=== PATIENT | male | born 1945 | race Caucasian/White ===

== ENCOUNTER 2018-07-04 09:45 | Emergency (ER) | payer MEDICARE, OTHER ==
--- NOTE | 2018-07-04 10:20 | EDM.PDOC ---
ED HPI GENERAL MEDICAL PROBLEM - General Chief Complaint: Respiratory Problem Stated Complaint: lethargic, hypoxia Time Seen by Provider: 07/04/18 10:14 Source of Information: Reports: Patient, RN Notes Reviewed History Limitations: Reports: No Limitations - History of Present Illness Onset Time: 10:15 Duration: Improving Location: Reports: Neck, Chest Quality: Reports: Stabbing, Throbbing Severity: Moderate Improves with: Reports: None Worsens with: Reports: Movement Associated Symptoms: Reports: Cough, Fever/Chills Bilateral Arms Pain Score (Numeric/FACES): 9 - Related Data Allergies Allergy/AdvReac Type Severity Reaction Status Date / Time sulfamethoxazole Allergy unknown Verified 07/04/18 10:02 [From ] trimethoprim [From ] Allergy unknown Verified 07/04/18 10:02 Home Meds: Home Meds Albuterol/Ipratropium [DuoNeb 3.0-0.5 MG/3 ML] 3 ml INH Q4H PRN 07/04/18 [ History] Albuterol/Ipratropium [DuoNeb 3.0-0.5 MG/3 ML] 3 ml INH TID@0800,1300,07/04 [History] Apixaban [Eliquis] 5 mg PO BID@0800,199907/04/18 [History] Atenolol 6.25 mg PO BID@0800,199907/04/18 [History] Betamethasone Dipropionate [Diprosone 0.05% Crm] 1 applic TOP BID PRN 07/04/18 [ History] Clotrimazole [Clotrimazole 1%] 1 applic TOP BID PRN 07/04/18 [History] Cyclobenzaprine [Flexeril] 10 mg PO TID@0800,1400,199907/04/18 [History] Gabapentin [Neurontin] 800 mg PO TID 07/04/18 [History] Hydrocodone/Acetaminophen [Hydrocodon-Acetaminophen 5-325] 1 each PO Q4H PRN 12/13 [History] Insulin Glarg,Human.Rec.Analog [Lantus Solostar] 10 units SUBCUT QAM 07/04/18 [ History] Ketoconazole [Ketoconazole 2%] 1 applic TOP DAILY PRN 07/04/18 [History] Levothyroxine Sodium [Synthroid] 125 mcg PO QAM 07/04/18 [History] Lisinopril 10 mg PO QAM 07/04/18 [History] Magnesium Hydroxide [Milk of Magnesia] 30 ml PO BID PRN 07/04/18 [History] Melatonin 6 mg PO BEDTIME 07/04/18 [History] Menthol [[place] Sugar Free] 1 carlin PO Q2H PRN 07/04/18 [History] Methyl Salicylate/Menthol [Muscle Rub] 1 applic TOP DAILY@209907/04/18 [History ] Methyl Salicylate/Menthol [Muscle Rub] 1 applic TOP QID PRN 07/04/18 [History] Morphine Sulfate [Morphabond ER] 30 mg PO BID@0800,199907/04/18 [History] Multivitamins [Tab-A-Gentry] 1 tab PO QAM 07/04/18 [History] Phenylephrine HCl [Sudogest PE] 10 mg PO Q4H PRN MDD 6 tabs in 24 hours [History] Sennosides/Docusate Sodium [Senna Plus Tablet] 1 tab PO BID@08,199907/04/18 [ History] Simvastatin 20 mg PO BEDTIME 07/04/18 [History] amLODIPine [Norvasc] 5 mg PO QPM 07/04/18 [History] buPROPion [Wellbutrin SR] 100 mg PO Q12HR 07/04/18 [History] guaiFENesin [Mucinex] 600 mg PO BID PRN 07/04/18 [History] guaiFENesin/Dextromethorphan [Tussin Dm Cough Syrup] 10 ml PO Q4H PRN 07/04/18 [ History] hydroCHLOROthiazide [Hydrochlorothiazide] 12.5 mg PO QAM 07/04/18 [History] predniSONE [Prednisone] 7.5 mg PO DAILY 07/04/18 [History] traZODone HCl [Trazodone HCl] 150 mg PO BEDTIME 07/04/18 [History] ED ROS GENERAL - Review of Systems Review Of Systems: See Below Constitutional: Reports: Fever HEENT: Reports: No Symptoms Respiratory: Reports: Shortness of Breath, Cough Cardiovascular: Reports: Lightheadedness Endocrine: Reports: No Symptoms GI/Abdominal: Reports: No Symptoms : Reports: No Symptoms Musculoskeletal: Reports: Neck Pain, Shoulder Pain, Arm Pain, Muscle Pain, Muscle Stiffness Skin: Reports: No Symptoms Neurological: Reports: Numbness, Tremors, Weakness Psychiatric: Reports: No Symptoms Hematologic/Lymphatic: Reports: No Symptoms ED EXAM, GENERAL - Physical Exam Exam: See Below Exam Limited By: No Limitations General Appearance: Alert, WD/WN, No Apparent Distress Ears: Normal External Exam, Normal Canal, Hearing Grossly Normal, Normal TMs Nose: Normal Inspection, Normal Mucosa, No Blood Throat/Mouth: Normal Inspection Head: Atraumatic Neck: Limited Range of Motion Respiratory/Chest: Decreased Breath Sounds, Prolonged Expiration GI/Abdominal: Normal Bowel Sounds, Soft, Non-Tender, No Organomegaly, No Distention, No Abnormal Bruit, No Mass (Male) Exam: Deferred Rectal (Males) Exam: Deferred Back Exam: Decreased Range of Motion Extremities: Other (Right arm pain and left arm tingling with some shakes and tremors of both extremities right greater than left) Neurological: Alert, Oriented, CN II-XII Intact, Normal Cognition, Normal Gait, Normal Reflexes, No Motor/Sensory Deficits Psychiatric: Normal Affect, Normal Mood Skin Exam: Warm, Dry, Intact, Normal Color, No Rash Lymphatic: No Adenopathy Course - Vital Signs Last Recorded V/S: Last Vital Signs Temp 99.9 F 07/04/18 10:10 Pulse 74 07/04/18 10:10 Resp 16 07/04/18 10:10 BP 173/88 H 07/04/18 10:10 Pulse Ox 90 L 07/04/18 11:30 - Orders/Labs/Meds Orders: Active Orders 24 hr Category Date Time Status RT Aerosol Therapy [RC] ASDIRECTED Care 07/04/18 12:02 Active Chest 2V [CR] Stat Exams 07/04/18 10:11 Taken CULTURE BLOOD [BC] Stat Lab 07/04/18 10:15 Received CULTURE BLOOD [BC] Stat Lab 07/04/18 10:35 Received Morphine Med 07/04/18 12:06 Once 2 mg IVPUSH ONETIME ONE Blood Culture x2 Reflex Set [OM.PC] Stat Oth 07/04/18 10:12 Ordered Medication Orders Morphine Sulfate (Morphine) 2 mg IVPUSH ONETIME ONE Stop: 07/04/18 12:07 Labs: Laboratory Tests 07/04/18 07/04/18 07/04/18 Range/Units 10:35 10:35 10:35 WBC 8.2 (4.0-10.2) K/uL RBC 4.63 (4.33-5.41) M/uL Hgb 15.1 (13.1-16.8) g/dL Hct 46.4 (39.0-49.0) % MCV 100.2 H (84.0-98.0) fL MCH 32.6 (28.2-33.3) pg MCHC 32.5 (31.7-36.0) g/dL RDW 14.7 H (11.2-14.1) % Plt Count 184 (150-350) K/uL Neut % (Auto) 77.5 (45.0-80.0) % Lymph % (Auto) 9.2 L (10.0-50.0) % [place] % (Auto) 10.8 (2.0-14.0) % Eos % (Auto) 1.8 (0.0-5.0) % Baso % (Auto) 0.7 (0.0-2.0) % Neut # (Auto) 6.37 (1.40-7.00) K/uL Lymph # (Auto) 0.76 (0.50-3.50) K/uL [place] # (Auto) 0.89 (0.00-1.00) K/uL Eos # (Auto) 0.15 (0.00-0.50) K/uL Baso # (Auto) 0.06 (0.00-0.20) K/uL Sodium 141 (136-145) mmol/L Potassium 4.2 (3.5-5.1) mmol/L Chloride 99 (98-107) mmol/L Carbon Dioxide 35.8 H (21.0-32.0) mmol/L BUN 45 H (7-18) mg/dL Creatinine 1.77 H (0.51-1.17) mg/dL Est Cr Clr Drug Dosing 38.83 mL/min Estimated GFR (MDRD) 38 mL/min Glucose 198 H (74-106) mg/dL Calcium 9.7 (8.5-10.1) mg/dL Total Bilirubin 0.5 (0.2-1.0) mg/dL AST 21 (15-37) U/L ALT 40 (12-78) U/L Alkaline Phosphatase 80 (46-116) IU/L NT-Pro-B Natriuret Pep 90 (0-125) pg/mL Total Protein 7.0 (6.4-8.2) g/dL Albumin 3.6 (3.4-5.0) g/dL Meds: Medications Generic Name Dose Route Start Last Admin Trade Name Freq PRN Reason Stop Dose Admin Morphine Sulfate 2 mg 07/04/18 12:06 Morphine IVPUSH 07/04/18 12:07 ONETIME ONE Discontinued Medications Generic Name Dose Route Start Last Admin Trade Name Freq PRN Reason Stop Dose Admin Albuterol/Ipratropium 3 ml 07/04/18 12:02 Duoneb 3.0-0.5 Mg/3 Ml NEB 07/04/18 12:03 ONETIME ONE Departure - Departure Time of Disposition: 11:58 Disposition: Home, Self-Care 01 Condition: Fair Clinical Impression: Pneumonia Qualifiers: Aspiration pneumonia type: unspecified Laterality: right Lung location: lower lobe of lung - Discharge Information *PRESCRIPTION DRUG MONITORING PROGRAM REVIEWED*: No *COPY OF PRESCRIPTION DRUG MONITORING REPORT IN PATIENT COLEEN: No Referrals: Sheets-Montserrat Camacho MD [Primary Care Provider] - Forms: ED Department Discharge Care Plan Goals: Patient will be sent home on Levaquin 500 daily (plus Augmentin 875 twice a day for 10 days and duo nebs every 4 hours when necessary encourage deep breathing and coughing and pain meds as per private M.D. patient given morphine sulfate IV 2 mg at this time continue with oxygen 2-3 L as needed . - My Orders Last 24 Hours: My Active Orders 07/04/18 10:11 Chest 2V [CR] Stat 07/04/18 10:12 Blood Culture x2 Reflex Set [OM.PC] Stat 07/04/18 10:15 CULTURE BLOOD [BC] Stat 07/04/18 10:35 CULTURE BLOOD [BC] Stat 07/04/18 12:02 RT Aerosol Therapy [RC] ASDIRECTED 07/04/18 12:06 Morphine 2 mg IVPUSH ONETIME ONE - Assessment/Plan Last 24 Hours: My Active Orders 07/04/18 10:11 Chest 2V [CR] Stat 07/04/18 10:12 Blood Culture x2 Reflex Set [OM.PC] Stat 07/04/18 10:15 CULTURE BLOOD [BC] Stat 07/04/18 10:35 CULTURE BLOOD [BC] Stat 07/04/18 12:02 RT Aerosol Therapy [RC] ASDIRECTED 07/04/18 12:06 Morphine 2 mg IVPUSH ONETIME ONE
[2018-07-04] MEDS ORDERED: Albuterol/Ipratropium 3.0-0.5 MG/3 ML Neb Soln NEB ONE (12:02)
[2018-07-04] MEDS ORDERED: Morphine 2 MG/ML Syringe IVPUSH ONE (12:06)
== END 2018-07-04 12:40 | disposition home or self-care (01) ==
LOC: LL.ED 09:45
DX: J18.1 Lobar pneumonia, unspecified organism (principal); Z79.899 Other long term (current) drug therapy; Z79.4 Long term (current) use of insulin; Z88.2 Allergy status to sulfonamides; Z88.8 Allergy status to other drugs, medicaments and biological substances
CPT/HCPCS: 36415; 71046; 80053; 83880; 85025; 87040; 94640; 96374; 99285; J2270; J7620-GY

== ENCOUNTER 2018-07-04 16:53 | Emergency (ER) | payer MEDICARE, OTHER ==
[2018-07-04] MEDS ORDERED: Furosemide 40 MG/4 ML VIAL IVPUSH ONE (17:07)
[2018-07-04] MEDS ORDERED: Levofloxacin/Dextrose 5%-Water 750 MG in Premix Bag 1 BAG IV SCH (17:15)
[2018-07-04] MEDS ORDERED: Piperacillin/Tazobactam 3.375 GM in Sodium Chloride 0.9% 100 ML IV SCH (17:30)
[2018-07-04 17:53] LABS: CHLORIDE,CL 101 mmol/L (98-107); SODIUM,NA 140 mmol/L (136-145)
[2018-07-04 18:01] LABS: O2 DELIVERY DEVICE SIMPLE MASK
[2018-07-04 18:02] LABS: BASE EXCESS ARTERIAL 9 mmol/L (-2-3); O2 SATURATION ARTERIAL 91 % (95-98); PCO2 ARTERIAL 76 mmHG (35-45); PO2 ARTERIAL 71 mmHG (80-105)
[2018-07-04 18:03] LABS: O2 FLOW RATE 6 L/min
[2018-07-04 19:26] LABS: O2 DELIVERY DEVICE BIPAP
[2018-07-04 19:27] LABS: BASE EXCESS ARTERIAL 9 mmol/L (-2-3); O2 SATURATION ARTERIAL 95 % (95-98); PCO2 ARTERIAL 74 mmHG (35-45); PO2 ARTERIAL 89 mmHG (80-105)
--- NOTE | 2018-07-04 19:41 | EDM.PDOC ---
ED HPI GENERAL MEDICAL PROBLEM - General Chief Complaint: Respiratory Problem Stated Complaint: lethargic Time Seen by Provider: 07/04/18 16:55 Source of Information: Reports: Fpc Records History Limitations: Reports: Altered Mental Status - History of Present Illness INITIAL COMMENTS - FREE TEXT/NARRATIVE: Patient is a 72-year-old who was seen earlier with pneumonia sent back to the correction progressively got worse over the next 4 hours was brought in lethargic and hypoxic shortness of breath gurgling Onset: Sudden Duration: Hour(s):, Getting Worse Location: Reports: Chest Severity: Severe Improves with: Reports: None Worsens with: Reports: None Context: Reports: Other (Ill) Associated Symptoms: Reports: Confusion, Fever/Chills, Shortness of Breath Treatments TABLE ATTENDANT: Reports: Breathing Treatments - Related Data Allergies Allergy/AdvReac Type Severity Reaction Status Date / Time sulfamethoxazole Allergy unknown Verified 07/04/18 10:02 [From ] trimethoprim [From ] Allergy unknown Verified 07/04/18 10:02 Home Meds: Home Meds Albuterol/Ipratropium [DuoNeb 3.0-0.5 MG/3 ML] 3 ml INH Q4H PRN 07/04/18 [ History] Albuterol/Ipratropium [DuoNeb 3.0-0.5 MG/3 ML] 3 ml INH TID@0800,1300,07/04 [History] Apixaban [Eliquis] 5 mg PO BID@0800,199907/04/18 [History] Atenolol 6.25 mg PO BID@0800,199907/04/18 [History] Betamethasone Dipropionate [Diprosone 0.05% Crm] 1 applic TOP BID PRN 07/04/18 [ History] Clotrimazole [Clotrimazole 1%] 1 applic TOP BID PRN 07/04/18 [History] Cyclobenzaprine [Flexeril] 10 mg PO TID@0800,1400,199907/04/18 [History] Gabapentin [Neurontin] 800 mg PO TID 07/04/18 [History] Hydrocodone/Acetaminophen [Hydrocodon-Acetaminophen 5-325] 1 each PO Q4H PRN 12/13 [History] Insulin Glarg,Human.Rec.Analog [Lantus Solostar] 10 units SUBCUT QAM 07/04/18 [ History] Ketoconazole [Ketoconazole 2%] 1 applic TOP DAILY PRN 07/04/18 [History] Levothyroxine Sodium [Synthroid] 125 mcg PO QAM 07/04/18 [History] Lisinopril 10 mg PO QAM 07/04/18 [History] Magnesium Hydroxide [Milk of Magnesia] 30 ml PO BID PRN 07/04/18 [History] Melatonin 6 mg PO BEDTIME 07/04/18 [History] Menthol [[place] Sugar Free] 1 carlin PO Q2H PRN 07/04/18 [History] Methyl Salicylate/Menthol [Muscle Rub] 1 applic TOP DAILY@209907/04/18 [History ] Methyl Salicylate/Menthol [Muscle Rub] 1 applic TOP QID PRN 07/04/18 [History] Morphine Sulfate [Morphabond ER] 30 mg PO BID@0800,199907/04/18 [History] Multivitamins [Tab-A-Gentry] 1 tab PO QAM 07/04/18 [History] Phenylephrine HCl [Sudogest PE] 10 mg PO Q4H PRN MDD 6 tabs in 24 hours [History] Sennosides/Docusate Sodium [Senna Plus Tablet] 1 tab PO BID@0800,199907/04/18 [ History] Simvastatin 20 mg PO BEDTIME 07/04/18 [History] amLODIPine [Norvasc] 5 mg PO QPM 07/04/18 [History] buPROPion [Wellbutrin SR] 100 mg PO Q12HR 07/04/18 [History] guaiFENesin [Mucinex] 600 mg PO BID PRN 07/04/18 [History] guaiFENesin/Dextromethorphan [Tussin Dm Cough Syrup] 10 ml PO Q4H PRN 07/04/18 [ History] hydroCHLOROthiazide [Hydrochlorothiazide] 12.5 mg PO QAM 07/04/18 [History] predniSONE [Prednisone] 7.5 mg PO DAILY 07/04/18 [History] traZODone HCl [Trazodone HCl] 150 mg PO BEDTIME 07/04/18 [History] Past Medical History HEENT History: Reports: Impaired Vision, Other (See Below) Other HEENT History: wears glasses. 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 polymyalgia rheumatica. cervicalgia Neurological History: Reports: CVA Psychiatric History: Reports: Addiction, Depression, PTSD Other Psychiatric History: hx. alcoholism Endocrine/Metabolic History: Reports: Diabetes, Type II, Hypothyroidism, Obesity /BMI 30+ Dermatologic History: Reports: Seborrheic Dermatitis - Past Surgical History GI Surgical History: Reports: Cholecystectomy Social & Family History - Tobacco Use Smoking Status *Q: Former Smoker Used Tobacco, but Quit: Yes Month/Year Tobacco Last Used: 2004 - Caffeine Use Caffeine Use: Reports: Soda, Tea - Recreational Drug Use Recreational Drug Use: No ED ROS GENERAL - Review of Systems Review Of Systems: See Below Constitutional: Reports: Fever HEENT: Reports: No Symptoms Respiratory: Reports: Shortness of Breath Cardiovascular: Reports: No Symptoms Endocrine: Reports: No Symptoms GI/Abdominal: Reports: No Symptoms : Reports: Other (Catheter) Musculoskeletal: Reports: No Symptoms Skin: Reports: No Symptoms Neurological: Reports: No Symptoms Psychiatric: Reports: No Symptoms Hematologic/Lymphatic: Reports: No Symptoms Immunologic: Reports: No Symptoms ED EXAM, GENERAL - Physical Exam Exam: See Below Exam Limited By: Altered Mental Status General Appearance: Obtunded Ears: Normal External Exam, Normal Canal, Hearing Grossly Normal, Normal TMs Nose: Normal Inspection Throat/Mouth: Normal Inspection, Normal Lips, Normal Teeth, Normal Gums, Normal Oropharynx, Normal Voice, No Airway Compromise Head: Atraumatic, Normocephalic Neck: Normal Inspection, Supple Respiratory/Chest: Respiratory Distress, Decreased Breath Sounds, Rales Cardiovascular: Regular Rate, Rhythm, No Murmur, Other (Edema). No: Systolic Murmur Extremities: Pedal Edema (+2) Neurological: Unresponsive ED RESPIRATORY PROCEDURES - Endotracheal Intubation Time of Intubation: 20:00 ET Intubation Indication: Respiratory Failure Preparation: Suction, Balloon Tested, BVM Set Up, Difficult Airway Equip Airway Assessment: Obese, Large Tongue Pre-Oxygenation: Assisted with BVM, 100% FiO2 Anesthesia Meds: Midazolam, Rocuronium Placement: Uncomplicated Placement Cords Visualized: Yes Number of Attempts: 1 Confirmed By: CO2 Indicator, Bilateral Breath Sounds, Chest Xray Tube Secured By: By Provider Course - Vital Signs Last Recorded V/S: Last Vital Signs Temp 98.2 F 07/04/18 21:29 Pulse 85 07/04/18 21:29 Resp 12 07/04/18 21:29 BP 114/100 H 07/04/18 21:29 Pulse Ox 94 L 07/04/18 21:29 - Orders/Labs/Meds Labs: Laboratory Tests 07/04/18 07/04/18 07/04/18 Range/Units 17:25 17:25 17:25 WBC 7.7 (4.0-10.2) K/uL RBC 4.58 (4.33-5.41) M/uL Hgb 14.9 (13.1-16.8) g/dL Hct 46.0 (39.0-49.0) % MCV 100.4 H (84.0-98.0) fL MCH 32.5 (28.2-33.3) pg MCHC 32.4 (31.7-36.0) g/dL RDW 14.6 H (11.2-14.1) % Plt Count 197 (150-350) K/uL Neut % (Auto) 75.4 (45.0-80.0) % Lymph % (Auto) 11.0 (10.0-50.0) % [place] % (Auto) 11.4 (2.0-14.0) % Eos % (Auto) 1.6 (0.0-5.0) % Baso % (Auto) 0.6 (0.0-2.0) % Neut # (Auto) 5.84 (1.40-7.00) K/uL Lymph # (Auto) 0.85 (0.50-3.50) K/uL [place] # (Auto) 0.88 (0.00-1.00) K/uL Eos # (Auto) 0.12 (0.00-0.50) K/uL Baso # (Auto) 0.05 (0.00-0.20) K/uL ABG pH (7.35-7.45) ABG pCO2 (35-45) mmHG ABG pO2 (80-105) mmHG ABG HCO3 (22-26) mmol/L ABG Total CO2 (23-27) mmol/L ABG O2 Saturation (95-98) % ABG Base Excess (-2-3) mmol/L O2 Delivery Device Oxygen Flow Rate L/min Sodium 140 (136-145) mmol/L Potassium 4.7 (3.5-5.1) mmol/L Chloride 101 (98-107) mmol/L Carbon Dioxide 36.4 H (21.0-32.0) mmol/L BUN 43 H (7-18) mg/dL Creatinine 1.69 H (0.51-1.17) mg/dL Est Cr Clr Drug Dosing TNP Estimated GFR (MDRD) 40 mL/min Glucose 201 H (74-106) mg/dL Lactic Acid (0.4-2.0) mmol/L Calcium 9.4 (8.5-10.1) mg/dL Troponin I (0.000-0.056) ng/mL NT-Pro-B Natriuret Pep 127 H (0-125) pg/mL 07/04/18 07/04/18 07/04/18 Range/Units 17:25 17:25 17:45 WBC (4.0-10.2) K/uL RBC (4.33-5.41) M/uL Hgb (13.1-16.8) g/dL Hct (39.0-49.0) % MCV (84.0-98.0) fL MCH (28.2-33.3) pg MCHC (31.7-36.0) g/dL RDW (11.2-14.1) % Plt Count (150-350) K/uL Neut % (Auto) (45.0-80.0) % Lymph % (Auto) (10.0-50.0) % [place] % (Auto) (2.0-14.0) % Eos % (Auto) (0.0-5.0) % Baso % (Auto) (0.0-2.0) % Neut # (Auto) (1.40-7.00) K/uL Lymph # (Auto) (0.50-3.50) K/uL [place] # (Auto) (0.00-1.00) K/uL Eos # (Auto) (0.00-0.50) K/uL Baso # (Auto) (0.00-0.20) K/uL ABG pH 7.28 L* (7.35-7.45) ABG pCO2 76 H* (35-45) mmHG ABG pO2 71 L* (80-105) mmHG ABG HCO3 36.0 H (22-26) mmol/L ABG Total CO2 38 H (23-27) mmol/L ABG O2 Saturation 91 L (95-98) % ABG Base Excess 9 H (-2-3) mmol/L O2 Delivery Device Simple mask Oxygen Flow Rate 6 L/min Sodium (136-145) mmol/L Potassium (3.5-5.1) mmol/L Chloride (98-107) mmol/L Carbon Dioxide (21.0-32.0) mmol/L BUN (7-18) mg/dL Creatinine (0.51-1.17) mg/dL Est Cr Clr Drug Dosing Estimated GFR (MDRD) mL/min Glucose (74-106) mg/dL Lactic Acid 1.4 (0.4-2.0) mmol/L Calcium (8.5-10.1) mg/dL Troponin I 0.000 (0.000-0.056) ng/mL NT-Pro-B Natriuret Pep (0-125) pg/mL 07/04/18 07/04/18 07/04/18 Range/Units 19:20 20:15 21:15 WBC (4.0-10.2) K/uL RBC (4.33-5.41) M/uL Hgb (13.1-16.8) g/dL Hct (39.0-49.0) % MCV (84.0-98.0) fL MCH (28.2-33.3) pg MCHC (31.7-36.0) g/dL RDW (11.2-14.1) % Plt Count (150-350) K/uL Neut % (Auto) (45.0-80.0) % Lymph % (Auto) (10.0-50.0) % [place] % (Auto) (2.0-14.0) % Eos % (Auto) (0.0-5.0) % Baso % (Auto) (0.0-2.0) % Neut # (Auto) (1.40-7.00) K/uL Lymph # (Auto) (0.50-3.50) K/uL [place] # (Auto) (0.00-1.00) K/uL Eos # (Auto) (0.00-0.50) K/uL Baso # (Auto) (0.00-0.20) K/uL ABG pH 7.29 L* 7.22 L* 7.39 (7.35-7.45) ABG pCO2 74 H* 88 H* 63 H* (35-45) mmHG ABG pO2 89 68 L* 96 (80-105) mmHG ABG HCO3 36.0 H 36.0 H 37.0 H (22-26) mmol/L ABG Total CO2 38 H 38 H 39 H (23-27) mmol/L ABG O2 Saturation 95 88 L 97 (95-98) % ABG Base Excess 9 H 8 H 12 H (-2-3) mmol/L O2 Delivery Device Bipap Bipap Ventilator Oxygen Flow Rate L/min Sodium (136-145) mmol/L Potassium (3.5-5.1) mmol/L Chloride (98-107) mmol/L Carbon Dioxide (21.0-32.0) mmol/L BUN (7-18) mg/dL Creatinine (0.51-1.17) mg/dL Est Cr Clr Drug Dosing Estimated GFR (MDRD) mL/min Glucose (74-106) mg/dL Lactic Acid (0.4-2.0) mmol/L Calcium (8.5-10.1) mg/dL Troponin I (0.000-0.056) ng/mL NT-Pro-B Natriuret Pep (0-125) pg/mL Meds: Medications Discontinued Medications Generic Name Dose Route Start Last Admin Trade Name Freq PRN Reason Stop Dose Admin Furosemide 40 mg 07/04/18 17:07 07/04/18 17:50 Lasix IVPUSH 07/04/18 17:08 40 mg NOW ONE Administration Levofloxacin/Dextrose 750 mg/ 150 mls @ 100 mls/hr 07/04/18 17:15 07/04/18 17 :50 Premix IV 100 mls/hr Q24H MIKIE Administration Piperacillin Sod/Tazobactam 100 mls @ 200 mls/hr 07/04/18 17:30 07/04/18 17: 50 Sod 3.375 gm/ Sodium Chloride IV 200 mls/hr Q6H MIKIE Administration Midazolam HCl 2 mg 07/04/18 20:30 07/04/18 20:32 Versed 1 Mg/Ml IVPUSH 07/04/18 20:31 2 mg ONETIME ONE Administration Midazolam HCl 1 mg 07/04/18 20:34 07/04/18 20:34 Versed 1 Mg/Ml IVPUSH 07/04/18 20:35 1 mg ONETIME ONE Administration Rocuronium [place] Confirm 07/04/18 19:47 07/04/18 20:00 Zemuron Administered 07/04/18 19:48 Not Given Dose 100 mg .ROUTE .STK-MED ONE Rocuronium [place] Confirm 07/04/18 20:25 07/04/18 20:30 Zemuron Administered 07/04/18 20:26 Not Given Dose 100 mg .ROUTE .STK-MED ONE Rocuronium [place] Confirm 07/04/18 21:35 07/04/18 21:00 Zemuron Administered 07/04/18 21:36 Not Given Dose 100 mg .ROUTE .STK-MED ONE Rocuronium [place] 60 mg 07/04/18 20:30 07/04/18 20:34 Zemuron IVPUSH 07/04/18 20:31 60 mg ONETIME ONE Administration Departure - Departure Time of Disposition: 21:44 Disposition: DC/[facility] Clinical Impression: Congestive heart failure Qualifiers: Heart failure type: unspecified Heart failure chronicity: acute on chronic Qualified Code(s): I50.9 - Heart failure, unspecified Pneumonia Qualifiers: Aspiration pneumonia type: unspecified Laterality: right Lung location: lower lobe of lung - Discharge Information *PRESCRIPTION DRUG MONITORING PROGRAM REVIEWED*: Not Applicable *COPY OF PRESCRIPTION DRUG MONITORING REPORT IN PATIENT COLEEN: Not Applicable Referrals: PCP,None [Primary Care Provider] - Forms: ED Department Discharge - Problem List & Annotations (1) Congestive heart failure SNOMED Code(s): 94277148 Code(s): I50.9 - HEART FAILURE, UNSPECIFIED Status: Acute Annotation/ Comment:: Patient condition has deteriorated from arrival pH 7.29 PCO2 is 73 PO2 is 89 this is on 50% BiPAP IPAP 14 EPA P4 rate of 14 we will repeat ABGs and 20 minutes if no improvement will intubate and transfer I discussed this with Dr. Hernandez at the OR Qualifiers: Heart failure type: unspecified Heart failure chronicity: acute on chronic Qualified Code(s): I50.9 - Heart failure, unspecified - Problem List Review Problem List Initiated/Reviewed/Updated: Yes - Assessment/Plan Plan: Plan as above we will repeat the ABGs on new settings and follow-up with possible intubation and transfer to [place]
[2018-07-04] MEDS ORDERED: Rocuronium 100 MG/10 ML MDV ONE ×3 (19:47→21:35)
[2018-07-04 20:23] LABS: O2 DELIVERY DEVICE BIPAP; PCO2 ARTERIAL 88 mmHG (35-45)
[2018-07-04 20:24] LABS: BASE EXCESS ARTERIAL 8 mmol/L (-2-3); O2 SATURATION ARTERIAL 88 % (95-98); PO2 ARTERIAL 68 mmHG (80-105)
[2018-07-04] MEDS ORDERED: Midazolam 1 MG/ML 2 ML SDV IVPUSH ONE ×2 (20:30→20:34)
[2018-07-04] MEDS ORDERED: Rocuronium 100 MG/10 ML MDV IVPUSH ONE (20:30)
[2018-07-04 21:25] LABS: BASE EXCESS ARTERIAL 12 mmol/L (-2-3); O2 DELIVERY DEVICE VENTILATOR; O2 SATURATION ARTERIAL 97 % (95-98); PCO2 ARTERIAL 63 mmHG (35-45); PO2 ARTERIAL 96 mmHG (80-105)
--- NOTE | 2018-07-05 01:49 | ER ---
Milton is a 72-year-old who was sent from the [facility] with chief complaint of respiratory distress. Initially, he was seen earlier in the day, diagnosed with pneumonia, and sent home on antibiotics. He progressively got worse, where he developed significant respiratory distress with retaining his CO2. He became obtunded and nonreactive. Initial blood gas revealed a pH of 7.28, pCO2 of 76, and PO2 of 71%. At that time, I discussed was brother code status and told him that the patient wanted to be a do not resuscitate, do not intubate, but the POA over ruled and wanted everything done for him, so we decided to go ahead and intubate him. A second ABG was obtained with a pH of 7.29, pCO2 of 74, and O2 saturations of 89%. This was while on BiPAP and IPAP of 14 and EPAP P of 4, rate of 10. [facility] and told him that I needed to intubate him and send them up. He wanted me to wait another 0.5 hour. We went ahead, and at 8:15 we did another ABG with the same settings, but a rate of 14. His pH went down to 7.22. His CO2 was up at 88, and his pCO2 was 86. At this time, we decided to go ahead and intubate. The patient was intubated under controlled circumstances. We went ahead and gave him Versed 3 mg plus vecuronium 60 IV, and then once the patient was relaxed, under direct vision he was intubated. Intubation went without any complications. We were able to start him on 8 to 10 L of O2 and ventilating him about 14 times per second. After x-rays were obtained, which showed good position of the 2 NG tube. A blood gas was obtained about a half an hour later, which showed his pH to be at 7.39, his pCO2 went down to 63, his PO2 went to 96, and a rate of about 12 breaths per minute. At this time, the [facility] was contacted and agreed to accept him. We will transfer him to Dr. Hernandez for further treatment. He will be sent by ground. The patient is stable. Right now, his saturations is 96. His end tidal CO2 was 42. His rate is 10 to 12, blood pressure 114/100, and pulse of 80. Physical Exam: Patient seen in the ER at this time patient is a pounding and difficult to arouse he had severe hypoxia and hypercapnia head cephalic atraumatic eyes PERRLA throat was clear no redness no exudate lungs bilateral breath sounds decreased throughout with increased rales chest x- ray at this time reveal worsening CHF and pneumonia at this time we discussed this with the brother who is the POA and brother agreed to intubation cardiovascular regular rate and rhythm tachycardic abdomen soft distended nontender no masses no organomegaly extremities reveal +1 edema Assessment: worsening CHF pneumonia Plan At this time, the patient is stable. We have good output of urine. The patient will be sent to the [facility] via ambulance. We will continue him on his Levaquin and his Zosyn. Labs will be sent with the patient. X-rays will be sent with the patient. SWEETIE Wilkins MD /[id number] MTDD
== END 2018-07-04 21:44 ==
LOC: LL.ED 16:53
DX: J18.1 Lobar pneumonia, unspecified organism (principal); I48.91 Unspecified atrial fibrillation; I13.0 Hypertensive heart and chronic kidney disease with heart failure and stage 1 through stage 4 chronic kidney disease, or unspecified chronic kidney disease; I50.9 Heart failure, unspecified; N18.9 Chronic kidney disease, unspecified; E11.22 Type 2 diabetes mellitus with diabetic chronic kidney disease; E03.9 Hypothyroidism, unspecified; F32.9 Major depressive disorder, single episode, unspecified; J44.9 Chronic obstructive pulmonary disease, unspecified; Z86.73 Personal history of transient ischemic attack (TIA), and cerebral infarction without residual deficits; Z79.899 Other long term (current) drug therapy; Z79.4 Long term (current) use of insulin; Z87.891 Personal history of nicotine dependence; Z88.2 Allergy status to sulfonamides; Z88.8 Allergy status to other drugs, medicaments and biological substances; Z88.1 Allergy status to other antibiotic agents
CPT/HCPCS: 31500; 36415; 51702; 71045; 80048; 82803; 83605; 83880; 84484; 85025; 93005; 96365; 96368; 96375; 99285; A4217; J1940; J1956; J2250; J2543; J7050; 43752

== ENCOUNTER 2018-08-01 11:15 | Emergency (ER) | payer MEDICARE, OTHER ==
[2018-08-01] MEDS ORDERED: cefTRIAXone 1 GM in Sodium Chloride 0.9% 100 ML IV ONE (12:41)
[2018-08-01] MEDS ORDERED: Sodium Chloride 0.9% 10 ML Syringe FLUSH PRN (12:41)
[2018-08-01] MEDS ORDERED: Sodium Chloride 0.9% 1,000 ML IV ONE (12:42)
[2018-08-01] MEDS ORDERED: Azithromycin 500 MG in Sodium Chloride 0.9% 250 ML IV ONE (12:42)
--- NOTE | 2018-08-01 13:06 | EDM.PDOC ---
ED HPI GENERAL MEDICAL PROBLEM - General Chief Complaint: Respiratory Problem Stated Complaint: fever 102.2, O2 dependant, low bp Time Seen by Provider: 08/01/18 11:20 Source of Information: Reports: Patient, Other ([facility]) History Limitations: Reports: No Limitations - History of Present Illness INITIAL COMMENTS - FREE TEXT/NARRATIVE: Patient sent here by [facility] due to noted increase in O2 requirements, fever, and increased fatigue. He was seen here about a month ago for similar complaints and ended up worsening and requiring intubation. Discharged from [facility] several weeks ago. Today it was noted that patient had temp of 102. He also slept in until 11 am which is unusual for him. BP noted to also be lower than usual. He wears O2 at night, but not during the day. Today O2 sats were in mid 80s on room air and O2 via NC was started to keep his sats in the low 90s. He has had no cough/no increase in SOB. Denies cold symptoms. Eating and drinking normally. No nausea/emesis/bowel changes. No new pain complaints. Patient himself denies feeling poorly upon arrival and says that he feels like his usual self. 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: Oxygen Lower Back Pain Score (Numeric/FACES): 3 - Related Data Allergies Allergy/AdvReac Type Severity Reaction Status Date / Time morphine Allergy Change Verified 08/01/18 11:19 Mental Status sulfamethoxazole Allergy unknown Verified 08/01/18 11:19 [From ] trimethoprim [From ] Allergy unknown Verified 08/01/18 11:19 Home Meds: Home Meds Albuterol/Ipratropium [DuoNeb 3.0-0.5 MG/3 ML] 3 ml INH BID 07/04/18 [History] Apixaban [Eliquis] 5 mg PO BID@0800,2000 07/04/18 [History] Clotrimazole [Clotrimazole 1%] 1 applic TOP BID PRN 07/04/18 [History] Cyclobenzaprine [Flexeril] 10 mg PO Q8H PRN 07/04/18 [History] Gabapentin [Neurontin] 800 mg PO TID 07/04/18 [History] Insulin Glarg,Human.Rec.Analog [Lantus Solostar] 10 units SUBCUT QAM 07/04/18 [ History] Levothyroxine Sodium [Synthroid] 125 mcg PO QAM 07/04/18 [History] Lisinopril 10 mg PO QAM 07/04/18 [History] Melatonin 6 mg PO BEDTIME 07/04/18 [History] Methyl Salicylate/Menthol [Muscle Rub] 1 applic TOP QID PRN 07/04/18 [History] Sennosides/Docusate Sodium [Senna Plus Tablet] 1 tab PO BID@0800,2000 PRN [History] Simvastatin 20 mg PO BEDTIME 07/04/18 [History] amLODIPine [Norvasc] 5 mg PO QPM 07/04/18 [History] buPROPion [Wellbutrin SR] 100 mg PO Q12HR 07/04/18 [History] hydroCHLOROthiazide [Hydrochlorothiazide] 12.5 mg PO QAM 07/04/18 [History] predniSONE [Prednisone] 7.5 mg PO DAILY 07/04/18 [History] traZODone HCl [Trazodone HCl] 150 mg PO BEDTIME 07/04/18 [History] Acetaminophen 650 mg PO Q6H PRN 08/01/18 [History] Clopidogrel [Plavix] 75 mg PO DAILY 08/01/18 [History] Metoprolol Tartrate 75 mg PO BID 08/01/18 [History] Past Medical History HEENT History: Reports: Impaired Vision, Other (See Below) Other HEENT History: wears glasses. 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 polymyalgia rheumatica. cervicalgia Neurological History: Reports: CVA Psychiatric History: Reports: Addiction, Depression, PTSD Other Psychiatric History: hx. alcoholism Endocrine/Metabolic History: Reports: Diabetes, Type II, Hypothyroidism, Obesity /BMI 30+ Dermatologic History: Reports: Seborrheic Dermatitis - Past Surgical History GI Surgical History: Reports: Cholecystectomy Social & Family History - Caffeine Use Caffeine Use: Reports: Soda, Tea ED ROS GENERAL - Review of Systems Review Of Systems: See Below Constitutional: Reports: Fever, Fatigue (slept longer than usual today). Denies : Chills, Malaise, Weakness, Night Sweats, Diaphoresis, Decreased Appetite, Weight Loss, Weight Gain HEENT: Reports: Glasses. Denies: Rhinitis, Sinus Problem, Throat Pain, Throat Swelling Respiratory: Reports: Shortness of Breath (chronic, denies increase in baseline SOB). Denies: Wheezing, Pleuritic Chest Pain, Cough, Sputum, Hemoptysis Cardiovascular: Reports: Blood Pressure Problem (BP lower than usual today). Denies: Chest Pain, Lightheadedness, Palpitations, Syncope GI/Abdominal: Reports: No Symptoms : Reports: No Symptoms Musculoskeletal: Reports: No Symptoms (No change from baseline chronic pain) Skin: Reports: No Symptoms Neurological: Reports: No Symptoms Psychiatric: Reports: No Symptoms Hematologic/Lymphatic: Reports: No Symptoms ED EXAM, GENERAL - Physical Exam Exam: See Below Exam Limited By: No Limitations General Appearance: Alert, WD/WN, No Apparent Distress Eye Exam: Bilateral Eye: EOMI, PERRL Ears: Normal External Exam, Hearing Grossly Normal Nose: No: Nasal Deformity, Nasal Swelling, Nasal Drainage Throat/Mouth: Normal Lips, Normal Voice, No Airway Compromise Head: Atraumatic, Normocephalic Neck: Normal Inspection, Supple, Non-Tender, Full Range of Motion Respiratory/Chest: Lungs Clear, No Accessory Muscle Use, Chest Non-Tender, Other (decreased breath sounds throughout) Cardiovascular: Regular Rate, Rhythm Peripheral Pulses: 2+: Radial (L), Radial (R) GI/Abdominal: Normal Bowel Sounds, Soft, Non-Tender, No Distention (Male) Exam: Deferred Rectal (Males) Exam: Deferred Back Exam: No: CVA Tenderness (L), CVA Tenderness (R), Muscle Spasm, Paraspinal Tenderness, Vertebral Tenderness Extremities: Non-Tender, Normal Capillary Refill, Pedal Edema (mild, bilateral) . No: Stanley's Sign, Leg Pain, Increased Warmth, Mottled, Pallor, Redness Neurological: Alert, Oriented, Normal Cognition, No Motor/Sensory Deficits Psychiatric: Normal Affect, Normal Mood Skin Exam: Warm, Dry, Intact, Normal Color Course - Vital Signs Last Recorded V/S: Last Vital Signs Temp 36.8 C 08/01/18 11:17 Pulse 90 08/01/18 11:17 Resp 24 H 08/01/18 11:17 BP 97/59 L 08/01/18 11:17 Pulse Ox 93 L 08/01/18 11:17 - Orders/Labs/Meds Orders: Active Orders 24 hr Category Date Time Status Communication Order [RC] ROUTINE Care 08/01/18 14:26 Ordered Chest 2V [CR] Stat Exams 08/01/18 11:20 Taken CULTURE BLOOD [BC] Stat Lab 08/01/18 13:25 Received CULTURE BLOOD [BC] Stat Lab 08/01/18 14:00 Received UA W/MICROSCOPIC [URIN] Stat Lab 08/01/18 14:27 Ordered Sodium Chloride 0.9% [Saline Flush] Med 08/01/18 12:41 Active 10 ml FLUSH ASDIRECTED PRN Blood Culture x2 Reflex Set [OM.PC] Stat Oth 08/01/18 13:16 Ordered Saline Lock Insert [OM.PC] Routine Oth 08/01/18 12:41 Ordered Code Status [Resuscitation Status] Stat Resus Stat 08/01/18 13:03 Ordered Medication Orders Sodium Chloride (Saline Flush) 10 ml FLUSH ASDIRECTED PRN PRN Reason: Keep Vein Open Labs: Laboratory Tests 08/01/18 08/01/18 08/01/18 Range/Units 11:32 11:32 11:32 WBC 16.4 H (4.0-10.2) K/uL RBC 4.65 (4.33-5.41) M/uL Hgb 14.9 (13.1-16.8) g/dL Hct 44.8 (39.0-49.0) % MCV 96.3 D (84.0-98.0) fL MCH 32.0 (28.2-33.3) pg MCHC 33.3 (31.7-36.0) g/dL RDW 14.1 (11.2-14.1) % Plt Count 227 (150-350) K/uL Neut % (Auto) 81.2 H (45.0-80.0) % Lymph % (Auto) 7.7 L (10.0-50.0) % Shannon % (Auto) 9.9 (2.0-14.0) % Eos % (Auto) 0.5 (0.0-5.0) % Baso % (Auto) 0.7 (0.0-2.0) % Neut # (Auto) 13.30 H (1.40-7.00) K/uL Lymph # (Auto) 1.26 (0.50-3.50) K/uL Shannon # (Auto) 1.63 H (0.00-1.00) K/uL Eos # (Auto) 0.08 (0.00-0.50) K/uL Baso # (Auto) 0.12 (0.00-0.20) K/uL D-Dimer, Quantitative 235 (0-400) ng/mL ABG pH (7.35-7.45) ABG pCO2 (35-45) mmHG ABG pO2 (80-105) mmHG ABG HCO3 (22-26) mmol/L ABG Total CO2 (23-27) mmol/L ABG O2 Saturation (95-98) % ABG Base Excess (-2-3) mmol/L O2 Delivery Device Sodium 138 (136-145) mmol/L Potassium 4.3 (3.5-5.1) mmol/L Chloride 98 (98-107) mmol/L Carbon Dioxide 29.9 (21.0-32.0) mmol/L BUN 35 H (7-18) mg/dL Creatinine 1.36 H (0.51-1.17) mg/dL Est Cr Clr Drug Dosing 49.82 mL/min Estimated GFR (MDRD) 52 mL/min Glucose 259 H (74-106) mg/dL Lactic Acid (0.4-2.0) mmol/L Calcium 9.5 (8.5-10.1) mg/dL Total Bilirubin 1.0 (0.2-1.0) mg/dL AST 53 H (15-37) U/L ALT 40 (12-78) U/L Alkaline Phosphatase 89 (46-116) IU/L Total Protein 7.0 (6.4-8.2) g/dL Albumin 2.9 L (3.4-5.0) g/dL 08/01/18 08/01/18 Range/Units 11:32 13:50 WBC (4.0-10.2) K/uL RBC (4.33-5.41) M/uL Hgb (13.1-16.8) g/dL Hct (39.0-49.0) % MCV (84.0-98.0) fL MCH (28.2-33.3) pg MCHC (31.7-36.0) g/dL RDW (11.2-14.1) % Plt Count (150-350) K/uL Neut % (Auto) (45.0-80.0) % Lymph % (Auto) (10.0-50.0) % Shannon % (Auto) (2.0-14.0) % Eos % (Auto) (0.0-5.0) % Baso % (Auto) (0.0-2.0) % Neut # (Auto) (1.40-7.00) K/uL Lymph # (Auto) (0.50-3.50) K/uL Shannon # (Auto) (0.00-1.00) K/uL Eos # (Auto) (0.00-0.50) K/uL Baso # (Auto) (0.00-0.20) K/uL D-Dimer, Quantitative (0-400) ng/mL ABG pH 7.40 (7.35-7.45) ABG pCO2 48 H (35-45) mmHG ABG pO2 80 (80-105) mmHG ABG HCO3 29.8 H (22-26) mmol/L ABG Total CO2 31 H (23-27) mmol/L ABG O2 Saturation 96 (95-98) % ABG Base Excess 5 H (-2-3) mmol/L O2 Delivery Device Nasal cannula Sodium (136-145) mmol/L Potassium (3.5-5.1) mmol/L Chloride (98-107) mmol/L Carbon Dioxide (21.0-32.0) mmol/L BUN (7-18) mg/dL Creatinine (0.51-1.17) mg/dL Est Cr Clr Drug Dosing mL/min Estimated GFR (MDRD) mL/min Glucose (74-106) mg/dL Lactic Acid 2.1 H (0.4-2.0) mmol/L Calcium (8.5-10.1) mg/dL Total Bilirubin (0.2-1.0) mg/dL AST (15-37) U/L ALT (12-78) U/L Alkaline Phosphatase (46-116) IU/L Total Protein (6.4-8.2) g/dL Albumin (3.4-5.0) g/dL Meds: Medications Generic Name Dose Route Start Last Admin Trade Name Freq PRN Reason Stop Dose Admin Sodium Chloride 10 ml 08/01/18 12:41 Saline Flush FLUSH ASDIRECTED PRN Keep Vein Open Discontinued Medications Generic Name Dose Route Start Last Admin Trade Name Freq PRN Reason Stop Dose Admin Ceftriaxone Sodium 1 gm/ 100 mls @ 200 mls/hr 08/01/18 12:41 08/01/18 13:50 Sodium Chloride IV 08/01/18 13:10 200 mls/hr ONETIME ONE Administration Azithromycin 500 mg/ Sodium 250 mls @ 250 mls/hr 08/01/18 12:42 08/01/18 14: 43 Chloride IV 08/01/18 13:41 250 mls/hr ONETIME ONE Administration Sodium Chloride 1,000 mls @ 999 mls/hr 08/01/18 12:42 08/01/18 13:09 Normal Saline IV 08/01/18 13:42 500 mls/hr .BOLUS ONE Administration - Radiology Interpretation Free Text/Narrative:: Chest xray did not show obvious acute infiltrate suggestive of pneumonia - Re-Assessments/Exams Free Text/Narrative Re-Assessment/Exam: 08/01/18 13:09 WBC elevated, Lactic acid just above normal range. Patient unable to void initially. Given the labs in addition to the increased O2 need as well as the lower BP, there was some suspicion for developing sepsis. No obvious pneumonia noted on xray. Blood cultures pending. Fluid bolus given, BP improved. Rocephin and Zithromax ordered to cover for potential of developing pneumonia. Call placed to [facility] in [place]. Given potentially developing sepsis based on presentation, and recent history of rapid deterioration requiring intubation after presenting with similar symptoms last month, it was felt that patient should be admitted and monitored. Patient accepted for transfer by from the [facility]. Patient transferred by EMS once bed confirmation obtained. Departure - Departure Time of Disposition: 14:55 Disposition: DC/Tfer to [facility] 43 Condition: Good Clinical Impression: Hypoxemia, Elevated lactic acid level Fever Qualifiers: Fever type: unspecified Qualified Code(s): R50.9 - Fever, unspecified - Discharge Information *PRESCRIPTION DRUG MONITORING PROGRAM REVIEWED*: Not Applicable *COPY OF PRESCRIPTION DRUG MONITORING REPORT IN PATIENT COLEEN: Not Applicable Referrals: PCP,Unknown [Ordering Only Provider] - Forms: ED Department Discharge - My Orders Last 24 Hours: My Active Orders 08/01/18 11:20 Chest 2V [CR] Stat 08/01/18 12:41 Sodium Chloride 0.9% [Saline Flush] 10 ml FLUSH ASDIRECTED PRN Saline Lock Insert [OM.PC] Routine 08/01/18 13:03 Code Status [Resuscitation Status] Stat 08/01/18 13:16 Blood Culture x2 Reflex Set [OM.PC] Stat 08/01/18 13:25 CULTURE BLOOD [BC] Stat 08/01/18 14:00 CULTURE BLOOD [BC] Stat 08/01/18 14:26 Communication Order [RC] ROUTINE 08/01/18 14:27 UA W/MICROSCOPIC [URIN] Stat - Assessment/Plan Last 24 Hours: My Active Orders 08/01/18 11:20 Chest 2V [CR] Stat 08/01/18 12:41 Sodium Chloride 0.9% [Saline Flush] 10 ml FLUSH ASDIRECTED PRN Saline Lock Insert [OM.PC] Routine 08/01/18 13:03 Code Status [Resuscitation Status] Stat 08/01/18 13:16 Blood Culture x2 Reflex Set [OM.PC] Stat 08/01/18 13:25 CULTURE BLOOD [BC] Stat 08/01/18 14:00 CULTURE BLOOD [BC] Stat 08/01/18 14:26 Communication Order [RC] ROUTINE 08/01/18 14:27 UA W/MICROSCOPIC [URIN] Stat
[2018-08-01 13:58] LABS: O2 DELIVERY DEVICE NASAL CANNULA; O2 SATURATION ARTERIAL 96 % (95-98); PCO2 ARTERIAL 48 mmHG (35-45); PO2 ARTERIAL 80 mmHG (80-105)
[2018-08-01 13:59] LABS: BASE EXCESS ARTERIAL 5 mmol/L (-2-3); BICARBONATE,ARTERIAL 29.8 mmol/L (22-26)
== END 2018-08-01 15:25 ==
LOC: LL.ED 11:15
DX: R09.02 Hypoxemia (principal); R50.9 Fever, unspecified; R74.0 Nonspecific elevation of levels of transaminase and lactic acid dehydrogenase [LDH]; I48.91 Unspecified atrial fibrillation; I11.0 Hypertensive heart disease with heart failure; I50.9 Heart failure, unspecified; J44.9 Chronic obstructive pulmonary disease, unspecified; N18.9 Chronic kidney disease, unspecified; E11.22 Type 2 diabetes mellitus with diabetic chronic kidney disease; E03.9 Hypothyroidism, unspecified; E66.9 Obesity, unspecified; Z88.5 Allergy status to narcotic agent; Z88.2 Allergy status to sulfonamides; Z88.1 Allergy status to other antibiotic agents; Z79.899 Other long term (current) drug therapy; Z79.01 Long term (current) use of anticoagulants; Z99.81 Dependence on supplemental oxygen; Z68.31 Body mass index [BMI] 31.0-31.9, adult
CPT/HCPCS: 36415; 51701; 71046; 80053; 81001; 82803; 83605; 85025; 85379; 87040; 87086; 87186; 96361; 96365; 96367; 99284; 99285-25; J0456; J0696; J7030; J7050

== ENCOUNTER 2019-04-20 16:41 | Emergency (ER) | payer MEDICARE, OTHER ==
[2019-04-20 17:21] LABS: CHLORIDE,CL 103 mmol/L (98-107); SODIUM,NA 142 mmol/L (136-145)
--- NOTE | 2019-04-20 18:40 | EDM.PDOC ---
ED HPI GENERAL MEDICAL PROBLEM - General Chief Complaint: Respiratory Problem Stated Complaint: cough, short of breath Time Seen by Provider: 04/20/19 16:45 Source of Information: Reports: Patient History Limitations: Reports: No Limitations - History of Present Illness INITIAL COMMENTS - FREE TEXT/NARRATIVE: Pt brought to ER from [place] home with cough and congestion Was treated over past week for pneumonia Was seen a week ago and treated with Rocephin and Levaquin No fever No chest pain Just with cough and congestion Pt has hx/o COPD and uses oxygen at night Onset: Gradual Duration: Day(s):, Intermittent Location: Reports: Chest - Related Data Allergies Allergy/AdvReac Type Severity Reaction Status Date / Time morphine Allergy Change Verified 04/20/19 17:33 Mental Status sulfamethoxazole Allergy unknown Verified 04/20/19 17:33 [From ] trimethoprim [From ] Allergy unknown Verified 04/20/19 17:33 Home Meds: Home Meds Albuterol/Ipratropium [DuoNeb 3.0-0.5 MG/3 ML] 3 ml INH QID 07/04/18 [History] Apixaban [Eliquis] 5 mg PO BID@0800,199907/04/18 [History] Clotrimazole [Clotrimazole 1%] 1 applic TOP BID PRN 07/04/18 [History] Cyclobenzaprine [Flexeril] 10 mg PO Q8H PRN 07/04/18 [History] Insulin Glarg,Human.Rec.Analog [Lantus Solostar] 30 units SUBCUT QAM 07/04/18 [ History] Levothyroxine Sodium [Synthroid] 125 mcg PO QAM 07/04/18 [History] Lisinopril 10 mg PO QAM 07/04/18 [History] Melatonin 6 mg PO BEDTIME PRN 07/04/18 [History] Methyl Salicylate/Menthol [Muscle Rub] 1 applic TOP ASDIRECTED PRN 07/04/18 [ History] Sennosides/Docusate Sodium [Senna Plus Tablet] 1 tab PO BID@00,1999 PRN [History] Simvastatin 20 mg PO BEDTIME 07/04/18 [History] amLODIPine [Norvasc] 2.5 mg PO DAILY 07/04/18 [History] buPROPion [Wellbutrin SR] 100 mg PO Q12HR 07/04/18 [History] predniSONE [Prednisone] 7.5 mg PO DAILY 07/04/18 [History] traZODone HCl [Trazodone HCl] 150 mg PO BEDTIME 07/04/18 [History] Acetaminophen 650 mg PO Q6H PRN 08/01/18 [History] Clopidogrel [Plavix] 75 mg PO BEDTIME 08/01/18 [History] Metoprolol Tartrate 75 mg PO BID@0800,199908/01/18 [History] Acetaminophen [Tylenol Arthritis] 650 mg PO TID@0800,1400,199904/20/19 [History ] Bisacodyl 5 - 10 mg PO DAILY PRN 04/20/19 [History] Dextromethorphan/guaiFENesin [Mucinex DM ER 600-30 MG] 1 tab PO Q12H PRN [History] Eyelid Cleanser Combination #5 [Ocusoft Lid Scrub] 1 each EYEBOTH BTNUNITS 04/20 [History] Finasteride 5 mg PO DAILY 04/20/19 [History] Furosemide 20 mg PO DAILY 04/20/19 [History] Gabapentin [Neurontin] 600 mg PO QID@08,12,17,04/20/19 [History] Hydrocortisone [Hydrocortisone 2.5% Crm] 1 applic TOP BID PRN 04/20/19 [History] Insulin Glargine,Hum.Rec.Anlog [Lantus Solostar] 20 unit SUBCUT BEDTIME [History] Ketoconazole [Nizoral 2% Crm] 1 applic TOP BID PRN 04/20/19 [History] Levofloxacin [Levaquin] 500 mg PO [id number] 04/20/19 [History] Loperamide [Imodium] 2 mg PO ASDIRECTED PRN 04/20/19 [History] Methenamine Mandelate 1 tab PO Q12H 04/20/19 [History] Non-Formulary Medication [NF Drug] 1 applic TOP QID 04/20/19 [History] Non-Formulary Medication [NF Drug] 1 tab PO DAILY 04/20/19 [History] Phenylephrine HCl [Sudogest PE] 10 mg PO Q4HR PRN 04/20/19 [History] Polyvinyl Alcohol [LiquiTears 1.4% Ophth Soln] 1 drop EYEBOTH QID PRN 04/20/19 [ History] Sennosides/Docusate Sodium [Senna-S] 2 tab PO BID PRN 04/20/19 [History] guaiFENesin/Dextromethorphan [Tussin Dm Syrup] 10 ml PO Q4H PRN 04/20/19 [ History] metFORMIN [Glucophage] 500 mg PO BID@0800,1700 04/20/19 [History] tiZANidine [Zanaflex] 2 mg PO TID@0800,1400,2000 04/20/19 [History] Past Medical History HEENT History: Reports: Impaired Vision, Other (See Below) Other HEENT History: wears glasses. 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 polymyalgia rheumatica. cervicalgia Neurological History: Reports: CVA Psychiatric History: Reports: Addiction, Depression, PTSD Other Psychiatric History: hx. alcoholism Endocrine/Metabolic History: Reports: Diabetes, Type II, Hypothyroidism, Obesity /BMI 30+ Dermatologic History: Reports: Seborrheic Dermatitis - Past Surgical History GI Surgical History: Reports: Cholecystectomy Social & Family History - Caffeine Use Caffeine Use: Reports: Soda, Tea ED ROS GENERAL - Review of Systems Review Of Systems: See Below Respiratory: Reports: Shortness of Breath, Cough, Other (Congestion) Cardiovascular: Reports: No Symptoms ED EXAM, GENERAL - Physical Exam Exam: See Below Exam Limited By: No Limitations General Appearance: Alert, WD/WN, No Apparent Distress Throat/Mouth: Normal Oropharynx Neck: Supple Respiratory/Chest: Decreased Breath Sounds Cardiovascular: Regular Rate, Rhythm Extremities: No Pedal Edema Course - Orders/Labs/Meds Orders: Active Orders 24 hr Category Date Time Status Chest 2V [CR] Stat Exams 04/20/19 16:44 Taken Labs: Laboratory Tests 04/20/19 04/20/19 04/20/19 Range/Units 16:55 16:55 16:55 WBC 4.0 (4.0-10.2) K/uL RBC 4.33 (4.33-5.41) M/uL Hgb 12.6 L D (13.1-16.8) g/dL Hct 40.9 (39.0-49.0) % MCV 94.5 D (84.0-98.0) fL MCH 29.1 (28.2-33.3) pg MCHC 30.8 L (31.7-36.0) g/dL RDW 15.6 H (11.2-14.1) % Plt Count 173 (150-350) K/uL Neut % (Auto) 78.4 (45.0-80.0) % Lymph % (Auto) 11.2 (10.0-50.0) % Valencia % (Auto) 9.2 (2.0-14.0) % Eos % (Auto) 1.0 (0.0-5.0) % Baso % (Auto) 0.2 (0.0-2.0) % Neut # (Auto) 3.16 (1.40-7.00) K/uL Lymph # (Auto) 0.45 L (0.50-3.50) K/uL Valencia # (Auto) 0.37 (0.00-1.00) K/uL Eos # (Auto) 0.04 (0.00-0.50) K/uL Baso # (Auto) 0.01 (0.00-0.20) K/uL D-Dimer, Quantitative 142 (0-400) ng/mL Sodium 142 (136-145) mmol/L Potassium 5.0 (3.5-5.1) mmol/L Chloride 103 (98-107) mmol/L Carbon Dioxide 32.7 H (21.0-32.0) mmol/L BUN 36 H (7-18) mg/dL Creatinine 1.09 (0.51-1.17) mg/dL Est Cr Clr Drug Dosing TNP Estimated GFR (MDRD) > 60 mL/min Glucose 127 H (74-106) mg/dL Calcium 8.7 (8.5-10.1) mg/dL Total Bilirubin 0.2 (0.2-1.0) mg/dL AST 39 H (15-37) U/L ALT 42 (12-78) U/L Alkaline Phosphatase 70 (46-116) IU/L NT-Pro-B Natriuret Pep 261 H (0-125) pg/mL Total Protein 6.4 (6.4-8.2) g/dL Albumin 2.9 L (3.4-5.0) g/dL - Re-Assessments/Exams Free Text/Narrative Re-Assessment/Exam: 04/20/19 18:38 See lab CXR per radiologist: No acute findngs Departure - Departure Time of Disposition: 18:45 Disposition: DC/Tfer to Skilled Nursing [facility] Clinical Impression: Pneumonia Qualifiers: Pneumonia type: due to unspecified organism Laterality: unspecified laterality Lung location: unspecified part of lung Qualified Code(s): J18.9 - Pneumonia, unspecified organism - Discharge Information *PRESCRIPTION DRUG MONITORING PROGRAM REVIEWED*: Not Applicable *COPY OF PRESCRIPTION DRUG MONITORING REPORT IN PATIENT COLEEN: Not Applicable Instructions: Community-Acquired Pneumonia, Adult Referrals: Montserrat Mao MD [Primary Care Provider] - Additional Instructions: Follow up with usual provider - My Orders Last 24 Hours: My Active Orders 04/20/19 16:44 Chest 2V [CR] Stat - Assessment/Plan Last 24 Hours: My Active Orders 04/20/19 16:44 Chest 2V [CR] Stat
== END 2019-04-20 19:00 ==
LOC: LL.ED 16:41
DX: J18.9 Pneumonia, unspecified organism (principal); I48.91 Unspecified atrial fibrillation; E78.00 Pure hypercholesterolemia, unspecified; J44.9 Chronic obstructive pulmonary disease, unspecified; I13.0 Hypertensive heart and chronic kidney disease with heart failure and stage 1 through stage 4 chronic kidney disease, or unspecified chronic kidney disease; E11.22 Type 2 diabetes mellitus with diabetic chronic kidney disease; N18.9 Chronic kidney disease, unspecified; I50.9 Heart failure, unspecified; Z86.73 Personal history of transient ischemic attack (TIA), and cerebral infarction without residual deficits; F32.9 Major depressive disorder, single episode, unspecified; E03.9 Hypothyroidism, unspecified; E66.9 Obesity, unspecified; Z88.5 Allergy status to narcotic agent; Z88.2 Allergy status to sulfonamides; Z79.899 Other long term (current) drug therapy; Z79.01 Long term (current) use of anticoagulants; Z79.4 Long term (current) use of insulin
CPT/HCPCS: 36415; 71046; 80053; 83880; 85025; 85379; 99285-25

== ENCOUNTER 2019-12-17 10:36 | Inpatient (IN) | payer MEDICARE, OTHER ==
[2019-12-17] MEDS ORDERED: Famotidine 20 MG/2 ML SDV IVPUSH ONE (10:49)
--- NOTE | 2019-12-17 10:49 | EDM.PDOC ---
ED HPI GENERAL MEDICAL PROBLEM - General Chief Complaint: Neuro Symptoms/Deficits Stated Complaint: Stroke code Time Seen by Provider: 12/17/19 10:48 Source of Information: Reports: Patient, [facility] Records, Old Records ([facility] EMR. No paper hospital chart available.) History Limitations: Reports: Altered Mental Status (Patient is a poor historian secondary to possible acute and previous CVA and baseline mental status.) - History of Present Illness INITIAL COMMENTS - FREE TEXT/NARRATIVE: The patient was brought to the emergency room via transport vehicle from [facility] in [place] for evaluation of progressive confusion since about 5:30 AM this morning, which was the patient's last known well time. Only limited history obtained from the long term with nurses not certain when the patient's symptoms actually started. The patient is an overall poor historian secondary to his current infection, previous CVA, baseline mental status, etc. No apparent recent history of chest pain or anginal type symptoms with patient denying pain or discomfort at this time. No known recent abdominal pain, nausea, emesis, melena, etc. No apparent recent fever, cough, dyspnea, wheezing, etc., however once again overall poor history obtained from the transfer nurses. The patient apparently had some mild aphasia and apraxia prior to transfer to this facility. The patient was apparently tested for COVID-19 on 12/14 with the results not available at this time. He has also already received his influenza booster. Note that O2 was applied at 2 L/min by nasal cannula at the long term prior to patient transfer with O2 sat of 84% on room air. Onset: Today, Unknown/Unsure Onset Date: 12/17/19 Onset Time: 05:30 Duration: Constant, Getting Worse Location: Reports: Other (No pain) Severity: Moderate (Confusion) Worsens with: Reports: None Context: Reports: Other (As above). Denies: Sick Contact, Trauma Associated Symptoms: Reports: Confusion, Weakness (Stable chronic left hemiparesis). Denies: Chest Pain, Cough, Diaphoresis, Fever/Chills, Headaches, Loss of Appetite, Nausea/Vomiting, Shortness of Breath Treatments BOX FINISHER: Reports: Other (see below) (None) - Related Data Allergies Allergy/AdvReac Type Severity Reaction Status Date / Time morphine Allergy Change Verified 12/17/19 11:04 Mental Status sulfamethoxazole Allergy unknown Verified 12/17/19 11:04 [From ] trimethoprim [From ] Allergy unknown Verified 12/17/19 11:04 Home Meds: Home Meds Albuterol/Ipratropium [DuoNeb 3.0-0.5 MG/3 ML] 3 ml INH QID 07/04/18 [History] Apixaban [Eliquis] 5 mg PO BID@08,199907/04/18 [History] Cyclobenzaprine [Flexeril] 10 mg PO Q8H PRN 07/04/18 [History] Insulin Glarg,Human.Rec.Analog [Lantus Solostar] 30 units SUBCUT QAM 07/04/18 [History] Levothyroxine Sodium [Synthroid] 125 mcg PO QAM 07/04/18 [History] Lisinopril 10 mg PO QAM 07/04/18 [History] Melatonin 6 mg PO BEDTIME PRN 07/04/18 [History] Methyl Salicylate/Menthol [Muscle Rub] 1 applic TOP ASDIRECTED PRN 07/04/18 [History] Sennosides/Docusate Sodium [Senna Plus Tablet] 1 tab PO BID PRN 07/04/18 [History] Simvastatin 20 mg PO BEDTIME 07/04/18 [History] amLODIPine [Norvasc] 2.5 mg PO DAILY 07/04/18 [History] buPROPion [Wellbutrin SR] 100 mg PO Q12HR 07/04/18 [History] predniSONE [Prednisone] 10 mg PO DAILY 07/04/18 [History] traZODone HCl [Trazodone HCl] 150 mg PO BEDTIME 07/04/18 [History] Acetaminophen 650 mg PO Q6H PRN 08/01/18 [History] Clopidogrel [Plavix] 75 mg PO DAILY 08/01/18 [History] Metoprolol Tartrate 75 mg PO BID@08,199908/01/18 [History] Acetaminophen [Tylenol Arthritis] 650 mg PO TID@0800,1400,199904/20/19 [History] Dextromethorphan/guaiFENesin [Mucinex DM ER 600-30 MG] 1 tab PO Q12H PRN 04/20/19 [History] Eyelid Cleanser Combination 5 [Ocusoft Lid Scrub] 1 each EYEBOTH BTNUNITS 02/24/20 [History] Finasteride 5 mg PO DAILY 04/20/19 [History] Furosemide 20 mg PO DAILY 04/20/19 [History] Hydrocortisone [Hydrocortisone 2.5% Crm] 1 applic TOP BID PRN 04/20/19 [History] Insulin Glargine,Hum.Rec.Anlog [Lantus Solostar] 20 unit SUBCUT BEDTIME 04/20/19 [History] Ketoconazole [Nizoral 2% Crm] 1 applic TOP BID PRN 04/20/19 [History] Loperamide [Imodium] 2 mg PO ASDIRECTED PRN 04/20/19 [History] Methenamine Mandelate 1 tab PO Q12H 04/20/19 [History] Non-Formulary Medication [NF Drug] 1 applic TOP QID 04/20/19 [History] Polyvinyl Alcohol [LiquiTears 1.4% Ophth Soln] 1 drop EYEBOTH QID PRN 04/20/19 [History] Sennosides/Docusate Sodium [Senna-S] 2 tab PO BID PRN 04/20/19 [History] bisacodyL [Bisacodyl] 5 - 10 mg PO DAILY PRN 04/20/19 [History] guaiFENesin/Dextromethorphan [Tussin Dm Syrup] 10 ml PO Q4H PRN 04/20/19 [History] metFORMIN [Glucophage] 500 mg PO BID@0800,1700 04/20/19 [History] tiZANidine [Zanaflex] 2 mg PO TID@0800,1400,2000 04/20/19 [History] Cholecalciferol (Vitamin D3) [Vitamin D3] 1 cap PO DAILY 12/17/19 [History] Gabapentin [Neurontin] 800 mg PO QID@08,12,17,20 12/17/19 [History] Loratadine [Claritin] 10 mg PO DAILY PRN 12/17/19 [History] Magnesium Hydroxide [Milk of Magnesia] 30 ml PO DAILY PRN 12/17/19 [History] Methyl Salicylate/Menth/Camph [Salonpas 3.1%-6.0%-10.0% Patch] 1 patch TOP DAILY 12/17/19 [History] Propylene Glycol/PEG 400/Pf [Systane 0.3-0.4% Eye Drop] 1 drop EYEBOTH BID 12/17/19 [History] Past Medical History HEENT History: Reports: Allergic Rhinitis, Impaired Vision, Other (See Below) Other HEENT History: The patient wears glasses with history of right macula puckering. Cardiovascular History: Reports: Afib, Aneurysm, Arrhythmia, Cardiomyopathy, Heart Failure, High Cholesterol, Hypertension, PVD. Denies: Blood Clots/VTE/DVT Other Cardiovascular History: Aneurysm of pulmonary artery. Peripheral vascular disease including bilateral. occlusion and stenosis of the carotid arteries. PACs Respiratory History: Reports: Bronchitis, Recurrent, COPD, Intubation, Difficult, Pneumonia, Recurrent, Other (See Below). Denies: Intubation, Previous Other Respiratory History: Chronic right diaphragmatic elevation. Intermittent O2 and steroid-dependent COPD. Respiratory failure requiring intubation on 07/04/2018. Recurrent pneumonia including aspiration pneumonia from dysphagia. Gastrointestinal History: Reports: Cholelithiasis, Chronic Constipation, GERD, Other (See Below) Other Gastrointestinal History: Dysphagia. Genitourinary History: Reports: BPH, Chronic Renal Insuffiency, Diabetic Nephropathy, Retention, Urinary, Urinary Incontinence Musculoskeletal History: Reports: Arthritis, Back Pain, Chronic, Fibromyalgia, Neck Pain, Chronic, Osteoarthritis, Other (See Below) Other Musculoskeletal History: Polymyalgia rheumatica. Spinal fusion as below with persistent left lateral nerve compression at C4-C5. 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 Psychiatric History: Reports: Addiction, Anxiety, Depression, PTSD, Other (See Below) Other Psychiatric History: Chronic insomnia. History of alcoholism. Endocrine/Metabolic History: Reports: Diabetes, Type II, Hypothyroidism, IDDM, Obesity/BMI 30+ Hematologic History: Reports: Anemia (Oh thanks) Oncologic (Cancer) History: Reports: Other (See Below) Other Oncologic History: Unknown type of skin cancer. Dermatologic History: Reports: Seborrheic Dermatitis - Past Surgical History HEENT Surgical History: Reports: Oral Surgery, Radiocarotid Ectomy, Other (See Below) Other HEENT Surgeries/Procedures: Teeth extractions. Left-sided carotid endarterectomy. GI Surgical History: Reports: Cholecystectomy Male Surgical History: Denies: Circumcision Neurological Surgical History: Reports: C-Spine, Discectomy, Spinal Fusion, Other (See Below) Other Neurological Surgeries/Procedures: C3-C6 anterior spinal fusion. - Past Imaging History Past Imaging History: Reports: CAT Scan (CT of the C-spine on 01/29/2018.), Swallow Study (Positive on 06/12/2018.) Social & Family History - Family History Family Medical History: Unobtainable - Tobacco Use Tobacco Use Status *Q: Former Tobacco User Tobacco Use Within Last Twelve Months: No Packs/Tins Daily Comment: Stop smoking in 2004 per previous medical records. 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[place].) ED ROS GENERAL - Review of Systems Review Of Systems: Unable To Obtain Reason Not Obtained: As above/per HPI ED EXAM, NEURO - Physical Exam Exam: See Below Exam Limited By: Altered Mental Status General Appearance: Alert, No Apparent Distress Eye Exam: Bilateral Eye: EOMI (Although left eye lateral strabismus divergence when not fixating), Normal Fundi, Normal Inspection (No nystagmus), PERRL Ears: Normal External Exam, Normal Canal, Hearing Grossly Normal, Normal TMs Nose: Normal Inspection, Normal Mucosa, No Blood Throat/Mouth: Normal Inspection, Normal Lips, Normal Teeth, Normal Gums, Normal Oropharynx, Normal Voice, No Airway Compromise. No: Dysphagia, Perioral Cyanosis Head Exam: Atraumatic, Normocephalic. No: Facial Swelling, Facial Tenderness, Sinus Tenderness Neck: Supple, Non-Tender, Full Range of Motion, Carotid Bruit (Mild bilateral carotid bruits versus transmitted heart sounds). No: Lymphadenopathy (L), Lymphadenopathy (R), Thyromegaly Respiratory/Chest: No Respiratory Distress, No Accessory Muscle Use, Chest Non- Tender, Decreased Breath Sounds (Right base), Rales (Moderate diffuse bilateral). No: Rhonchi, Wheezing, Pleural Rub, Retractions Cardiovascular: Normal Peripheral Pulses, No Gallop, No JVD, No Rub, Bradycardia (With sinus arrhythmia as below), Systolic Murmur (Mild 1/6 THEE in aortic valve). No: No Edema (Dependent edema as below), Gallop/S3, Gallop/S4, Extra Beats, Friction Rub GI/Abdominal: Normal Bowel Sounds, Soft, Non-Tender, No Organomegaly, No Distention, No Abnormal Bruit, No Mass, Pelvis Stable, Other (Obese). No: Guarding (Male) Exam: Deferred Rectal (Males) Exam: Deferred Neurological: Alert, Normal Dorsiflexion, Normal Plantar Flexion. No: Normal Reflexes (Negative Babinski's with patient not able to completely perform neurological exam and having some difficulty following commands. Possible positive left-sided [id number] test. No facial paresis or tongue. Stable by history moderate essential tremor?), Oriented x 3 (Disoriented to date) Back Exam: Normal Inspection, Full Range of Motion. No: CVA Tenderness (L), CVA Tenderness (R), Muscle Spasm Extremities: Normal Range of Motion, Non-Tender, Normal Capillary Refill, Pedal Edema (+1 bilateral pedal/pretibial edema). No: Stanley's Sign Psychiatric: Anxious (Mild), Depressed Mood (Mild) Skin Exam: Ecchymosis (Stable by history on forearms and abdomen with history of insulin injections). No: Diaphoretic, Petechiae, Wound/Incision #1 Interpretation EKG Date: 12/17/19 Time: 11:01 Rhythm: Other (Mild bradycardia with moderate sinus arrhythmia) Rate (Beats/Min): 59 [place]: Normal (Neutral cardiac axis) P-Wave: Enlarged (Mild diffuse biphasic P waves) QRS: Normal (0.08 seconds with repolarization changes) ST-T: Normal (Stable T wave inversion in lead V1 with resolution of previous T wave inversion in lead V2) QT: Normal VA/PQ Interval: 0.17 seconds with poor R wave progression in the anterior leads Comparison: Change From Previous EKG (As above since 07/04/2018) EKG Interpretation Comments: 1. No acute ischemic changes 2. Sinus bradycardia and arrhythmia 3. Left atrial enlargement Course - Vital Signs Last Recorded V/S: Last Vital Signs Temp 37.6 C 12/17/19 10:44 Pulse 53 L 12/17/19 14:25 Resp 18 12/17/19 14:25 BP 123/61 12/17/19 14:25 Pulse Ox 97 12/17/19 14:25 Vital Signs - 24 hr 12/17/19 12/17/19 12/17/19 10:44 10:59 11:23 Temperature [ 37.6 C Temporal] Pulse, 57 L 62 Peripheral [ Pulse Oximetry] Respiratory 20 21 H 21 H Rate Blood Pressure [Left Upper Arm ] Blood Pressure 153/82 H 167/73 H 159/65 H [Right Upper Arm] O2 Sat by Pulse 94 L 92 L 95 Oximetry 12/17/19 12/17/19 12/17/19 11:30 11:45 12:00 Temperature [ Temporal] Pulse, 59 L 58 L 55 L Peripheral [ Pulse Oximetry] Respiratory 20 20 19 Rate Blood Pressure 114/75 97/53 L [Left Upper Arm ] Blood Pressure 120/55 L [Right Upper Arm] O2 Sat by Pulse 96 94 L 94 L Oximetry 12/17/19 12/17/19 12/17/19 12:15 12:30 12:37 Temperature [ Temporal] Pulse, 53 L Peripheral [ Pulse Oximetry] Respiratory 15 Rate Blood Pressure 85/45 L 100/60 [Left Upper Arm ] Blood Pressure 85/41 L [Right Upper Arm] O2 Sat by Pulse 94 L Oximetry 12/17/19 12/17/19 12/17/19 12:53 13:15 13:44 Temperature [ Temporal] Pulse, 52 L Peripheral [ Pulse Oximetry] Respiratory 19 18 Rate Blood Pressure 125/54 L [Left Upper Arm ] Blood Pressure 84/40 L 110/78 [Right Upper Arm] O2 Sat by Pulse 93 L 96 Oximetry 12/17/19 12/17/19 12/17/19 13:55 14:10 14:25 Temperature [ Temporal] Pulse, 52 L 53 L Peripheral [ Pulse Oximetry] Respiratory 13 17 18 Rate Blood Pressure 114/55 L 109/49 L 123/61 [Left Upper Arm ] Blood Pressure [Right Upper Arm] O2 Sat by Pulse 97 97 97 Oximetry - Orders/Labs/Meds Orders: Active Orders 24 hr Category Date Time Status Blood Glucose Check, Bedside [RC] STAT Care 12/17/19 10:49 Active Cardiac Monitoring [RC] STAT Care 12/17/19 10:49 Active Communication Order [RC] PER UNIT ROUTINE Care 12/17/19 10:49 Active EKG Documentation Completion [RC] ASDIRECTED Care 12/17/19 10:49 Active NIH Stroke Scale [RC] ASDIRECTED Care 12/17/19 10:49 Active Oxygen Therapy, ED [RC] CONTINUOUS Care 12/17/19 10:49 Active Peripheral IV Care [RC] . DIRECTED Care 12/17/19 10:49 Active Peripheral IV Care [RC] . DIRECTED Care 12/17/19 10:50 Active Pulse Oximetry [RC] CONTINUOUS Care 12/17/19 10:49 Active Up With Assistance [RC] ASDIRECTED Care 12/17/19 10:49 Active Vital Signs [RC] PFP Care 12/17/19 10:49 Active Nothing per Oral Now Diet [DIET] Diet 12/17/19 Breakfast Active Ang Head [CT] Stat Exams 12/17/19 12:44 Taken Ang Neck [CT] Stat Exams 12/17/19 12:44 Taken Chest 1V Frontal [CR] Stat Exams 12/17/19 10:49 Taken Head wo Cont [CT] Stat Exams 12/17/19 10:49 Taken CORONAVIRUS COVID-19 PIETRO [MOLEC] Stat Lab 12/17/19 10:51 Ordered CULTURE BLOOD [BC] Stat Lab 12/17/19 10:50 Received CULTURE BLOOD [BC] Stat Lab 12/17/19 10:50 Received CULTURE URINE [RM] Routine Lab 12/17/19 11:21 Ordered INFLUENZA A+B AG SCREEN [RM] Stat Lab 12/17/19 10:51 Ordered PROLACTIN [REF] Stat Lab 12/17/19 10:55 Received STREP SCRN A RAPID W CULT CONF [RM] Stat Lab 12/17/19 10:51 Ordered UA W/MICROSCOPIC [URIN] Stat Lab 12/17/19 10:49 Ordered Lactated Ringers [Ringers, Lactated] 1,000 ml Med 12/17/19 12:45 Active IV ASDIRECTED Sodium Chloride 0.9% [Saline Flush] Med 12/17/19 10:49 Active 10 ml FLUSH ASDIRECTED PRN Sodium Chloride 0.9% [Saline Flush] Med 12/17/19 12:23 Active 10 ml FLUSH ASDIRECTED PRN Blood Culture x2 Reflex Set [OM.PC] Urgent Oth 12/17/19 11:21 Ordered Isolation [COMM] Routine Oth 12/17/19 10:51 Active Obtain Past Medical Record [OM.PC] Stat Oth 12/17/19 10:49 Active Peripheral IV Insertion Adult [OM.PC] Routine Oth 12/17/19 10:50 Ordered Peripheral IV Insertion Adult [OM.PC] Stat Oth 12/17/19 10:49 Ordered Resuscitation Status Stat Resus Stat 12/17/19 10:49 Ordered Medication Orders Lactated Ringer's (Ringers, Lactated) 1,000 mls @ 80 mls/hr IV ASDIRECTED MIKIE Last Admin: 12/17/19 12:48 Dose: 80 mls/hr Documented by: SAMINA Sodium Chloride (Saline Flush) 10 ml FLUSH ASDIRECTED PRN PRN Reason: Keep Vein Open Last Admin: 12/17/19 12:48 Dose: 10 ml Documented by: Admin: 12/17/19 11:35 Dose: 10 ml Documented by: Admin: 12/17/19 11:21 Dose: 10 ml Documented by: GEMMA Sodium Chloride (Saline Flush) 10 ml FLUSH ASDIRECTED PRN PRN Reason: Keep Vein Open Labs: Laboratory Tests 12/17/19 12/17/19 12/17/19 Range/Units 10:52 10:55 10:55 WBC 12.1 H (4.0-10.2) K/uL RBC 4.78 (4.33-5.41) M/uL Hgb 13.2 (13.1-16.8) g/dL Hct 43.8 (39.0-49.0) % MCV 91.6 (84.0-98.0) fL MCH 27.6 L (28.2-33.3) pg MCHC 30.1 L (31.7-36.0) g/dL RDW 16.6 H (11.2-14.1) % Plt Count 198 (150-350) K/uL Neut % (Auto) 83.9 H (45.0-80.0) % Lymph % (Auto) 5.6 L (10.0-50.0) % [place] % (Auto) 8.5 (2.0-14.0) % Eos % (Auto) 1.7 (0.0-5.0) % Baso % (Auto) 0.3 (0.0-2.0) % Neut # (Auto) 10.11 H (1.40-7.00) K/uL Lymph # (Auto) 0.68 (0.50-3.50) K/uL [place] # (Auto) 1.02 H (0.00-1.00) K/uL Eos # (Auto) 0.20 (0.00-0.50) K/uL Baso # (Auto) 0.04 (0.00-0.20) K/uL PT 10.2 (9.5-12.0) SEC INR 1.0 APTT 19.2 L (24.5-32.8) SEC D-Dimer, Quantitative (0-400) ng/mL Sodium (136-145) mmol/L Potassium (3.5-5.1) mmol/L Chloride (98-107) mmol/L Carbon Dioxide (21.0-32.0) mmol/L BUN (7-18) mg/dL Creatinine (0.51-1.17) mg/dL Est Cr Clr Drug Dosing mL/min Estimated GFR (MDRD) mL/min Glucose (74-106) mg/dL POC Glucose 102 (65-110) mg/dl Lactic Acid (0.4-2.0) mmol/L Uric Acid (2.6-7.2) mg/dL Calcium (8.5-10.1) mg/dL Magnesium (1.8-2.4) mg/dL Total Bilirubin (0.2-1.0) mg/dL AST (15-37) U/L ALT (12-78) U/L Alkaline Phosphatase (46-116) IU/L Creatine Kinase (26-308) U/L Creatine Kinase Index (0.0-2.5) % CK-MB (CK-2) (0.00-3.60) ng/mL Troponin I (0.000-0.056) ng/mL NT-Pro-B Natriuret Pep (0-125) pg/mL Total Protein (6.4-8.2) g/dL Albumin (3.4-5.0) g/dL TSH, Ultra Sensitive (0.358-3.740) mIU/mL 12/17/19 12/17/19 12/17/19 Range/Units 10:55 10:55 10:55 WBC (4.0-10.2) K/uL RBC (4.33-5.41) M/uL Hgb (13.1-16.8) g/dL Hct (39.0-49.0) % MCV (84.0-98.0) fL MCH (28.2-33.3) pg MCHC (31.7-36.0) g/dL RDW (11.2-14.1) % Plt Count (150-350) K/uL Neut % (Auto) (45.0-80.0) % Lymph % (Auto) (10.0-50.0) % [place] % (Auto) (2.0-14.0) % Eos % (Auto) (0.0-5.0) % Baso % (Auto) (0.0-2.0) % Neut # (Auto) (1.40-7.00) K/uL Lymph # (Auto) (0.50-3.50) K/uL [place] # (Auto) (0.00-1.00) K/uL Eos # (Auto) (0.00-0.50) K/uL Baso # (Auto) (0.00-0.20) K/uL PT (9.5-12.0) SEC INR APTT (24.5-32.8) SEC D-Dimer, Quantitative 643 H (0-400) ng/mL Sodium 143 (136-145) mmol/L Potassium 4.3 (3.5-5.1) mmol/L Chloride 103 (98-107) mmol/L Carbon Dioxide 35.2 H (21.0-32.0) mmol/L BUN 26 H (7-18) mg/dL Creatinine 1.14 (0.51-1.17) mg/dL Est Cr Clr Drug Dosing 58.57 mL/min Estimated GFR (MDRD) > 60 mL/min Glucose 103 (74-106) mg/dL POC Glucose (65-110) mg/dl Lactic Acid 1.6 (0.4-2.0) mmol/L Uric Acid 7.6 H (2.6-7.2) mg/dL Calcium 8.8 (8.5-10.1) mg/dL Magnesium 1.8 (1.8-2.4) mg/dL Total Bilirubin 0.5 (0.2-1.0) mg/dL AST 27 (15-37) U/L ALT 48 (12-78) U/L Alkaline Phosphatase 66 (46-116) IU/L Creatine Kinase 179 (26-308) U/L Creatine Kinase Index 1.0 (0.0-2.5) % CK-MB (CK-2) 1.80 (0.00-3.60) ng/mL Troponin I 0.005 (0.000-0.056) ng/mL NT-Pro-B Natriuret Pep 345 H (0-125) pg/mL Total Protein 6.1 L (6.4-8.2) g/dL Albumin 3.3 L (3.4-5.0) g/dL TSH, Ultra Sensitive 0.301 L (0.358-3.740) mIU/mL Blood cultures x2 were collected Urine specimen set up for culture and sensitivity Specimens collected for COVID-19, rapid strep screen, and influenza screen with results pending. Meds: Medications Generic Name Dose Route Start Last Admin Trade Name Larryq PRN Reason Stop Dose Admin Lactated Ringer's 1,000 mls @ 80 mls/hr 12/17/19 12:45 12/17/19 12:48 Ringers, Lactated IV 80 mls/hr ASDIRECTED MIKIE Administration Sodium Chloride 10 ml 12/17/19 10:49 12/17/19 12:48 Saline Flush FLUSH 10 ml ASDIRECTED PRN Administration Keep Vein Open Sodium Chloride 10 ml 12/17/19 12:23 Saline Flush FLUSH ASDIRECTED PRN Keep Vein Open Discontinued Medications Generic Name Dose Route Start Last Admin Trade Name Carli PRN Reason Stop Dose Admin Famotidine 40 mg 12/17/19 10:49 12/17/19 11:20 Pepcid IVPUSH 12/17/19 10:50 40 mg ONETIME ONE Administration Furosemide 60 mg 12/17/19 11:28 12/17/19 11:35 Lasix IVPUSH 12/17/19 11:29 60 mg NOW ONE Administration Ceftriaxone Sodium 1 gm/ 100 mls @ 200 mls/hr 12/17/19 11:29 12/17/19 11:44 Sodium Chloride IV 12/17/19 11:58 200 mls/hr ONETIME ONE Administration Metronidazole 500 mg/ Premix 100 mls @ 100 mls/hr 12/17/19 12:39 12/17/19 12:48 IV 12/17/19 13:38 100 mls/hr ONETIME ONE Administration Iopamidol 100 ml 12/17/19 13:00 12/17/19 13:34 Isovue-370 (76%) IVPUSH 12/17/19 13:01 100 ml ONETIME ONE Administration Iopamidol Confirm 12/17/19 13:09 Isovue-370 (76%) Administered 12/17/19 13:10 Dose 100 ml .[facility]TE .[facility] Radiology Interpretation Free Text/Narrative:: 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 Additional moderate sinus arrhythmia was present with no PACs, PVCs, etc. Chest x-ray, portable, shows stable moderate right-sided elevated hemidiaphragm with moderate COPD changes and cardiomegaly. Moderate prominence of the proximal aortic arch with mild aortic valve calcification. Mild CHF with additional moderate right-sided pneumonia, including inferior aspect of right upper lobe, right lower lobe, and right middle lobe with moderate right pleural effusion. No pneumothorax telephone consultation Telephone consultation at 11:10 AM with the radiology department at [facility]. Preliminary verbal report of noncontrast CT scan of the head is negative for acute changes with stable previous right frontal CVA. Subsequent telephone consultation at 1445 hrs. with the radiology department at [facility] in [place]. Preliminary verbal report of CTA of the head and neck once again shows no acute CVA, hemorrhage, etc. Status post left carotid enterectomy with severe proximal left internal carotid artery stenosis. CT Results Date: 12/17/19 CT Results Time: 11:10 Departure - Departure Time of Disposition: 15:10 Disposition: DC/Tfer to Acute Hospital 02 Condition: Fair Clinical Impression: Confusion, D-dimer, elevated, IDDM (insulin dependent diabetes mellitus), Hyperuricemia, Hypoalbuminemia, Mixed anxiety depressive disorder, Peptic reflux disease, Hypothyroidism (acquired), Atrial fibrillation Cerebrovascular accident (CVA) Qualifiers: CVA mechanism: occlusion Precerebral and cerebral artery: anterior cerebral artery Laterality of affected vessel: right Qualified Code(s): I63.521 - Cerebral infarction due to unspecified occlusion or stenosis of right anterior cerebral artery Congestive heart failure Qualifiers: Heart failure type: unspecified Heart failure chronicity: acute on chronic Qualified Code(s): I50.9 - Heart failure, unspecified Pneumonia Qualifiers: Pneumonia type: due to unspecified organism Laterality: unspecified laterality Lung location: unspecified part of lung Qualified Code(s): J18.9 - Pneumonia, unspecified organism Carotid disease, bilateral Qualifiers: Carotid artery disease type: stenosis Qualified Code(s): I65.23 - Occlusion and stenosis of bilateral carotid arteries COPD (chronic obstructive pulmonary disease) Qualifiers: COPD type: COPD with acute lower respiratory infection Qualified Code(s): J44.0 - Chronic obstructive pulmonary disease with (acute) lower respiratory infection Hypertension Qualifiers: Hypertension type: essential hypertension Qualified Code(s): I10 - Essential (primary) hypertension - Discharge Information *PRESCRIPTION DRUG MONITORING PROGRAM REVIEWED*: Not Applicable *COPY OF PRESCRIPTION DRUG MONITORING REPORT IN PATIENT [place]LEEN: Not Applicable Referrals: Olive Webb PA [Primary Care Provider] - Forms: ED Department Discharge Care Plan Goals: Ambulance transfer with business development analyst accompaniment. Sepsis Event Note (ED) - Focused Exam Vital Signs: Vital Signs Temp Pulse Resp BP BP Pulse Ox 12/17/19 14:25 53 L 18 123/61 97 12/17/19 14:10 52 L 17 109/49 L 97 12/17/19 13:55 13 114/55 L 97 12/17/19 13:44 18 125/54 L 96 12/17/19 13:15 110/78 12/17/19 12:53 52 L 19 84/40 L 93 L 12/17/19 12:37 53 L 15 85/41 L 94 L 12/17/19 12:30 100/60 12/17/19 12:15 85/45 L 12/17/19 12:00 55 L 19 97/53 L 94 L 12/17/19 11:45 58 L 20 114/75 94 L 12/17/19 11:30 59 L 20 120/55 L 96 12/17/19 11:23 21 H 159/65 H 95 12/17/19 10:59 62 21 H 167/73 H 92 L 12/17/19 10:44 37.6 C 57 L 20 153/82 H 94 L - Problem List & Annotations (1) Confusion SNOMED Code(s): 488129782 Code(s): R41.0 - DISORIENTATION, UNSPECIFIED Status: Acute Priority: High Current Visit: Yes Onset Date: 12/17/19 Annotation/Comment:: Stroke code was called by me upon patient's arrival to this facility based on patient's previous history of CVA, incomplete clinical history as above, etc.. Telephone consultation at 12:15 PM with the patient's brother and POA, Jake Lacey, mobile telephone number , discussing various therapeutic options. The brother and the patient are in agreement with possible transfer to [facility] for further treatment and evaluation. Note that the patient was not initially a candidate for treatment at the [facility] in [place] secondary to suspected possible repeat CVA. Initial telephone consultation with Melvin at 12:17 PM with subsequent telephone consultation at 12:[address] Quinteros, stroke neurologist at [facility], who is requesting a CTA of the head and neck be performed initially prior to transfer. Note negative CTA of the head results with probable stable right-sided coronary artery d isease. Subsequent telephone consultation at 2:50 PM with Jose Rafael hospital coordinator at the [facility] in [place], with no inpatient beds available in that facility. We did get approval with the [facility] for hospitalization either in this facility or at [facility]. Subsequent telephone consultation with the patient's brother and BENITA at 2:55 PM with the brother and patient requesting initial care in this facility. Note current right-sided pneumonia with urine specimen unable to be obtained secondary to patient's urinary incontinence. Patient was tested for COVID-19 on 12/15/2019 with results still pending. Repeat collection of COVID-19 with additional collection of influenza screen and strep screen immediately prior to admission with results pending. (2) Cerebrovascular accident (CVA) SNOMED Code(s): 769695737 Code(s): I63.9 - CEREBRAL INFARCTION, UNSPECIFIED Status: Chronic Prio rity: High Current Visit: Yes Annotation/Comment:: Note negative CTA of the head as above. Previous right frontal CVA with persistent mild left hemiparesis with probable stable neurological exam today, however limited history is available. Note some possible aphasia and dysarthria prior to patient's transfer, which was not evident during his emergency room care. Stable CT scan without contrast of the head as above. Neurological checks with vitals. Qualifiers: CVA mechanism: occlusion Precerebral and cerebral artery: anterior cerebral artery Laterality of affected vessel: right Qualified Code(s): I63.521 - Cerebral infarction due to unspecified occlusion or stenosis of right anterior cerebral artery (3) COPD (chronic obstructive pulmonary disease) SNOMED Code(s): 91357581 Code(s): J44.9 - CHRONIC OBSTRUCTIVE PULMONARY DISEASE, UNSPECIFIED Status: Chronic Priority: High Current Visit: Yes Annotation/Comment:: Note hypoxia this morning likely secondary to current pneumonia and concomitant CHF. Patient has required oxygen therapy in the past and is steroid-dependent. Note history of respiratory failure on 07/04/2018 as above. O2 saturations are good with 2 L/min by nasal cannula in the emergency room. Inhaler rather than nebulizer therapy secondary to current COVID-19 pandemic. Qualifiers: COPD type: COPD with acute lower respiratory infection Qualified Code(s): J44.0 - Chronic obstructive pulmonary disease with (acute) lower respiratory infection (4) Pneumonia SNOMED Code(s): 293741910 Code(s): J18.9 - PNEUMONIA, UNSPECIFIED ORGANISM Status: Acute Priority: High Current Visit: Yes Onset Date: 12/17/19 Annotation/Comment:: Moderate right-sided diffuse pneumonia as above. IV Rocephin and IV given in the emergency room secondary to his previous history of aspiration pneumonia. Recommend repeat studies as above with patient already having his influenza booster this season per limited history. Blood cultures x2 were collected. Sputum specimen could not be obtained. No evidence of sepsis. Lactic acid is normal. Consider additional doxycycline, if COVID-19 is positive. Qualifiers: Pneumonia type: due to unspecified organism Laterality: unspecified laterality Lung location: unspecified part of lung Qualified Code(s): J18.9 - Pneumonia, unspecified organism (5) Carotid disease, bilateral SNOMED Code(s): 804542095 Code(s): I77.9 - DISORDER OF ARTERIES AND ARTERIOLES, UNSPECIFIED Status: Chronic Priority: High Current Visit: Yes Annotation/Comment:: Known bilateral moderate to severe carotid occlusive disease per history from the nursing staff at [facility] in [place]. Possible repeat CVA today is unlikely as above. Note status post left carotid enterectomy. Continue close observation after discharge by his regular providers. Qualifiers: Carotid artery disease type: stenosis Qualified Code(s): I65.23 - Occlusion and stenosis of bilateral carotid arteries (6) Congestive heart failure SNOMED Code(s): 42327416 Code(s): I50.9 - HEART FAILURE, UNSPECIFIED Status: Acute Current Visit: Yes Annotation/Comment:: No chest pain or anginal complaints, however the patient is a poor historian. Known history of recurrent CHF as above with mild to moderate CHF by today's chest x-ray and clinical exam and only mild BNP elevation. Otherwise EKG and cardiac enzymes are normal. Note concomitant pneumonia. High-dose IV Lasix given in the emergency room with further IV Lasix therapy with caution secondary to his mild hypotension as below, his renal disease and hyperuricemia. Repeat cardiac enzymes at 2100 hrs. and in the a.m. Further cardiology consultation depending on his clinical course. Qualifiers: Heart failure type: unspecified Heart failure chronicity: acute on chronic Qualified Code(s): I50.9 - Heart failure, unspecified (7) D-dimer, elevated SNOMED Code(s): 267386353 Code(s): R79.89 - OTHER SPECIFIED ABNORMAL FINDINGS OF BLOOD CHEMISTRY Status: Acute Priority: High Current Visit: Yes Onset Date: 12/17/19 Annotation/Comment:: No clinical evidence of DVT or PE. Consider further work- up by accepting providers. Patient is on Eliquis and Plavix. CTA of the chest cannot be performed concomitantly secondary to CTA of the head and neck evaluations as above, which did take priority. Venous Doppler studies of the lower extremities are not available today. Repeat D-dimer in the a.m. Consider CTA of the chest depending on his clinical course. (8) Hyperuricemia SNOMED Code(s): 42459495 Code(s): E79.0 - HYPERURICEMIA W/O SIGNS OF INFLAM ARTHRIT AND TOPHACEOUS DIS Status: Acute Priority: Medium Current Visit: Yes Onset Date: 12/17/19 Annotation/Comment:: Newly diagnosed. Continue to observe closely secondary to IV Lasix therapy. Note history of diabetic nephropathy. No apparent history of gout attacks with osteoarthritis otherwise stable by limited history. (9) Hypoalbuminemia SNOMED Code(s): 797191106 Code(s): E88.09 - [facility] DISORDERS OF PLASMA-PROTEIN METABOLISM, NEC Status: Chronic Priority: Medium Current Visit: Yes Annotation/Comment:: Continue to observe for now. Consider high-protein Glucerna supplements as snacks, however note current diabetes and obesity. (10) IDDM (insulin dependent diabetes mellitus) SNOMED Code(s): 94510730 Code(s): JON3071 - Status: Chronic Priority: Medium Current Visit: Yes Annotation/Comment:: Random glucose of 103 by today's blood work with Accu- Chek by long term staff of 150 mg percent prior to patient's transfer and Accu-Chek of 102 mg percent at time of arrival to our facility by our nursing staff as per standard stroke protocol. Note history of diabetic neuropathy and nephropathy. Glycosylated hemoglobin and lipid panel in the a.m. (11) Mixed anxiety depressive disorder SNOMED Code(s): 405609924 Code(s): F41.8 - OTHER SPECIFIED ANXIETY DISORDERS Status: Chronic Priority: Medium Current Visit: Yes Annotation/Comment:: Stable by history note history of PTSD, alcoholism, etc. (12) Peptic reflux disease SNOMED Code(s): 029829148 Code(s): K21.9 - GASTRO-ESOPHAGEAL REFLUX DISEASE WITHOUT ESOPHAGITIS Status: Chronic Priority: Medium Current Visit: No Annotation/Comment:: Stable by history. High-dose IV Pepcid given as GI prophylaxis. No evidence of GI bleed, etc. (13) Hypertension SNOMED Code(s): 57255091 Code(s): I10 - ESSENTIAL (PRIMARY) HYPERTENSION Status: Chronic Priority: Medium Current Visit: Yes Annotation/Comment:: Note mild hypotension after IV Lasix therapy. IV fluids initiated with caution secondary to his CHF as above. Qualifiers: Hypertension type: essential hypertension Qualified Code(s): I10 - Essential (primary) hypertension (14) Hypothyroidism (acquired) SNOMED Code(s): 859379342 Code(s): E03.9 - HYPOTHYROIDISM, UNSPECIFIED Status: Chronic Priority: Medium Current Visit: Yes Annotation/Comment:: Under therapy. Mildly depressed TSH. Observe for now. Medication adjustments per accepting and regular providers depending on his clinical course. (15) Atrial fibrillation SNOMED Code(s): 69267610 Code(s): I48.91 - UNSPECIFIED ATRIAL FIBRILLATION Status: Chronic Priority: Medium Current Visit: Yes Annotation/Comment:: Moderate sinus bradycardia with moderate sinus arrhythmia today. Note current Eliquis therapy. Decrease his Toprol-XL for now secondary to his significant bradycardia as above. Qualifiers: Atrial fibrillation type: unspecified chronic Qualified Code(s): I48.20 - Chronic atrial fibrillation, unspecified; I48.2 - Chronic atrial fibrillation - Problem List Review Problem List Initiated/Reviewed/Updated: Yes - My Orders Last 24 Hours: My Active Orders 12/17/19 Breakfast Nothing per Oral Now Diet [DIET] 12/17/19 10:49 Blood Glucose Check, Bedside [RC] STAT Cardiac Monitoring [RC] STAT Communication Order [RC] PER UNIT ROUTINE EKG Documentation Completion [RC] ASDIRECTED NIH Stroke Scale [RC] ASDIRECTED Oxygen Therapy, ED [RC] CONTINUOUS Peripheral IV Care [RC] . DIRECTED Pulse Oximetry [RC] CONTINUOUS Up With Assistance [RC] ASDIRECTED Vital Signs [RC] PFP Chest 1V Frontal [CR] Stat Head wo Cont [CT] Stat UA W/MICROSCOPIC [URIN] Stat Sodium Chloride 0.9% [Saline Flush] 10 ml FLUSH ASDIRECTED PRN Obtain Past Medical Record [OM.PC] Stat Peripheral IV Insertion Adult [OM.PC] Stat Resuscitation Status Stat 12/17/19 10:50 Peripheral IV Care [RC] . DIRECTED CULTURE BLOOD [BC] Stat CULTURE BLOOD [BC] Stat Peripheral IV Insertion Adult [OM.PC] Routine 12/17/19 10:51 CORONAVIRUS COVID-19 PIETRO [MOLEC] Stat INFLUENZA A+B AG SCREEN [RM] Stat STREP SCRN A RAPID W CULT CONF [RM] Stat Isolation [COMM] Routine 12/17/19 10:55 PROLACTIN [REF] Stat 12/17/19 11:21 CULTURE URINE [RM] Routine Blood Culture x2 Reflex Set [OM.PC] Urgent 12/17/19 12:23 Sodium Chloride 0.9% [Saline Flush] 10 ml FLUSH ASDIRECTED PRN 12/17/19 12:44 Ang Head [CT] Stat Ang Neck [CT] Stat 12/17/19 12:45 Lactated Ringers [Ringers, Lactated] 1,000 ml IV ASDIRECTED - Assessment/Plan Admission H&P: Please use this note as an admission H&P Last 24 Hours: My Active Orders 12/17/19 Breakfast Nothing per Oral Now Diet [DIET] 12/17/19 10:49 Blood Glucose Check, Bedside [RC] STAT Cardiac Monitoring [RC] STAT Communication Order [RC] PER UNIT ROUTINE EKG Documentation Completion [RC] ASDIRECTED NIH Stroke Scale [RC] ASDIRECTED Oxygen Therapy, ED [RC] CONTINUOUS Peripheral IV Care [RC] . DIRECTED Pulse Oximetry [RC] CONTINUOUS Up With Assistance [RC] ASDIRECTED Vital Signs [RC] PFP Chest 1V Frontal [CR] Stat Head wo Cont [CT] Stat UA W/MICROSCOPIC [URIN] Stat Sodium Chloride 0.9% [Saline Flush] 10 ml FLUSH ASDIRECTED PRN Obtain Past Medical Record [OM.PC] Stat Peripheral IV Insertion Adult [OM.PC] Stat Resuscitation Status Stat 12/17/19 10:50 Peripheral IV Care [RC] . DIRECTED CULTURE BLOOD [BC] Stat CULTURE BLOOD [BC] Stat Peripheral IV Insertion Adult [OM.PC] Routine 12/17/19 10:51 CORONAVIRUS COVID-19 PIETRO [MOLEC] Stat INFLUENZA A+B AG SCREEN [RM] Stat STREP SCRN A RAPID W CULT CONF [RM] Stat Isolation [COMM] Routine 12/17/19 10:55 PROLACTIN [REF] Stat 12/17/19 11:21 CULTURE URINE [RM] Routine Blood Culture x2 Reflex Set [OM.PC] Urgent 12/17/19 12:23 Sodium Chloride 0.9% [Saline Flush] 10 ml FLUSH ASDIRECTED PRN 12/17/19 12:44 Ang Head [CT] Stat Ang Neck [CT] Stat 12/17/19 12:45 Lactated Ringers [Ringers, Lactated] 1,000 ml IV ASDIRECTED Assessment:: As above Plan: As above. Extensive precautions were given to the patient and his brother, who are in agreement with the treatment plan. The patient will require about 3-4 days of inpatient/acute care secondary to multiple health problems as above.
[2019-12-17] MEDS: Sodium Chloride 0.9% 10 ML Syringe FLUSH PRN ×3 (11:21→12:48)
[2019-12-17] MEDS ORDERED: Furosemide 40 MG/4 ML VIAL IVPUSH ONE (11:28)
[2019-12-17] MEDS ORDERED: cefTRIAXone 1 GM in Sodium Chloride 0.9% 100 ML IV ONE (11:29)
[2019-12-17 11:47] LABS: PTT,PARTIAL THROMBOPLSTIN TIME 19.2 SEC (24.5-32.8)
[2019-12-17 12:18] LABS: CHLORIDE,CL 103 mmol/L (98-107); SODIUM,NA 143 mmol/L (136-145)
[2019-12-17] MEDS ORDERED: Sodium Chloride 0.9% 10 ML Syringe FLUSH PRN (12:23)
[2019-12-17] MEDS ORDERED: metroNIDAZOLE/Normal Saline 500 MG in Premix Bag 1 BAG IV ONE (12:39)
[2019-12-17] MEDS ORDERED: Lactated Ringers 1,000 ML IV SCH (12:45)
[2019-12-17] MEDS ORDERED: Iopamidol 755 Mg/ML 100 ML Bottle IVPUSH ONE (13:00)
[2019-12-17] MEDS ORDERED: Iopamidol 755 Mg/ML 100 ML Bottle ONE (13:09)
[2019-12-17] MEDS ORDERED: Polyvinyl Alcohol 1.4% Ophth Soln 15 ML Bottle EYEBOTH PRN (15:46)
[2019-12-17] MEDS ORDERED: Acetaminophen 325 MG Tab PO PRN (15:50)
[2019-12-17] MEDS ORDERED: Temazepam 15 MG Cap PO PRN (15:50)
[2019-12-17] MEDS ORDERED: DICLOFENAC GEL 1% TOP PRN (16:00)
[2019-12-17] MEDS ORDERED: Metoprolol Tartrate 50 MG Tab PO ONE (18:00)
[2019-12-17] MEDS: Albuterol/Ipratropium 4 GM Inhalation Spray INH SCH ×2 (18:03→20:29)
[2019-12-17] MEDS: Dextromethorphan/guaiFENesin 600-30 MG Tab.ER PO SCH (18:04)
[2019-12-17] MEDS: Sodium Chloride 0.9% 10 ML Syringe FLUSH SCH (18:04)
[2019-12-17] MEDS: Potassium Chloride 20 MEQ Tab.ER PO SCH (18:04)
[2019-12-17] MEDS: Gabapentin 400 MG Cap PO SCH ×2 (18:04→20:25)
[2019-12-17] MEDS ORDERED: Menthol/Methyl Salicylate 85 GM Tube TOP PRN (20:01)
[2019-12-17] MEDS: Insulin Glarg,Human.Rec.Analog 100 Unit/ML SUBCUT SCH (20:25)
[2019-12-17] MEDS: Simvastatin 20 MG Tab PO SCH (20:25)
[2019-12-17] MEDS: Apixaban 5 MG Tab PO SCH (20:25)
[2019-12-17] MEDS: Acetaminophen 650 MG Tab.ER PO SCH (20:25)
[2019-12-17] MEDS: metroNIDAZOLE/Normal Saline 500 MG in Premix Bag 1 BAG IV SCH (22:33)
[2019-12-17] MEDS: Furosemide 40 MG/4 ML VIAL IVPUSH SCH (22:36)
[2019-12-17] MEDS: cefTRIAXone 1 GM in Sodium Chloride 0.9% 100 ML IV SCH (23:40)
[2019-12-18] MEDS: metroNIDAZOLE/Normal Saline 500 MG in Premix Bag 1 BAG IV SCH ×3 (04:35→20:41)
[2019-12-18] MEDS: Sodium Chloride 0.9% 10 ML Syringe FLUSH SCH ×2 (04:35→17:29)
[2019-12-18] MEDS: Furosemide 40 MG/4 ML VIAL IVPUSH SCH ×3 (05:39→22:03)
[2019-12-18] MEDS: Sodium Chloride 0.9% 10 ML Syringe FLUSH PRN ×4 (05:39→20:42)
[2019-12-18] MEDS: Albuterol/Ipratropium 4 GM Inhalation Spray INH SCH ×4 (07:46→20:38)
[2019-12-18] MEDS: Insulin Glarg,Human.Rec.Analog 100 Unit/ML SUBCUT SCH ×2 (07:48→20:30)
[2019-12-18] MEDS: Dextromethorphan/guaiFENesin 600-30 MG Tab.ER PO SCH ×2 (07:51→17:29)
[2019-12-18] MEDS: Potassium Chloride 20 MEQ Tab.ER PO SCH ×3 (07:51→17:29)
[2019-12-18] MEDS: Apixaban 5 MG Tab PO SCH ×2 (07:52→20:21)
[2019-12-18] MEDS: Lisinopril 10 MG Tab PO SCH (07:52)
[2019-12-18] MEDS: Levothyroxine 50 MCG Tab PO SCH (07:53)
[2019-12-18] MEDS: Clopidogrel 75 MG Tab PO SCH (07:54)
[2019-12-18] MEDS: amLODIPine 5 MG Tab PO SCH (07:55)
[2019-12-18] MEDS: Gabapentin 400 MG Cap PO SCH ×4 (07:55→20:21)
[2019-12-18] MEDS: predniSONE 5 MG Tab PO SCH (07:55)
[2019-12-18] MEDS: Finasteride 5 MG Tab PO SCH (07:56)
[2019-12-18] MEDS: Acetaminophen 650 MG Tab.ER PO SCH ×3 (07:56→20:21)
[2019-12-18] MEDS ORDERED: Metoprolol Tartrate 50 MG Tab PO ONE (08:00)
[2019-12-18 08:15] LABS: HEMOGLOBIN A1C 6.1 % (4.3-5.7)
[2019-12-18 08:37] LABS: CHLORIDE,CL 100 mmol/L (98-107); SODIUM,NA 143 mmol/L (136-145)
[2019-12-18] MEDS: Polyvinyl Alcohol 1.4% Ophth Soln 15 ML Bottle EYEBOTH SCH ×2 (10:12→17:33)
--- NOTE | 2019-12-18 10:38 | PCM.PN ---
- General Info Date of Service: 12/18/19 Admission Dx/Problem (Free Text): 1. Confusion with history of CVA 2. CHF 3. Pneumonia 4. D-dimer elevation Functional Status: Reports: Pain Controlled, Tolerating Diet, Urinating, Incentive Spirometry. Denies: Ambulating, New Symptoms Pain Score: 0 - Review of Systems General: Reports: Weakness (Stable left hemiparesis). Denies: Fever, Fatigue, Malaise, Chills, Night Sweats, Appetite (Adequate) HEENT: Reports: Glasses. Denies: Dysphasia, Headaches, Sinus Congestion, Sore Throat, Rhinitis, Visual Changes Pulmonary: Reports: Shortness of Breath, Cough. Denies: Pleuritic Chest Pain, Sputum, Hemoptysis, Wheezing Cardiovascular: Denies: Chest Pain, Palpitations, Dyspnea on Exertion, Orthopnea, PND, Edema, Lightheadedness Gastrointestinal: Reports: No Symptoms, Other (No bowel movement since admission). Denies: Abdominal Pain, Constipation, Decreased Appetite, Diarrhea, Difficulty Swallowing, Flatus, Hematochezia, Melena, Nausea, Vomiting Genitourinary: Reports: Incontinence. Denies: Dysuria, Frequency, Burning, Pain, Urgency, Hematuria, Retention Musculoskeletal: Reports: No Symptoms. Denies: Neck Pain, Shoulder Pain, Arm Pain, Back Pain, Leg Pain Skin: Reports: No Symptoms. Denies: Diaphoresis, Bruising Neurological: Reports: Confusion (Resolved), Difficulty Walking (Stable), Weakness (Improved generalized with stable left hemiparesis). Denies: Dizziness, Headache, Numbness, Paresthesia, Tingling Psychiatric: Reports: No Symptoms. Denies: Confusion, Depression, Anxiety, Agitation, Cravings, Hallucinations - Patient Data Vitals - Most Recent: Last Vital Signs Temp 36.1 C 12/18/19 08:00 Pulse 40 L 12/18/19 08:00 Resp 18 12/18/19 04:00 BP 169/85 H 12/18/19 08:00 Pulse Ox 98 12/18/19 08:00 Vital Signs - 24 hr 12/17/19 12/17/19 12/17/19 10:44 10:59 11:23 Temperature [ 37.6 C Temporal] Pulse, Peripheral Pulse, 57 L 62 Peripheral [ Pulse Oximetry] Respiratory 20 21 H 21 H Rate Blood Pressure Blood Pressure [Left Upper Arm ] Blood Pressure 153/82 H 167/73 H 159/65 H [Right Upper Arm] O2 Sat by Pulse 94 L 92 L 95 Oximetry 12/17/19 12/17/19 12/17/19 11:30 11:45 12:00 Temperature [ Temporal] Pulse, Peripheral Pulse, 59 L 58 L 55 L Peripheral [ Pulse Oximetry] Respiratory 20 20 19 Rate Blood Pressure Blood Pressure 114/75 97/53 L [Left Upper Arm ] Blood Pressure 120/55 L [Right Upper Arm] O2 Sat by Pulse 96 94 L 94 L Oximetry 12/17/19 12/17/19 12/17/19 12:15 12:30 12:37 Temperature [ Temporal] Pulse, Peripheral Pulse, 53 L Peripheral [ Pulse Oximetry] Respiratory 15 Rate Blood Pressure Blood Pressure 85/45 L 100/60 [Left Upper Arm ] Blood Pressure 85/41 L [Right Upper Arm] O2 Sat by Pulse 94 L Oximetry 12/17/19 12/17/19 12/17/19 12:53 13:15 13:44 Temperature [ Temporal] Pulse, Peripheral Pulse, 52 L Peripheral [ Pulse Oximetry] Respiratory 19 18 Rate Blood Pressure Blood Pressure 125/54 L [Left Upper Arm ] Blood Pressure 84/40 L 110/78 [Right Upper Arm] O2 Sat by Pulse 93 L 96 Oximetry 12/17/19 12/17/19 12/17/19 13:55 14:10 14:25 Temperature [ Temporal] Pulse, Peripheral Pulse, 52 L 53 L Peripheral [ Pulse Oximetry] Respiratory 13 17 18 Rate Blood Pressure Blood Pressure 114/55 L 109/49 L 123/61 [Left Upper Arm ] Blood Pressure [Right Upper Arm] O2 Sat by Pulse 97 97 97 Oximetry 12/17/19 12/17/19 12/17/19 15:15 15:50 18:31 Temperature [ 35.7 C L Temporal] Pulse, Peripheral Pulse, 53 L 50 L Peripheral [ Pulse Oximetry] Respiratory 17 17 Rate Blood Pressure Blood Pressure 138/50 L 102/44 L [Left Upper Arm ] Blood Pressure [Right Upper Arm] O2 Sat by Pulse 94 L 94 L 92 L Oximetry 12/17/19 12/17/19 12/18/19 20:00 23:41 04:00 Temperature [ 36.6 C 36.2 C 36.2 C Temporal] Pulse, Peripheral Pulse, 50 L 50 L 41 L Peripheral [ Pulse Oximetry] Respiratory 20 16 18 Rate Blood Pressure Blood Pressure 152/68 H 149/49 H 179/57 H [Left Upper Arm ] Blood Pressure [Right Upper Arm] O2 Sat by Pulse 98 95 99 Oximetry 12/18/19 12/18/19 12/18/19 07:51 07:52 07:55 Temperature [ Temporal] Pulse, 40 L Peripheral Pulse, Peripheral [ Pulse Oximetry] Respiratory Rate Blood Pressure 169/85 H 169/85 H 169/85 H Blood Pressure [Left Upper Arm ] Blood Pressure [Right Upper Arm] O2 Sat by Pulse Oximetry 12/18/19 08:00 Temperature [ 36.1 C Temporal] Pulse, Peripheral Pulse, 40 L Peripheral [ Pulse Oximetry] Respiratory Rate Blood Pressure Blood Pressure 169/85 H [Left Upper Arm ] Blood Pressure [Right Upper Arm] O2 Sat by Pulse 98 Oximetry Weight - Most Recent: 95.254 kg I&O - Last 24 Hours: Intake & Output 12/17/19 12/18/19 12/18/19 22:59 06:59 14:59 Intake Total 1260 Balance 1260 Imaging Impressions - Last 24 Hours: gambling monitor shows persistent intermittent bradycardia with heart rate in the high 40s to 50s with brief bradycardia into the high 30s. Occasional PACs with no other significant arrhythmia Preliminary verbal report from our broadband technician, Lyn, of venous Doppler studies of the lower extremities in the a.m. on 12/18/2019 were negative for DVT. Lab Results Last 24 Hours: Laboratory Results - last 24 hr 12/17/19 12/17/19 12/17/19 Range/Units 07:25 10:52 10:55 WBC 12.1 H (4.0-10.2) K/uL RBC 4.78 (4.33-5.41) M/uL Hgb 13.2 (13.1-16.8) g/dL Hct 43.8 (39.0-49.0) % MCV 91.6 (84.0-98.0) fL MCH 27.6 L (28.2-33.3) pg MCHC 30.1 L (31.7-36.0) g/dL RDW 16.6 H (11.2-14.1) % Plt Count 198 (150-350) K/uL Neut % (Auto) 83.9 H (45.0-80.0) % Lymph % (Auto) 5.6 L (10.0-50.0) % Simpson % (Auto) 8.5 (2.0-14.0) % Eos % (Auto) 1.7 (0.0-5.0) % Baso % (Auto) 0.3 (0.0-2.0) % Neut # (Auto) 10.11 H (1.40-7.00) K/uL Lymph # (Auto) 0.68 (0.50-3.50) K/uL Simpson # (Auto) 1.02 H (0.00-1.00) K/uL Eos # (Auto) 0.20 (0.00-0.50) K/uL Baso # (Auto) 0.04 (0.00-0.20) K/uL PT (9.5-12.0) SEC INR APTT (24.5-32.8) SEC D-Dimer, Quantitative (0-400) ng/mL Sodium (136-145) mmol/L Potassium (3.5-5.1) mmol/L Chloride (98-107) mmol/L Carbon Dioxide (21.0-32.0) mmol/L BUN (7-18) mg/dL Creatinine (0.51-1.17) mg/dL Est Cr Clr Drug Dosing mL/min Estimated GFR (MDRD) mL/min Glucose (74-106) mg/dL POC Glucose 102 (65-110) mg/dl Hemoglobin A1c (4.3-5.7) % Lactic Acid (0.4-2.0) mmol/L Uric Acid (2.6-7.2) mg/dL Calcium (8.5-10.1) mg/dL Magnesium (1.8-2.4) mg/dL Total Bilirubin (0.2-1.0) mg/dL AST (15-37) U/L ALT (12-78) U/L Alkaline Phosphatase (46-116) IU/L Creatine Kinase (26-308) U/L Creatine Kinase Index (0.0-2.5) % CK-MB (CK-2) (0.00-3.60) ng/mL Troponin I (0.000-0.056) ng/mL NT-Pro-B Natriuret Pep (0-125) pg/mL Total Protein (6.4-8.2) g/dL Albumin (3.4-5.0) g/dL Triglycerides (30-150) mg/dL Cholesterol (100-200) mg/dL LDL Cholesterol, Calc (0-100) mg/dL HDL Cholesterol (40-60) mg/dL TSH, Ultra Sensitive (0.358-3.740) mIU/mL Specimen Type Urinqcath Urine Color Light yellow Urine Appearance Clear Urine pH 7.5 (5.0-9.0) Ur Specific Sunburst 1.020 (1.005-1.030) Urine Protein Negative (NEGATIVE) mg/dL Urine Glucose (UA) Negative (NEGATIVE) mg/dL Urine Ketones Negative (NEGATIVE) mg/dL Urine Occult Blood Negative (NEGATIVE) Urine Nitrite Negative (NEGATIVE) Urine Bilirubin Negative (NEGATIVE) Urine Urobilinogen 0.2 (0.2-1.0) E.U./dL Ur Leukocyte Esterase Negative (NEGATIVE) Urine RBC Not seen /HPF Urine WBC 0-5 /HPF Ur Epithelial Cells Occasional /LPF Urine Bacteria Occasional (NONE TO FEW) /HPF SARS-CoV-2 RNA (PIETRO) (NEGATIVE) 12/17/19 12/17/19 12/17/19 Range/Units 10:55 10:55 10:55 WBC (4.0-10.2) K/uL RBC (4.33-5.41) M/uL Hgb (13.1-16.8) g/dL Hct (39.0-49.0) % MCV (84.0-98.0) fL MCH (28.2-33.3) pg MCHC (31.7-36.0) g/dL RDW (11.2-14.1) % Plt Count (150-350) K/uL Neut % (Auto) (45.0-80.0) % Lymph % (Auto) (10.0-50.0) % Simpson % (Auto) (2.0-14.0) % Eos % (Auto) (0.0-5.0) % Baso % (Auto) (0.0-2.0) % Neut # (Auto) (1.40-7.00) K/uL Lymph # (Auto) (0.50-3.50) K/uL Simpson # (Auto) (0.00-1.00) K/uL Eos # (Auto) (0.00-0.50) K/uL Baso # (Auto) (0.00-0.20) K/uL PT 10.2 (9.5-12.0) SEC INR 1.0 APTT 19.2 L (24.5-32.8) SEC D-Dimer, Quantitative 643 H (0-400) ng/mL Sodium 143 (136-145) mmol/L Potassium 4.3 (3.5-5.1) mmol/L Chloride 103 (98-107) mmol/L Carbon Dioxide 35.2 H (21.0-32.0) mmol/L BUN 26 H (7-18) mg/dL Creatinine 1.14 (0.51-1.17) mg/dL Est Cr Clr Drug Dosing 58.57 mL/min Estimated GFR (MDRD) > 60 mL/min Glucose 103 (74-106) mg/dL POC Glucose (65-110) mg/dl Hemoglobin A1c (4.3-5.7) % Lactic Acid (0.4-2.0) mmol/L Uric Acid 7.6 H (2.6-7.2) mg/dL Calcium 8.8 (8.5-10.1) mg/dL Magnesium 1.8 (1.8-2.4) mg/dL Total Bilirubin 0.5 (0.2-1.0) mg/dL AST 27 (15-37) U/L ALT 48 (12-78) U/L Alkaline Phosphatase 66 (46-116) IU/L Creatine Kinase 179 (26-308) U/L Creatine Kinase Index 1.0 (0.0-2.5) % CK-MB (CK-2) 1.80 (0.00-3.60) ng/mL Troponin I 0.005 (0.000-0.056) ng/mL NT-Pro-B Natriuret Pep 345 H (0-125) pg/mL Total Protein 6.1 L (6.4-8.2) g/dL Albumin 3.3 L (3.4-5.0) g/dL Triglycerides (30-150) mg/dL Cholesterol (100-200) mg/dL LDL Cholesterol, Calc (0-100) mg/dL HDL Cholesterol (40-60) mg/dL TSH, Ultra Sensitive 0.301 L (0.358-3.740) mIU/mL Specimen Type Urine Color Urine Appearance Urine pH (5.0-9.0) Ur Specific Sunburst (1.005-1.030) Urine Protein (NEGATIVE) mg/dL Urine Glucose (UA) (NEGATIVE) mg/dL Urine Ketones (NEGATIVE) mg/dL Urine Occult Blood (NEGATIVE) Urine Nitrite (NEGATIVE) Urine Bilirubin (NEGATIVE) Urine Urobilinogen (0.2-1.0) E.U./dL Ur Leukocyte Esterase (NEGATIVE) Urine RBC /HPF Urine WBC /HPF Ur Epithelial Cells /LPF Urine Bacteria (NONE TO FEW) /HPF SARS-CoV-2 RNA (PIETRO) (NEGATIVE) 12/17/19 12/17/19 12/17/19 Range/Units 10:55 15:07 21:00 WBC (4.0-10.2) K/uL RBC (4.33-5.41) M/uL Hgb (13.1-16.8) g/dL Hct (39.0-49.0) % MCV (84.0-98.0) fL MCH (28.2-33.3) pg MCHC (31.7-36.0) g/dL RDW (11.2-14.1) % Plt Count (150-350) K/uL Neut % (Auto) (45.0-80.0) % Lymph % (Auto) (10.0-50.0) % Simpson % (Auto) (2.0-14.0) % Eos % (Auto) (0.0-5.0) % Baso % (Auto) (0.0-2.0) % Neut # (Auto) (1.40-7.00) K/uL Lymph # (Auto) (0.50-3.50) K/uL Simpson # (Auto) (0.00-1.00) K/uL Eos # (Auto) (0.00-0.50) K/uL Baso # (Auto) (0.00-0.20) K/uL PT (9.5-12.0) SEC INR APTT (24.5-32.8) SEC D-Dimer, Quantitative (0-400) ng/mL Sodium (136-145) mmol/L Potassium (3.5-5.1) mmol/L Chloride (98-107) mmol/L Carbon Dioxide (21.0-32.0) mmol/L BUN (7-18) mg/dL Creatinine (0.51-1.17) mg/dL Est Cr Clr Drug Dosing mL/min Estimated GFR (MDRD) mL/min Glucose (74-106) mg/dL POC Glucose (65-110) mg/dl Hemoglobin A1c (4.3-5.7) % Lactic Acid 1.6 (0.4-2.0) mmol/L Uric Acid (2.6-7.2) mg/dL Calcium (8.5-10.1) mg/dL Magnesium (1.8-2.4) mg/dL Total Bilirubin (0.2-1.0) mg/dL AST (15-37) U/L ALT (12-78) U/L Alkaline Phosphatase (46-116) IU/L Creatine Kinase 148 (26-308) U/L Creatine Kinase Index 0.9 (0.0-2.5) % CK-MB (CK-2) 1.40 (0.00-3.60) ng/mL Troponin I 0.000 (0.000-0.056) ng/mL NT-Pro-B Natriuret Pep (0-125) pg/mL Total Protein (6.4-8.2) g/dL Albumin (3.4-5.0) g/dL Triglycerides (30-150) mg/dL Cholesterol (100-200) mg/dL LDL Cholesterol, Calc (0-100) mg/dL HDL Cholesterol (40-60) mg/dL TSH, Ultra Sensitive (0.358-3.740) mIU/mL Specimen Type Urine Color Urine Appearance Urine pH (5.0-9.0) Ur Specific Sunburst (1.005-1.030) Urine Protein (NEGATIVE) mg/dL Urine Glucose (UA) (NEGATIVE) mg/dL Urine Ketones (NEGATIVE) mg/dL Urine Occult Blood (NEGATIVE) Urine Nitrite (NEGATIVE) Urine Bilirubin (NEGATIVE) Urine Urobilinogen (0.2-1.0) E.U./dL Ur Leukocyte Esterase (NEGATIVE) Urine RBC /HPF Urine WBC /HPF Ur Epithelial Cells /LPF Urine Bacteria (NONE TO FEW) /HPF SARS-CoV-2 RNA (PIETRO) Negative (NEGATIVE) 12/18/19 12/18/19 12/18/19 Range/Units 07:20 07:25 07:25 WBC 7.1 (4.0-10.2) K/uL RBC 5.13 (4.33-5.41) M/uL Hgb 14.2 (13.1-16.8) g/dL Hct 46.6 (39.0-49.0) % MCV 90.8 (84.0-98.0) fL MCH 27.7 L (28.2-33.3) pg MCHC 30.5 L (31.7-36.0) g/dL RDW 16.7 H (11.2-14.1) % Plt Count 196 (150-350) K/uL Neut % (Auto) 77.0 (45.0-80.0) % Lymph % (Auto) 9.6 L (10.0-50.0) % Simpson % (Auto) 11.3 (2.0-14.0) % Eos % (Auto) 1.7 (0.0-5.0) % Baso % (Auto) 0.4 (0.0-2.0) % Neut # (Auto) 5.46 (1.40-7.00) K/uL Lymph # (Auto) 0.68 (0.50-3.50) K/uL Simpson # (Auto) 0.80 (0.00-1.00) K/uL Eos # (Auto) 0.12 (0.00-0.50) K/uL Baso # (Auto) 0.03 (0.00-0.20) K/uL PT (9.5-12.0) SEC INR APTT (24.5-32.8) SEC D-Dimer, Quantitative 889 H (0-400) ng/mL Sodium 143 (136-145) mmol/L Potassium 3.6 (3.5-5.1) mmol/L Chloride 100 (98-107) mmol/L Carbon Dioxide 39.0 H (21.0-32.0) mmol/L BUN 24 H (7-18) mg/dL Creatinine 1.16 (0.51-1.17) mg/dL Est Cr Clr Drug Dosing 57.56 mL/min Estimated GFR (MDRD) > 60 mL/min Glucose 63 L (74-106) mg/dL POC Glucose (65-110) mg/dl Hemoglobin A1c (4.3-5.7) % Lactic Acid (0.4-2.0) mmol/L Uric Acid (2.6-7.2) mg/dL Calcium 9.2 (8.5-10.1) mg/dL Magnesium (1.8-2.4) mg/dL Total Bilirubin 0.5 (0.2-1.0) mg/dL AST 27 (15-37) U/L ALT 44 (12-78) U/L Alkaline Phosphatase 68 (46-116) IU/L Creatine Kinase 139 (26-308) U/L Creatine Kinase Index 1.2 (0.0-2.5) % CK-MB (CK-2) 1.60 (0.00-3.60) ng/mL Troponin I 0.000 (0.000-0.056) ng/mL NT-Pro-B Natriuret Pep 458 H (0-125) pg/mL Total Protein 7.4 (6.4-8.2) g/dL Albumin 3.6 (3.4-5.0) g/dL Triglycerides 106 (30-150) mg/dL Cholesterol 152 (100-200) mg/dL LDL Cholesterol, Calc 81 (0-100) mg/dL HDL Cholesterol 50 (40-60) mg/dL TSH, Ultra Sensitive (0.358-3.740) mIU/mL Specimen Type Urine Color Urine Appearance Urine pH (5.0-9.0) Ur Specific Sunburst (1.005-1.030) Urine Protein (NEGATIVE) mg/dL Urine Glucose (UA) (NEGATIVE) mg/dL Urine Ketones (NEGATIVE) mg/dL Urine Occult Blood (NEGATIVE) Urine Nitrite (NEGATIVE) Urine Bilirubin (NEGATIVE) Urine Urobilinogen (0.2-1.0) E.U./dL Ur Leukocyte Esterase (NEGATIVE) Urine RBC /HPF Urine WBC /HPF Ur Epithelial Cells /LPF Urine Bacteria (NONE TO FEW) /HPF SARS-CoV-2 RNA (PIETRO) (NEGATIVE) 12/18/19 Range/Units 08:00 WBC (4.0-10.2) K/uL RBC (4.33-5.41) M/uL Hgb (13.1-16.8) g/dL Hct (39.0-49.0) % MCV (84.0-98.0) fL MCH (28.2-33.3) pg MCHC (31.7-36.0) g/dL RDW (11.2-14.1) % Plt Count (150-350) K/uL Neut % (Auto) (45.0-80.0) % Lymph % (Auto) (10.0-50.0) % Simpson % (Auto) (2.0-14.0) % Eos % (Auto) (0.0-5.0) % Baso % (Auto) (0.0-2.0) % Neut # (Auto) (1.40-7.00) K/uL Lymph # (Auto) (0.50-3.50) K/uL Simpson # (Auto) (0.00-1.00) K/uL Eos # (Auto) (0.00-0.50) K/uL Baso # (Auto) (0.00-0.20) K/uL PT (9.5-12.0) SEC INR APTT (24.5-32.8) SEC D-Dimer, Quantitative (0-400) ng/mL Sodium (136-145) mmol/L Potassium (3.5-5.1) mmol/L Chloride (98-107) mmol/L Carbon Dioxide (21.0-32.0) mmol/L BUN (7-18) mg/dL Creatinine (0.51-1.17) mg/dL Est Cr Clr Drug Dosing mL/min Estimated GFR (MDRD) mL/min Glucose (74-106) mg/dL POC Glucose (65-110) mg/dl Hemoglobin A1c 6.1 H (4.3-5.7) % Lactic Acid (0.4-2.0) mmol/L Uric Acid (2.6-7.2) mg/dL Calcium (8.5-10.1) mg/dL Magnesium (1.8-2.4) mg/dL Total Bilirubin (0.2-1.0) mg/dL AST (15-37) U/L ALT (12-78) U/L Alkaline Phosphatase (46-116) IU/L Creatine Kinase (26-308) U/L Creatine Kinase Index (0.0-2.5) % CK-MB (CK-2) (0.00-3.60) ng/mL Troponin I (0.000-0.056) ng/mL NT-Pro-B Natriuret Pep (0-125) pg/mL Total Protein (6.4-8.2) g/dL Albumin (3.4-5.0) g/dL Triglycerides (30-150) mg/dL Cholesterol (100-200) mg/dL LDL Cholesterol, Calc (0-100) mg/dL HDL Cholesterol (40-60) mg/dL TSH, Ultra Sensitive (0.358-3.740) mIU/mL Specimen Type Urine Color Urine Appearance Urine pH (5.0-9.0) Ur Specific Sunburst (1.005-1.030) Urine Protein (NEGATIVE) mg/dL Urine Glucose (UA) (NEGATIVE) mg/dL Urine Ketones (NEGATIVE) mg/dL Urine Occult Blood (NEGATIVE) Urine Nitrite (NEGATIVE) Urine Bilirubin (NEGATIVE) Urine Urobilinogen (0.2-1.0) E.U./dL Ur Leukocyte Esterase (NEGATIVE) Urine RBC /HPF Urine WBC /HPF Ur Epithelial Cells /LPF Urine Bacteria (NONE TO FEW) /HPF SARS-CoV-2 RNA (PIETRO) (NEGATIVE) Laboratory Tests 12/17/19 12/17/19 12/17/19 Range/Units 07:25 10:52 10:55 WBC 12.1 H (4.0-10.2) K/uL RBC 4.78 (4.33-5.41) M/uL Hgb 13.2 (13.1-16.8) g/dL Hct 43.8 (39.0-49.0) % MCV 91.6 (84.0-98.0) fL MCH 27.6 L (28.2-33.3) pg MCHC 30.1 L (31.7-36.0) g/dL RDW 16.6 H (11.2-14.1) % Plt Count 198 (150-350) K/uL Neut % (Auto) 83.9 H (45.0-80.0) % Lymph % (Auto) 5.6 L (10.0-50.0) % Simpson % (Auto) 8.5 (2.0-14.0) % Eos % (Auto) 1.7 (0.0-5.0) % Baso % (Auto) 0.3 (0.0-2.0) % Neut # (Auto) 10.11 H (1.40-7.00) K/uL Lymph # (Auto) 0.68 (0.50-3.50) K/uL Simpson # (Auto) 1.02 H (0.00-1.00) K/uL Eos # (Auto) 0.20 (0.00-0.50) K/uL Baso # (Auto) 0.04 (0.00-0.20) K/uL PT (9.5-12.0) SEC INR APTT (24.5-32.8) SEC D-Dimer, Quantitative (0-400) ng/mL Sodium (136-145) mmol/L Potassium (3.5-5.1) mmol/L Chloride (98-107) mmol/L Carbon Dioxide (21.0-32.0) mmol/L BUN (7-18) mg/dL Creatinine (0.51-1.17) mg/dL Est Cr Clr Drug Dosing mL/min Estimated GFR (MDRD) mL/min Glucose (74-106) mg/dL POC Glucose 102 (65-110) mg/dl Hemoglobin A1c (4.3-5.7) % Lactic Acid (0.4-2.0) mmol/L Uric Acid (2.6-7.2) mg/dL Calcium (8.5-10.1) mg/dL Magnesium (1.8-2.4) mg/dL Total Bilirubin (0.2-1.0) mg/dL AST (15-37) U/L ALT (12-78) U/L Alkaline Phosphatase (46-116) IU/L Creatine Kinase (26-308) U/L Creatine Kinase Index (0.0-2.5) % CK-MB (CK-2) (0.00-3.60) ng/mL Troponin I (0.000-0.056) ng/mL NT-Pro-B Natriuret Pep (0-125) pg/mL Total Protein (6.4-8.2) g/dL Albumin (3.4-5.0) g/dL Triglycerides (30-150) mg/dL Cholesterol (100-200) mg/dL LDL Cholesterol, Calc (0-100) mg/dL HDL Cholesterol (40-60) mg/dL TSH, Ultra Sensitive (0.358-3.740) mIU/mL Specimen Type Urinqcath Urine Color Light yellow Urine Appearance Clear Urine pH 7.5 (5.0-9.0) Ur Specific Sunburst 1.020 (1.005-1.030) Urine Protein Negative (NEGATIVE) mg/dL Urine Glucose (UA) Negative (NEGATIVE) mg/dL Urine Ketones Negative (NEGATIVE) mg/dL Urine Occult Blood Negative (NEGATIVE) Urine Nitrite Negative (NEGATIVE) Urine Bilirubin Negative (NEGATIVE) Urine Urobilinogen 0.2 (0.2-1.0) E.U./dL Ur Leukocyte Esterase Negative (NEGATIVE) Urine RBC Not seen /HPF Urine WBC 0-5 /HPF Ur Epithelial Cells Occasional /LPF Urine Bacteria Occasional (NONE TO FEW) /HPF SARS-CoV-2 RNA (PIETRO) (NEGATIVE) 12/17/19 12/17/19 12/17/19 Range/Units 10:55 10:55 10:55 WBC (4.0-10.2) K/uL RBC (4.33-5.41) M/uL Hgb (13.1-16.8) g/dL Hct (39.0-49.0) % MCV (84.0-98.0) fL MCH (28.2-33.3) pg MCHC (31.7-36.0) g/dL RDW (11.2-14.1) % Plt Count (150-350) K/uL Neut % (Auto) (45.0-80.0) % Lymph % (Auto) (10.0-50.0) % Simpson % (Auto) (2.0-14.0) % Eos % (Auto) (0.0-5.0) % Baso % (Auto) (0.0-2.0) % Neut # (Auto) (1.40-7.00) K/uL Lymph # (Auto) (0.50-3.50) K/uL Simpson # (Auto) (0.00-1.00) K/uL Eos # (Auto) (0.00-0.50) K/uL Baso # (Auto) (0.00-0.20) K/uL PT 10.2 (9.5-12.0) SEC INR 1.0 APTT 19.2 L (24.5-32.8) SEC D-Dimer, Quantitative 643 H (0-400) ng/mL Sodium 143 (136-145) mmol/L Potassium 4.3 (3.5-5.1) mmol/L Chloride 103 (98-107) mmol/L Carbon Dioxide 35.2 H (21.0-32.0) mmol/L BUN 26 H (7-18) mg/dL Creatinine 1.14 (0.51-1.17) mg/dL Est Cr Clr Drug Dosing 58.57 mL/min Estimated GFR (MDRD) > 60 mL/min Glucose 103 (74-106) mg/dL POC Glucose (65-110) mg/dl Hemoglobin A1c (4.3-5.7) % Lactic Acid (0.4-2.0) mmol/L Uric Acid 7.6 H (2.6-7.2) mg/dL Calcium 8.8 (8.5-10.1) mg/dL Magnesium 1.8 (1.8-2.4) mg/dL Total Bilirubin 0.5 (0.2-1.0) mg/dL AST 27 (15-37) U/L ALT 48 (12-78) U/L Alkaline Phosphatase 66 (46-116) IU/L Creatine Kinase 179 (26-308) U/L Creatine Kinase Index 1.0 (0.0-2.5) % CK-MB (CK-2) 1.80 (0.00-3.60) ng/mL Troponin I 0.005 (0.000-0.056) ng/mL NT-Pro-B Natriuret Pep 345 H (0-125) pg/mL Total Protein 6.1 L (6.4-8.2) g/dL Albumin 3.3 L (3.4-5.0) g/dL Triglycerides (30-150) mg/dL Cholesterol (100-200) mg/dL LDL Cholesterol, Calc (0-100) mg/dL HDL Cholesterol (40-60) mg/dL TSH, Ultra Sensitive 0.301 L (0.358-3.740) mIU/mL Specimen Type Urine Color Urine Appearance Urine pH (5.0-9.0) Ur Specific Sunburst (1.005-1.030) Urine Protein (NEGATIVE) mg/dL Urine Glucose (UA) (NEGATIVE) mg/dL Urine Ketones (NEGATIVE) mg/dL Urine Occult Blood (NEGATIVE) Urine Nitrite (NEGATIVE) Urine Bilirubin (NEGATIVE) Urine Urobilinogen (0.2-1.0) E.U./dL Ur Leukocyte Esterase (NEGATIVE) Urine RBC /HPF Urine WBC /HPF Ur Epithelial Cells /LPF Urine Bacteria (NONE TO FEW) /HPF SARS-CoV-2 RNA (PIETRO) (NEGATIVE) 12/17/19 12/17/19 12/17/19 Range/Units 10:55 15:07 21:00 WBC (4.0-10.2) K/uL RBC (4.33-5.41) M/uL Hgb (13.1-16.8) g/dL Hct (39.0-49.0) % MCV (84.0-98.0) fL MCH (28.2-33.3) pg MCHC (31.7-36.0) g/dL RDW (11.2-14.1) % Plt Count (150-350) K/uL Neut % (Auto) (45.0-80.0) % Lymph % (Auto) (10.0-50.0) % Simpson % (Auto) (2.0-14.0) % Eos % (Auto) (0.0-5.0) % Baso % (Auto) (0.0-2.0) % Neut # (Auto) (1.40-7.00) K/uL Lymph # (Auto) (0.50-3.50) K/uL Simpson # (Auto) (0.00-1.00) K/uL Eos # (Auto) (0.00-0.50) K/uL Baso # (Auto) (0.00-0.20) K/uL PT (9.5-12.0) SEC INR APTT (24.5-32.8) SEC D-Dimer, Quantitative (0-400) ng/mL Sodium (136-145) mmol/L Potassium (3.5-5.1) mmol/L Chloride (98-107) mmol/L Carbon Dioxide (21.0-32.0) mmol/L BUN (7-18) mg/dL Creatinine (0.51-1.17) mg/dL Est Cr Clr Drug Dosing mL/min Estimated GFR (MDRD) mL/min Glucose (74-106) mg/dL POC Glucose (65-110) mg/dl Hemoglobin A1c (4.3-5.7) % Lactic Acid 1.6 (0.4-2.0) mmol/L Uric Acid (2.6-7.2) mg/dL Calcium (8.5-10.1) mg/dL Magnesium (1.8-2.4) mg/dL Total Bilirubin (0.2-1.0) mg/dL AST (15-37) U/L ALT (12-78) U/L Alkaline Phosphatase (46-116) IU/L Creatine Kinase 148 (26-308) U/L Creatine Kinase Index 0.9 (0.0-2.5) % CK-MB (CK-2) 1.40 (0.00-3.60) ng/mL Troponin I 0.000 (0.000-0.056) ng/mL NT-Pro-B Natriuret Pep (0-125) pg/mL Total Protein (6.4-8.2) g/dL Albumin (3.4-5.0) g/dL Triglycerides (30-150) mg/dL Cholesterol (100-200) mg/dL LDL Cholesterol, Calc (0-100) mg/dL HDL Cholesterol (40-60) mg/dL TSH, Ultra Sensitive (0.358-3.740) mIU/mL Specimen Type Urine Color Urine Appearance Urine pH (5.0-9.0) Ur Specific Sunburst (1.005-1.030) Urine Protein (NEGATIVE) mg/dL Urine Glucose (UA) (NEGATIVE) mg/dL Urine Ketones (NEGATIVE) mg/dL Urine Occult Blood (NEGATIVE) Urine Nitrite (NEGATIVE) Urine Bilirubin (NEGATIVE) Urine Urobilinogen (0.2-1.0) E.U./dL Ur Leukocyte Esterase (NEGATIVE) Urine RBC /HPF Urine WBC /HPF Ur Epithelial Cells /LPF Urine Bacteria (NONE TO FEW) /HPF SARS-CoV-2 RNA (PIETRO) Negative (NEGATIVE) 12/18/19 12/18/19 12/18/19 Range/Units 07:20 07:25 07:25 WBC 7.1 (4.0-10.2) K/uL RBC 5.13 (4.33-5.41) M/uL Hgb 14.2 (13.1-16.8) g/dL Hct 46.6 (39.0-49.0) % MCV 90.8 (84.0-98.0) fL MCH 27.7 L (28.2-33.3) pg MCHC 30.5 L (31.7-36.0) g/dL RDW 16.7 H (11.2-14.1) % Plt Count 196 (150-350) K/uL Neut % (Auto) 77.0 (45.0-80.0) % Lymph % (Auto) 9.6 L (10.0-50.0) % Simpson % (Auto) 11.3 (2.0-14.0) % Eos % (Auto) 1.7 (0.0-5.0) % Baso % (Auto) 0.4 (0.0-2.0) % Neut # (Auto) 5.46 (1.40-7.00) K/uL Lymph # (Auto) 0.68 (0.50-3.50) K/uL Simpson # (Auto) 0.80 (0.00-1.00) K/uL Eos # (Auto) 0.12 (0.00-0.50) K/uL Baso # (Auto) 0.03 (0.00-0.20) K/uL PT (9.5-12.0) SEC INR APTT (24.5-32.8) SEC D-Dimer, Quantitative 889 H (0-400) ng/mL Sodium 143 (136-145) mmol/L Potassium 3.6 (3.5-5.1) mmol/L Chloride 100 (98-107) mmol/L Carbon Dioxide 39.0 H (21.0-32.0) mmol/L BUN 24 H (7-18) mg/dL Creatinine 1.16 (0.51-1.17) mg/dL Est Cr Clr Drug Dosing 57.56 mL/min Estimated GFR (MDRD) > 60 mL/min Glucose 63 L (74-106) mg/dL POC Glucose (65-110) mg/dl Hemoglobin A1c (4.3-5.7) % Lactic Acid (0.4-2.0) mmol/L Uric Acid (2.6-7.2) mg/dL Calcium 9.2 (8.5-10.1) mg/dL Magnesium (1.8-2.4) mg/dL Total Bilirubin 0.5 (0.2-1.0) mg/dL AST 27 (15-37) U/L ALT 44 (12-78) U/L Alkaline Phosphatase 68 (46-116) IU/L Creatine Kinase 139 (26-308) U/L Creatine Kinase Index 1.2 (0.0-2.5) % CK-MB (CK-2) 1.60 (0.00-3.60) ng/mL Troponin I 0.000 (0.000-0.056) ng/mL NT-Pro-B Natriuret Pep 458 H (0-125) pg/mL Total Protein 7.4 (6.4-8.2) g/dL Albumin 3.6 (3.4-5.0) g/dL Triglycerides 106 (30-150) mg/dL Cholesterol 152 (100-200) mg/dL LDL Cholesterol, Calc 81 (0-100) mg/dL HDL Cholesterol 50 (40-60) mg/dL TSH, Ultra Sensitive (0.358-3.740) mIU/mL Specimen Type Urine Color Urine Appearance Urine pH (5.0-9.0) Ur Specific Sunburst (1.005-1.030) Urine Protein (NEGATIVE) mg/dL Urine Glucose (UA) (NEGATIVE) mg/dL Urine Ketones (NEGATIVE) mg/dL Urine Occult Blood (NEGATIVE) Urine Nitrite (NEGATIVE) Urine Bilirubin (NEGATIVE) Urine Urobilinogen (0.2-1.0) E.U./dL Ur Leukocyte Esterase (NEGATIVE) Urine RBC /HPF Urine WBC /HPF Ur Epithelial Cells /LPF Urine Bacteria (NONE TO FEW) /HPF SARS-CoV-2 RNA (PIETRO) (NEGATIVE) 12/18/19 Range/Units 08:00 WBC (4.0-10.2) K/uL RBC (4.33-5.41) M/uL Hgb (13.1-16.8) g/dL Hct (39.0-49.0) % MCV (84.0-98.0) fL MCH (28.2-33.3) pg MCHC (31.7-36.0) g/dL RDW (11.2-14.1) % Plt Count (150-350) K/uL Neut % (Auto) (45.0-80.0) % Lymph % (Auto) (10.0-50.0) % Simpson % (Auto) (2.0-14.0) % Eos % (Auto) (0.0-5.0) % Baso % (Auto) (0.0-2.0) % Neut # (Auto) (1.40-7.00) K/uL Lymph # (Auto) (0.50-3.50) K/uL Simpson # (Auto) (0.00-1.00) K/uL Eos # (Auto) (0.00-0.50) K/uL Baso # (Auto) (0.00-0.20) K/uL PT (9.5-12.0) SEC INR APTT (24.5-32.8) SEC D-Dimer, Quantitative (0-400) ng/mL Sodium (136-145) mmol/L Potassium (3.5-5.1) mmol/L Chloride (98-107) mmol/L Carbon Dioxide (21.0-32.0) mmol/L BUN (7-18) mg/dL Creatinine (0.51-1.17) mg/dL Est Cr Clr Drug Dosing mL/min Estimated GFR (MDRD) mL/min Glucose (74-106) mg/dL POC Glucose (65-110) mg/dl Hemoglobin A1c 6.1 H (4.3-5.7) % Lactic Acid (0.4-2.0) mmol/L Uric Acid (2.6-7.2) mg/dL Calcium (8.5-10.1) mg/dL Magnesium (1.8-2.4) mg/dL Total Bilirubin (0.2-1.0) mg/dL AST (15-37) U/L ALT (12-78) U/L Alkaline Phosphatase (46-116) IU/L Creatine Kinase (26-308) U/L Creatine Kinase Index (0.0-2.5) % CK-MB (CK-2) (0.00-3.60) ng/mL Troponin I (0.000-0.056) ng/mL NT-Pro-B Natriuret Pep (0-125) pg/mL Total Protein (6.4-8.2) g/dL Albumin (3.4-5.0) g/dL Triglycerides (30-150) mg/dL Cholesterol (100-200) mg/dL LDL Cholesterol, Calc (0-100) mg/dL HDL Cholesterol (40-60) mg/dL TSH, Ultra Sensitive (0.358-3.740) mIU/mL Specimen Type Urine Color Urine Appearance Urine pH (5.0-9.0) Ur Specific [place] (1.005-1.030) Urine Protein (NEGATIVE) mg/dL Urine Glucose (UA) (NEGATIVE) mg/dL Urine Ketones (NEGATIVE) mg/dL Urine Occult Blood (NEGATIVE) Urine Nitrite (NEGATIVE) Urine Bilirubin (NEGATIVE) Urine Urobilinogen (0.2-1.0) E.U./dL Ur Leukocyte Esterase (NEGATIVE) Urine RBC /HPF Urine WBC /HPF Ur Epithelial Cells /LPF Urine Bacteria (NONE TO FEW) /HPF SARS-CoV-2 RNA (PIETRO) (NEGATIVE) [place] Results Last 24 Hours: Microbiology 12/17/19 15:07 Quick Strep Confirmation Culture - Preliminary Throat NO GROUP A STREP ISOLATED REFERENCE RANGE: NEGATIVE Group A Streptococcus Rapid Screen - Final NEGATIVE STREP A SCREEN REFERENCE RANGE: NEGATIVE 12/17/19 13:07 Influenza Type A Antigen Screen - Final Nasal, Unspecified NEGATIVE INFLUENZA A VIRUS AG REFERENCE RANGE: NEGATIVE Influenza Type B Antigen Screen - Final NEGATIVE INFLUENZA B VIRUS AG REFERENCE RANGE: NEGATIVE Blood cultures x2 are pending Med Orders - Current: Current Medications Acetaminophen (Tylenol Arthritis Pain) 650 mg PO TID@0800,1400,2000 [facility] Last Admin: 12/18/19 07:56 Dose: 650 mg Documented by: Acetaminophen (Tylenol) 650 mg PO Q4H PRN PRN Reason: Pain/Fever Albuterol/Ipratropium (Combivent Respimat) 0 gm INH QID [facility] Last Admin: 12/18/19 07:46 Dose: 2 puff Documented by: Amlodipine Besylate (Norvasc) 2.5 mg PO DAILY [facility] Last Admin: 12/18/19 07:55 Dose: 2.5 mg Documented by: Apixaban (Eliquis) 5 mg PO BID@0800,1999 [facility] Last Admin: 12/18/19 07:52 Dose: 5 mg Documented by: Artificial Tears (Liquitears 1.4% Ophth Soln) 0 ml EYEBOTH QID PRN PRN Reason: Dry Eyes Artificial Tears (Liquitears 1.4% Ophth Soln) 1 ml EYEBOTH BID [facility] Last Admin: 12/18/19 10:12 Dose: 1 drop Documented by: Clopidogrel Bisulfate (Plavix) 75 mg PO DAILY [facility] Last Admin: 12/18/19 07:54 Dose: 75 mg Documented by: Finasteride (Proscar) 5 mg PO DAILY [facility] Last Admin: 12/18/19 07:56 Dose: 5 mg Documented by: Furosemide (Lasix) 40 mg IVPUSH Q8H [facility] Last Admin: 12/18/19 05:39 Dose: 40 mg Documented by: Gabapentin (Neurontin) 800 mg PO QID@08,12,17, [facility] Last Admin: 12/18/19 07:55 Dose: 800 mg Documented by: Guaifenesin/Dextromethorphan (Mucinex Dm Er 600-30 Mg) 1 tab PO BID [facility] Last Admin: 12/18/19 07:51 Dose: 1 tab Documented by: Ceftriaxone Sodium 1 gm/ (Sodium Chloride) 100 mls @ 200 mls/hr IV Q12H [facility] Last Admin: 12/17/19 23:40 Dose: 200 mls/hr Documented by: Metronidazole 500 mg/ Premix 100 mls @ 100 mls/hr IV Q8H [facility] Last Admin: 12/18/19 04:35 Dose: 100 mls/hr Documented by: Insulin Glargine (Lantus) 30 unit SUBCUT QAM [facility] Last Admin: 12/18/19 07:48 Dose: 30 units Documented by: Insulin Glargine (Lantus) 20 unit SUBCUT BEDTIME [facility] Last Admin: 12/17/19 20:25 Dose: 20 unit Documented by: Levothyroxine Sodium (Synthroid) 125 mcg PO QAM [facility] Last Admin: 12/18/19 07:53 Dose: 125 mcg Documented by: Lisinopril (Prinivil) 10 mg PO QAM [facility] Last Admin: 12/18/19 07:52 Dose: 10 mg Documented by: Methenamine Hippurate (Methenamine Hippurate) 1 gm PO Q12HR [facility] Last Admin: 12/18/19 10:12 Dose: 1 gm Documented by: Methyl Salicylate (Icy Hot Cream) 0 gm TOP ASDIRECTED PRN PRN Reason: chronic pain Metoprolol Tartrate (Lopressor) 25 mg PO BID [facility] Non-Formulary Medication (Bupropion [Wellbutrin Sr]) 100 mg PO Q12HR [facility] Non-Formulary Medication (Methyl Salicylate/Menth/Camph [Salonpas 3.1%-6.0%-10.0% Patch]) 1 patch TOP DAILY [facility] Non-Formulary Medication (Nf Drug) each TOP QID [facility] Potassium Chloride (Klor-Con M20) 20 meq PO TID [facility] Last Admin: 12/18/19 07:51 Dose: 20 meq Documented by: Prednisone (Prednisone) 10 mg PO DAILY [facility] Last Admin: 12/18/19 07:55 Dose: 10 mg Documented by: Senna/Docusate Sodium (Senna Plus) 1 tab PO BID PRN PRN Reason: Constipation Senna/Docusate Sodium (Senna Plus) 2 tab PO BID PRN PRN Reason: Constipation Simvastatin (Zocor) 20 mg PO BEDTIME [facility] Last Admin: 12/17/19 20:25 Dose: 20 mg Documented by: Sodium Chloride (Saline Flush) 10 ml FLUSH ASDIRECTED PRN PRN Reason: Keep Vein Open Last Admin: 12/18/19 08:09 Dose: 10 ml Documented by: Sodium Chloride (Saline Flush) 10 ml FLUSH ASDIRECTED PRN PRN Reason: Keep Vein Open Sodium Chloride (Saline Flush) 10 ml FLUSH Q12H [facility] Last Admin: 12/18/19 04:35 Dose: 10 ml Documented by: Temazepam (Restoril) 15 mg PO BEDTIME PRN PRN Reason: Insomnia Discontinued Medications Famotidine (Pepcid) 40 mg IVPUSH ONETIME ONE Stop: 12/17/19 10:50 Last Admin: 12/17/19 11:20 Dose: 40 mg Documented by: Furosemide (Lasix) 60 mg IVPUSH NOW ONE Stop: 12/17/19 11:29 Last Admin: 12/17/19 11:35 Dose: 60 mg Documented by: Ceftriaxone Sodium 1 gm/ (Sodium Chloride) 100 mls @ 200 mls/hr IV ONETIME ONE Stop: 12/17/19 11:58 Last Admin: 12/17/19 11:44 Dose: 200 mls/hr Documented by: Metronidazole 500 mg/ Premix 100 mls @ 100 mls/hr IV ONETIME ONE Stop: 12/17/19 13:38 Last Admin: 12/17/19 12:48 Dose: 100 mls/hr Documented by: Lactated Ringer's (Ringers, Lactated) 1,000 mls @ 80 mls/hr IV ASDIRECTED MIKIE Last Admin: 12/17/19 12:48 Dose: 80 mls/hr Documented by: Iopamidol (Isovue-370 (76%)) 100 ml IVPUSH ONETIME ONE Stop: 12/17/19 13:01 Last Admin: 12/17/19 13:34 Dose: 100 ml Documented by: Iopamidol (Isovue-370 (76%)) Confirm Administered Dose 100 ml .ROUTE .STK-MED ONE Stop: 12/17/19 13:10 Last Admin: 12/17/19 19:09 Dose: Not Given Documented by: Metoprolol Tartrate (Lopressor) 50 mg PO BID ONE Stop: 12/17/19 18:01 Metoprolol Tartrate (Lopressor) 50 mg PO BID ONE Stop: 12/18/19 08:01 Last Admin: 12/18/19 07:51 Dose: 50 mg Documented by: - Exam Quality Assessment: Supplemental Oxygen, DVT Prophylaxis (Eliquis). No: Central Line/PICC, Urine Catheter, Skin Breakdown, Restraints General: Alert, Oriented (X3 today), Cooperative, No Acute Distress HEENT: Pupils Equal, Pupils Reactive, EOMI, Mucous Membr. Moist/[place], Other (Patient is wearing glasses). No: Scleral Icterus Neck: Supple, Trachea Midline, No JVD, No Thyromegaly, Carotid Bruit (Stable mild bilateral carotid bruits versus transmitted heart sounds) Lungs: Normal Respiratory Effort, Decreased Breath Sounds (Right base), Rales (Improved moderate bilateral particularly in the bases). No: Rhonchi, Rub, Stridor, Wheezing Cardiovascular: Irregular Rhythm (Occasional extrasystoles), Bradycardia (Moderate), Murmurs (Stable 1/6 THEE of the aortic valve). No: Gallops, Rubs GI/Abdominal Exam: Normal Bowel Sounds, Soft, Non-Tender, No Organomegaly, No Distention, No Abnormal Bruit, No Mass, Other (Obese). No: Guarding (Male) Exam: Deferred Back Exam: Full Range of Motion, Other (Mild scoliosis). No: CVA Tenderness (L), CVA Tenderness (R), Muscle Spasm, Paraspinal Tenderness, Vertebral T enderness Extremities: Normal Inspection, Normal Range of Motion, Non-Tender, No Pedal Edema, Normal Capillary Refill. No: Stanley's Sign Peripheral Pulses: 2+: Radial (L), Radial (R), Dorsalis Pedis (L), Dorsalis Pedis (R) Skin: Warm, Dry, Intact Neurological: No New Focal Deficit, Other (Patient now oriented x3 with stable chronic mild left hemiparesis. Negative Babinski's.) Psy/Mental Status: Alert, Normal Affect, Normal Mood. No: Agitated, Hallucinations, Withdrawal Symptoms #1 Interpretation EKG Date: 12/18/19 Time: 07:24 Rhythm: Other (Moderate sinus bradycardia with occasional new PACs) Rate (Beats/Min): 47 [place]: Normal (Neutral cardiac axis) P-Wave: Present QRS: Normal (0.09 seconds) ST-T: Normal (However noisy baseline) QT: Normal GA/PQ Interval: 0.18 seconds with poor R wave progression in the anterior leads Comparison: Change From Previous EKG (As above since 12/17/2019) EKG Interpretation Comments: 1. No acute ischemic changes 2. Sinus bradycardia with history of sinus arrhythmia 3. New PACs Sepsis Event Note - Evaluation Sepsis Screening Result: No Definite Risk - Focused Exam Vital Signs: Vital Signs Temp Pulse Pulse Resp BP BP Pulse Ox 12/18/19 08:00 36.1 C 40 L 169/85 H 98 12/18/19 07:55 169/85 H 12/18/19 07:52 169/85 H 12/18/19 07:51 40 L 169/85 H 12/18/19 04:00 36.2 C 41 L 18 179/57 H 99 12/17/19 23:41 36.2 C 50 L 16 149/49 H 95 - Problem List & Annotations (1) Confusion SNOMED Code(s): 271362433 Code(s): R41.0 - DISORIENTATION, UNSPECIFIED Status: Acute Priority: High Current Visit: Yes Onset Date: 12/17/19 Annotation/Comment:: Confusion now completely resolved with patient back to his normal baseline, including mild chronic left hemiparesis. Stroke code was called by me upon patient's arrival to this facility based on patient's previous history of CVA, incomplete clinical history as above, etc.. Telephone consultation at 12:15 PM with the patient's brother and POA, Jake Lacey, mobile telephone number , discussing various therapeutic options. The brother and the patient are in agreement with possible transfer to [facility] for further treatment and evaluation. Note that the patient was not initially a candidate for treatment at the [facility] secondary to suspected possible repeat CVA. Initial telephone consultation with Melvin at 12:17 PM with subsequent telephone consultation at 12:[address] Quinteros, stroke neurologist at [facility], who is requesting a CTA of the head and neck be performed initially prior to transfer. Note negative CTA of the head results with probable stable right-sided coronary artery disease. Subsequent telephone consultation at 2:50 PM with Jose Rafael, hospital coordinator at the [facility] [place], with no inpatient beds available in that facility. We did get approval with the [facility] for hospitalization either in this facility or at [facility]. Subsequent telephone consultation with the patient's brother and POA at 2:55 PM with the brother and patient requesting initial care in this facility. Note current right-sided pneumonia with urine specimen unable to be obtained secondary to patient's urinary incontinence. Patient was tested for COVID-19 on 12/15/2019 with those results still pending, however COVID-19 rapid screen in this facility was negative on admission. Influenza screen and strep screen were conducted immediately prior to admission and are negative to this point. (2) Cerebrovascular accident (CVA) SNOMED Code(s): 314237830 Code(s): I63.9 - CEREBRAL INFARCTION, UNSPECIFIED Status: Chronic Priority: High Current Visit: Yes Qualifiers: CVA mechanism: occlusion Precerebral and cerebral artery: anterior cerebral artery Laterality of affected vessel: right Qualified Code(s): I63.521 - Cerebral infarction due to unspecified occlusion or stenosis of right anterior cerebral artery Annotation/Comment:: Note negative CTA of the head as above. Previous right frontal CVA with persistent mild left hemiparesis with probable stable neurological exam today, however limited history is available. Note some possible aphasia and dysarthria prior to patient's transfer, which was not evident during his emergency room care. Stable CT scan without contrast of the head as above. Neurological checks with vitals have been stable as above. (3) COPD (chronic obstructive pulmonary disease) SNOMED Code(s): 64779799 Code(s): J44.9 - CHRONIC OBSTRUCTIVE PULMONARY DISEASE, UNSPECIFIED Status: Chronic Priority: High Current Visit: Yes Qualifiers: COPD type: COPD with acute lower respiratory infection Qualified Code(s): J44.0 - Chronic obstructive pulmonary disease with (acute) lower respiratory infection Annotation/Comment:: Patient no longer requires O2 supplementation with O2 sat of 98% on room air at rest. Note that he normally does use O2 at 2 L/min by nasal cannula at bedtime and with naps. O2 will be discontinued during the day and changed to as needed on 12/17. Note hypoxia prior to admission likely secondary to current pneumonia and concomitant CHF. Patient has required oxygen therapy in the past and is steroid-dependent. Note history of respiratory failure on 07/04/2018 as above. O2 saturations were good with 2 L/min by nasal cannula in the emergency room. Inhaler rather than nebulizer therapy secondary to current COVID-19 pandemic. (4) Pneumonia SNOMED Code(s): 550952505 Code(s): J18.9 - PNEUMONIA, UNSPECIFIED ORGANISM Status: Acute Priority: High Current Visit: Yes Onset Date: 12/17/19 Qualifiers: Pneumonia type: due to unspecified organism Laterality: unspecified laterality Lung location: unspecified part of lung Qualified Code(s): J18.9 - Pneumonia, unspecified organism Annotation/Comment:: Moderate right-sided diffuse pneumonia as above. IV Rocephin and IV Flagyl were initiated in the emergency room secondary to his previous history of aspiration pneumonia with resolution of fever and leukocytos is on 12/17 despite his chronic prednisone therapy. The patient has apparently already having his influenza booster this season per limited history. Blood cultures x2 were collected with results still pending. Sputum specimen could not be obtained prior to admission, although this will be attempted ANTON. Continue incentive spirometry. No evidence of sepsis with normal lactic acid level on admission. (5) Carotid disease, bilateral SNOMED Code(s): 422132473 Code(s): I77.9 - DISORDER OF ARTERIES AND ARTERIOLES, UNSPECIFIED Status: Chronic Priority: [facility] Current Visit: Yes Qualifiers: Carotid artery disease type: stenosis Qualified Code(s): I65.23 - Occlusion and stenosis of bilateral carotid arteries Annotation/Comment:: Known bilateral moderate to severe carotid occlusive disease per history from the nursing staff at [facility] in [place]. Possible repeat CVA today is unlikely as per emergency room note. Note CTA of the neck results from 12/16. The patient is status post left carotid enterectomy. Continue close observation after discharge by his regular providers. (6) Congestive heart failure SNOMED Code(s): 34985738 Code(s): I50.9 - HEART FAILURE, UNSPECIFIED Status: Acute Priority: [facility] Current Visit: Yes Qualifiers: Heart failure type: unspecified Heart failure chronicity: acute on chronic Qualified Code(s): I50.9 - Heart failure, unspecified Annotation/Comment:: No chest pain or anginal complaints during this hospitalization and prior to admission, however the patient was a poor historian secondary to his initial confusion. Known history of recurrent CHF as above with mild to moderate CHF by chest x-ray and clinical exam on admission. Only mild BNP elevation on admission with some mild progression on 12/17. Otherwise EKG and cardiac enzymes are normal with exception of moderate bradycardia. Note concomitant pneumonia. High-dose IV Lasix given in the emergency room with further IV Lasix therapy with caution secondary to his initial mild hypotensio, his renal disease and hyperuricemia. Serial cardiac enzymes have been negative to this point. Further cardiology consultation depending on his clinical course. (7) D-dimer, elevated SNOMED Code(s): 297968515 Code(s): R79.89 - OTHER SPECIFIED ABNORMAL FINDINGS OF BLOOD CHEMISTRY Status: Acute Priority: [facility] Current Visit: Yes Onset Date: 12/17/19 Annotation/Comment:: No clinical evidence of DVT or PE. Preliminary verbal report of venous Doppler studies of the lower extremities this morning were negative for DVT. CTA of the chest to be conducted in the a.m. of 12/17 with results pending. Patient is on Eliquis and Plavix. CTA of the chest could not be performed concomitantly secondary to CTA of the head and neck evaluations in the emergency room, which did take priority. Repeat D-dimer in the a.m. on 12/17 did show some mild progression. (8) Hyperuricemia SNOMED Code(s): 02385780 Code(s): E79.0 - HYPERURICEMIA W/O SIGNS OF INFLAM ARTHRIT AND TOPHACEOUS DIS Status: Acute Priority: Medium Current Visit: Yes Onset Date: 12/17/19 Annotation/Comment:: Newly diagnosed. Continue to observe closely secondary to IV Lasix therapy. Note history of diabetic nephropathy. No apparent history of gout attacks with osteoarthritis otherwise stable by limited history. (9) Hypoalbuminemia SNOMED Code(s): 599128015 Code(s): E88.09 - OTH DISORDERS OF PLASMA-PROTEIN METABOLISM, NEC Status: Chronic Priority: Medium Current Visit: Yes Annotation/Comment:: Mild hypoalbuminemia on admission however resolved on 12/17. Continue to observe for now. Consider high-protein Glucerna supplements as snacks, however note current diabetes and obesity. (10) IDDM (insulin dependent diabetes mellitus) SNOMED Code(s): 51850785 Code(s): CFY1498 - Status: Chronic Priority: Medium Current Visit: Yes Annotation/Comment:: Random glucose of 103 by today's blood work with Accu- Chek by jail staff of 150 mg percent prior to patient's transfer and Accu-Chek of 102 mg percent at time of arrival to our facility by our nursing staff as per standard stroke protocol. Note history of diabetic neuropathy and nephropathy. Glycosylated hemoglobin was excellent at 6.1% with additional excellent fasting lipid profile on 12/17. Note that patient's Metformin is on hold secondary to contrast required for above CT evaluations. (11) Mixed anxiety depressive disorder SNOMED Code(s): 689495572 Code(s): F41.8 - OTHER SPECIFIED ANXIETY DISORDERS Status: Chronic Priority: Medium Current Visit: Yes Annotation/Comment:: Stable by history note history of PTSD, alcoholism, etc. (12) Peptic reflux disease SNOMED Code(s): 741232129 Code(s): K21.9 - GASTRO-ESOPHAGEAL REFLUX DISEASE WITHOUT ESOPHAGITIS Status: Chronic Priority: Medium Current Visit: No Annotation/Comment:: Stable by history. High-dose IV Pepcid given as GI prophylaxis in the emergency room. No evidence of GI bleed, etc. (13) Hypertension SNOMED Code(s): 85549101 Code(s): I10 - ESSENTIAL (PRIMARY) HYPERTENSION Status: Chronic Priority: Medium Current Visit: Yes Qualifiers: Hypertension type: essential hypertension Qualified Code(s): I10 - Essential (primary) hypertension Annotation/Comment:: Note mild hypotension after IV Lasix therapy. IV fluids initiated with caution secondary to his CHF as above in the emergency room, however these were discontinued shortly after admission. (14) Hypothyroidism (acquired) SNOMED Code(s): 601325675 Code(s): E03.9 - HYPOTHYROIDISM, UNSPECIFIED Status: Chronic Priority: Medium Current Visit: Yes Annotation/Comment:: Under therapy. Mildly depressed TSH on 12/16. Observe for now. Medication adjustments per accepting and regular providers depending on his clinical course. (15) Atrial fibrillation SNOMED Code(s): 81266349 Code(s): I48.91 - UNSPECIFIED ATRIAL FIBRILLATION Status: Chronic Priority: Medium Current Visit: Yes Qualifiers: Atrial fibrillation type: unspecified chronic Qualified Code(s): I48.20 - Chronic atrial fibrillation, unspecified; I48.2 - Chronic atrial fibrillation Annotation/Comment:: Moderate sinus bradycardia with moderate sinus arrhythmia on admission. Occasional PACs and persistent moderate bradycardia despite decrease of his Lopressor therapy. Unfortunately both Norvasc and Lopressor were given in the a.m. on 12/17 with further decrease of his Lopressor later this afternoon. Lopressor will be held, for bradycardia. Note current Eliquis therapy. (16) PAC (premature atrial contraction) SNOMED Code(s): 379016791 Code(s): I49.1 - ATRIAL PREMATURE DEPOLARIZATION Status: Acute Priority: Medium Current Visit: Yes Onset Date: 12/18/19 Annotation/Comment:: As above - Problem List Review Problem List Initiated/Reviewed/Updated: Yes - My Orders Last 24 Hours: My Active Orders 12/17/19 10:49 Cardiac Monitoring [RC] Q2HR Communication Order [RC] Q4HR Peripheral IV Care [RC] 08,20 Chest 1V Frontal [CR] Stat Head wo Cont [CT] Stat Sodium Chloride 0.9% [Saline Flush] 10 ml FLUSH ASDIRECTED PRN Peripheral IV Insertion Adult [OM.PC] Stat Resuscitation Status Stat 12/17/19 10:50 CULTURE BLOOD [BC] Stat CULTURE BLOOD [BC] Stat Peripheral IV Insertion Adult [OM.PC] Routine 12/17/19 10:51 Isolation [COMM] Routine 12/17/19 10:55 PROLACTIN [REF] Stat 12/17/19 11:21 Blood Culture x2 Reflex Set [OM.PC] Urgent 12/17/19 12:23 Sodium Chloride 0.9% [Saline Flush] 10 ml FLUSH ASDIRECTED PRN 12/17/19 12:44 Ang Head [CT] Stat Ang Neck [CT] Stat 12/17/19 15:07 CULTURE STREP A CONFIRMATION [RM] Stat STREP SCRN A RAPID W CULT CONF [RM] Stat 12/17/19 15:46 Docusate Sodium/Sennosides [Senna Plus] 1 tab PO BID PRN Docusate Sodium/Sennosides [Senna Plus] 2 tab PO BID PRN Polyvinyl Alcohol [LiquiTears 1.4% Ophth Soln] 0 ml EYEBOTH QID PRN 12/17/19 15:47 RT Incentive Spirometry [RC] 08,,,20 12/17/19 15:48 RT Post Treatment Assessment [RC] Click to Edit RT Pre-Treatment Assessment [RC] Click to Edit 12/17/19 15:50 Antiembolic Devices [RC] Communication Order [RC] 08,,, Communication Order [RC] DAILY Height and Weight [RC] DAILY Intake and Output Strict [RC] 18 Oxygen Therapy [RC] 2300 Pulse Oximetry [RC] .PRN Vital Signs [RC] Q4HR OCCULT BLOOD DIAGNOSTIC [OP] Routine Acetaminophen [TylenoL] 650 mg PO Q4H PRN Temazepam [Restoril] 15 mg PO BEDTIME PRN CHF Questionnaire [COMM] Routine DVT/VTE Prophylaxis Reflex [OM.PC] Routine GM Immunization Reflex [OM.PC] Click to Edit 12/17/19 15:53 Up With Assistance [RC] ASDIRECTED Antiembolic Hose [OM.PC] Routine 12/17/19 16:00 H PYLORI STOOL ANTIGEN [MREF] ONETIME Albuterol/Ipratropium [Combivent Respimat] See Dose Instructions INH QID Non-Formulary Medication [NF Drug] DOSE each TOP QID Sodium Chloride 0.9% [Saline Flush] 10 ml FLUSH Q12H 12/17/19 17:00 Gabapentin [Neurontin] 800 mg PO QID@08,12,17,20 12/17/19 Dinner Nothing per Oral Now Diet [DIET] 12/17/19 18:00 Dextromethorphan/guaiFENesin [Mucinex DM ER 600-30 MG] 1 tab PO BID Potassium Chloride [Klor-Con M20] 20 meq PO TID 12/17/19 20:00 Acetaminophen [Tylenol Arthritis Pain] 650 mg PO TID@0800,1400,1999 Apixaban [Eliquis] 5 mg PO BID@0800,1999 Insulin Glarg,Human.Rec.Analog [LantUS] 20 unit SUBCUT BEDTIME Simvastatin [Zocor] 20 mg PO BEDTIME buPROPion [Wellbutrin SR] 100 mg PO Q12HR 12/17/19 20:01 Menthol/Methyl Salicylate [Icy Hot Cream] 0 gm TOP ASDIRECTED PRN 12/17/19 21:30 metroNIDAZOLE/Normal Saline [Flagyl 500 MG in NS 100 ML] 500 mg Premix Bag 1 bag IV Q8H 12/17/19 22:00 Furosemide [Lasix] 40 mg IVPUSH Q8H 12/17/19 23:30 cefTRIAXone [Rocephin] 1 gm Sodium Chloride 0.9% [Normal Saline] 100 ml IV Q12H 12/18/19 04:40 CULTURE MRSA SURVEY [RM] Routine MRSA BY PCR [MREF] Routine 12/18/19 05:11 EKG Documentation Completion [RC] ASDIRECTED Venous Doppler Lwr Ext Bi [US] Urgent 12/18/19 08:00 Clopidogrel [Plavix] 75 mg PO DAILY Finasteride [Proscar] 5 mg PO DAILY Insulin Glarg,Human.Rec.Analog [LantUS] 30 unit SUBCUT QAM Levothyroxine [Synthroid] 125 mcg PO QAM Methyl Salicylate/Menth/Camph [Salonpas 3.1%-6.0%-10.0% Patch] 1 patch TOP DAILY amLODIPine [Norvasc] 2.5 mg PO DAILY lisinopriL [Prinivil] 10 mg PO QAM predniSONE 10 mg PO DAILY 12/18/19 10:00 Methenamine Hippurate 1 gm PO Q12HR Polyvinyl Alcohol [LiquiTears 1.4% Ophth Soln] 1 ml EYEBOTH BID 12/18/19 10:35 Chest PE [Ang Chest] [CT] Stat 12/18/19 18:00 Metoprolol Tartrate [Lopressor] 25 mg PO BID - Assessment Assessment:: As above - Plan Plan:: As above. Extensive precautions were given to the patient, who is in agreement with the treatment plan. The patient will require about 2-3days of inpatient/acute care secondary to multiple health problems as above. Fatuma lindsay physician assumes care in the a.m.
[2019-12-18] MEDS ORDERED: 50% Dextrose in Water 50 ML Syringe IV PRN (11:18)
[2019-12-18] MEDS ORDERED: Glucagon,Human Recombinant 1 MG Vial IM PRN (11:18)
[2019-12-18] MEDS: cefTRIAXone 1 GM in Sodium Chloride 0.9% 100 ML IV SCH ×2 (12:07→22:00)
[2019-12-18] MEDS: Isosorbide Mononitrate 30 MG Tab.ER PO SCH (12:09)
[2019-12-18] MEDS: BUPROPION 100 MG PO SCH ×2 (12:18→20:26)
[2019-12-18] MEDS: [UNRECOGNIZED DRUG - OTHER] TOP SCH (12:19)
[2019-12-18] MEDS ORDERED: Iopamidol 755 Mg/ML 100 ML Bottle IVPUSH ONE (14:00)
[2019-12-18] MEDS: Metoprolol Tartrate 25 MG Tab PO SCH (17:28)
[2019-12-18] MEDS: Insulin Lispro 100 Units/ML 3 ML Vial SUBCUT SCH (17:36)
[2019-12-18] MEDS ORDERED: REMOVE SALONPAS TRDERM SCH (20:00)
[2019-12-18] MEDS: Simvastatin 20 MG Tab PO SCH (20:21)
[2019-12-19] MEDS: Sodium Chloride 0.9% 10 ML Syringe FLUSH SCH (04:17)
[2019-12-19] MEDS: metroNIDAZOLE/Normal Saline 500 MG in Premix Bag 1 BAG IV SCH ×2 (04:18→12:26)
[2019-12-19] MEDS: Furosemide 40 MG/4 ML VIAL IVPUSH SCH (06:16)
[2019-12-19] MEDS: Insulin Lispro 100 Units/ML 3 ML Vial SUBCUT SCH (07:38)
[2019-12-19] MEDS: Insulin Glarg,Human.Rec.Analog 100 Unit/ML SUBCUT SCH (07:39)
[2019-12-19] MEDS: Albuterol/Ipratropium 4 GM Inhalation Spray INH SCH ×2 (07:43→11:07)
[2019-12-19] MEDS: BUPROPION 100 MG PO SCH (07:43)
[2019-12-19] MEDS: [UNRECOGNIZED DRUG - OTHER] TOP SCH (07:44)
[2019-12-19] MEDS: Dextromethorphan/guaiFENesin 600-30 MG Tab.ER PO SCH (07:45)
[2019-12-19] MEDS: amLODIPine 5 MG Tab PO SCH (07:46)
[2019-12-19] MEDS: Finasteride 5 MG Tab PO SCH (07:48)
[2019-12-19] MEDS: Acetaminophen 650 MG Tab.ER PO SCH (07:48)
[2019-12-19] MEDS: Apixaban 5 MG Tab PO SCH (07:49)
[2019-12-19] MEDS: Potassium Chloride 20 MEQ Tab.ER PO SCH ×2 (07:49→11:07)
[2019-12-19] MEDS: predniSONE 5 MG Tab PO SCH (07:50)
[2019-12-19] MEDS: Isosorbide Mononitrate 30 MG Tab.ER PO SCH (07:50)
[2019-12-19] MEDS: Clopidogrel 75 MG Tab PO SCH (07:50)
[2019-12-19] MEDS: Lisinopril 10 MG Tab PO SCH (07:51)
[2019-12-19] MEDS: Levothyroxine 50 MCG Tab PO SCH (07:52)
[2019-12-19] MEDS: Metoprolol Tartrate 25 MG Tab PO SCH (07:53)
[2019-12-19] MEDS: Gabapentin 400 MG Cap PO SCH ×2 (07:54→11:07)
[2019-12-19] MEDS: Polyvinyl Alcohol 1.4% Ophth Soln 15 ML Bottle EYEBOTH SCH (07:55)
--- NOTE | 2019-12-19 08:30 | PCM.PN ---
- General Info Date of Service: 12/19/19 Admission Dx/Problem (Free Text): 1. Confusion with history of CVA 2. CHF 3. Pneumonia 4. D-dimer elevation Subjective Update: Patient is doing well. He denies any significant shortness of breath or cough. No chest pain. No dizziness or lightheadedness. No weakness. He does feel he is at his baseline. CT scan of the chest done yesterday was negative for pulmonary embolism. He is requesting to return to the [facility]. - Review of Systems General: Denies: Fever, Chills HEENT: Denies: Headaches, Sinus Congestion, Sore Throat Pulmonary: Denies: Shortness of Breath, Cough Cardiovascular: Denies: Chest Pain, Palpitations Gastrointestinal: Denies: Abdominal Pain, Nausea, Vomiting Genitourinary: Denies: Dysuria, Frequency, Urgency Skin: Reports: No Symptoms Neurological: Denies: Confusion, Dizziness, Headache - Patient Data Vitals - Most Recent: Last Vital Signs Temp 36.9 C 12/19/19 02:00 Pulse 59 L 12/19/19 07:53 Resp 16 12/19/19 02:00 BP 153/64 H 12/19/19 07:53 Pulse Ox 96 12/19/19 02:00 Weight - Most Recent: 95.254 kg I&O - Last 24 Hours: Intake & Output 12/18/19 12/19/19 12/19/19 22:59 06:59 14:59 Intake Total 100 540 Output Total 400 Balance -300 540 Imaging Impressions - Last 24 Hours: Single view of the chest shows a normal cardiac silhouette. Lung bases appear clear. No obvious infiltrate. No free air. Lab Results Last 24 Hours: Laboratory Results - last 24 hr 12/17/19 12/18/19 12/18/19 Range/Units 10:55 07:25 07:25 WBC (4.0-10.2) K/uL RBC (4.33-5.41) M/uL Hgb (13.1-16.8) g/dL Hct (39.0-49.0) % MCV (84.0-98.0) fL MCH (28.2-33.3) pg MCHC (31.7-36.0) g/dL RDW (11.2-14.1) % Plt Count (150-350) K/uL Neut % (Auto) (45.0-80.0) % Lymph % (Auto) (10.0-50.0) % [place] % (Auto) (2.0-14.0) % Eos % (Auto) (0.0-5.0) % Baso % (Auto) (0.0-2.0) % Neut # (Auto) (1.40-7.00) K/uL Lymph # (Auto) (0.50-3.50) K/uL [place] # (Auto) (0.00-1.00) K/uL Eos # (Auto) (0.00-0.50) K/uL Baso # (Auto) (0.00-0.20) K/uL D-Dimer, Quantitative 889 H (0-400) ng/mL Sodium 143 (136-145) mmol/L Potassium 3.6 (3.5-5.1) mmol/L Chloride 100 (98-107) mmol/L Carbon Dioxide 39.0 H (21.0-32.0) mmol/L BUN 24 H (7-18) mg/dL Creatinine 1.16 (0.51-1.17) mg/dL Est Cr Clr Drug Dosing 57.56 mL/min Estimated GFR (MDRD) > 60 mL/min Glucose 63 L (74-106) mg/dL POC Glucose (65-110) mg/dl Calcium 9.2 (8.5-10.1) mg/dL Total Bilirubin 0.5 (0.2-1.0) mg/dL AST 27 (15-37) U/L ALT 44 (12-78) U/L Alkaline Phosphatase 68 (46-116) IU/L Creatine Kinase 139 (26-308) U/L Creatine Kinase Index 1.2 (0.0-2.5) % CK-MB (CK-2) 1.60 (0.00-3.60) ng/mL Troponin I 0.000 (0.000-0.056) ng/mL NT-Pro-B Natriuret Pep 458 H (0-125) pg/mL Total Protein 7.4 (6.4-8.2) g/dL Albumin 3.6 (3.4-5.0) g/dL Triglycerides 106 (30-150) mg/dL Cholesterol 152 (100-200) mg/dL LDL Cholesterol, Calc 81 (0-100) mg/dL HDL Cholesterol 50 (40-60) mg/dL Prolactin 10.1 (2.6-13.1) ng/mL 12/18/19 12/19/19 12/19/19 Range/Units 17:23 07:09 07:45 WBC 7.0 (4.0-10.2) K/uL RBC 4.65 (4.33-5.41) M/uL Hgb 12.9 L (13.1-16.8) g/dL Hct 42.5 (39.0-49.0) % MCV 91.4 (84.0-98.0) fL MCH 27.7 L (28.2-33.3) pg MCHC 30.4 L (31.7-36.0) g/dL RDW 16.9 H (11.2-14.1) % Plt Count 215 (150-350) K/uL Neut % (Auto) 70.9 (45.0-80.0) % Lymph % (Auto) 12.8 (10.0-50.0) % [place] % (Auto) 13.8 (2.0-14.0) % Eos % (Auto) 2.1 (0.0-5.0) % Baso % (Auto) 0.4 (0.0-2.0) % Neut # (Auto) 4.99 (1.40-7.00) K/uL Lymph # (Auto) 0.90 (0.50-3.50) K/uL [place] # (Auto) 0.97 (0.00-1.00) K/uL Eos # (Auto) 0.15 (0.00-0.50) K/uL Baso # (Auto) 0.03 (0.00-0.20) K/uL D-Dimer, Quantitative (0-400) ng/mL Sodium (136-145) mmol/L Potassium (3.5-5.1) mmol/L Chloride (98-107) mmol/L Carbon Dioxide (21.0-32.0) mmol/L BUN (7-18) mg/dL Creatinine (0.51-1.17) mg/dL Est Cr Clr Drug Dosing mL/min Estimated GFR (MDRD) mL/min Glucose (74-106) mg/dL POC Glucose 208 H 112 H (65-110) mg/dl Calcium (8.5-10.1) mg/dL Total Bilirubin (0.2-1.0) mg/dL AST (15-37) U/L ALT (12-78) U/L Alkaline Phosphatase (46-116) IU/L Creatine Kinase (26-308) U/L Creatine Kinase Index (0.0-2.5) % CK-MB (CK-2) (0.00-3.60) ng/mL Troponin I (0.000-0.056) ng/mL NT-Pro-B Natriuret Pep (0-125) pg/mL Total Protein (6.4-8.2) g/dL Albumin (3.4-5.0) g/dL Triglycerides (30-150) mg/dL Cholesterol (100-200) mg/dL LDL Cholesterol, Calc (0-100) mg/dL HDL Cholesterol (40-60) mg/dL Prolactin (2.6-13.1) ng/mL 12/19/19 Range/Units 07:45 WBC (4.0-10.2) K/uL RBC (4.33-5.41) M/uL Hgb (13.1-16.8) g/dL Hct (39.0-49.0) % MCV (84.0-98.0) fL MCH (28.2-33.3) pg MCHC (31.7-36.0) g/dL RDW (11.2-14.1) % Plt Count (150-350) K/uL Neut % (Auto) (45.0-80.0) % Lymph % (Auto) (10.0-50.0) % [place] % (Auto) (2.0-14.0) % Eos % (Auto) (0.0-5.0) % Baso % (Auto) (0.0-2.0) % Neut # (Auto) (1.40-7.00) K/uL Lymph # (Auto) (0.50-3.50) K/uL [place] # (Auto) (0.00-1.00) K/uL Eos # (Auto) (0.00-0.50) K/uL Baso # (Auto) (0.00-0.20) K/uL D-Dimer, Quantitative 567 H (0-400) ng/mL Sodium (136-145) mmol/L Potassium (3.5-5.1) mmol/L Chloride (98-107) mmol/L Carbon Dioxide (21.0-32.0) mmol/L BUN (7-18) mg/dL Creatinine (0.51-1.17) mg/dL Est Cr Clr Drug Dosing mL/min Estimated GFR (MDRD) mL/min Glucose (74-106) mg/dL POC Glucose (65-110) mg/dl Calcium (8.5-10.1) mg/dL Total Bilirubin (0.2-1.0) mg/dL AST (15-37) U/L ALT (12-78) U/L Alkaline Phosphatase (46-116) IU/L Creatine Kinase (26-308) U/L Creatine Kinase Index (0.0-2.5) % CK-MB (CK-2) (0.00-3.60) ng/mL Troponin I (0.000-0.056) ng/mL NT-Pro-B Natriuret Pep (0-125) pg/mL Total Protein (6.4-8.2) g/dL Albumin (3.4-5.0) g/dL Triglycerides (30-150) mg/dL Cholesterol (100-200) mg/dL LDL Cholesterol, Calc (0-100) mg/dL HDL Cholesterol (40-60) mg/dL Prolactin (2.6-13.1) ng/mL [place] Results Last 24 Hours: Microbiology 12/17/19 10:50 Aerobic Blood Culture - Preliminary Blood - Venous - Lab Draw NO GROWTH AFTER 1 DAY 12/17/19 10:50 Aerobic Blood Culture - Preliminary Blood - Venous NO GROWTH AFTER 1 DAY 12/17/19 15:07 Quick Strep Confirmation Culture - Preliminary Throat NO GROUP A STREP ISOLATED REFERENCE RANGE: NEGATIVE Group A Streptococcus Rapid Screen - Final NEGATIVE STREP A SCREEN REFERENCE RANGE: NEGATIVE Med Orders - Current: Current Medications Acetaminophen (Tylenol Arthritis Pain) 650 mg PO TID@0800,1400,2000 [facility] Last Admin: 12/19/19 07:48 Dose: 650 mg Documented by: Acetaminophen (Tylenol) 650 mg PO Q4H PRN PRN Reason: Pain/Fever Last Admin: 12/19/19 00:13 Dose: 650 mg Documented by: Albuterol/Ipratropium (Combivent Respimat) 0 gm INH QID [facility] Last Admin: 12/19/19 07:43 Dose: 2 puff Documented by: Amlodipine Besylate (Norvasc) 2.5 mg PO DAILY [facility] Last Admin: 12/19/19 07:46 Dose: 2.5 mg Documented by: Apixaban (Eliquis) 5 mg PO BID@0800,1999 [facility] Last Admin: 12/19/19 07:49 Dose: 5 mg Documented by: Artificial Tears (Liquitears 1.4% Ophth Soln) 0 ml EYEBOTH QID PRN PRN Reason: Dry Eyes Artificial Tears (Liquitears 1.4% Ophth Soln) 1 ml EYEBOTH BID [facility] Last Admin: 12/19/19 07:55 Dose: 1 drop Documented by: Clopidogrel Bisulfate (Plavix) 75 mg PO DAILY [facility] Last Admin: 12/19/19 07:50 Dose: 75 mg Documented by: Dextrose/Water (Dextrose 50% In Water) 50 ml IV ASDIRECTED PRN PRN Reason: Hypoglycemia Finasteride (Proscar) 5 mg PO DAILY [facility] Last Admin: 12/19/19 07:48 Dose: 5 mg Documented by: Furosemide (Lasix) 40 mg IVPUSH Q8H [facility] Last Admin: 12/19/19 06:16 Dose: Not Given Documented by: Gabapentin (Neurontin) 800 mg PO QID@08,12,17,20 [facility] Last Admin: 12/19/19 07:54 Dose: 800 mg Documented by: Glucagon (Glucagen) 1 mg IM ASDIRECTED PRN PRN Reason: Hypoglycemia Guaifenesin/Dextromethorphan (Mucinex Dm Er 600-30 Mg) 1 tab PO BID [facility] Last Admin: 12/19/19 07:45 Dose: 1 tab Documented by: Ceftriaxone Sodium 1 gm/ (Sodium Chloride) 100 mls @ 200 mls/hr IV Q12H [facility] Last Admin: 12/18/19 22:00 Dose: 200 mls/hr Documented by: Metronidazole 500 mg/ Premix 100 mls @ 100 mls/hr IV Q8H [facility] Last Admin: 12/19/19 04:18 Dose: 100 mls/hr Documented by: Insulin Glargine (Lantus) 30 unit SUBCUT QAM [facility] Last Admin: 12/19/19 07:39 Dose: 30 units Documented by: Insulin Glargine (Lantus) 20 unit SUBCUT BEDTIME [facility] Last Admin: 12/18/19 20:30 Dose: 20 unit Documented by: Insulin Human Lispro (Humalog) 0 unit SUBCUT BIDAC [facility]; Protocol Last Admin: 12/19/19 07:38 Dose: Not Given Documented by: Isosorbide Mononitrate (Imdur) 30 mg PO DAILY [facility] Last Admin: 12/19/19 07:50 Dose: 30 mg Documented by: Levothyroxine Sodium (Synthroid) [facility] Last Admin: 12/19/19 07:52 Dose: 125 mcg Documented by: Lisinopril (Prinivil) 10 mg PO QAM [facility] Last Admin: 12/19/19 07:51 Dose: 10 mg Documented by: Methenamine Hippurate (Methenamine Hippurate) 1 gm PO Q12HR [facility] Last Admin: 12/19/19 07:48 Dose: 1 gm Documented by: Methyl Salicylate (Icy Hot Cream) 0 gm TOP ASDIRECTED PRN PRN Reason: chronic pain Metoprolol Tartrate (Lopressor) 25 mg PO BID [facility] Last Admin: 12/19/19 07:53 Dose: 25 mg Documented by: Miscellaneous Information (Remove Patch) 1 ea TRDERM BEDTIME [facility] Last Admin: 12/18/19 20:36 Dose: 1 ea Documented by: Bupropion [ Wellbutrin Sr] 100 Mg Tabs 100 mg PO Q12HR [facility] Last Admin: 12/19/19 07:43 Dose: 100 mg Documented by: Methyl Salicylate/Menth/Camph [ Salonpas 3.1%-6.0%- 10.0% P 1 patch TOP DAILY [facility] Last Admin: 12/19/19 07:44 Dose: 1 patch Documented by: Diclofenac Gel 1% 2 each TOP QID PRN PRN Reason: PAIN Potassium Chloride (Klor-Con M20) 20 meq PO TID [facility] Last Admin: 12/19/19 07:49 Dose: 20 meq Documented by: Prednisone (Prednisone) 10 mg PO DAILY [facility] Last Admin: 12/19/19 07:50 Dose: 10 mg Documented by: Senna/Docusate Sodium (Senna Plus) 1 tab PO BID PRN PRN Reason: Constipation Senna/Docusate Sodium (Senna Plus) 2 tab PO BID PRN PRN Reason: Constipation Simvastatin (Zocor) 20 mg PO BEDTIME [facility] Last Admin: 12/18/19 20:21 Dose: 20 mg Documented by: Sodium Chloride (Saline Flush) 10 ml FLUSH ASDIRECTED PRN PRN Reason: Keep Vein Open Last Admin: 12/18/19 20:42 Dose: 10 ml Documented by: Sodium Chloride (Saline Flush) 10 ml FLUSH ASDIRECTED PRN PRN Reason: Keep Vein Open Last Admin: 12/18/19 12:07 Dose: 10 ml Documented by: Sodium Chloride (Saline Flush) 10 ml FLUSH Q12H [facility] Last Admin: 12/19/19 04:17 Dose: 10 ml Documented by: Temazepam (Restoril) 15 mg PO BEDTIME PRN PRN Reason: Insomnia Discontinued Medications Famotidine (Pepcid) 40 mg IVPUSH ONETIME ONE Stop: 12/17/19 10:50 Last Admin: 12/17/19 11:20 Dose: 40 mg Documented by: Furosemide (Lasix) 60 mg IVPUSH NOW ONE Stop: 12/17/19 11:29 Last Admin: 12/17/19 11:35 Dose: 60 mg Documented by: Ceftriaxone Sodium 1 gm/ (Sodium Chloride) 100 mls @ 200 mls/hr IV ONETIME ONE Stop: 12/17/19 11:58 Last Admin: 12/17/19 11:44 Dose: 200 mls/hr Documented by: Metronidazole 500 mg/ Premix 100 mls @ 100 mls/hr IV ONETIME ONE Stop: 12/17/19 13:38 Last Admin: 12/17/19 12:48 Dose: 100 mls/hr Documented by: Lactated Ringer's (Ringers, Lactated) 1,000 mls @ 80 mls/hr IV ASDIRECTED [facility] Last Admin: 12/17/19 12:48 Dose: 80 mls/hr Documented by: Ceftriaxone Sodium 1 gm/ (Sodium Chloride) 100 mls @ 200 mls/hr IV Q12H [facility] Last Admin: 12/18/19 12:07 Dose: 200 mls/hr Documented by: Metronidazole 500 mg/ Premix 100 mls @ 100 mls/hr IV Q8H [facility] Last Admin: 12/18/19 20:41 Dose: 100 mls/hr Documented by: Iopamidol (Isovue-370 (76%)) 100 ml IVPUSH ONETIME ONE Stop: 12/17/19 13:01 Last Admin: 12/17/19 13:34 Dose: 100 ml Documented by: Iopamidol (Isovue-370 (76%)) Confirm Administered Dose 100 ml .ROUTE .STK-MED ONE Stop: 12/17/19 13:10 Last Admin: 12/17/19 19:09 Dose: Not Given Documented by: Iopamidol (Isovue-370 (76%)) 100 ml IVPUSH ONETIME ONE Stop: 12/18/19 14:01 Last Admin: 12/18/19 14:10 Dose: 100 ml Documented by: Metoprolol Tartrate (Lopressor) 50 mg PO BID ONE Stop: 12/17/19 18:01 Metoprolol Tartrate (Lopressor) 50 mg PO BID ONE Stop: 12/18/19 08:01 Last Admin: 12/18/19 07:51 Dose: 50 mg Documented by: - Exam General: Alert, Oriented Neck: Supple Lungs: Clear to Auscultation, Normal Respiratory Effort Cardiovascular: Regular Rate, Regular Rhythm GI/Abdominal Exam: Normal Bowel Sounds, Soft, Non-Tender #1 Interpretation EKG Date: 12/19/19 Rhythm: NSR Bourg: Normal P-Wave: Present QRS: Normal ST-T: Normal QT: Normal EKG Interpretation Comments: No acute findings. Normal EKG. Sepsis Event Note - Evaluation Sepsis Screening Result: No Definite Risk - Focused Exam Vital Signs: Vital Signs Temp Pulse Pulse Resp BP BP Pulse Ox 12/19/19 07:53 59 L 153/64 H 12/19/19 07:51 153/64 H 12/19/19 07:50 153/64 H 12/19/19 07:46 153/64 H 12/19/19 02:00 36.9 C 55 L 16 177/75 H 96 - Problem List & Annotations (1) Pneumonia SNOMED Code(s): 012487103 Code(s): J18.9 - PNEUMONIA, UNSPECIFIED ORGANISM Status: Acute Priority: High Current Visit: Yes Onset Date: 12/17/19 Qualifiers: Pneumonia type: due to unspecified organism Laterality: unspecified laterality Lung location: unspecified part of lung Qualified Code(s): J18.9 - Pneumonia, unspecified organism Annotation/Comment:: Moderate right-sided diffuse pneumonia as above. IV Rocephin and IV Flagyl were initiated in the emergency room secondary to his previous history of aspiration pneumonia with resolution of fever and leukocytosis on 12/17 despite his chronic prednisone therapy. The patient has apparently already having his influenza booster this season per limited history. Blood cultures x2 were collected with results still pending. Sputum specimen could not be obtained prior to admission, although this will be attempted ANTON. Continue incentive spirometry. No evidence of sepsis with normal lactic acid level on admission. (2) COPD (chronic obstructive pulmonary disease) SNOMED Code(s): 39179815 Code(s): J44.9 - CHRONIC OBSTRUCTIVE PULMONARY DISEASE, UNSPECIFIED Status: Chronic Priority: High Current Visit: Yes Qualifiers: COPD type: COPD with acute lower respiratory infection Qualified Code(s): J44.0 - Chronic obstructive pulmonary disease with (acute) lower respiratory infection Annotation/Comment:: Patient no longer requires O2 supplementation with O2 sat of 98% on room air at rest. Note that he normally does use O2 at 2 L/min by nasal cannula at bedtime and with naps. O2 will be discontinued during the day and changed to as needed on 12/17. Note hypoxia prior to admission likely secondary to current pneumonia and concomitant CHF. Patient has required oxygen therapy in the past and is steroid-dependent. Note history of respiratory failure on 07/04/2018 as above. O2 saturations were good with 2 L/min by nasal cannula in the emergency room. Inhaler rather than nebulizer therapy secondary to current COVID-19 pandemic. - Problem List Review Problem List Initiated/Reviewed/Updated: Yes - My Orders Last 24 Hours: My Active Orders 12/19/19 08:24 CXR [Chest 1V Frontal] [CR] Routine - Assessment Assessment:: Pneumonia. COPD. - Plan Plan:: Discussed findings and treatment options with the patient. Since he is overall doing much better and is basically at his baseline, will discharge back to the [facility] home after his dose of Rocephin today. He should receive 2 more doses of Rocephin IM on December 19 and and will also continue the Flagyl 3 times daily. Follow-up with primary provider next week.
[2019-12-19] MEDS: cefTRIAXone 1 GM in Sodium Chloride 0.9% 100 ML IV SCH (11:07)
--- NOTE | 2019-12-19 12:04 | PCM.DCSUM1 ---
Discharge Summary - Hospital Course Free Text/Narrative:: Patient was admitted on December 17, 2019 initially with questionable stroke. Stroke was ruled out but he was found to have pneumonia. He was started on Rocephin and Flagyl and by December 17 was feeling much better. On the day of discharge he was requesting discharge. He did feel he was at his baseline. He did have a CT scan of the chest secondary to elevated D-dimer and that was negative for pulmonary embolism. Patient was stable throughout the visit and is discharged back to the alf on his previous medications with an additional 2 days of antibiotics. Diagnosis: Stroke: No - Discharge Data Discharge Date: 12/19/19 Discharge Disposition: DC/Tfer to SNF 03 Condition: Good - Referral to Home Health Primary Care Physician: TATO Mcclelland Skilled Need: yes - Discharge Diagnosis/Problem(s) (1) Pneumonia SNOMED Code(s): 726465854 ICD Code: J18.9 - PNEUMONIA, UNSPECIFIED ORGANISM Status: Acute Priority: High Onset Date: 12/17/19 Problem Details: Patient will receive IM rocephin at alf for 2 days. Qualifiers: Pneumonia type: due to unspecified organism Laterality: unspecified laterality Lung location: unspecified part of lung Qualified Code(s): J18.9 - Pneumonia, unspecified organism (2) COPD (chronic obstructive pulmonary disease) SNOMED Code(s): 64973466 ICD Code: J44.9 - CHRONIC OBSTRUCTIVE PULMONARY DISEASE, UNSPECIFIED Status: Chronic Priority: High Problem Details: Patient no longer requires O2 supplementation with O2 sat of 98% on room air at rest. Note that he normally does use O2 at 2 L/min by nasal cannula at bedtime and with naps. Qualifiers: COPD type: COPD with acute lower respiratory infection Qualified Code(s): J44.0 - Chronic obstructive pulmonary disease with (acute) lower respiratory infection - Patient Instructions Diet: Diabetic Diet Activity: As Tolerated Showering/Bathing: May Shower Other/Special Instructions: Follow up with PCP next week - Discharge Plan *PRESCRIPTION DRUG MONITORING PROGRAM REVIEWED*: Not Applicable *COPY OF PRESCRIPTION DRUG MONITORING REPORT IN PATIENT COLEEN: Not Applicable Prescriptions/Med Rec: metroNIDAZOLE [Flagyl] 500 mg PO Q8H #7 tablet cefTRIAXone [Rocephin] 1 gm IM Q24H #2 adv Home Medications: Home Meds Albuterol/Ipratropium [DuoNeb 3.0-0.5 MG/3 ML] 3 ml INH QID 07/04/18 [History] Apixaban [Eliquis] 5 mg PO BID@0800,199907/04/18 [History] Cyclobenzaprine [Flexeril] 10 mg PO Q8H PRN 07/04/18 [History] Insulin Glarg,Human.Rec.Analog [Lantus Solostar] 30 units SUBCUT QAM 07/04/18 [History] Levothyroxine Sodium [Synthroid] 125 mcg PO QAM 07/04/18 [History] Lisinopril 10 mg PO QAM 07/04/18 [History] Melatonin 6 mg PO BEDTIME PRN 07/04/18 [History] Methyl Salicylate/Menthol [Muscle Rub] 1 applic TOP ASDIRECTED PRN 07/04/18 [History] Sennosides/Docusate Sodium [Senna Plus Tablet] 1 tab PO BID PRN 07/04/18 [History] Simvastatin 20 mg PO BEDTIME 07/04/18 [History] amLODIPine [Norvasc] 2.5 mg PO DAILY 07/04/18 [History] buPROPion [Wellbutrin SR] 100 mg PO Q12HR 07/04/18 [History] predniSONE [Prednisone] 10 mg PO DAILY 07/04/18 [History] traZODone HCl [Trazodone HCl] 150 mg PO BEDTIME 07/04/18 [History] Acetaminophen 650 mg PO Q6H PRN 08/01/18 [History] Clopidogrel [Plavix] 75 mg PO DAILY 08/01/18 [History] Metoprolol Tartrate 75 mg PO BID@08,199908/01/18 [History] Acetaminophen [Tylenol Arthritis] 650 mg PO TID@0800,1400,199904/20/19 [History] Dextromethorphan/guaiFENesin [Mucinex DM ER 600-30 MG] 1 tab PO Q12H PRN 04/20/19 [History] Eyelid Cleanser Combination 5 [Ocusoft Lid Scrub] 1 each EYEBOTH BTNUNITS 04/20/19 [History] Finasteride 5 mg PO DAILY 04/20/19 [History] Furosemide 20 mg PO DAILY 04/20/19 [History] Hydrocortisone [Hydrocortisone 2.5% Crm] 1 applic TOP BID PRN 04/20/19 [History] Insulin Glargine,Hum.Rec.Anlog [Lantus Solostar] 20 unit SUBCUT BEDTIME 04/20/19 [History] Ketoconazole [Nizoral 2% Crm] 1 applic TOP BID PRN 04/20/19 [History] Loperamide [Imodium] 2 mg PO ASDIRECTED PRN 04/20/19 [History] Methenamine Mandelate 1 tab PO Q12H 04/20/19 [History] Non-Formulary Medication [NF Drug] 1 applic TOP QID PRN 04/20/19 [History] Polyvinyl Alcohol [LiquiTears 1.4% Ophth Soln] 1 drop EYEBOTH QID PRN 04/20/19 [History] Sennosides/Docusate Sodium [Senna-S] 2 tab PO BID PRN 04/20/19 [History] bisacodyL [Bisacodyl] 5 - 10 mg PO DAILY PRN 04/20/19 [History] guaiFENesin/Dextromethorphan [Tussin Dm Syrup] 10 ml PO Q4H PRN 04/20/19 [History] metFORMIN [Glucophage] 500 mg PO BID@0800,1700 04/20/19 [History] tiZANidine [Zanaflex] 2 mg PO TID@0800,1400,2000 04/20/19 [History] Cholecalciferol (Vitamin D3) [Vitamin D3] 1 cap PO DAILY 12/17/19 [History] Gabapentin [Neurontin] 800 mg PO QID@08,12,17,20 12/17/19 [History] Loratadine [Claritin] 10 mg PO DAILY PRN 12/17/19 [History] Magnesium Hydroxide [Milk of Magnesia] 30 ml PO DAILY PRN 12/17/19 [History] Methyl Salicylate/Menth/Camph [Salonpas 3.1%-6.0%-10.0% Patch] 1 patch TOP DAILY 12/17/19 [History] Propylene Glycol/PEG 400/Pf [Systane 0.3-0.4% Eye Drop] 1 drop EYEBOTH BID 12/17/19 [History] cefTRIAXone [Rocephin] 1 gm IM Q24H #2 adv 12/19/19 [Rx] metroNIDAZOLE [Flagyl] 500 mg PO Q8H #7 tablet 12/19/19 [Rx] Patient Handouts: Chronic Obstructive Pulmonary Disease, [id number], Community-Acquired Pneumonia, Adult, [id number] Forms: ED Department Discharge Referrals: Olive Webb PA [Primary Care Provider] - - Discharge Summary/Plan Comment DC Time >30 min.: Yes - General Info Date of Service: 12/19/19 Admission Dx/Problem (Free Text: 1. Confusion with history of CVA 2. CHF 3. Pneumonia 4. D-dimer elevation Subjective Update: Patient is doing well. He denies any significant shortness of breath or cough. No chest pain. No dizziness or lightheadedness. No weakness. He does feel he is at his baseline. CT scan of the chest done yesterday was negative for pulmonary embolism. He is requesting to return to the [facility]. Functional Status: Reports: Pain Controlled, Tolerating Diet - Review of Systems General: Denies: Fever, Weakness HEENT: Denies: Sinus Congestion, Sore Throat Pulmonary: Reports: Shortness of Breath. Denies: Pleuritic Chest Pain, Cough, Hemoptysis Cardiovascular: Denies: Chest Pain, Palpitations Gastrointestinal: Denies: Abdominal Pain, Nausea, Vomiting Genitourinary: Denies: Dysuria, Frequency, Urgency Neurological: Denies: Confusion, Dizziness, Headache, Numbness Psychiatric: Denies: Confusion, Depression - Patient Data Vitals - Most Recent: Last Vital Signs Temp 36.3 C 12/19/19 08:00 Pulse 59 L 12/19/19 08:00 Resp 20 12/19/19 08:00 BP 153/64 H 12/19/19 08:00 Pulse Ox 93 L 12/19/19 08:00 Weight - Most Recent: 95.254 kg I&O - Last 24 hours: Intake & Output 12/18/19 12/19/19 12/19/19 22:59 06:59 14:59 Intake Total 100 540 360 Output Total 400 Balance -300 540 360 Lab Results - Last 24 hrs: Laboratory Results - last 24 hr 12/18/19 12/19/19 12/19/19 Range/Units 17:23 07:09 07:45 WBC 7.0 (4.0-10.2) K/uL RBC 4.65 (4.33-5.41) M/uL Hgb 12.9 L (13.1-16.8) g/dL Hct 42.5 (39.0-49.0) % MCV 91.4 (84.0-98.0) fL MCH 27.7 L (28.2-33.3) pg MCHC 30.4 L (31.7-36.0) g/dL RDW 16.9 H (11.2-14.1) % Plt Count 215 (150-350) K/uL Neut % (Auto) 70.9 (45.0-80.0) % Lymph % (Auto) 12.8 (10.0-50.0) % Bennett % (Auto) 13.8 (2.0-14.0) % Eos % (Auto) 2.1 (0.0-5.0) % Baso % (Auto) 0.4 (0.0-2.0) % Neut # (Auto) 4.99 (1.40-7.00) K/uL Lymph # (Auto) 0.90 (0.50-3.50) K/uL Bennett # (Auto) 0.97 (0.00-1.00) K/uL Eos # (Auto) 0.15 (0.00-0.50) K/uL Baso # (Auto) 0.03 (0.00-0.20) K/uL D-Dimer, Quantitative (0-400) ng/mL Sodium (136-145) mmol/L Potassium (3.5-5.1) mmol/L Chloride (98-107) mmol/L Carbon Dioxide (21.0-32.0) mmol/L BUN (7-18) mg/dL Creatinine (0.51-1.17) mg/dL Est Cr Clr Drug Dosing mL/min Estimated GFR (MDRD) mL/min Glucose (74-106) mg/dL POC Glucose 208 H 112 H (65-110) mg/dl Uric Acid (2.6-7.2) mg/dL Calcium (8.5-10.1) mg/dL Magnesium (1.8-2.4) mg/dL Troponin I (0.000-0.056) ng/mL NT-Pro-B Natriuret Pep (0-125) pg/mL 12/19/19 12/19/19 Range/Units 07:45 07:45 WBC (4.0-10.2) K/uL RBC (4.33-5.41) M/uL Hgb (13.1-16.8) g/dL Hct (39.0-49.0) % MCV (84.0-98.0) fL MCH (28.2-33.3) pg MCHC (31.7-36.0) g/dL RDW (11.2-14.1) % Plt Count (150-350) K/uL Neut % (Auto) (45.0-80.0) % Lymph % (Auto) (10.0-50.0) % Bennett % (Auto) (2.0-14.0) % Eos % (Auto) (0.0-5.0) % Baso % (Auto) (0.0-2.0) % Neut # (Auto) (1.40-7.00) K/uL Lymph # (Auto) (0.50-3.50) K/uL Bennett # (Auto) (0.00-1.00) K/uL Eos # (Auto) (0.00-0.50) K/uL Baso # (Auto) (0.00-0.20) K/uL D-Dimer, Quantitative 567 H (0-400) ng/mL Sodium 144 (136-145) mmol/L Potassium 4.1 (3.5-5.1) mmol/L Chloride 103 (98-107) mmol/L Carbon Dioxide 36.1 H (21.0-32.0) mmol/L BUN 25 H (7-18) mg/dL Creatinine 1.21 H (0.51-1.17) mg/dL Est Cr Clr Drug Dosing 55.18 mL/min Estimated GFR (MDRD) 59 mL/min Glucose 95 (74-106) mg/dL POC Glucose (65-110) mg/dl Uric Acid 7.8 H (2.6-7.2) mg/dL Calcium 9.1 (8.5-10.1) mg/dL Magnesium 2.0 (1.8-2.4) mg/dL Troponin I 0.000 (0.000-0.056) ng/mL NT-Pro-B Natriuret Pep 314 H (0-125) pg/mL IVY Results - Last 24 hrs: Microbiology 12/17/19 10:50 Aerobic Blood Culture - Preliminary Blood - Venous - Lab Draw NO GROWTH AFTER 2 DAYS 12/17/19 10:50 Aerobic Blood Culture - Preliminary Blood - Venous NO GROWTH AFTER 2 DAYS 12/17/19 07:25 Urine Culture - Preliminary Urine, Clean Catch NO GROWTH AFTER 1 DAY 12/17/19 15:07 Quick Strep Confirmation Culture - Final Throat NO GROUP A STREP ISOLATED REFERENCE RANGE: NEGATIVE Group A Streptococcus Rapid Screen - Final NEGATIVE STREP A SCREEN REFERENCE RANGE: NEGATIVE Med Orders - Current: Current Medications Acetaminophen (Tylenol Arthritis Pain) 650 mg PO TID@0800,1400,1999 [facility] Last Admin: 12/19/19 07:48 Dose: 650 mg Documented by: Acetaminophen (Tylenol) 650 mg PO Q4H PRN PRN Reason: Pain/Fever Last Admin: 12/19/19 00:13 Dose: 650 mg Documented by: Albuterol/Ipratropium (Combivent Respimat) 0 gm INH QID [facility] Last Admin: 12/19/19 11:07 Dose: 2 puff Documented by: Amlodipine Besylate (Norvasc) 2.5 mg PO DAILY [facility] Last Admin: 12/19/19 07:46 Dose: 2.5 mg Documented by: Apixaban (Eliquis) 5 mg PO BID@799,1999 [facility] Last Admin: 12/19/19 07:49 Dose: 5 mg Documented by: Artificial Tears (Liquitears 1.4% Ophth Soln) 0 ml EYEBOTH QID PRN PRN Reason: Dry Eyes Artificial Tears (Liquitears 1.4% Ophth Soln) 1 ml EYEBOTH BID [facility] Last Admin: 12/19/19 07:55 Dose: 1 drop Documented by: Clopidogrel Bisulfate (Plavix) 75 mg PO DAILY [facility] Last Admin: 12/19/19 07:50 Dose: 75 mg Documented by: Dextrose/Water (Dextrose 50% In Water) 50 ml IV ASDIRECTED PRN PRN Reason: Hypoglycemia Finasteride (Proscar) 5 mg PO DAILY [facility] Last Admin: 12/19/19 07:48 Dose: 5 mg Documented by: Furosemide (Lasix) 40 mg IVPUSH Q8H [facility] Last Admin: 12/19/19 06:16 Dose: Not Given Documented by: Gabapentin (Neurontin) 800 mg PO QID@08,12,17,20 [facility] Last Admin: 12/19/19 11:07 Dose: 800 mg Documented by: Glucagon (Glucagen) 1 mg IM ASDIRECTED PRN PRN Reason: Hypoglycemia Guaifenesin/Dextromethorphan (Mucinex Dm Er 600-30 Mg) 1 tab PO BID [facility] Last Admin: 12/19/19 07:45 Dose: 1 tab Documented by: Ceftriaxone Sodium 1 gm/ (Sodium Chloride) 100 mls @ 200 mls/hr IV Q12H [facility] Last Admin: 12/19/19 11:07 Dose: 200 mls/hr Documented by: Metronidazole 500 mg/ Premix 100 mls @ 100 mls/hr IV Q8H [facility] Last Admin: 12/19/19 04:18 Dose: 100 mls/hr Documented by: Insulin [facility]arg[facility] (L[facility]us) [facility] Admin: 12/19/19 07:39 Dose: 30 units Documented by: Insulin Glargine (Lantus) 20 unit SUBCUT BEDTIME [facility] Last Admin: 12/18/19 20:30 Dose: 20 unit Documented by: Insulin Human Lispro (Humalog) 0 unit SUBCUT BIDAC [facility]; Protocol Last Admin: 12/19/19 07:38 Dose: Not Given Documented by: Isosorbide Mononitrate (Imdur) 30 mg PO DAILY [facility] Last Admin: 12/19/19 07:50 Dose: 30 mg Documented by: Levothyroxine Sodium (Synthroid) 125 mcg PO [facility] Last Admin: 12/19/19 07:52 Dose: 125 mcg Documented by: Lisinopril (Prinivil) 10 mg PO [facility] Last Admin: 12/19/19 07:51 Dose: 10 mg Documented by: Methenamine Hippurate (Methenamine Hippurate) 1 gm PO Q12HR [facility] Last Admin: 12/19/19 07:48 Dose: 1 gm Documented by: Methyl Salicylate (Icy Hot Cream) 0 gm TOP ASDIRECTED PRN PRN Reason: chronic pain Metoprolol Tartrate (Lopressor) 25 mg PO BID [facility] Last Admin: 12/19/19 07:53 Dose: 25 mg Documented by: Miscellaneous Information (Remove Patch) 1 ea TRDERM BEDTIME [facility] Last Admin: 12/18/19 20:36 Dose: 1 ea Documented by: Bupropion [ Wellbutrin Sr] 100 Mg Tabs 100 mg PO Q12HR [facility] Last Admin: 12/19/19 07:43 Dose: 100 mg Documented by: Methyl Salicylate/Menth/Camph [ Salonpas 3.1%-6.0%- 10.0% P 1 patch TOP DAILY [facility] Last Admin: 12/19/19 07:44 Dose: 1 patch Documented by: Diclofenac Gel 1% 2 each TOP QID PRN PRN Reason: PAIN Potassium Chloride (Klor-Con M20) 20 meq PO TID [facility] Last Admin: 12/19/19 11:07 Dose: 20 meq Documented by: Prednisone (Prednisone) 10 mg PO DAILY [facility] Last Admin: 12/19/19 07:50 Dose: 10 mg Documented by: Senna/Docusate Sodium (Senna Plus) 1 tab PO BID PRN PRN Reason: Constipation Senna/Docusate Sodium (Senna Plus) 2 tab PO BID PRN PRN Reason: Constipation Simvastatin (Zocor) 20 mg PO BEDTIME [facility] Last Admin: 12/18/19 20:21 Dose: 20 mg Documented by: Sodium Chloride (Saline Flush) 10 ml FLUSH ASDIRECTED PRN PRN Reason: Keep Vein Open Last Admin: 12/18/19 20:42 Dose: 10 ml Documented by: Sodium Chloride (Saline Flush) 10 ml FLUSH ASDIRECTED PRN PRN Reason: Keep Vein Open Last Admin: 12/18/19 12:07 Dose: 10 ml Documented by: Sodium Chloride (Saline Flush) 10 ml FLUSH Q12H [facility] Last Admin: 12/19/19 04:17 Dose: 10 ml Documented by: Temazepam (Restoril) 15 mg PO BEDTIME PRN PRN Reason: Insomnia Discontinued Medications Famotidine (Pepcid) 40 mg IVPUSH ONETIME ONE Stop: 12/17/19 10:50 Last Admin: 12/17/19 11:20 Dose: 40 mg Documented by: Furosemide (Lasix) 60 mg IVPUSH NOW ONE Stop: 12/17/19 11:29 Last Admin: 12/17/19 11:35 Dose: 60 mg Documented by: Ceftriaxone Sodium 1 gm/ (Sodium Chloride) 100 mls @ 200 mls/hr IV ONETIME ONE Stop: 12/17/19 11:58 Last Admin: 12/17/19 11:44 Dose: 200 mls/hr Documented by: Metronidazole 500 mg/ Premix 100 mls @ 100 mls/hr IV ONETIME ONE Stop: 12/17/19 13:38 Last Admin: 12/17/19 12:48 Dose: 100 mls/hr Documented by: Lactated Ringer's (Ringers, Lactated) 1,000 mls @ 80 mls/hr IV ASDIRECTED [facility] Last Admin: 12/17/19 12:48 Dose: 80 mls/hr Documented by: Ceftriaxone Sodium 1 gm/ (Sodium Chloride) 100 mls @ 200 mls/hr IV Q12H [facility] Last Admin: 12/18/19 12:07 Dose: 200 mls/hr Documented by: Metronidazole 500 mg/ Premix 100 mls @ 100 mls/hr IV Q8H [facility] Last Admin: 12/18/19 20:41 Dose: 100 mls/hr Documented by: Iopamidol (Isovue-370 (76%)) 100 ml IVPUSH ONETIME ONE Stop: 12/17/19 13:01 Last Admin: 12/17/19 13:34 Dose: 100 ml Documented by: Iopamidol (Isovue-370 (76%)) Confirm Administered Dose 100 ml .ROUTE .STK-MED ONE Stop: 12/17/19 13:10 Last Admin: 12/17/19 19:09 Dose: Not Given Documented by: Iopamidol (Isovue-370 (76%)) 100 ml IVPUSH ONETIME ONE Stop: 12/18/19 14:01 Last Admin: 12/18/19 14:10 Dose: 100 ml Documented by: Metoprolol Tartrate (Lopressor) 50 mg PO BID ONE Stop: 12/17/19 18:01 Metoprolol Tartrate (Lopressor) 50 mg PO BID ONE Stop: 12/18/19 08:01 Last Admin: 12/18/19 07:51 Dose: 50 mg Documented by: - Exam General: Reports: Alert, Oriented Lungs: Reports: Clear to Auscultation, Normal Respiratory Effort Cardiovascular: Reports: Regular Rate, Regular Rhythm. Denies: Murmurs GI/Abdominal Exam: Normal Bowel Sounds, Soft, Non-Tender Psy/Mental Status: Reports: Alert, Normal Affect, Normal Mood
[2019-12-19] MEDS: Sodium Chloride 0.9% 10 ML Syringe FLUSH PRN (12:31)
== END 2019-12-19 13:40 | DRG 194 ==
LOC: LL.ED 10:36 → LL.MS 15:34
PROVIDERS: ADMIT Family Medicine; ATTEND Family Medicine
DX: I63.521 Cerebral infarction due to unspecified occlusion or stenosis of right anterior cerebral artery (principal); J18.9 Pneumonia, unspecified organism; J44.0 Chronic obstructive pulmonary disease with (acute) lower respiratory infection; I65.23 Occlusion and stenosis of bilateral carotid arteries; Z86.73 Personal history of transient ischemic attack (TIA), and cerebral infarction without residual deficits; I10 Essential (primary) hypertension; R79.89 Other specified abnormal findings of blood chemistry; E79.0 Hyperuricemia without signs of inflammatory arthritis and tophaceous disease; E88.09 Other disorders of plasma-protein metabolism, not elsewhere classified; E11.9 Type 2 diabetes mellitus without complications; F41.8 Other specified anxiety disorders; K21.9 Gastro-esophageal reflux disease without esophagitis; E03.9 Hypothyroidism, unspecified; I48.91 Unspecified atrial fibrillation; Z88.6 Allergy status to analgesic agent; Z88.2 Allergy status to sulfonamides; Z88.8 Allergy status to other drugs, medicaments and biological substances; Z79.01 Long term (current) use of anticoagulants; Z79.02 Long term (current) use of antithrombotics/antiplatelets; Z79.890 Hormone replacement therapy; Z79.4 Long term (current) use of insulin; Z79.899 Other long term (current) drug therapy; Z20.828 Contact with and (suspected) exposure to other viral communicable diseases; I50.9 Heart failure, unspecified
CPT/HCPCS: 36415; 70450; 70496; 70498; 71045; 71046; 71275; 80048; 80053; 80061; 81001; 82550; 82553; 82962; 83036; 83605; 83735; 83880; 84146; 84443; 84484; 84550; 85025; 85379; 85610; 85730; 87040; 87081; 87086; 87430; 87641; 87804; 93005; 93970; 94640; 96361; 96365; 96367; 96375; 99285-25; A9270-GY; J0696; J1815-GY; J1940; J3490; J7120; J7512; Q9967; U0002

== ENCOUNTER 2020-02-13 22:46 | Inpatient (IN) | payer MEDICARE, OTHER ==
[2020-02-13 23:36] LABS: CHLORIDE,CL 103 mmol/L (98-107); SODIUM,NA 143 mmol/L (136-145)
[2020-02-13] MEDS ORDERED: cefTRIAXone 1 GM in Sodium Chloride 0.9% 100 ML IV ONE (23:52)
--- NOTE | 2020-02-14 00:19 | EDM.PDOC ---
ED HPI GENERAL MEDICAL PROBLEM - General Chief Complaint: General Stated Complaint: FATIGUE, CHILLS, WEAKNESS Time Seen by Provider: 02/13/20 23:14 Source of Information: Reports: Patient, Other ([facility]) History Limitations: Reports: Other (Patient a bit somnolent/speech is not clear, slurs words together) - History of Present Illness INITIAL COMMENTS - FREE TEXT/NARRATIVE: Patient sent to ER for evaluation after [facility] staff observed that he was not as alert as usual throughout day. Also weaker/needed PAL lift which is unusual. Patient does have left sided weakness due to previous CVA. He complains that his right arm was jerky/spastic today. Decreased appetite. Denies any new pain complaint. No obvious fever. Denies new HEENT complaints/new cough (has chronic cough)/wheeze/SOB. No nausea/emesis/bowel changes. No UTI complaints. Does not feel that there is any specific new one-sided weakness. No other changes reported by retirement staff. Patient denies any other new changes. Noted to have low blood pressure at time of arrival. 71/35 and 67/49 were obtained shortly after arrival. HR was 41. Patient told staff that his heart rate is usually in mid 40s after taking evening meds. O2 sats were in 70s on room air per intake nurse. Patient does have 2L of O2 he wears at night. - Related Data Allergies Allergy/AdvReac Type Severity Reaction Status Date / Time morphine Allergy Change Verified 12/17/19 11:04 Mental Status sulfamethoxazole Allergy unknown Verified 12/17/19 11:04 [From ] trimethoprim [From ] Allergy unknown Verified 12/17/19 11:04 Home Meds: Home Meds Apixaban [Eliquis] 5 mg PO BID@0800,199907/04/18 [History] Cyclobenzaprine [Flexeril] 10 mg PO Q8H PRN 07/04/18 [History] Insulin Glarg,Human.Rec.Analog [Lantus Solostar] 30 units SUBCUT QA 07/04/18 [History] Levothyroxine Sodium [Synthroid] 125 mcg PO QAM 07/04/18 [History] Lisinopril 10 mg PO QA 07/04/18 [History] Methyl Salicylate/Menthol [Muscle Rub] 1 applic TOP ASDIRECTED PRN 07/04/18 [History] Sennosides/Docusate Sodium [Senna Plus Tablet] 1 tab PO BID PRN 07/04/18 [History] Simvastatin 20 mg PO BEDTIME 07/04/18 [History] amLODIPine [Norvasc] 2.5 mg PO DAILY 07/04/18 [History] buPROPion [Wellbutrin SR] 100 mg PO Q12HR 07/04/18 [History] predniSONE [Prednisone] 10 mg PO DAILY 07/04/18 [History] traZODone HCl [Trazodone HCl] 150 mg PO BEDTIME 07/04/18 [History] Acetaminophen 650 mg PO Q6H PRN 08/01/18 [History] Clopidogrel [Plavix] 75 mg PO DAILY 08/01/18 [History] Metoprolol Tartrate 75 mg PO BID@0800,199908/01/18 [History] Acetaminophen [Tylenol Arthritis] 650 mg PO TID@0800,1400,199904/20/19 [History] Dextromethorphan/guaiFENesin [Mucinex DM ER 600-30 MG] 1 tab PO Q12H PRN 04/20/19 [History] Eyelid Cleanser Combination 5 [Ocusoft Lid Scrub] 1 each EYEBOTH BTNUNITS 04/20/19 [History] Finasteride 5 mg PO DAILY 04/20/19 [History] Furosemide 20 mg PO DAILY 04/20/19 [History] Hydrocortisone [Hydrocortisone 2.5% Crm] 1 applic TOP BID PRN 04/20/19 [History] Insulin Glargine,Hum.Rec.Anlog [Lantus Solostar] 20 unit SUBCUT BEDTIME 04/20/19 [History] Ketoconazole [Nizoral 2% Crm] 1 applic TOP BID PRN 04/20/19 [History] Loperamide [Imodium] 2 mg PO ASDIRECTED PRN 04/20/19 [History] Methenamine Mandelate 1 tab PO Q12H 04/20/19 [History] Polyvinyl Alcohol [LiquiTears 1.4% Ophth Soln] 1 drop EYEBOTH QID PRN 04/20/19 [History] Sennosides/Docusate Sodium [Senna-S] 2 tab PO BID PRN 04/20/19 [History] bisacodyL [Bisacodyl] 5 - 10 mg PO DAILY PRN 04/20/19 [History] guaiFENesin/Dextromethorphan [Tussin Dm Syrup] 10 ml PO Q4H PRN 04/20/19 [History] metFORMIN [Glucophage] 500 mg PO BID@0800,1700 04/20/19 [History] tiZANidine [Zanaflex] 2 mg PO TID@0800,1400,2000 04/20/19 [History] Cholecalciferol (Vitamin D3) [Vitamin D3] 1 cap PO DAILY 12/17/19 [History] Gabapentin [Neurontin] 800 mg PO QID@08,12,17,20 12/17/19 [History] Loratadine [Claritin] 10 mg PO DAILY PRN 12/17/19 [History] Methyl Salicylate/Menth/Camph [Salonpas 3.1%-6.0%-10.0% Patch] 1 patch TOP DAILY 12/17/19 [History] Propylene Glycol/PEG 400/Pf [Systane 0.3-0.4% Eye Drop] 1 drop EYEBOTH BID 12/17/19 [History] Albuterol [Take Home: Albuterol 18 GM, 1 INH Pack] 2 puff INH QID 02/14/20 [History] Methyl Salicylate/Menth/Camph [Salonpas 3.1%-6.0%-10.0% Patch] 1 each TP 02/13 [History] Past Medical History HEENT History: Reports: Allergic Rhinitis, Impaired Vision, Other (See Below) Other HEENT History: The patient wears glasses with history of right macula puckering. Cardiovascular History: Reports: Afib, Aneurysm, Arrhythmia, Cardiomyopathy, Heart Failure, High Cholesterol, Hypertension, PVD. Denies: Blood Clots/VTE/DVT Other Cardiovascular History: Aneurysm of pulmonary artery. Peripheral vascular disease including bilateral. occlusion and stenosis of the carotid arteries. PACs Respiratory History: Reports: Bronchitis, Recurrent, COPD, Intubation, Difficult, Pneumonia, Recurrent, Other (See Below). Denies: Intubation, Previous Other Respiratory History: Chronic right diaphragmatic elevation. Intermittent O2 and steroid-dependent COPD. Respiratory failure requiring intubation on 07/04/2018. Recurrent pneumonia including aspiration pneumonia from dysphagia. Gastrointestinal History: Reports: Cholelithiasis, Chronic Constipation, GERD, Other (See Below) Other Gastrointestinal History: Dysphagia. Genitourinary History: Reports: BPH, Chronic Renal Insuffiency, Diabetic Nephropathy, Retention, Urinary, Urinary Incontinence Musculoskeletal History: Reports: Arthritis, Back Pain, Chronic, Fibromyalgia, Neck Pain, Chronic, Osteoarthritis, Other (See Below) Other Musculoskeletal History: Polymyalgia rheumatica. Spinal fusion as below with persistent left lateral nerve compression at C4-C5. 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 Psychiatric History: Reports: Addiction, Anxiety, Depression, PTSD, Other (See Below) Other Psychiatric History: Chronic insomnia. History of alcoholism. Endocrine/Metabolic History: Reports: Diabetes, Type II, Hypothyroidism, IDDM, Obesity/BMI 30+ Hematologic History: Reports: Anemia (Oh thanks) Oncologic (Cancer) History: Reports: Other (See Below) Other Oncologic History: Unknown type of skin cancer. Dermatologic History: Reports: Seborrheic Dermatitis - Past Surgical History HEENT Surgical History: Reports: Oral Surgery, Radiocarotid Ectomy, Other (See Below) Other HEENT Surgeries/Procedures: Teeth extractions. Left-sided carotid endarterectomy. GI Surgical History: Reports: Cholecystectomy Neurological Surgical History: Reports: C-Spine, Discectomy, Spinal Fusion, Other (See Below) Other Neurological Surgeries/Procedures: C3-C6 anterior spinal fusion. - Past Imaging History Past Imaging History: Reports: CAT Scan (CT of the C-spine on 01/29/2018.), Swallow Study (Positive on 06/12/2018.) Social & Family History - Family History Family Medical History: Unobtainable - Caffeine Use Caffeine Use: Reports: Soda, Tea - Living Situation & Occupation Living situation: Reports: Extended Care Facility (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 ED EXAM, GENERAL - Physical Exam Exam: See Below Exam Limited By: Other (obesity, chronic low back pain exacerbated with movement, patient unable to easily move around on his own) General Appearance: Alert, No Apparent Distress (On O2 via NRB mask), Obese Eye Exam: Bilateral Eye: EOMI, PERRL Ears: Hearing Grossly Normal Nose: No: Nasal Deformity, Nasal Swelling, Nasal Drainage Throat/Mouth: Normal Lips, Normal Voice, No Airway Compromise Head: Atraumatic, Normocephalic Neck: Supple Respiratory/Chest: Decreased Breath Sounds (throughout). No: Crackles, Rales, Rhonchi, Wheezing, Stridor, Retractions Cardiovascular: No Edema, Bradycardia GI/Abdominal: Soft, Non-Tender, Other (obese) (Male) Exam: Other (gross appearance is normal) Rectal (Males) Exam: Deferred Back Exam: Other (is tender low back with pressure/movement). No: Muscle Spasm Extremities: Non-Tender, No Pedal Edema, Normal Capillary Refill, Other (Weaker on left side than right/chronic. ). No: Increased Warmth, Mottled, Pallor, Redness Neurological: Other (answers appropriately but drifts off to sleep easily. Wakes easily when name called. Some slurring of speech. ) Psychiatric: Normal Affect, Normal Mood Skin Exam: Warm, Dry, Normal Color #1 Interpretation EKG Date: 02/14/20 Time: 23:12 Rhythm: Other (Afib with slow ventricular response) P-Wave: Absent QRS: Normal ST-T: Other (diffuse T Wave abnormalities throughout) Comparison: Other: (similar in appearance to EKG from 12/17) Course - Orders/Labs/Meds Orders: Active Orders 24 hr Category Date Time Status Chest 1V Frontal [CR] Stat Exams 02/13/20 23:14 Taken Head wo Cont [CT] Stat Exams 02/13/20 23:54 Ordered Labs: Laboratory Tests 02/13/20 02/13/20 02/13/20 Range/Units 23:20 23:20 23:20 WBC 8.5 (4.0-10.2) K/uL RBC 3.94 L (4.33-5.41) M/uL Hgb 11.0 L D (13.1-16.8) g/dL Hct 36.8 L (39.0-49.0) % MCV 93.4 (84.0-98.0) fL MCH 27.9 L (28.2-33.3) pg MCHC 29.9 L (31.7-36.0) g/dL RDW 16.1 H (11.2-14.1) % Plt Count 209 (150-350) K/uL Neut % (Auto) 76.5 (45.0-80.0) % Lymph % (Auto) 11.4 (10.0-50.0) % Teller % (Auto) 9.1 (2.0-14.0) % Eos % (Auto) 2.5 (0.0-5.0) % Baso % (Auto) 0.5 (0.0-2.0) % Neut # (Auto) 6.49 (1.40-7.00) K/uL Lymph # (Auto) 0.97 (0.50-3.50) K/uL Teller # (Auto) 0.77 (0.00-1.00) K/uL Eos # (Auto) 0.21 (0.00-0.50) K/uL Baso # (Auto) 0.04 (0.00-0.20) K/uL D-Dimer, Quantitative 338 (0-400) ng/mL Sodium 143 (136-145) mmol/L Potassium 4.2 (3.5-5.1) mmol/L Chloride 103 (98-107) mmol/L Carbon Dioxide 35.3 H (21.0-32.0) mmol/L BUN 42 H (7-18) mg/dL Creatinine 1.44 H (0.51-1.17) mg/dL Est Cr Clr Drug Dosing TNP Estimated GFR (MDRD) 48 mL/min Glucose 87 (74-106) mg/dL Calcium 8.9 (8.5-10.1) mg/dL Magnesium 2.1 (1.8-2.4) mg/dL Total Bilirubin 0.4 (0.2-1.0) mg/dL AST 16 (15-37) U/L ALT 25 (12-78) U/L Alkaline Phosphatase 50 (46-116) IU/L Troponin I (0.000-0.056) ng/mL NT-Pro-B Natriuret Pep 469 H (0-125) pg/mL Total Protein 5.8 L (6.4-8.2) g/dL Albumin 2.9 L (3.4-5.0) g/dL TSH, Ultra Sensitive (0.358-3.740) mIU/mL Specimen Type Urine Color Urine Appearance Urine pH (5.0-9.0) Ur Specific [place] (1.005-1.030) Urine Protein (NEGATIVE) mg/dL Urine Glucose (UA) (NEGATIVE) mg/dL Urine Ketones (NEGATIVE) mg/dL Urine Occult Blood (NEGATIVE) Urine Nitrite (NEGATIVE) Urine Bilirubin (NEGATIVE) Urine Urobilinogen (0.2-1.0) E.U./dL Ur Leukocyte Esterase (NEGATIVE) Urine RBC /HPF Urine WBC /HPF Ur Epithelial Cells /LPF Urine Bacteria (NONE TO FEW) /HPF 02/13/20 02/13/20 02/13/20 Range/Units 23:20 23:20 23:45 WBC (4.0-10.2) K/uL RBC (4.33-5.41) M/uL Hgb (13.1-16.8) g/dL Hct (39.0-49.0) % MCV (84.0-98.0) fL MCH (28.2-33.3) pg MCHC (31.7-36.0) g/dL RDW (11.2-14.1) % Plt Count (150-350) K/uL Neut % (Auto) (45.0-80.0) % Lymph % (Auto) (10.0-50.0) % Teller % (Auto) (2.0-14.0) % Eos % (Auto) (0.0-5.0) % Baso % (Auto) (0.0-2.0) % Neut # (Auto) (1.40-7.00) K/uL Lymph # (Auto) (0.50-3.50) K/uL Teller # (Auto) (0.00-1.00) K/uL Eos # (Auto) (0.00-0.50) K/uL Baso # (Auto) (0.00-0.20) K/uL D-Dimer, Quantitative (0-400) ng/mL Sodium (136-145) mmol/L Potassium (3.5-5.1) mmol/L Chloride (98-107) mmol/L Carbon Dioxide (21.0-32.0) mmol/L BUN (7-18) mg/dL Creatinine (0.51-1.17) mg/dL Est Cr Clr Drug Dosing Estimated GFR (MDRD) mL/min Glucose (74-106) mg/dL Calcium (8.5-10.1) mg/dL Magnesium (1.8-2.4) mg/dL Total Bilirubin (0.2-1.0) mg/dL AST (15-37) U/L ALT (12-78) U/L Alkaline Phosphatase (46-116) IU/L Troponin I 0.008 (0.000-0.056) ng/mL NT-Pro-B Natriuret Pep (0-125) pg/mL Total Protein (6.4-8.2) g/dL Albumin (3.4-5.0) g/dL TSH, Ultra Sensitive 0.231 L (0.358-3.740) mIU/mL Specimen Type Urinqcath Urine Color Yellow Urine Appearance Clear Urine pH 5.5 (5.0-9.0) Ur Specific [place] 1.020 (1.005-1.030) Urine Protein Negative (NEGATIVE) mg/dL Urine Glucose (UA) Negative (NEGATIVE) mg/dL Urine Ketones Negative (NEGATIVE) mg/dL Urine Occult Blood Trace-intact H (NEGATIVE) Urine Nitrite Negative (NEGATIVE) Urine Bilirubin Negative (NEGATIVE) Urine Urobilinogen 0.2 (0.2-1.0) E.U./dL Ur Leukocyte Esterase Negative (NEGATIVE) Urine RBC 0-5 /HPF Urine WBC 5-10 H /HPF Ur Epithelial Cells Rare /LPF Urine Bacteria Rare (NONE TO FEW) /HPF Meds: Medications Discontinued Medications Generic Name Dose Route Start Last Admin Trade Name Freq PRN Reason Stop Dose Admin Ceftriaxone Sodium 1 gm/ 100 mls @ 200 mls/hr 02/13/20 23:52 Sodium Chloride IV 02/14/20 00:21 ONETIME ONE Lorazepam 0.5 mg 02/14/20 00:47 Ativan IVPUSH 02/14/20 00:48 ONETIME ONE - Re-Assessments/Exams Free Text/Narrative Re-Assessment/Exam: 02/14/20 00:32 Patient placed on nonrebreather and given IV fluid bolus. BP improved. Atropine made no difference in heart rate. Patient continued to run between 39- 45. He did say again that his usual evening heart rate is around 45-46 due to a beta kaylin he takes. CBC showed normal WBC. Hgb 11 Chem showed Cr 1.44, low protein and albumin. Glucose normal. Troponin/DDimer normal. Urinalysis normal. ProBNP mildly elevated. Chest xray performed portably and appeared to show poor inspiration and some changes which may reflect CHF vs pneumonia. Head CT added to requests due to patient slurring words and not appearing to be able to read. Stroke scale of 10 with points taken away for difficulty interpreting pictures/slurring words, weakness. 02/14/20 01:07 Doing well on 3L. Is picking at leads on chest/restless. Knows he is in [place] and that it is January. 02/14/20 01:36 No acute changes noted on CT scan. Radiology reviewed chest xray and felt that changes reflected right lower pneumonia and possibly left lower pneumonia. Patient continues to be stable. Will admit for further treatment/IV antibiotics. Rocephin given in ER. 02/14/20 01:48 Discussed patient with from [facility] in [place]. They declined patient transfer to their facility at that time. Departure - Departure Time of Disposition: 01:45 Disposition: Admitted As Inpatient 68 Condition: Good Clinical Impression: Pneumonia Qualifiers: Pneumonia type: due to unspecified organism Laterality: unspecified laterality Lung location: unspecified part of lung Qualified Code(s): J18.9 - Pneumonia, unspecified organism - Discharge Information *PRESCRIPTION DRUG MONITORING PROGRAM REVIEWED*: Not Applicable *COPY OF PRESCRIPTION DRUG MONITORING REPORT IN PATIENT CLOEEN: Not Applicable Forms: ED Department Discharge - Problem List & Annotations (1) Pneumonia SNOMED Code(s): 730195143 Code(s): J18.9 - PNEUMONIA, UNSPECIFIED ORGANISM Status: Acute Priority: High Current Visit: Yes Onset Date: 12/17/19 Annotation/Comment:: Probable bilateral pneumonia at bases. IV Rocephin and Levaquin initiated. Continue supplemental O2 Qualifiers: Pneumonia type: due to unspecified organism Laterality: unspecified laterality Lung location: unspecified part of lung Qualified Code(s): J18.9 - Pneumonia, unspecified organism (2) Bradycardia SNOMED Code(s): 32330552 Code(s): R00.1 - BRADYCARDIA, UNSPECIFIED Status: Chronic Priority: Low Current Visit: Yes Annotation/Comment:: Patient self reports that heart rate is often in mid 40s due to beta kaylin therapy. - Problem List Review Problem List Initiated/Reviewed/Updated: Yes - My Orders Last 24 Hours: My Active Orders 02/13/20 23:14 Chest 1V Frontal [CR] Stat 02/13/20 23:54 Head wo Cont [CT] Stat - Assessment/Plan Admission H&P: Please use this note as an admission H&P Last 24 Hours: My Active Orders 02/13/20 23:14 Chest 1V Frontal [CR] Stat 02/13/20 23:54 Head wo Cont [CT] Stat Assessment:: as above Plan: IV antibiotic therapy initiated. Anticipate 3-4 day stay depending on patient's clinical course/response to IV antibiotics.
[2020-02-14] MEDS ORDERED: LORazepam 2 MG/ML SDV IVPUSH ONE (00:47)
[2020-02-14] MEDS ORDERED: Levofloxacin/Dextrose 5%-Water 500 MG in Premix Bag 1 BAG IV SCH (01:45)
[2020-02-14] MEDS ORDERED: LORazepam 2 MG/ML SDV IV PRN (01:52)
[2020-02-14] MEDS ORDERED: Loratadine 10 MG Tab PO PRN (01:56)
[2020-02-14] MEDS ORDERED: Hydrocortisone 2.5% Crm 30 GM Tube TOP PRN (01:56)
[2020-02-14] MEDS ORDERED: Acetaminophen 325 MG Tab PO PRN (01:56)
[2020-02-14] MEDS ORDERED: Cyclobenzaprine 10 MG Tab PO PRN (01:56)
[2020-02-14] MEDS ORDERED: Bisacodyl 5 MG Tab PO PRN (01:56)
[2020-02-14] MEDS ORDERED: METHYL SALICYLATE TOP PRN (01:56)
[2020-02-14] MEDS ORDERED: Dextromethorphan/guaiFENesin 600-30 MG Tab.ER PO PRN (01:56)
[2020-02-14] MEDS ORDERED: Ketoconazole 2% Crm 30 GM Tube TOP PRN (01:56)
[2020-02-14] MEDS ORDERED: guaiFENesin/Dextromethorphan 100-10 MG/5 ML Soln 10 ML Cup PO PRN (01:56)
[2020-02-14] MEDS ORDERED: Polyvinyl Alcohol 1.4% Ophth Soln 15 ML Bottle EYEBOTH PRN (01:56)
[2020-02-14] MEDS ORDERED: MENTHOL TOP PRN (01:56)
[2020-02-14] MEDS ORDERED: Loperamide 2 MG Tab PO PRN (03:51)
[2020-02-14] MEDS ORDERED: Levothyroxine 100 MCG Tab PO SCH (07:30)
[2020-02-14] MEDS ORDERED: Levothyroxine 25 MCG Tab PO SCH (08:00)
[2020-02-14] MEDS ORDERED: Furosemide 20 MG/2 ML VIAL IVPUSH SCH (08:00)
[2020-02-14] MEDS ORDERED: Acetaminophen 650 MG Tab.ER PO SCH (08:00)
[2020-02-14] MEDS ORDERED: Non-Formulary Medication 1 Each (Bupropion [Wellbutrin Sr] 100 MG) PO SCH (08:00)
[2020-02-14] MEDS ORDERED: predniSONE 5 MG Tab PO SCH (08:00)
[2020-02-14] MEDS ORDERED: amLODIPine 5 MG Tab PO SCH (08:00)
[2020-02-14] MEDS ORDERED: Gabapentin 400 MG Cap PO ONE (08:00)
[2020-02-14] MEDS ORDERED: Cholecalciferol (Vitamin D3) 25 MCG Tab PO SCH (08:00)
[2020-02-14] MEDS ORDERED: Lisinopril 10 MG Tab PO SCH (08:00)
[2020-02-14] MEDS ORDERED: Non-Formulary Medication 1 Each (Gabapentin 800 MG) PO SCH (08:00)
[2020-02-14] MEDS ORDERED: Metoprolol Tartrate 25 MG Tab PO SCH (08:00)
[2020-02-14] MEDS ORDERED: Clopidogrel 75 MG Tab PO SCH (08:00)
[2020-02-14] MEDS ORDERED: metFORMIN 500 MG Tab PO SCH (08:00)
[2020-02-14] MEDS ORDERED: [UNRECOGNIZED DRUG - OTHER] TOP SCH (08:00)
[2020-02-14] MEDS ORDERED: Insulin Glarg,Human.Rec.Analog 100 Unit/ML SUBCUT SCH ×2 (08:00→20:00)
[2020-02-14] MEDS ORDERED: Finasteride 5 MG Tab PO SCH (08:00)
[2020-02-14] MEDS ORDERED: Apixaban 5 MG Tab PO SCH (08:00)
[2020-02-14] MEDS ORDERED: tiZANidine 4 MG Tab PO SCH (08:00)
[2020-02-14] MEDS ORDERED: Polyvinyl Alcohol 1.4% Ophth Soln 15 ML Bottle EYEBOTH SCH (08:00)
[2020-02-14] MEDS ORDERED: Non-Formulary Medication 1 Each (Gabapentin 800 MG) PO ONE (08:00)
[2020-02-14] MEDS ORDERED: 50% Dextrose in Water 50 ML Syringe IVPUSH ONE (09:00)
[2020-02-14] MEDS ORDERED: Dextrose 5%-0.9% NaCl 1,000 ML IV SCH (09:00)
[2020-02-14] MEDS ORDERED: 50% Dextrose in Water 50 ML Syringe ONE (09:05)
[2020-02-14] MEDS ORDERED: Sodium Chloride 0.9% 10 ML Syringe FLUSH PRN (09:19)
[2020-02-14] MEDS: Albuterol 6.7 GM Inhaler INH SCH ×2 (10:58→15:16)
--- NOTE | 2020-02-14 11:51 | PCM.DCSUM1 ---
Discharge Summary - Hospital Course Brief History: Patient sent to ER from [facility] after they observed increased generalized weakness/decreased alertness over the course of yesterday. No other obvious signficant changes reported. Noted to be hypotensive/hypoxemic in ER but responded well to IV fluids and supplemental O2. Pneumonia/bilateral suspected on xrays. Admitted for IV antibiotics. Diagnosis: Stroke: No - Discharge Data Discharge Date: 02/14/20 Discharge Disposition: DC/Tfer to Acute Hospital 02 Condition: Good - Referral to Home Health Primary Care Physician: PCP None - Discharge Diagnosis/Problem(s) (1) Pneumonia SNOMED Code(s): 104944923 ICD Code: J18.9 - PNEUMONIA, UNSPECIFIED ORGANISM Status: Acute Priority: High Current Visit: Yes Onset Date: 12/17/19 Problem Details: Bilateral pneumonia, right greater than left. IV Rocephin and Levaquin initiated. Unable to obtain sputum sample so far. Patient afebrile. Normal lactic acid and WBC. Is weak/confused/somnolent. Maintaining O2 sats mid 90s on 3L NC. Qualifiers: Pneumonia type: due to unspecified organism Laterality: unspecified laterality Lung location: unspecified part of lung Qualified Code(s): J18.9 - Pneumonia, unspecified organism (2) Bradycardia SNOMED Code(s): 10026583 ICD Code: R00.1 - BRADYCARDIA, UNSPECIFIED Status: Chronic Priority: Medium Current Visit: Yes Problem Details: Patient self reports that heart rate is often in mid 40s due to beta kaylin therapy. Has been as low as 39. No change with Atropine given in ER during initial evaluation. (3) HX: anticoagulation SNOMED Code(s): 539824075 ICD Code: Z92.29 - PERSONAL HISTORY OF OTHER DRUG THERAPY Status: Chronic Priority: Medium Current Visit: Yes Problem Details: Uncertain why patient is currently on both Plavix and Eliquis. Has history of chronic Afib. Unable to take oral medications today. Lovenox SQ given this morning. (4) Atrial fibrillation SNOMED Code(s): 78746001 ICD Code: I48.91 - UNSPECIFIED ATRIAL FIBRILLATION Status: Chronic Priority: Low Current Visit: Yes Problem Details: Chronic. Qualifiers: Atrial fibrillation type: unspecified chronic Qualified Code(s): I48.20 - Chronic atrial fibrillation, unspecified; I48.2 - Chronic atrial fibrillation (5) COPD (chronic obstructive pulmonary disease) SNOMED Code(s): 59349948 ICD Code: J44.9 - CHRONIC OBSTRUCTIVE PULMONARY DISEASE, UNSPECIFIED Status: Chronic Priority: Medium Current Visit: Yes Problem Details: Driss blandon does use O2 at 2 L/min by nasal cannula at bedtime and with naps. Qualifiers: COPD type: COPD with acute lower respiratory infection Qualified Code(s): J44.0 - Chronic obstructive pulmonary disease with (acute) lower respiratory infection (6) Cerebrovascular accident (CVA) SNOMED Code(s): 538552621 ICD Code: I63.9 - CEREBRAL INFARCTION, UNSPECIFIED Status: Chronic Priority: Low Current Visit: Yes Problem Details: Previous right frontal CVA with persistent mild left hemiparesis. Some mild dysarthria and difficulty describing pictures noted last night. Unremarkable head CT at that time. Suspect changes due to acute illness/confusion that was developing from the pneumonia. Qualifiers: CVA mechanism: occlusion Precerebral and cerebral artery: anterior cerebral artery Laterality of affected vessel: right Qualified Code(s): I63.521 - Cerebral infarction due to unspecified occlusion or stenosis of right anterior cerebral artery (7) Hypertension SNOMED Code(s): 68884177 ICD Code: I10 - ESSENTIAL (PRIMARY) HYPERTENSION Status: Chronic Priority: Medium Current Visit: Yes Problem Details: Significan initial hypotension noted in ER. Responded well to IV fluid bolus. BP noted today to be inching steadily upwards. Patient unable to safely take morning meds due to aspiration concerns. Small amount Metoprolol given IV. Patient is on regular beta kaylin medication which has been continued even though he has his chronic bradycardia with his Afib. Qualifiers: Hypertension type: essential hypertension Qualified Code(s): I10 - Essential (primary) hypertension (8) Hypothyroidism (acquired) SNOMED Code(s): 124932352 ICD Code: E03.9 - HYPOTHYROIDISM, UNSPECIFIED Status: Chronic Priority: Low Current Visit: No Problem Details: Under therapy. Mildly depressed TSH noted (9) IDDM (insulin dependent diabetes mellitus) SNOMED Code(s): 59365233 ICD Code: HSB7202 - Status: Chronic Priority: Medium Current Visit: Yes Problem Details: Patient has been running in low range. Switched to short acting/sliding scale given his decreased appetite, somnolence/confusion/increased aspiration risk. (10) Mixed anxiety depressive disorder SNOMED Code(s): 729504214 ICD Code: F41.8 - OTHER SPECIFIED ANXIETY DISORDERS Status: Chronic Priority: Low Current Visit: No Problem Details: Stable by history note history of PTSD, alcoholism, etc. (11) Peptic reflux disease SNOMED Code(s): 781112003 ICD Code: K21.9 - GASTRO-ESOPHAGEAL REFLUX DISEASE WITHOUT ESOPHAGITIS Status: Chronic Priority: Medium Current Visit: No Problem Details: Stable by history. 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 SNOMED Code(s): 984627706 ICD Code: I28.1 - ANEURYSM OF PULMONARY ARTERY Status: Chronic Priority: Low Current Visit: No Problem Details: Hx of aneurysm (13) Cardiomyopathy SNOMED Code(s): 63221923 ICD Code: I42.9 - CARDIOMYOPATHY, UNSPECIFIED Status: Acute Priority: Medium Current Visit: Yes Problem Details: Hx of cardiomyopathy (14) Dyslipidemia SNOMED Code(s): 923880986 ICD Code: E78.5 - HYPERLIPIDEMIA, UNSPECIFIED Status: Chronic Priority: Low Current Visit: No Problem Details: history of dyslipidemia (15) Obesities, morbid SNOMED Code(s): 274219466 ICD Code: E66.01 - MORBID (SEVERE) OBESITY DUE TO EXCESS CALORIES Status: Chronic Priority: Medium Current Visit: Yes Problem Details: Hx of significant obesity (16) Chronic constipation SNOMED Code(s): 006848495 ICD Code: K59.09 - OTHER CONSTIPATION Status: Chronic Priority: Low Current Visit: No (17) Osteoarthritis SNOMED Code(s): 572229036 ICD Code: M19.90 - UNSPECIFIED OSTEOARTHRITIS, UNSPECIFIED SITE Status: Chronic Priority: Low Current Visit: Yes Problem Details: Hx of chronic back pain, arthritis/osteoarthritis Qualifiers: Osteoarthritis location: unspecified site (18) Polymyalgia rheumatica SNOMED Code(s): 55201275 ICD Code: M35.3 - POLYMYALGIA RHEUMATICA Status: Acute Priority: Low Current Visit: No Problem Details: Hx also includes fibromyalgia (19) History of migraine headaches SNOMED Code(s): 970957381 ICD Code: Z86.69 - PERSONAL HISTORY OF DIS OF THE NERVOUS SYS AND SENSE ORGANS Status: Chronic Priority: Low Current Visit: No (20) Peripheral neuropathy SNOMED Code(s): 648620770 ICD Code: G62.9 - POLYNEUROPATHY, UNSPECIFIED Status: Chronic Priority: Low Current Visit: No Qualifiers: Peripheral neuropathy type: polyneuropathy, unspecified Qualified Code(s): G62.9 - Polyneuropathy, unspecified (21) Insomnia SNOMED Code(s): 475494467 ICD Code: G47.00 - INSOMNIA, UNSPECIFIED Status: Chronic Priority: Low Current Visit: No Qualifiers: Insomnia type: unspecified Qualified Code(s): G47.00 - Insomnia, unspecified (22) Congestive heart failure SNOMED Code(s): 10553455 ICD Code: I50.9 - HEART FAILURE, UNSPECIFIED Status: Chronic Priority: Medium Current Visit: Yes Problem Details: No chest pain or anginal complaints during this hospitalization and prior to admission, however the patient was a poor historian secondary to his initial confusion. ProBNP 389/mild elevation Qualifiers: Heart failure type: unspecified Heart failure chronicity: acute on chronic Qualified Code(s): I50.9 - Heart failure, unspecified (23) Renal insufficiency SNOMED Code(s): 252310616, 414397195 ICD Code: N28.9 - DISORDER OF KIDNEY AND URETER, UNSPECIFIED Status: Chronic Priority: Low Current Visit: Yes Problem Details: Cr 1.24 today - Patient Summary/Data Hospital Course: Patient initially had room air sats in 70s, very hypotensive. Responded well to supplemental oxygen and IV fluid bolus. Weaned from NRBM at 15 down to 3L NC within several hours. Unable to get ABG despite multiple attempts. Chest xray showed changes suggestive on right sided pneumonia, with probable small infiltrate on left. Patient has history of frequent pneumonias, including aspiration pneumonias. Heart rate noted to stay between 39-46. Patient told us that he usually runs in the 40s due to his beta kaylin medication. EKG showed Afib/patient does have long history of chronic Afib. Influenza/Covid testing negative. Normal WBC, mild anemia noted. Normal lactic acid and troponin. DDimer also normal. Mild elevation of proBNP but no clinical evidence of acute fluid overload noted. CT of head performed as patient was slurring words/obta[address] 10 on stroke scale. He does have persistent left side deficit due to previous stroke. CT unremarkable. Suspect changes observed related to patient's acute illness/pneumonia. IV Rocephin and Levaquin given. [facility] contacted and waived admission to their facility. Patient admitted to floor. Continues to be confused. O2 sats remain improved. WBC still normal/no fevers noted. Had what appeared to be brief run of VTach on monitor. Unable to give patient oral meds due to concerns for aspiration which have increased given his weakness/confusion/somnolence. Given persistent/worsening confusion, significant bradycardia with suspected VTac episode, it was felt that patient would benefit from transfer to higher LOC. from [facility] did accept patient for transfer to their facility. - Discharge Plan *PRESCRIPTION DRUG MONITORING PROGRAM REVIEWED*: Not Applicable *COPY OF PRESCRIPTION DRUG MONITORING REPORT IN PATIENT COLEEN: Not Applicable Home Medications: Home Meds Apixaban [Eliquis] 5 mg PO BID@0800,199907/04/18 [History] Cyclobenzaprine [Flexeril] 5 mg PO Q8H PRN 07/04/18 [History] Insulin Glarg,Human.Rec.Analog [Lantus Solostar] 30 units SUBCUT QAM 07/04/18 [History] Levothyroxine Sodium [Synthroid] 125 mcg PO QAM 07/04/18 [History] Lisinopril 10 mg PO QAM 07/04/18 [History] Methyl Salicylate/Menthol [Muscle Rub] 1 applic TOP ASDIRECTED PRN 07/04/18 [History] Sennosides/Docusate Sodium [Senna Plus Tablet] 1 tab PO BID 07/04/18 [History] Simvastatin 20 mg PO BEDTIME 07/04/18 [History] amLODIPine [Norvasc] 2.5 mg PO DAILY 07/04/18 [History] buPROPion [Wellbutrin SR] 100 mg PO Q12HR 07/04/18 [History] predniSONE [Prednisone] 10 mg PO DAILY 07/04/18 [History] traZODone HCl [Trazodone HCl] 150 mg PO BEDTIME 07/04/18 [History] Acetaminophen 650 mg PO Q6H PRN 08/01/18 [History] Clopidogrel [Plavix] 75 mg PO DAILY 08/01/18 [History] Metoprolol Tartrate 75 mg PO BID@08,199908/01/18 [History] Acetaminophen [Tylenol Arthritis] 650 mg PO TID@0800,1400,199904/20/19 [History] Dextromethorphan/guaiFENesin [Mucinex DM ER 600-30 MG] 1 tab PO Q12H PRN 04/20/19 [History] Eyelid Cleanser Combination 5 [Ocusoft Lid Scrub] 1 each EYEBOTH BTNUNITS 04/20/19 [History] Finasteride 5 mg PO DAILY 04/20/19 [History] Furosemide 20 mg PO DAILY 04/20/19 [History] Hydrocortisone [Hydrocortisone 2.5% Crm] 1 applic TOP BID PRN 04/20/19 [History] Insulin Glargine,Hum.Rec.Anlog [Lantus Solostar] 20 unit SUBCUT BEDTIME 04/20/19 [History] Ketoconazole [Nizoral 2% Crm] 1 applic TOP BID PRN 04/20/19 [History] Loperamide [Imodium] 2 mg PO ASDIRECTED PRN 04/20/19 [History] Methenamine Mandelate 1 tab PO Q12H 04/20/19 [History] Polyvinyl Alcohol [LiquiTears 1.4% Ophth Soln] 1 drop EYEBOTH QID PRN 04/20/19 [History] Sennosides/Docusate Sodium [Senna-S] 2 tab PO BID PRN 04/20/19 [History] bisacodyL [Bisacodyl] 5 - 10 mg PO DAILY PRN 04/20/19 [History] guaiFENesin/Dextromethorphan [Tussin Dm Syrup] 10 ml PO Q4H PRN 04/20/19 [History] metFORMIN [Glucophage] 500 mg PO BID@0800,1700 04/20/19 [History] tiZANidine [Zanaflex] 2 mg PO TID@0800,1400,199904/20/19 [History] Cholecalciferol (Vitamin D3) [Vitamin D3] 1 cap PO DAILY 12/17/19 [History] Gabapentin [Neurontin] 800 mg PO QID@08,12,17,20 12/17/19 [History] Loratadine [Claritin] 10 mg PO DAILY PRN 12/17/19 [History] Methyl Salicylate/Menth/Camph [Salonpas 3.1%-6.0%-10.0% Patch] 1 patch TOP DAILY 12/17/19 [History] Propylene Glycol/PEG 400/Pf [Systane 0.3-0.4% Eye Drop] 1 drop EYEBOTH BID 12/17/19 [History] Albuterol [Take Home: Albuterol 18 GM, 1 INH Pack] 2 puff INH QID 02/14/20 [History] Methyl Salicylate/Menth/Camph [Salonpas 3.1%-6.0%-10.0% Patch] 1 each TP 02/14/20 [History] Forms: ED Department Discharge - Discharge Summary/Plan Comment DC Time >30 min.: No - Patient Data Vitals - Most Recent: Last Vital Signs Temp 35.1 C L 02/14/20 08:00 Pulse 46 L 02/14/20 04:20 Resp 24 H 02/14/20 08:00 BP 172/64 H 02/14/20 08:00 Pulse Ox 98 02/14/20 08:25 Weight - Most Recent: 89.811 kg I&O - Last 24 hours: Intake & Output 02/13/20 02/14/20 02/14/20 22:59 06:59 14:59 Intake Total 95 Balance 95 Lab Results - Last 24 hrs: Laboratory Results - last 24 hr 02/13/20 02/13/20 02/13/20 Range/Units 23:20 23:20 23:20 WBC 8.5 (4.0-10.2) K/uL RBC 3.94 L (4.33-5.41) M/uL Hgb 11.0 L D (13.1-16.8) g/dL Hct 36.8 L (39.0-49.0) % MCV 93.4 (84.0-98.0) fL MCH 27.9 L (28.2-33.3) pg MCHC 29.9 L (31.7-36.0) g/dL RDW 16.1 H (11.2-14.1) % Plt Count 209 (150-350) K/uL Neut % (Auto) 76.5 (45.0-80.0) % Lymph % (Auto) 11.4 (10.0-50.0) % Roberts % (Auto) 9.1 (2.0-14.0) % Eos % (Auto) 2.5 (0.0-5.0) % Baso % (Auto) 0.5 (0.0-2.0) % Neut # (Auto) 6.49 (1.40-7.00) K/uL Lymph # (Auto) 0.97 (0.50-3.50) K/uL Roberts # (Auto) 0.77 (0.00-1.00) K/uL Eos # (Auto) 0.21 (0.00-0.50) K/uL Baso # (Auto) 0.04 (0.00-0.20) K/uL PT (9.5-12.0) SEC INR D-Dimer, Quantitative 338 (0-400) ng/mL Sodium 143 (136-145) mmol/L Potassium 4.2 (3.5-5.1) mmol/L Chloride 103 (98-107) mmol/L Carbon Dioxide 35.3 H (21.0-32.0) mmol/L BUN 42 H (7-18) mg/dL Creatinine 1.44 H (0.51-1.17) mg/dL Est Cr Clr Drug Dosing TNP Estimated GFR (MDRD) 48 mL/min Glucose 87 (74-106) mg/dL Lactic Acid (0.4-2.0) mmol/L Calcium 8.9 (8.5-10.1) mg/dL Magnesium 2.1 (1.8-2.4) mg/dL Total Bilirubin 0.4 (0.2-1.0) mg/dL AST 16 (15-37) U/L ALT 25 (12-78) U/L Alkaline Phosphatase 50 (46-116) IU/L Troponin I (0.000-0.056) ng/mL NT-Pro-B Natriuret Pep 469 H (0-125) pg/mL Total Protein 5.8 L (6.4-8.2) g/dL Albumin 2.9 L (3.4-5.0) g/dL TSH, Ultra Sensitive (0.358-3.740) mIU/mL Specimen Type Urine Color Urine Appearance Urine pH (5.0-9.0) Ur Specific Sprague (1.005-1.030) Urine Protein (NEGATIVE) mg/dL Urine Glucose (UA) (NEGATIVE) mg/dL Urine Ketones (NEGATIVE) mg/dL Urine Occult Blood (NEGATIVE) Urine Nitrite (NEGATIVE) Urine Bilirubin (NEGATIVE) Urine Urobilinogen (0.2-1.0) E.U./dL Ur Leukocyte Esterase (NEGATIVE) Urine RBC /HPF Urine WBC /HPF Ur Epithelial Cells /LPF Urine Bacteria (NONE TO FEW) /HPF SARS-CoV-2 RNA (PIETRO) (NEGATIVE) 02/13/20 02/13/20 02/13/20 Range/Units 23:20 23:20 23:45 WBC (4.0-10.2) K/uL RBC (4.33-5.41) M/uL Hgb (13.1-16.8) g/dL Hct (39.0-49.0) % MCV (84.0-98.0) fL MCH (28.2-33.3) pg MCHC (31.7-36.0) g/dL RDW (11.2-14.1) % Plt Count (150-350) K/uL Neut % (Auto) (45.0-80.0) % Lymph % (Auto) (10.0-50.0) % Roberts % (Auto) (2.0-14.0) % Eos % (Auto) (0.0-5.0) % Baso % (Auto) (0.0-2.0) % Neut # (Auto) (1.40-7.00) K/uL Lymph # (Auto) (0.50-3.50) K/uL Roberts # (Auto) (0.00-1.00) K/uL Eos # (Auto) (0.00-0.50) K/uL Baso # (Auto) (0.00-0.20) K/uL PT (9.5-12.0) SEC INR D-Dimer, Quantitative (0-400) ng/mL Sodium (136-145) mmol/L Potassium (3.5-5.1) mmol/L Chloride (98-107) mmol/L Carbon Dioxide (21.0-32.0) mmol/L BUN (7-18) mg/dL Creatinine (0.51-1.17) mg/dL Est Cr Clr Drug Dosing Estimated GFR (MDRD) mL/min Glucose (74-106) mg/dL Lactic Acid (0.4-2.0) mmol/L Calcium (8.5-10.1) mg/dL Magnesium (1.8-2.4) mg/dL Total Bilirubin (0.2-1.0) mg/dL AST (15-37) U/L ALT (12-78) U/L Alkaline Phosphatase (46-116) IU/L Troponin I 0.008 (0.000-0.056) ng/mL NT-Pro-B Natriuret Pep (0-125) pg/mL Total Protein (6.4-8.2) g/dL Albumin (3.4-5.0) g/dL TSH, Ultra Sensitive 0.231 L (0.358-3.740) mIU/mL Specimen Type Urinqcath Urine Color Yellow Urine Appearance Clear Urine pH 5.5 (5.0-9.0) Ur Specific Sprague 1.020 (1.005-1.030) Urine Protein Negative (NEGATIVE) mg/dL Urine Glucose (UA) Negative (NEGATIVE) mg/dL Urine Ketones Negative (NEGATIVE) mg/dL Urine Occult Blood Trace-intact H (NEGATIVE) Urine Nitrite Negative (NEGATIVE) Urine Bilirubin Negative (NEGATIVE) Urine Urobilinogen 0.2 (0.2-1.0) E.U./dL Ur Leukocyte Esterase Negative (NEGATIVE) Urine RBC 0-5 /HPF Urine WBC 5-10 H /HPF Ur Epithelial Cells Rare /LPF Urine Bacteria Rare (NONE TO FEW) /HPF SARS-CoV-2 RNA (PIETRO) (NEGATIVE) 02/14/20 02/14/20 02/14/20 Range/Units 07:58 07:58 07:58 WBC 6.7 (4.0-10.2) K/uL RBC 4.00 L (4.33-5.41) M/uL Hgb 11.2 L (13.1-16.8) g/dL Hct 37.8 L (39.0-49.0) % MCV 94.5 (84.0-98.0) fL MCH 28.0 L (28.2-33.3) pg MCHC 29.6 L (31.7-36.0) g/dL RDW 16.1 H (11.2-14.1) % Plt Count 186 (150-350) K/uL Neut % (Auto) 74.6 (45.0-80.0) % Lymph % (Auto) 10.8 (10.0-50.0) % Roberts % (Auto) 10.7 (2.0-14.0) % Eos % (Auto) 3.3 (0.0-5.0) % Baso % (Auto) 0.6 (0.0-2.0) % Neut # (Auto) 4.97 (1.40-7.00) K/uL Lymph # (Auto) 0.72 (0.50-3.50) K/uL Roberts # (Auto) 0.71 (0.00-1.00) K/uL Eos # (Auto) 0.22 (0.00-0.50) K/uL Baso # (Auto) 0.04 (0.00-0.20) K/uL PT 10.7 (9.5-12.0) SEC INR 1.1 D-Dimer, Quantitative (0-400) ng/mL Sodium 144 (136-145) mmol/L Potassium 4.1 (3.5-5.1) mmol/L Chloride 105 (98-107) mmol/L Carbon Dioxide 35.5 H (21.0-32.0) mmol/L BUN 36 H (7-18) mg/dL Creatinine 1.24 H (0.51-1.17) mg/dL Est Cr Clr Drug Dosing 53.85 Estimated GFR (MDRD) 57 mL/min Glucose 48 L* (74-106) mg/dL Lactic Acid (0.4-2.0) mmol/L Calcium 8.4 L (8.5-10.1) mg/dL Magnesium (1.8-2.4) mg/dL Total Bilirubin 0.4 (0.2-1.0) mg/dL AST 15 (15-37) U/L ALT 22 (12-78) U/L Alkaline Phosphatase 47 (46-116) IU/L Troponin I 0.013 (0.000-0.056) ng/mL NT-Pro-B Natriuret Pep 389 H (0-125) pg/mL Total Protein 5.7 L (6.4-8.2) g/dL Albumin 2.8 L (3.4-5.0) g/dL TSH, Ultra Sensitive (0.358-3.740) mIU/mL Specimen Type Urine Color Urine Appearance Urine pH (5.0-9.0) Ur Specific Sprague (1.005-1.030) Urine Protein (NEGATIVE) mg/dL Urine Glucose (UA) (NEGATIVE) mg/dL Urine Ketones (NEGATIVE) mg/dL Urine Occult Blood (NEGATIVE) Urine Nitrite (NEGATIVE) Urine Bilirubin (NEGATIVE) Urine Urobilinogen (0.2-1.0) E.U./dL Ur Leukocyte Esterase (NEGATIVE) Urine RBC /HPF Urine WBC /HPF Ur Epithelial Cells /LPF Urine Bacteria (NONE TO FEW) /HPF SARS-CoV-2 RNA (PIETRO) (NEGATIVE) 02/14/20 02/14/20 Range/Units 07:58 08:17 WBC (4.0-10.2) K/uL RBC (4.33-5.41) M/uL Hgb (13.1-16.8) g/dL Hct (39.0-49.0) % MCV (84.0-98.0) fL MCH (28.2-33.3) pg MCHC (31.7-36.0) g/dL RDW (11.2-14.1) % Plt Count (150-350) K/uL Neut % (Auto) (45.0-80.0) % Lymph % (Auto) (10.0-50.0) % Roberts % (Auto) (2.0-14.0) % Eos % (Auto) (0.0-5.0) % Baso % (Auto) (0.0-2.0) % Neut # (Auto) (1.40-7.00) K/uL Lymph # (Auto) (0.50-3.50) K/uL Roberts # (Auto) (0.00-1.00) K/uL Eos # (Auto) (0.00-0.50) K/uL Baso # (Auto) (0.00-0.20) K/uL PT (9.5-12.0) SEC INR D-Dimer, Quantitative (0-400) ng/mL Sodium (136-145) mmol/L Potassium (3.5-5.1) mmol/L Chloride (98-107) mmol/L Carbon Dioxide (21.0-32.0) mmol/L BUN (7-18) mg/dL Creatinine (0.51-1.17) mg/dL Est Cr Clr Drug Dosing Estimated GFR (MDRD) mL/min Glucose (74-106) mg/dL Lactic Acid 0.5 (0.4-2.0) mmol/L Calcium (8.5-10.1) mg/dL Magnesium (1.8-2.4) mg/dL Total Bilirubin (0.2-1.0) mg/dL AST (15-37) U/L ALT (12-78) U/L Alkaline Phosphatase (46-116) IU/L Troponin I (0.000-0.056) ng/mL NT-Pro-B Natriuret Pep (0-125) pg/mL Total Protein (6.4-8.2) g/dL Albumin (3.4-5.0) g/dL TSH, Ultra Sensitive (0.358-3.740) mIU/mL Specimen Type Urine Color Urine Appearance Urine pH (5.0-9.0) Ur Specific Sprague (1.005-1.030) Urine Protein (NEGATIVE) mg/dL Urine Glucose (UA) (NEGATIVE) mg/dL Urine Ketones (NEGATIVE) mg/dL Urine Occult Blood (NEGATIVE) Urine Nitrite (NEGATIVE) Urine Bilirubin (NEGATIVE) Urine Urobilinogen (0.2-1.0) E.U./dL Ur Leukocyte Esterase (NEGATIVE) Urine RBC /HPF Urine WBC /HPF Ur Epithelial Cells /LPF Urine Bacteria (NONE TO FEW) /HPF SARS-CoV-2 RNA (PIETRO) Negative (NEGATIVE) IVY Results - Last 24 hrs: Microbiology 02/14/20 08:17 Influenza Type A Antigen Screen - Final Nasal, Right NEGATIVE INFLUENZA A VIRUS AG REFERENCE RANGE: NEGATIVE Influenza Type B Antigen Screen - Final NEGATIVE INFLUENZA B VIRUS AG REFERENCE RANGE: NEGATIVE Med Orders - Current: Current Medications Acetaminophen (Tylenol) 650 mg PO Q6H PRN PRN Reason: Pain Acetaminophen (Tylenol Arthritis Pain) 650 mg PO TID@0800,1400,2000 [facility] Last Admin: 02/14/20 10:58 Dose: Not Given Documented by: Albuterol (Proventil Hfa) 0 gm INH QID [facility] Last Admin: 02/14/20 10:58 Dose: Not Given Documented by: Amlodipine Besylate (Norvasc) 2.5 mg PO DAILY [facility] Last Admin: 02/14/20 10:57 Dose: Not Given Documented by: Apixaban (Eliquis) 5 mg PO BID@0800,2000 [facility] Last Admin: 02/14/20 10:55 Dose: Not Given Documented by: Artificial Tears (Liquitears 1.4% Ophth Soln) 0 ml EYEBOTH QID PRN PRN Reason: Dry Eyes Artificial Tears (Liquitears 1.4% Ophth Soln) 0 ml EYEBOTH BID [facility] Bisacodyl (Dulcolax) 0 mg PO DAILY PRN PRN Reason: Constipation Cholecalciferol (Vitamin D3) 50 mcg PO DAILY [facility] Last Admin: 02/14/20 10:59 Dose: Not Given Documented by: Clopidogrel Bisulfate (Plavix) 75 mg PO DAILY [facility] Last Admin: 02/14/20 10:57 Dose: Not Given Documented by: Cyclobenzaprine HCl (Flexeril) 5 mg PO Q8H PRN PRN Reason: Pain Finasteride (Proscar) 5 mg PO DAILY [facility] Last Admin: 02/14/20 10:58 Dose: Not Given Documented by: Furosemide (Lasix) 20 mg IVPUSH DAILY [facility] Last Admin: 02/14/20 09:39 Dose: 20 mg Documented by: Guaifenesin/Dextromethorphan (Mucinex Dm Er 600-30 Mg) 1 tab PO Q12H PRN PRN Reason: Congestion Guaifenesin/Dextromethorphan (Robitussin Dm) 10 ml PO Q4H PRN PRN Reason: Cough Hydrocortisone (Proctozone-Hc 2.5% Crm) 0 gm TOP BID PRN PRN Reason: dermatitis Levofloxacin/Dextrose 500 mg/ (Premix) 100 mls @ 100 mls/hr IV Q24H [facility] Last Admin: 02/14/20 02:42 Dose: 100 mls/hr Documented by: Ceftriaxone Sodium 1 gm/ (Sodium Chloride) 100 mls @ 200 mls/hr IV Q24H [facility] Dextrose/Sodium Chloride (Dextrose 5%-Normal Saline) 1,000 mls @ 50 mls/hr IV ASDIRECTED [facility] Last Admin: 02/14/20 09:17 Dose: 50 mls/hr Documented by: Ketoconazole (Nizoral 2% Crm) 0 gm TOP BID PRN PRN Reason: suborrheic dermatitis Levothyroxine Sodium (Levothyroxine) 25 mcg PO QAM [facility] Last Admin: 02/14/20 10:56 Dose: Not Given Documented by: Levothyroxine Sodium (Synthroid) 100 mcg PO ACBREAKFAST [facility] Last Admin: 02/14/20 10:58 Dose: Not Given Documented by: Lisinopril (Prinivil) 10 mg PO QAM [facility] Last Admin: 02/14/20 10:57 Dose: Not Given Documented by: Loperamide HCl (Imodium Ad) 2 mg PO Q2H PRN PRN Reason: loose stools Loratadine (Claritin) 10 mg PO DAILY PRN PRN Reason: Allergies Lorazepam (Ativan) 1 mg IV Q6H PRN PRN Reason: Nausea/Vomiting Metformin HCl (Glucophage) 500 mg PO BID@0800,1700 [facility] Last Admin: 02/14/20 10:55 Dose: Not Given Documented by: Methenamine Hippurate (Methenamine Hippurate) 1 gm PO Q12H [facility] Last Admin: 02/14/20 10:57 Dose: Not Given Documented by: Metoprolol Tartrate (Lopressor) 75 mg PO BID@0800,2000 [facility] Last Admin: 02/14/20 10:56 Dose: Not Given Documented by: Non-Formulary Medication (Bupropion [Wellbutrin Sr]) 100 mg PO Q12HR [facility] Non-Formulary Medication (Gabapentin) 800 mg PO QID@08,12,17,20 [facility] Non-Formulary Medication (Methyl Salicylate/Menth/Camph [Salonpas 3.1%-6.0%-10.0% Patch]) 1 patch TOP DAILY [facility] Non-Formulary Medication (Methyl Salicylate/Menthol [Muscle Rub]) 1 applic TOP ASDIRECTED PRN PRN Reason: chronic pain Prednisone (Prednisone) 10 mg PO DAILY [facility] Last Admin: 02/14/20 10:57 Dose: Not Given Documented by: Senna/Docusate Sodium (Senna Plus) 1 tab PO BID [facility] Last Admin: 02/14/20 10:58 Dose: Not Given Documented by: Senna/Docusate Sodium (Senna Plus) 2 tab PO BID PRN PRN Reason: Constipation Simvastatin (Zocor) 20 mg PO BEDTIME [place] Sodium Chloride (Saline Flush) 10 ml FLUSH ASDIRECTED PRN PRN Reason: see instructions Tizanidine HCl (Zanaflex) 2 mg PO TID@0800,1400,2000 [facility] Last Admin: 02/14/20 10:59 Dose: Not Given Documented by: Discontinued Medications Dextrose/Water (Dextrose 50% In Water) 50 ml IVPUSH ONETIME ONE Stop: 02/14/20 09:01 Last Admin: 02/14/20 09:10 Dose: 50 ml Documented by: Dextrose/Water (Dextrose 50% In Water) Confirm Administered Dose 50 ml .ROUTE .STK-MED ONE Stop: 02/14/20 09:06 Last Admin: 02/14/20 09:17 Dose: Not Given Documented by: Gabapentin (Neurontin) 800 mg PO ONETIME ONE Stop: 02/14/20 08:01 Last Admin: 02/14/20 10:57 Dose: Not Given Documented by: Ceftriaxone Sodium 1 gm/ (Sodium Chloride) 100 mls @ 200 mls/hr IV ONETIME ONE Stop: 02/14/20 00:21 Last Admin: 02/14/20 01:10 Dose: 200 mls/hr Documented by: Insulin Glargine (Lantus) 30 unit SUBCUT QAM [facility] Last Admin: 02/14/20 09:16 Dose: Not Given Documented by: Insulin Glargine (Lantus) 20 unit SUBCUT BEDTIME [facility] Lorazepam (Ativan) 0.5 mg IVPUSH ONETIME ONE Stop: 02/14/20 00:48 Last Admin: 02/14/20 01:09 Dose: 0.5 mg Documented by: Non-Formulary Medication (Gabapentin) 800 mg PO ONETIME ONE Stop: 02/14/20 08:01 Last Admin: 02/14/20 10:55 Dose: Not Given Documented by:
[2020-02-14] MEDS ORDERED: Enoxaparin 40 MG/0.4 ML Syringe SUBCUT ONE (11:53)
[2020-02-14] MEDS ORDERED: Metoprolol Tartrate 5 MG/5 ML SDV IVPUSH ONE (11:53)
[2020-02-14 12:21] VITALS: PULSE 44
[2020-02-14 15:04] VITALS: BP 158/91
[2020-02-14] MEDS ORDERED: Simvastatin 20 MG Tab PO SCH (20:00)
[2020-02-15] MEDS ORDERED: cefTRIAXone 1 GM in Sodium Chloride 0.9% 100 ML IV SCH (20:00)
== END 2020-02-14 13:20 | DRG 194 ==
LOC: LL.ED 22:46 → LL.MS 02-14 01:35
PROVIDERS: ADMIT Emergency Medicine; ATTEND Emergency Medicine
DX: J18.9 Pneumonia, unspecified organism (principal); I48.20 Chronic atrial fibrillation, unspecified; J44.0 Chronic obstructive pulmonary disease with (acute) lower respiratory infection; I69.354 Hemiplegia and hemiparesis following cerebral infarction affecting left non-dominant side; I28.1 Aneurysm of pulmonary artery; I42.9 Cardiomyopathy, unspecified; I13.0 Hypertensive heart and chronic kidney disease with heart failure and stage 1 through stage 4 chronic kidney disease, or unspecified chronic kidney disease; J30.9 Allergic rhinitis, unspecified; I48.91 Unspecified atrial fibrillation; R00.1 Bradycardia, unspecified; E03.9 Hypothyroidism, unspecified; F41.8 Other specified anxiety disorders; K21.9 Gastro-esophageal reflux disease without esophagitis; E78.5 Hyperlipidemia, unspecified; E66.01 Morbid (severe) obesity due to excess calories; K59.09 Other constipation; M19.90 Unspecified osteoarthritis, unspecified site; M35.3 Polymyalgia rheumatica; E11.42 Type 2 diabetes mellitus with diabetic polyneuropathy; G47.00 Insomnia, unspecified; E78.00 Pure hypercholesterolemia, unspecified; E11.9 Type 2 diabetes mellitus without complications; I50.9 Heart failure, unspecified; D63.1 Anemia in chronic kidney disease; H54.7 Unspecified visual loss; E11.51 Type 2 diabetes mellitus with diabetic peripheral angiopathy without gangrene; N40.1 Benign prostatic hyperplasia with lower urinary tract symptoms; N39.498 Other specified urinary incontinence; R33.8 Other retention of urine; K80.20 Calculus of gallbladder without cholecystitis without obstruction; Z86.69 Personal history of other diseases of the nervous system and sense organs; N18.9 Chronic kidney disease, unspecified; Z90.49 Acquired absence of other specified parts of digestive tract; Z85.828 Personal history of other malignant neoplasm of skin; E11.22 Type 2 diabetes mellitus with diabetic chronic kidney disease; Z88.5 Allergy status to narcotic agent; Z88.6 Allergy status to analgesic agent; Z88.2 Allergy status to sulfonamides; Z68.29 Body mass index [BMI] 29.0-29.9, adult; Z79.01 Long term (current) use of anticoagulants; Z79.02 Long term (current) use of antithrombotics/antiplatelets; Z79.890 Hormone replacement therapy; Z79.4 Long term (current) use of insulin; Z79.899 Other long term (current) drug therapy; Z20.828 Contact with and (suspected) exposure to other viral communicable diseases
CPT/HCPCS: 36415; 51702; 70450; 71045; 80053; 81001; 82962; 83605; 83735; 83880; 84443; 84484; 85025; 85379; 85610; 87804; 96365; 96375; 99285-25; A9270-GY; J0696; J1650; J1815-GY; J1940; J1956; J2060; J3490; J7042; U0002

== ENCOUNTER 2020-03-07 10:00 | Inpatient (IN) | payer MEDICARE, OTHER ==
[2020-03-07 10:49] LABS: CHLORIDE,CL 104 mmol/L (98-107); SODIUM,NA 146 mmol/L (136-145)
[2020-03-07] MEDS ORDERED: cefTRIAXone 1 GM in Sodium Chloride 0.9% 100 ML IV ONE (10:54)
[2020-03-07] MEDS ORDERED: Iopamidol 755 Mg/ML 100 ML Bottle ONE (11:03)
[2020-03-07] MEDS ORDERED: Sodium Chloride 0.9% 1,000 ML IV ONE (11:11)
--- NOTE | 2020-03-07 11:11 | EDM.PDOC ---
ED HPI GENERAL MEDICAL PROBLEM - General Chief Complaint: Respiratory Problem Stated Complaint: hypoxia, fever Time Seen by Provider: 03/07/20 10:23 Source of Information: Reports: Patient, Other ([facility]) History Limitations: Reports: Other (increased confusion/somnolent) - History of Present Illness INITIAL COMMENTS - FREE TEXT/NARRATIVE: Patient sent to ER for evaluation from [facility] after he was noticed today to have fever around 102, decreased LOC, and decreasing O2 sats. Was in low 80s on room air. Is not oxygen dependent. Improved to 90-92% on O2 via NC. No reported changes yesterday per [facility] report. Patient is somnolent but can be roused by voice and answers questions. Quickly drifts off again. He had no complaints of SOB/Fever/illness or new pain when asked multiple times. When asked if he feels like usual self he said "yes". Also confirmed that he wishes code status to be DNR/DNI. [facility] staff did not note any additional changes observed. No cough/whe ezing/emesis/runny nose/bowel changes. Patient is incontinent, and no urinary changes observed. No focal neuro changes observed. Has been seen in ER multiple times over past several years. Often for fevers/pneumonias and neuro changes. - Related Data Allergies Allergy/AdvReac Type Severity Reaction Status Date / Time morphine Allergy Change Verified 03/07/20 10:56 Mental Status sulfamethoxazole Allergy unknown Verified 03/07/20 10:56 [From ] trimethoprim [From ] Allergy unknown Verified 03/07/20 10:56 Home Meds: Home Meds Apixaban [Eliquis] 5 mg PO BID@0800,199907/04/18 [History] Cyclobenzaprine [Flexeril] 5 mg PO Q8H PRN 07/04/18 [History] Insulin Glarg,Human.Rec.Analog [Lantus Solostar] 30 units SUBCUT QA 07/04/18 [History] Levothyroxine Sodium [Synthroid] 125 mcg PO QAM 07/04/18 [History] Lisinopril 10 mg PO QA 07/04/18 [History] Simvastatin 20 mg PO BEDTIME 07/04/18 [History] amLODIPine [Norvasc] 2.5 mg PO DAILY 07/04/18 [History] buPROPion [Wellbutrin SR] 100 mg PO Q12HR 07/04/18 [History] predniSONE [Prednisone] 2.5 mg PO DAILY 07/04/18 [History] Acetaminophen 650 mg PO Q6H PRN 08/01/18 [History] Clopidogrel [Plavix] 75 mg PO BEDTIME 08/01/18 [History] Acetaminophen [Tylenol Arthritis] 650 mg PO TID@0800,1400,2000 04/20/19 [History] Eyelid Cleanser Combination 5 [Ocusoft Lid Scrub] 1 each EYEBOTH Q12H 04/20/19 [History] Finasteride 5 mg PO DAILY 04/20/19 [History] Furosemide 20 mg PO DAILY 04/20/19 [History] Insulin Glargine,Hum.Rec.Anlog [Lantus Solostar] 20 unit SUBCUT BEDTIME 04/20/19 [History] Ketoconazole [Nizoral 2% Crm] 1 applic TOP ASDIRECTED PRN 04/20/19 [History] Sennosides/Docusate Sodium [Senna-S] 2 tab PO BID PRN 04/20/19 [History] metFORMIN [Glucophage] 500 mg PO BID@0800,1700 04/20/19 [History] Gabapentin [Neurontin] 800 mg PO QID@08,12,17,20 12/17/19 [History] Methyl Salicylate/Menth/Camph [Salonpas 3.1%-6.0%-10.0% Patch] 1 patch TOP DAILY 12/17/19 [History] Propylene Glycol/PEG 400/Pf [Systane 0.3-0.4% Eye Drop] 1 drop EYEBOTH Q12H 12/17/19 [History] Albuterol [Take Home: Albuterol 18 GM, 1 INH Pack] 2 puff INH QID 02/14/20 [History] Methyl Salicylate/Menth/Camph [Salonpas 3.1%-6.0%-10.0% Patch] 1 each TP DAILY 02/14/20 [History] Metoprolol Tartrate 25 mg PO Q12H 03/07/20 [History] Phenylephrine HCl [Sudogest PE] 10 mg PO Q4H PRN 03/07/20 [History] traZODone HCl [Trazodone HCl] 150 mg PO BEDTIME 03/07/20 [History] Past Medical History HEENT History: Reports: Allergic Rhinitis, Impaired Vision, Other (See Below) Other HEENT History: The patient wears glasses with history of right macula puckering. Cardiovascular History: Reports: Afib, Aneurysm, Arrhythmia, Cardiomyopathy, Heart Failure, High Cholesterol, Hypertension, PVD Other Cardiovascular History: Aneurysm of pulmonary artery. Peripheral vascular disease including bilateral. occlusion and stenosis of the carotid arteries. PACs Respiratory History: Reports: Bronchitis, Recurrent, COPD, Intubation, Difficu lt, Pneumonia, Recurrent, Other (See Below) Other Respiratory History: Chronic right diaphragmatic elevation. Intermittent O2 and steroid-dependent COPD. Respiratory failure requiring intubation on 07/04/2018. Recurrent pneumonia including aspiration pneumonia from dysphagia. Gastrointestinal History: Reports: Cholelithiasis, Chronic Constipation, GERD, Other (See Below) Other Gastrointestinal History: Dysphagia. Genitourinary History: Reports: BPH, Chronic Renal Insuffiency, Diabetic Nephropathy, Retention, Urinary, Urinary Incontinence Musculoskeletal History: Reports: Arthritis, Back Pain, Chronic, Fibromyalgia, Neck Pain, Chronic, Osteoarthritis, Other (See Below) Other Musculoskeletal History: Polymyalgia rheumatica. Spinal fusion as below with persistent left lateral nerve compression at C4-C5. 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 Psychiatric History: Reports: Addiction, Anxiety, Depression, PTSD, Other (See Below) Other Psychiatric History: Chronic insomnia. History of alcoholism. Endocrine/Metabolic History: Reports: Diabetes, Type II, Hypothyroidism, IDDM, Obesity/BMI 30+ Hematologic History: Reports: Anemia Oncologic (Cancer) History: Reports: Other (See Below) Other Oncologic History: Unknown type of skin cancer. Dermatologic History: Reports: Seborrheic Dermatitis - Past Surgical History HEENT Surgical History: Reports: Oral Surgery, Radiocarotid Ectomy, Other (See Below) Other HEENT Surgeries/Procedures: Teeth extractions. Left-sided carotid endarterectomy. GI Surgical History: Reports: Cholecystectomy Neurological Surgical History: Reports: C-Spine, Discectomy, Spinal Fusion, Other (See Below) Other Neurological Surgeries/Procedures: C3-C6 anterior spinal fusion. 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 (Note that patient is a bit confused and not considered completely reliable for ROS.) ED EXAM, GENERAL - Physical Exam Exam: See Below Exam Limited By: Altered Mental Status General Appearance: No Apparent Distress, Obese, Other (Patient's eyes are shut but he opens them when asked. Does respond to voice/answer questions but sometimes needs to be prompted several times. ) Eye Exam: Bilateral Eye: EOMI, PERRL Ears: Normal Canal, Hearing Grossly Normal, Normal TMs Nose: No: Nasal Deformity, Nasal Swelling, Nasal Drainage Throat/Mouth: Other (cracking of tissue/irritation at corners of mouth, lips dry) Head: Atraumatic, Normocephalic Neck: Supple, Non-Tender Respiratory/Chest: No Respiratory Distress, Lungs Clear, No Accessory Muscle Use, Decreased Breath Sounds (throughout). No: Crackles, Rales, Rhonchi, Wheezing, Stridor, Accessory Muscle Use, Retractions Cardiovascular: Regular Rate, Rhythm, No Murmur Peripheral Pulses: 2+: Radial (R) GI/Abdominal: Soft, Non-Tender, Abnormal Bowel Sounds (diminished throughout), Other (obese) (Male) Exam: Deferred Rectal (Males) Exam: Deferred Back Exam: No: Muscle Spasm Extremities: Non-Tender, No Pedal Edema, Normal Capillary Refill Neurological: Other (unable to get good neuro exam with patient somnolence. Appears to have equal tone. Knows he is in [place]. Does not know date/year. Hx of left sided weakness from previous CVA) Psychiatric: Normal Affect, Normal Mood Skin Exam: Warm, Dry, Intact, Normal Color #1 Interpretation EKG Date: 03/07/20 Time: 10:30 Rhythm: NSR Rate (Beats/Min): 74 [place]: Normal P-Wave: Present QRS: Normal ST-T: Normal QT: Normal Comparison: Other: (similar to appearance of EKG from Nov 2019) Course - Vital Signs Last Recorded V/S: Last Vital Signs Temp 37.9 C 03/07/20 10:09 Pulse 76 03/07/20 10:09 Resp 19 03/07/20 10:09 BP 136/55 L 03/07/20 10:09 Pulse Ox 96 03/07/20 10:09 - Orders/Labs/Meds Orders: Active Orders 24 hr Category Date Time Status EKG Documentation Completion [RC] ASDIRECTED Care 03/07/20 10:16 Active EKG Documentation Completion [RC] URGENT Care 03/07/20 10:16 Active Chest 1V Frontal [CR] Stat Exams 03/07/20 10:16 Ordered PE Chest [Ang Chest] [CT] Stat Exams 03/07/20 10:53 Ordered CULTURE BLOOD [BC] Stat Lab 03/07/20 10:07 Received CULTURE BLOOD [BC] Stat Lab 03/07/20 10:20 Received LACTIC ACID [CHEM] Stat Lab 03/07/20 10:07 Received UA W/IVY RFLX IF INDICATED [URIN] Stat Lab 03/07/20 10:23 Ordered Iopamidol [Isovue-370 (76%)] Med 03/07/20 13:00 Once 100 ml IVPUSH ONETIME ONE Sodium Chloride 0.9% [Saline Flush] Med 03/07/20 10:18 Active 10 ml FLUSH ASDIRECTED PRN cefTRIAXone [Rocephin] 1 gm Med 03/07/20 10:54 Ordered Sodium Chloride 0.9% [Normal Saline] 100 ml IV ONETIME Blood Culture x2 Reflex Set [OM.PC] Stat Oth 03/07/20 10:18 Ordered Isolation [COMM] Routine Oth 03/07/20 10:16 Active Saline Lock Insert [OM.PC] Routine Oth 03/07/20 10:18 Ordered EKG 12 Lead [EK] Urgent Ther 03/07/20 10:16 Ordered Medication Orders Ceftriaxone Sodium 1 gm/ (Sodium Chloride) 100 mls @ 200 mls/hr IV ONETIME ONE Stop: 03/07/20 11:23 Iopamidol (Isovue-370 (76%)) 100 ml IVPUSH ONETIME ONE Stop: 03/07/20 13:01 Sodium Chloride (Saline Flush) 10 ml FLUSH ASDIRECTED PRN PRN Reason: Keep Vein Open Labs: Laboratory Tests 03/07/20 03/07/20 03/07/20 Range/Units 10:05 10:07 10:07 WBC 11.2 H (4.0-10.2) K/uL RBC 4.22 L (4.33-5.41) M/uL Hgb 11.9 L (13.1-16.8) g/dL Hct 40.0 (39.0-49.0) % MCV 94.8 (84.0-98.0) fL MCH 28.2 (28.2-33.3) pg MCHC 29.8 L (31.7-36.0) g/dL RDW 15.9 H (11.2-14.1) % Plt Count 220 (150-350) K/uL Neut % (Auto) 82.8 H (45.0-80.0) % Lymph % (Auto) 5.1 L (10.0-50.0) % Sherman % (Auto) 7.9 (2.0-14.0) % Eos % (Auto) 3.8 (0.0-5.0) % Baso % (Auto) 0.4 (0.0-2.0) % Neut # (Auto) 9.28 H (1.40-7.00) K/uL Lymph # (Auto) 0.57 (0.50-3.50) K/uL Sherman # (Auto) 0.89 (0.00-1.00) K/uL Eos # (Auto) 0.42 (0.00-0.50) K/uL Baso # (Auto) 0.04 (0.00-0.20) K/uL D-Dimer, Quantitative (0-400) ng/mL Sodium 146 H (136-145) mmol/L Potassium 4.1 (3.5-5.1) mmol/L Chloride 104 (98-107) mmol/L Carbon Dioxide 35.0 H (21.0-32.0) mmol/L BUN 23 H (7-18) mg/dL Creatinine 1.17 (0.51-1.17) mg/dL Est Cr Clr Drug Dosing 57.07 mL/min Estimated GFR (MDRD) > 60 mL/min Glucose 124 H (74-106) mg/dL Calcium 9.1 (8.5-10.1) mg/dL Magnesium 1.7 L (1.8-2.4) mg/dL Total Bilirubin 0.4 (0.2-1.0) mg/dL AST 18 (15-37) U/L ALT 20 (12-78) U/L Alkaline Phosphatase 62 (46-116) IU/L Troponin I 0.010 (0.000-0.056) ng/mL NT-Pro-B Natriuret Pep 342 H (0-125) pg/mL Total Protein 6.4 (6.4-8.2) g/dL Albumin 3.0 L (3.4-5.0) g/dL SARS-CoV-2 RNA (PIETRO) Negative (NEGATIVE) 03/07/20 Range/Units 10:07 WBC (4.0-10.2) K/uL RBC (4.33-5.41) M/uL Hgb (13.1-16.8) g/dL Hct (39.0-49.0) % MCV (84.0-98.0) fL MCH (28.2-33.3) pg MCHC (31.7-36.0) g/dL RDW (11.2-14.1) % Plt Count (150-350) K/uL Neut % (Auto) (45.0-80.0) % Lymph % (Auto) (10.0-50.0) % Sherman % (Auto) (2.0-14.0) % Eos % (Auto) (0.0-5.0) % Baso % (Auto) (0.0-2.0) % Neut # (Auto) (1.40-7.00) K/uL Lymph # (Auto) (0.50-3.50) K/uL Sherman # (Auto) (0.00-1.00) K/uL Eos # (Auto) (0.00-0.50) K/uL Baso # (Auto) (0.00-0.20) K/uL D-Dimer, Quantitative 1020 H (0-400) ng/mL Sodium (136-145) mmol/L Potassium (3.5-5.1) mmol/L Chloride (98-107) mmol/L Carbon Dioxide (21.0-32.0) mmol/L BUN (7-18) mg/dL Creatinine (0.51-1.17) mg/dL Est Cr Clr Drug Dosing mL/min Estimated GFR (MDRD) mL/min Glucose (74-106) mg/dL Calcium (8.5-10.1) mg/dL Magnesium (1.8-2.4) mg/dL Total Bilirubin (0.2-1.0) mg/dL AST (15-37) U/L ALT (12-78) U/L Alkaline Phosphatase (46-116) IU/L Troponin I (0.000-0.056) ng/mL NT-Pro-B Natriuret Pep (0-125) pg/mL Total Protein (6.4-8.2) g/dL Albumin (3.4-5.0) g/dL SARS-CoV-2 RNA (PIETRO) (NEGATIVE) Meds: Medications Generic Name Dose Route Start Last Admin Trade Name Freq PRN Reason Stop Dose Admin Ceftriaxone Sodium 1 gm/ 100 mls @ 200 mls/hr 03/07/20 10:54 Sodium Chloride IV 03/07/20 11:23 ONETIME ONE Iopamidol 100 ml 03/07/20 13:00 Isovue-370 (76%) IVPUSH 03/07/20 13:01 ONETIME ONE Sodium Chloride 10 ml 03/07/20 10:18 Saline Flush FLUSH ASDIRECTED PRN Keep Vein Open - Radiology Interpretation Free Text/Narrative:: Chest xray shows stable mediastinal enlargement/cardiomegaly. Hypoinflated similarly to previous films. Questionable early infiltrate right mid/lower lung. Pending Radiology review. CT Results Date: 03/07/20 CT Results Time: 12:01 (No PE. Suspicion of new pneumonia noted RUL/RML) - Re-Assessments/Exams Free Text/Narrative Re-Assessment/Exam: 03/07/20 11:26 CT of chest ordered given elevated DDimer and increased O2 requirements. Free Text/Narrative Re-Assessment/Exam: 03/07/20 12:43 Patient received IV Rocephin/Levaquin/NS bolus orders. Lactic acid normal. WBC mildly elevated. UA did not show a UTI CT suggested RUL/RML consolidations per Radiology Call placed to [facility] and patient declined by legal coordinator due to zero available medical beds. Will admit patient for further treatment of pneumonia. Departure - Departure Time of Disposition: 13:16 Disposition: Admitted As Inpatient 68 Condition: Fair Clinical Impression: Pneumonia Qualifiers: Pneumonia type: due to unspecified organism Laterality: unspecified laterality Lung location: unspecified part of lung Qualified Code(s): J18.9 - Pneumonia, unspecified organism - Discharge Information *PRESCRIPTION DRUG MONITORING PROGRAM REVIEWED*: Not Applicable *COPY OF PRESCRIPTION DRUG MONITORING REPORT IN PATIENT COLEEN: Not Applicable Referrals: Olive Webb PA [Primary Care Provider] - Sepsis Event Note (ED) - Evaluation Sepsis Screening Result: No Definite Risk - Focused Exam Vital Signs: Vital Signs Temp Pulse Resp BP Pulse Ox 03/07/20 10:09 37.9 C 76 19 136/55 L 96 - Problem List & Annotations (1) Pneumonia SNOMED Code(s): 264985849 Code(s): J18.9 - PNEUMONIA, UNSPECIFIED ORGANISM Status: Acute Priority: High Current Visit: Yes Onset Date: 12/17/19 Annotation/Comment:: Right pneumonia. IV Rocephin and Levaquin initiated. Normal lactic acid. Minimally elevated WBC. Qualifiers: Pneumonia type: due to unspecified organism Laterality: right Lung location: unspecified part of lung Qualified Code(s): J18.9 - Pneumonia, unspecified organism (2) Hypoxemia SNOMED Code(s): 130423069 Code(s): R09.02 - HYPOXEMIA Status: Acute Priority: High Current Visit: No Annotation/Comment:: Room air O2 sats low 80s this morning. Patient not usually oxygen dependent. Sats now in low/mid 90s on 4L (3) Confusion SNOMED Code(s): 903631624 Code(s): R41.0 - DISORIENTATION, UNSPECIFIED Status: Acute Priority: Medium Current Visit: Yes Onset Date: 12/17/19 Annotation/Comment:: Mild initial confusion. Resolved since fever improved. (4) IDDM (insulin dependent diabetes mellitus) SNOMED Code(s): 63230540 Code(s): SLX5089 - Status: Chronic Priority: Medium Current Visit: Yes Annotation/Comment:: Observe trends (5) Congestive heart failure SNOMED Code(s): 91160185 Code(s): I50.9 - HEART FAILURE, UNSPECIFIED Status: Chronic Priority: Low Current Visit: No Annotation/Comment:: No chest pain or anginal complaints. No evidence of acute fluid overload on exam or per Radiology. Minimally elevated ProBNP. Qualifiers: Heart failure type: unspecified Heart failure chronicity: acute on chronic Qualified Code(s): I50.9 - Heart failure, unspecified (6) Cerebrovascular accident (CVA) SNOMED Code(s): 241491751 Code(s): I63.9 - CEREBRAL INFARCTION, UNSPECIFIED Status: Chronic Priority: Low Current Visit: No Annotation/Comment:: Previous right frontal CVA with persistent mild left hemiparesis. Qualifiers: CVA mechanism: occlusion Precerebral and cerebral artery: anterior cerebral artery Laterality of affected vessel: right Qualified Code(s): I63.521 - Cerebral infarction due to unspecified occlusion or stenosis of right anterior cerebral artery (7) COPD (chronic obstructive pulmonary disease) SNOMED Code(s): 03669871 Code(s): J44.9 - CHRONIC OBSTRUCTIVE PULMONARY DISEASE, UNSPECIFIED Status: Chronic Priority: Medium Current Visit: No Annotation/Comment:: Normally does use O2 at 2 L/min by nasal cannula at bedtime and with naps. Qualifiers: COPD type: COPD with acute lower respiratory infection Qualified Code(s): J44.0 - Chronic obstructive pulmonary disease with (acute) lower respiratory infection (8) Mixed anxiety depressive disorder SNOMED Code(s): 246092899 Code(s): F41.8 - OTHER SPECIFIED ANXIETY DISORDERS Status: Chronic Priority: Low Current Visit: No Annotation/Comment:: Stable by history note history of PTSD, alcoholism, etc. (9) Peptic reflux disease SNOMED Code(s): 639412691 Code(s): K21.9 - GASTRO-ESOPHAGEAL REFLUX DISEASE WITHOUT ESOPHAGITIS Status: Chronic Priority: Medium Current Visit: No Annotation/Comment:: Stable by history. (10) Hypothyroidism (acquired) SNOMED Code(s): 839702742 Code(s): E03.9 - HYPOTHYROIDISM, UNSPECIFIED Status: Chronic Priority: Low Current Visit: No Annotation/Comment:: Under therapy. (11) Hypertension SNOMED Code(s): 24603273 Code(s): I10 - ESSENTIAL (PRIMARY) HYPERTENSION Status: Chronic Priority: Medium Current Visit: No Annotation/Comment:: Observe trends. Currently stable Qualifiers: Hypertension type: essential hypertension Qualified Code(s): I10 - Essenti al (primary) hypertension (12) Atrial fibrillation SNOMED Code(s): 34575272 Code(s): I48.91 - UNSPECIFIED ATRIAL FIBRILLATION Status: Chronic Priority: Low Current Visit: No Annotation/Comment:: Chronic. 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 SNOMED Code(s): 701784825 Code(s): I28.1 - ANEURYSM OF PULMONARY ARTERY Status: Chronic Priority: Low Current Visit: No Annotation/Comment:: Hx of aneurysm (14) Cardiomyopathy SNOMED Code(s): 27207256 Code(s): I42.9 - CARDIOMYOPATHY, UNSPECIFIED Status: Chronic Priority: Medium Current Visit: No Annotation/Comment:: Hx of cardiomyopathy (15) Dyslipidemia SNOMED Code(s): 807281692 Code(s): E78.5 - HYPERLIPIDEMIA, UNSPECIFIED Status: Chronic Priority: Low Current Visit: No Annotation/Comment:: history of dyslipidemia (16) Obesities, morbid SNOMED Code(s): 440010761 Code(s): E66.01 - MORBID (SEVERE) OBESITY DUE TO EXCESS CALORIES Status: Chronic Priority: Medium Current Visit: No Annotation/Comment:: Hx of significant obesity (17) Chronic constipation SNOMED Code(s): 529694619 Code(s): K59.09 - OTHER CONSTIPATION Status: Chronic Priority: Low Current Visit: No (18) Osteoarthritis SNOMED Code(s): 750129974 Code(s): M19.90 - UNSPECIFIED OSTEOARTHRITIS, UNSPECIFIED SITE Status: Chronic Priority: Low Current Visit: No Annotation/Comment:: Hx of chronic back pain, arthritis/osteoarthritis Qualifiers: Osteoarthritis location: unspecified site (19) Polymyalgia rheumatica SNOMED Code(s): 86963808 Code(s): M35.3 - POLYMYALGIA RHEUMATICA Status: Chronic Priority: Low Current Visit: No Annotation/Comment:: Hx also includes fibromyalgia (20) Peripheral neuropathy SNOMED Code(s): 223035804 Code(s): G62.9 - POLYNEUROPATHY, UNSPECIFIED Status: Chronic Priority: Low Current Visit: No Annotation/Comment:: stable by history Qualifiers: Peripheral neuropathy type: polyneuropathy, unspecified Qualified Code(s): G62.9 - Polyneuropathy, unspecified (21) Insomnia SNOMED Code(s): 898504147 Code(s): G47.00 - INSOMNIA, UNSPECIFIED Status: Chronic Priority: Low Current Visit: No Qualifiers: Insomnia type: unspecified Qualified Code(s): G47.00 - Insomnia, unspecifi ed (22) HX: anticoagulation SNOMED Code(s): 837059685 Code(s): Z92.29 - PERSONAL HISTORY OF OTHER DRUG THERAPY Status: Chronic Priority: Medium Current Visit: No Annotation/Comment:: Uncertain why patient is currently on both Plavix and Eliquis. Has history of chronic Afib. (23) Renal insufficiency SNOMED Code(s): 886832552, 935974073 Code(s): N28.9 - DISORDER OF KIDNEY AND URETER, UNSPECIFIED Status: Chronic Priority: Low Current Visit: No Annotation/Comment:: Normal levels today - Problem List Review Problem List Initiated/Reviewed/Updated: Yes - My Orders Last 24 Hours: My Active Orders 03/07/20 10:07 CULTURE BLOOD [BC] Stat LACTIC ACID [CHEM] Stat 03/07/20 10:16 EKG Documentation Completion [RC] ASDIRECTED EKG Documentation Completion [RC] URGENT Chest 1V Frontal [CR] Stat Isolation [COMM] Routine EKG 12 Lead [EK] Urgent 03/07/20 10:18 Sodium Chloride 0.9% [Saline Flush] 10 ml FLUSH ASDIRECTED PRN Blood Culture x2 Reflex Set [OM.PC] Stat Saline Lock Insert [OM.PC] Routine 03/07/20 10:20 CULTURE BLOOD [BC] Stat 03/07/20 10:23 UA W/IVY RFLX IF INDICATED [URIN] Stat 03/07/20 10:53 PE Chest [Ang Chest] [CT] Stat 03/07/20 10:54 cefTRIAXone [Rocephin] 1 gm Sodium Chloride 0.9% [Normal Saline] 100 ml IV ONETIME 03/07/20 13:00 Iopamidol [Isovue-370 (76%)] 100 ml IVPUSH ONETIME ONE - Assessment/Plan Admission H&P: Please use this note as an admission H&P Last 24 Hours: My Active Orders 03/07/20 10:07 CULTURE BLOOD [BC] Stat LACTIC ACID [CHEM] Stat 03/07/20 10:16 EKG Documentation Completion [RC] ASDIRECTED EKG Documentation Completion [RC] URGENT Chest 1V Frontal [CR] Stat Isolation [COMM] Routine EKG 12 Lead [EK] Urgent 03/07/20 10:18 Sodium Chloride 0.9% [Saline Flush] 10 ml FLUSH ASDIRECTED PRN Blood Culture x2 Reflex Set [OM.PC] Stat Saline Lock Insert [OM.PC] Routine 03/07/20 10:20 CULTURE BLOOD [BC] Stat 03/07/20 10:23 UA W/IVY RFLX IF INDICATED [URIN] Stat 03/07/20 10:53 PE Chest [Ang Chest] [CT] Stat 03/07/20 10:54 cefTRIAXone [Rocephin] 1 gm Sodium Chloride 0.9% [Normal Saline] 100 ml IV ONETIME 03/07/20 13:00 Iopamidol [Isovue-370 (76%)] 100 ml IVPUSH ONETIME ONE Assessment:: as above Plan: as above. Anticipate 3-4 days inpatient stay depending upon clinical course. Transition to oral antibiotics at time of discharge be to [facility].
[2020-03-07] MEDS ORDERED: Levofloxacin/Dextrose 5%-Water 500 MG in Premix Bag 1 BAG IV ONE (11:27)
[2020-03-07] MEDS: Sodium Chloride 0.9% 10 ML Syringe FLUSH PRN ×6 (11:27→17:51)
[2020-03-07] MEDS ORDERED: Iopamidol 755 Mg/ML 100 ML Bottle IVPUSH ONE (13:00)
[2020-03-07] MEDS ORDERED: Sodium Chloride 0.9% 1,000 ML IV SCH (13:00)
[2020-03-07] MEDS ORDERED: Ondansetron 4 MG/2 ML SDV IVPUSH PRN (14:19)
[2020-03-07] MEDS ORDERED: Ketoconazole 2% Crm 30 GM Tube TOP PRN (14:27)
[2020-03-07] MEDS ORDERED: Acetaminophen 325 MG Tab PO PRN (14:27)
[2020-03-07] MEDS ORDERED: Cyclobenzaprine 10 MG Tab PO PRN (14:27)
[2020-03-07] MEDS ORDERED: Metoprolol Tartrate 25 MG Tab PO SCH (14:30)
[2020-03-07] MEDS ORDERED: Polyvinyl Alcohol 1.4% Ophth Soln 15 ML Bottle EYEBOTH SCH (14:30)
[2020-03-07] MEDS ORDERED: 50% Dextrose in Water 50 ML Syringe IV PRN (14:33)
[2020-03-07] MEDS ORDERED: Glucagon,Human Recombinant 1 MG Vial IM PRN (14:33)
[2020-03-07] MEDS ORDERED: Sodium Chloride 0.45% 1,000 ML IV ONE (14:36)
[2020-03-07] MEDS: Pantoprazole 40 MG Vial IV SCH (16:00)
[2020-03-07] MEDS: Albuterol 6.7 GM Inhaler INH SCH ×2 (17:30→19:13)
[2020-03-07] MEDS: Gabapentin 400 MG Cap PO SCH ×2 (17:31→19:12)
[2020-03-07] MEDS: Furosemide 40 MG/4 ML VIAL IVPUSH SCH (17:51)
[2020-03-07] MEDS: Insulin Lispro 100 Units/ML 3 ML Vial SUBCUT SCH (18:04)
[2020-03-07] MEDS: Simvastatin 20 MG Tab PO SCH (19:12)
[2020-03-07] MEDS: Apixaban 5 MG Tab PO SCH (19:13)
[2020-03-07] MEDS: Acetaminophen 650 MG Tab.ER PO SCH (19:13)
[2020-03-07] MEDS: traZODone 50 MG Tab PO SCH (19:13)
[2020-03-07] MEDS: Clopidogrel 75 MG Tab PO SCH (19:13)
[2020-03-08] MEDS ORDERED: cefTRIAXone 1 GM in Sodium Chloride 0.9% 100 ML IV SCH (08:00)
[2020-03-08] MEDS ORDERED: Non-Formulary Medication 1 Each (Levothyroxine Sodium [Synthroid] 125 MCG) PO SCH (08:00)
[2020-03-08] MEDS ORDERED: amLODIPine 5 MG Tab PO SCH (08:00)
[2020-03-08] MEDS: Albuterol 6.7 GM Inhaler INH SCH ×4 (08:35→19:37)
[2020-03-08] MEDS: Pantoprazole 40 MG Vial IV SCH ×2 (08:36→19:31)
[2020-03-08] MEDS: Furosemide 40 MG/4 ML VIAL IVPUSH SCH ×2 (08:36→17:40)
[2020-03-08] MEDS: predniSONE 5 MG Tab PO SCH (08:38)
[2020-03-08] MEDS: Gabapentin 400 MG Cap PO SCH ×4 (08:38→19:37)
[2020-03-08] MEDS: Acetaminophen 650 MG Tab.ER PO SCH ×3 (08:39→20:36)
[2020-03-08 08:40] LABS: CHLORIDE,CL 104 mmol/L (98-107); SODIUM,NA 144 mmol/L (136-145)
[2020-03-08] MEDS: Levothyroxine 100 MCG Tab PO SCH (08:41)
[2020-03-08] MEDS: Finasteride 5 MG Tab PO SCH (08:41)
[2020-03-08] MEDS: Apixaban 5 MG Tab PO SCH ×2 (08:42→19:32)
[2020-03-08] MEDS: Insulin Lispro 100 Units/ML 3 ML Vial SUBCUT SCH ×3 (08:43→21:09)
[2020-03-08] MEDS: Levothyroxine 25 MCG Tab PO SCH (08:43)
[2020-03-08] MEDS: Polyvinyl Alcohol 1.4% Ophth Soln 15 ML Bottle EYEBOTH SCH ×2 (08:44→19:32)
[2020-03-08] MEDS ORDERED: Acetaminophen 325 MG Tab PO PRN (11:00)
[2020-03-08] MEDS: Metoprolol Tartrate 25 MG Tab PO SCH ×2 (11:20→19:33)
[2020-03-08] MEDS: Lisinopril 10 MG Tab PO SCH (11:21)
[2020-03-08] MEDS: BUPROPION 100 MG PO SCH ×3 (11:38→19:32)
[2020-03-08] MEDS: [UNRECOGNIZED DRUG - OTHER] TOP SCH ×3 (11:40→19:37)
[2020-03-08] MEDS: Levofloxacin/Dextrose 5%-Water 500 MG in Premix Bag 1 BAG IV SCH (11:43)
[2020-03-08] MEDS: Famotidine 20 MG/2 ML SDV IVPUSH SCH (11:44)
--- NOTE | 2020-03-08 11:44 | PCM.PN ---
- General Info Date of Service: 03/08/20 Admission Dx/Problem (Free Text): 1. Pneumonia 2. COPD 3. D-dimer elevation 4. CHF Functional Status: Reports: Pain Controlled, Tolerating Diet, Ambulating (With assist), Urinating, New Symptoms (Generalized arthralgias as below), Incentive Spirometry Pain Score: 8 (Nonspecific generalized arthralgias as below) - Review of Systems General: Reports: Weakness (Improving). Denies: Fever, Fatigue, Chills, Night Sweats, Appetite (Adequate) HEENT: Reports: Glasses. Denies: Dysphasia, Ear Pain, Eye Pain, Headaches, Sinus Congestion, Sore Throat, Rhinitis, Visual Changes Pulmonary: Reports: Cough, Sputum (Mostly clear). Denies: Shortness of Breath, Pleuritic Chest Pain, Hemoptysis, Wheezing Cardiovascular: Reports: No Symptoms. Denies: Chest Pain, Dyspnea on Exertion, Edema, Lightheadedness Gastrointestinal: Reports: Other (No bowel movement since admission). Denies: Abdominal Pain, Constipation, Decreased Appetite, Diarrhea, Difficulty Swallowing, Flatus, Hematochezia, Melena, Nausea, Vomiting Genitourinary: Reports: No Symptoms. Denies: Dysuria, Frequency, Burning, Pain, Urgency, Incontinence, Hematuria, Retention, Flank Pain Musculoskeletal: Reports: Joint Pain (Generalized arthralgias as above). Denies: Neck Pain, Arm Pain, Back Pain, Leg Pain, Joint Swelling Skin: Reports: No Symptoms. Denies: Diaphoresis, Bruising, Rash Neurological: Reports: Confusion (Improving slowly), Numbness (Stable), Paresthesia (Stable), Pre-Existing Deficit (Weakness as below), Tingling (Stable), Difficulty Walking, Weakness Psychiatric: Reports: Confusion (As above). Denies: Depression, Anxiety, Agitation, Cravings, Hallucinations, Homicidal Ideation - Patient Data Vitals - Most Recent: Last Vital Signs Temp 36.3 C 03/08/20 11:23 Pulse 74 03/08/20 11:23 Resp 18 03/08/20 11:23 BP 114/64 03/08/20 11:23 Pulse Ox 94 L 03/08/20 11:23 Vital Signs - 24 hr 03/07/20 03/07/20 03/07/20 11:52 12:20 12:22 Temperature [ 36.4 C Temporal] Pulse, Peripheral Pulse, 74 72 73 Peripheral [ Right Pulse Oximetry] Respiratory 22 H 20 22 H Rate Blood Pressure Blood Pressure 116/77 136/59 L 152/59 H [Right Upper Arm] O2 Sat by Pulse 95 98 97 Oximetry O2 Sat by Pulse Oximetry [ Nasal Cannula] 03/07/20 03/07/20 03/07/20 12:28 12:43 13:00 Temperature [ Temporal] Pulse, Peripheral Pulse, 74 75 75 Peripheral [ Right Pulse Oximetry] Respiratory 20 18 19 Rate Blood Pressure Blood Pressure 147/67 H 145/61 H 149/98 H [Right Upper Arm] O2 Sat by Pulse 97 97 94 L Oximetry O2 Sat by Pulse Oximetry [ Nasal Cannula] 03/07/20 03/07/20 03/07/20 13:50 14:19 14:21 Temperature [ 37.2 C Temporal] Pulse, Peripheral Pulse, 71 Peripheral [ Right Pulse Oximetry] Respiratory 20 Rate Blood Pressure Blood Pressure 126/61 [Right Upper Arm] O2 Sat by Pulse 97 94 L Oximetry O2 Sat by Pulse 94 L Oximetry [ Nasal Cannula] 03/07/20 03/08/20 03/08/20 18:00 00:00 04:54 Temperature [ 36.8 C 37.1 C 36.6 C Temporal] Pulse, Peripheral Pulse, 66 62 70 Peripheral [ Right Pulse Oximetry] Respiratory 22 H 20 20 Rate Blood Pressure Blood Pressure 144/63 H 137/74 142/48 H [Right Upper Arm] O2 Sat by Pulse 94 L 94 L 93 L Oximetry O2 Sat by Pulse Oximetry [ Nasal Cannula] 03/08/20 03/08/20 03/08/20 07:55 11:20 11:21 Temperature [ 36.7 C Temporal] Pulse, 74 Peripheral Pulse, 72 Peripheral [ Right Pulse Oximetry] Respiratory 18 Rate Blood Pressure 114/64 114/64 Blood Pressure 105/57 L [Right Upper Arm] O2 Sat by Pulse 91 L Oximetry O2 Sat by Pulse Oximetry [ Nasal Cannula] 03/08/20 11:23 Temperature [ 36.3 C Temporal] Pulse, Peripheral Pulse, 74 Peripheral [ Right Pulse Oximetry] Respiratory 18 Rate Blood Pressure Blood Pressure 114/64 [Right Upper Arm] O2 Sat by Pulse 94 L Oximetry O2 Sat by Pulse Oximetry [ Nasal Cannula] Weight - Most Recent: 94.801 kg I&O - Last 24 Hours: Intake & Output 03/07/20 03/08/20 03/08/20 22:59 06:59 14:59 Intake Total 200 630 Output Total 400 200 375 Balance -200 -200 255 Imaging Impressions - Last 24 Hours: educational diagnostician shows normal sinus rhythm with heart rate in the 70s with no ectopy or arrhythmia Preliminary verbal report of venous Doppler studies of the lower extremities on 03/08/2020 from george Nicholson tech, was negative for DVT. Lab Results Last 24 Hours: Laboratory Results - last 24 hr 03/07/20 03/07/20 03/08/20 Range/Units 18:02 22:29 07:28 WBC (4.0-10.2) K/uL RBC (4.33-5.41) M/uL Hgb (13.1-16.8) g/dL Hct (39.0-49.0) % MCV (84.0-98.0) fL MCH (28.2-33.3) pg MCHC (31.7-36.0) g/dL RDW (11.2-14.1) % Plt Count (150-350) K/uL Neut % (Auto) (45.0-80.0) % Lymph % (Auto) (10.0-50.0) % [place] % (Auto) (2.0-14.0) % Eos % (Auto) (0.0-5.0) % Baso % (Auto) (0.0-2.0) % Neut # (Auto) (1.40-7.00) K/uL Lymph # (Auto) (0.50-3.50) K/uL [place] # (Auto) (0.00-1.00) K/uL Eos # (Auto) (0.00-0.50) K/uL Baso # (Auto) (0.00-0.20) K/uL Sodium (136-145) mmol/L Potassium (3.5-5.1) mmol/L Chloride (98-107) mmol/L Carbon Dioxide (21.0-32.0) mmol/L BUN (7-18) mg/dL Creatinine (0.51-1.17) mg/dL Est Cr Clr Drug Dosing mL/min Estimated GFR (MDRD) mL/min Glucose (74-106) mg/dL POC Glucose 152 H 114 H 112 H (65-110) mg/dl Lactic Acid (0.4-2.0) mmol/L Calcium (8.5-10.1) mg/dL Total Bilirubin (0.2-1.0) mg/dL AST (15-37) U/L ALT (12-78) U/L Alkaline Phosphatase (46-116) IU/L Total Protein (6.4-8.2) g/dL Albumin (3.4-5.0) g/dL 03/08/20 03/08/20 03/08/20 Range/Units 07:35 07:35 07:35 WBC 6.9 (4.0-10.2) K/uL RBC 3.48 L (4.33-5.41) M/uL Hgb 9.9 L D (13.1-16.8) g/dL Hct 33.2 L (39.0-49.0) % MCV 95.4 (84.0-98.0) fL MCH 28.4 (28.2-33.3) pg MCHC 29.8 L (31.7-36.0) g/dL RDW 16.0 H (11.2-14.1) % Plt Count 190 (150-350) K/uL Neut % (Auto) 75.5 (45.0-80.0) % Lymph % (Auto) 8.6 L (10.0-50.0) % [place] % (Auto) 10.8 (2.0-14.0) % Eos % (Auto) 4.7 (0.0-5.0) % Baso % (Auto) 0.4 (0.0-2.0) % Neut # (Auto) 5.17 (1.40-7.00) K/uL Lymph # (Auto) 0.59 (0.50-3.50) K/uL [place] # (Auto) 0.74 (0.00-1.00) K/uL Eos # (Auto) 0.32 (0.00-0.50) K/uL Baso # (Auto) 0.03 (0.00-0.20) K/uL Sodium 144 (136-145) mmol/L Potassium 4.0 (3.5-5.1) mmol/L Chloride 104 (98-107) mmol/L Carbon Dioxide 32.6 H (21.0-32.0) mmol/L BUN 19 H (7-18) mg/dL Creatinine 1.12 (0.51-1.17) mg/dL Est Cr Clr Drug Dosing 59.62 mL/min Estimated GFR (MDRD) > 60 mL/min Glucose 112 H (74-106) mg/dL POC Glucose (65-110) mg/dl Lactic Acid 1.4 (0.4-2.0) mmol/L Calcium 8.4 L (8.5-10.1) mg/dL Total Bilirubin 0.4 (0.2-1.0) mg/dL AST 13 L (15-37) U/L ALT 15 (12-78) U/L Alkaline Phosphatase 47 (46-116) IU/L Total Protein 5.5 L (6.4-8.2) g/dL Albumin 2.3 L (3.4-5.0) g/dL 03/08/20 Range/Units 11:16 WBC (4.0-10.2) K/uL RBC (4.33-5.41) M/uL Hgb (13.1-16.8) g/dL Hct (39.0-49.0) % MCV (84.0-98.0) fL MCH (28.2-33.3) pg MCHC (31.7-36.0) g/dL RDW (11.2-14.1) % Plt Count (150-350) K/uL Neut % (Auto) (45.0-80.0) % Lymph % (Auto) (10.0-50.0) % [place] % (Auto) (2.0-14.0) % Eos % (Auto) (0.0-5.0) % Baso % (Auto) (0.0-2.0) % Neut # (Auto) (1.40-7.00) K/uL Lymph # (Auto) (0.50-3.50) K/uL [place] # (Auto) (0.00-1.00) K/uL Eos # (Auto) (0.00-0.50) K/uL Baso # (Auto) (0.00-0.20) K/uL Sodium (136-145) mmol/L Potassium (3.5-5.1) mmol/L Chloride (98-107) mmol/L Carbon Dioxide (21.0-32.0) mmol/L BUN (7-18) mg/dL Creatinine (0.51-1.17) mg/dL Est Cr Clr Drug Dosing mL/min Estimated GFR (MDRD) mL/min Glucose (74-106) mg/dL POC Glucose 179 H (65-110) mg/dl Lactic Acid (0.4-2.0) mmol/L Calcium (8.5-10.1) mg/dL Total Bilirubin (0.2-1.0) mg/dL AST (15-37) U/L ALT (12-78) U/L Alkaline Phosphatase (46-116) IU/L Total Protein (6.4-8.2) g/dL Albumin (3.4-5.0) g/dL [place] Results Last 24 Hours: Microbiology 03/07/20 10:20 Aerobic Blood Culture - Preliminary Blood - Venous - Lab Draw NO GROWTH AFTER 1 DAY Anaerobic Blood Culture - Preliminary NO GROWTH AFTER 1 DAY 03/07/20 10:07 Aerobic Blood Culture - Preliminary Blood - Venous NO GROWTH AFTER 1 DAY Anaerobic Blood Culture - Preliminary NO GROWTH AFTER 1 DAY 03/07/20 10:05 Influenza Type A Antigen Screen - Final Nasal, Right NEGATIVE INFLUENZA A VIRUS AG REFERENCE RANGE: NEGATIVE Influenza Type B Antigen Screen - Final NEGATIVE INFLUENZA B VIRUS AG REFERENCE RANGE: NEGATIVE Med Orders - Current: Current Medications Acetaminophen (Tylenol Arthritis Pain) 650 mg PO TID@0800,1399,1999 [facility] Last Admin: 03/08/20 08:39 Dose: 650 mg Documented by: Acetaminophen (Tylenol) 650 mg PO Q4H PRN PRN Reason: Pain Albuterol (Proventil Hfa) 0 gm INH QID [facility] Last Admin: 03/08/20 08:35 Dose: 2 puff Documented by: Amlodipine Besylate (Norvasc) 2.5 mg PO QPM [facility] Apixaban (Eliquis) 5 mg PO BID@ [facility] Last Admin: 03/08/20 08:42 Dose: 5 mg Documented by: Artificial Tears (Liquitears 1.4% Ophth Soln) 0 ml EYEBOTH [facility] Last Admin: 03/08/20 08:44 Dose: 1 drop Documented by: Clopidogrel Bisulfate (Plavix) 75 mg PO BEDTIME [facility] Last Admin: 03/07/20 19:13 Dose: 75 mg Documented by: Cyclobenzaprine HCl (Flexeril) 5 mg PO Q8H PRN PRN Reason: chronic pain Dextrose/Water (Dextrose 50% In Water) 50 ml IV ASDIRECTED PRN PRN Reason: Hypoglycemia Famotidine (Pepcid) 20 mg IVPUSH Q24H [facility] Finasteride (Proscar) 5 mg PO DAILY [facility] Last Admin: 03/08/20 08:41 Dose: 5 mg Documented by: Furosemide (Lasix) 20 mg IVPUSH BID [facility] Last Admin: 03/08/20 08:36 Dose: 20 mg Documented by: Gabapentin (Neurontin) 800 mg PO QID@08,12,17,20 [facility] Last Admin: 03/08/20 08:38 Dose: 800 mg Documented by: Glucagon (Glucagen) 1 mg IM ASDIRECTED PRN PRN Reason: Hypoglycemia Ceftriaxone Sodium 1 gm/ (Sodium Chloride) 100 mls @ 200 mls/hr IV Q24H [facility] Last Admin: 03/08/20 08:35 Dose: 200 mls/hr Documented by: Levofloxacin/Dextrose 500 mg/ (Premix) 100 mls @ 100 mls/hr IV Q24H [facility] Insulin Human Lispro (Humalog) 0 unit SUBCUT BIDAC [facility]; Protocol Last Admin: 03/08/20 08:43 Dose: Not Given Documented by: Ketoconazole (Nizoral 2% Crm) 0 gm TOP ASDIRECTED PRN PRN Reason: suborrheic dermatitis Levothyroxine Sodium (Synthroid) 100 mcg PO [facility] Last Admin: 03/08/20 08:41 Dose: 100 mcg Documented by: Levothyroxine S[facility] (Levothyroxine) [facility] [place] Admin: 03/08/20 08:43 Dose: 25 mcg Documented by: Lisinopril (Prinivil) [facility] [place] Admin: 03/08/20 11:21 Dose: 10 mg Documented by: Methylprednisolone Sodium Succinate (Solu-Medrol) 125 mg IVPUSH ONETIME ONE Stop: 03/08/20 12:01 Metoprolol Tartrate (Lopressor) 25 mg PO 0800,1999 [facility] Last Admin: 03/08/20 11:20 Dose: 25 mg Documented by: Miscellaneous Information (Remove Patch) 1 ea TRDERM BEDTIME [place] Miscellaneous Information (Remove Patch) 1 ea TRDERM DAILY [facility] Bupropion [ Wellbutrin Sr] 100 Mg Tablets 100 mg PO Q12HR [place] Methyl Salicylate/Menth/Camph [ Salonpas 3.1%-6.0%- 10.0%] 1 each TOP BEDTIME [place] Methyl Salicylate/Menth/Camph [ Salonpas 3.1%-6.0%- 10.0%] 1 patch TOP DAILY [facility] Ondansetron HCl (Zofran) 4 mg IVPUSH Q6H PRN PRN Reason: Nausea/Vomiting Pantoprazole Sodium (Protonix Iv) 40 mg IV Q12H [place] Prednisone (Prednisone) 2.5 mg PO DAILY [facility] Last Admin: 03/08/20 08:38 Dose: 2.5 mg Documented by: Senna/Docusate Sodium (Senna Plus) 2 tab PO BID PRN PRN Reason: Constipation Simvastatin (Zocor) 20 mg PO BEDTIME [facility] Last Admin: 03/07/20 19:12 Dose: 20 mg Documented by: Sodium Chloride (Saline Flush) 10 ml FLUSH ASDIRECTED PRN PRN Reason: Keep Vein Open Last Admin: 03/07/20 17:51 Dose: 10 ml Documented by: Trazodone HCl (Trazodone) 150 mg PO BEDTIME [facility] Last Admin: 03/07/20 19:13 Dose: 150 mg Documented by: Discontinued Medications Acetaminophen (Tylenol) 650 mg PO Q6H PRN PRN Reason: Pain Last Admin: 03/08/20 04:54 Dose: 650 mg Documented by: Amlodipine Besylate (Norvasc) 2.5 mg PO DAILY [facility] Artificial Tears (Liquitears 1.4% Ophth Soln) 0 ml EYEBOTH Q12H [facility] Last Admin: 03/07/20 16:00 Dose: 1 drop Documented by: Ceftriaxone Sodium 1 gm/ (Sodium Chloride) 100 mls @ 200 mls/hr IV ONETIME ONE Stop: 03/07/20 11:23 Last Admin: 03/07/20 11:28 Dose: 200 mls/hr Documented by: Sodium Chloride (Normal Saline) 1,000 mls @ 999 mls/hr IV .BOLUS ONE Stop: 03/07/20 12:11 Last Admin: 03/07/20 11:28 Dose: 999 mls/hr Documented by: Levofloxacin/Dextrose 500 mg/ (Premix) 100 mls @ 100 mls/hr IV ONETIME ONE Stop: 03/07/20 12:26 Last Admin: 03/07/20 11:55 Dose: 100 mls/hr Documented by: Sodium Chloride (Normal Saline) 1,000 mls @ 50 mls/hr IV ASDIRECTED [facility] Stop: 03/11/20 12:54 Sodium Chloride (Sodium Chloride 0.45%) 1,000 mls @ 50 mls/hr IV ONETIME ONE Stop: 03/08/20 10:35 Last Admin: 03/07/20 17:28 Dose: 50 mls/hr Documented by: Magnesium Sulfate/Dextrose 1 (gm/ Premix) 100 mls @ 100 mls/hr IV ONETIME ONE Stop: 03/07/20 15:57 Last Admin: 03/07/20 16:00 Dose: 100 mls/hr Documented by: Iopamidol (Isovue-370 (76%)) 100 ml IVPUSH ONETIME ONE Stop: 03/07/20 13:01 Last Admin: 03/07/20 10:33 Dose: 100 ml Documented by: Iopamidol (Isovue-370 (76%)) Confirm Administered Dose 100 ml .ROUTE .STK-MED ONE Stop: 03/07/20 11:04 Metoprolol Tartrate (Lopressor) 25 mg PO Q12H [facility] Last Admin: 03/07/20 17:28 Dose: Not Given Documented by: Pantoprazole Sodium (Protonix Iv) 40 mg IV DAILY [facility] Last Admin: 03/08/20 08:36 Dose: 40 mg Documented by: - Exam Quality Assessment: Supplemental Oxygen, DVT Prophylaxis (Eliquis). No: Central Line/PICC, Urine Catheter, Skin Breakdown, Restraints General: Alert, Cooperative, No Acute Distress, Other (Borderline confusion improved since admission) HEENT: Pupils Equal, Pupils Reactive, EOMI, Mucous Membr. Moist/[place]. No: Scleral Icterus Neck: Supple, Trachea Midline, No JVD, No Thyromegaly, Carotid Bruit (Mild bilateral carotid bruits). No: Lymphadenopathy, Thyromegaly Lungs: Normal Respiratory Effort, Rales (Mild bilateral basilar). No: Rhonchi, Rub, Wheezing Cardiovascular: Regular Rate, Regular Rhythm, No Murmurs. No: Gallops, Rubs GI/Abdominal Exam: Normal Bowel Sounds, Soft, Non-Tender, No Organomegaly, No Distention, No Abnormal Bruit, No Mass, Other (Obese). No: Guarding (Male) Exam: Deferred Back Exam: Normal Inspection, Full Range of Motion. No: CVA Tenderness (L), CVA Tenderness (R), Muscle Spasm Extremities: Normal Inspection, Normal Range of Motion, Non-Tender, No Pedal Edema, Normal Capillary Refill. No: Stanley's Sign Peripheral Pulses: 2+: Radial (L), Radial (R), Dorsalis Pedis (L), Dorsalis Pedis (R) Skin: Warm, Dry, Intact, Other (Mild pallor). No: Ecchymosis Neurological: No New Focal Deficit, Other (Negative Babinski's. Stable resting tremor with mild borderline rigidity and cogwheeling.) Psy/Mental Status: Alert, Normal Affect, Normal Mood. No: Agitated, Hallucinations, Withdrawal Symptoms Sepsis Event Note - Evaluation Sepsis Screening Result: No Definite Risk - Focused Exam Vital Signs: Vital Signs Temp Pulse Pulse Resp BP BP Pulse Ox 03/08/20 11:23 36.3 C 74 18 114/64 94 L 03/08/20 11:21 114/64 03/08/20 11:20 74 114/64 03/08/20 07:55 36.7 C 72 18 105/57 L 91 L 03/08/20 04:54 36.6 C 70 20 142/48 H 93 L 03/08/20 00:00 37.1 C 62 20 137/74 94 L - Problem List & Annotations (1) Pneumonia SNOMED Code(s): 416947295 Code(s): J18.9 - PNEUMONIA, UNSPECIFIED ORGANISM Status: Acute Priority: High Current Visit: Yes Onset Date: 12/17/19 Qualifiers: Pneumonia type: due to unspecified organism Laterality: right Lung location: unspecified part of lung Qualified Code(s): J18.9 - Pneumonia, unspecified organism Annotation/Comment:: Right middle lobe and right lower lobe pneumonia by CT scan and chest x-ray on admission. IV Rocephin and IV Levaquin initiated. Normal lactic acid on admission. Minimally elevated WBC with negative blood cultures to this point. Sputum specimen to be obtained AN[place]. No beds available at the [facility] at this time. Continue inhaler therapy secondary to current COVID-19 pandemic. (2) Congestive heart failure SNOMED Code(s): 49046941 Code(s): I50.9 - HEART FAILURE, UNSPECIFIED Status: Chronic Priority: High Current Visit: Yes Qualifiers: Heart failure type: unspecified Heart failure chronicity: acute on chronic Qualified Code(s): I50.9 - Heart failure, unspecified Annotation/Comment:: No chest pain or anginal complaints. No evidence of acute fluid overload on exam or per x-ray reports. Minimally elevated ProBNP on admission with repeat chest x-ray, cardiac labs, and EKG on 03/09. Continue low- dose IV Lasix therapy for now. (3) Confusion SNOMED Code(s): 297904678 Code(s): R41.0 - DISORIENTATION, UNSPECIFIED Status: Acute Priority: Medium Current Visit: Yes Onset Date: 12/17/19 Annotation/Comment:: Mild initial confusion initially prior to admission with slow improvement during the early phases of this hospitalization no significant neurological deficits other than possible beginning Parkinson's disease as below. Continue to observe closely for now with no further change in medical therapy. (4) IDDM (insulin dependent diabetes mellitus) SNOMED Code(s): 49564223 Code(s): FXP9862 - Status: Chronic Priority: Medium Current Visit: Yes Annotation/Comment:: Accu-Cheks stable during this hospitalization. Continue sliding scale as needed. (5) Atrial fibrillation SNOMED Code(s): 21957419 Code(s): I48.91 - UNSPECIFIED ATRIAL FIBRILLATION Status: Chronic Priority: Medium Current Visit: Yes Qualifiers: Atrial fibrillation type: unspecified chronic Qualified Code(s): I48.20 - Chronic atrial fibrillation, unspecified; I48.2 - Chronic atrial fibrillation Annotation/Comment:: Chronic intermittent atrial fibrillation with normal sinus rhythm at this time. Note current Eliquis therapy. Previous history of PACs, etc. with no significant arrhythmia during early phases of this hospitalization.. (6) COPD (chronic obstructive pulmonary disease) SNOMED Code(s): 29411733 Code(s): J44.9 - CHRONIC OBSTRUCTIVE PULMONARY DISEASE, UNSPECIFIED Status: Chronic Priority: High Current Visit: Yes Qualifiers: COPD type: COPD with acute lower respiratory infection Qualified Code(s): J44.0 - Chronic obstructive pulmonary disease with (acute) lower respiratory infection Annotation/Comment:: Normally does use O2 at 2 L/min by nasal cannula at bedtime and with naps with continued oxygen therapy during this hospitalization. Note hypoxia prior to admission with increased oxygen requirement. Continue inhaler therapy as above. (7) Hypertension SNOMED Code(s): 31728981 Code(s): I10 - ESSENTIAL (PRIMARY) HYPERTENSION Status: Chronic Priority: Medium Current Visit: Yes Qualifiers: Hypertension type: essential hypertension Qualified Code(s): I10 - Essential (primary) hypertension Annotation/Comment:: Blood pressure somewhat low in the a.m. of 03/08. Medication adjusted including staggering of his a.m. medications with Norvasc now to be taken in the p.m. Continue to observe closely. (8) Hypoalbuminemia SNOMED Code(s): 619347423 Code(s): E88.09 - OT DISORDERS OF PLASMA-PROTEIN METABOLISM, NEC Status: Chronic Priority: Medium Current Visit: Yes Annotation/Comment:: Mild hypoalbuminemia on admission. Continue to observe for now. Consider high- protein Glucerna supplements as snacks, however note current diabetes and obesi ty. (9) Hypothyroidism (acquired) SNOMED Code(s): 751370787 Code(s): E03.9 - HYPOTHYROIDISM, UNSPECIFIED Status: Chronic Priority: Low Current Visit: Yes Annotation/Comment:: TSH ordered for 03/09/2020. Continue current therapy. (10) Mixed anxiety depressive disorder SNOMED Code(s): 999187294 Code(s): F41.8 - OTHER SPECIFIED ANXIETY DISORDERS Status: Chronic Priority: Medium Current Visit: Yes Annotation/Comment:: Stable by history and during this hospitalization. Note history of PTSD, alcoholism, etc. with no evidence of DTs, etc. (11) Osteoarthritis SNOMED Code(s): 013409620 Code(s): M19.90 - UNSPECIFIED OSTEOARTHRITIS, UNSPECIFIED SITE Status: Chronic Priority: Medium Current Visit: Yes Qualifiers: Osteoarthritis location: multiple joints Osteoarthritis type: primary Qualified Code(s): M89.49 - Other hypertrophic osteoarthropathy, multiple sites Annotation/Comment:: Note history of polymyalgia rheumatica with patient complaining of worsening generalized arthralgias since discharge from [facility] about 3 weeks ago. At that time his chronic prednisone therapy was changed from 10 mg daily to 2.5 mg daily. Secondary to progressive anemia no increase of prednisone therapy at this time, however the patient was given a one-time dose of IV Solu-Medrol on 03/08. Continue to observe closely. (12) Peptic reflux disease SNOMED Code(s): 076447231 Code(s): K21.9 - GASTRO-ESOPHAGEAL REFLUX DISEASE WITHOUT ESOPHAGITIS Status: Chronic Priority: Medium Current Visit: Yes Annotation/Comment:: Stable by history with no direct history of acute GI bleed, etc. Note current Eliquis therapy. High-dose IV Protonix and IV Pepcid to be initiated with Hemoccults also ordered. Further work-up of his anemia depending on his clinical course. (13) Polymyalgia rheumatica SNOMED Code(s): 83242982 Code(s): M35.3 - POLYMYALGIA RHEUMATICA Status: Chronic Priority: Low Current Visit: Yes Annotation/Comment:: As above. Hx also includes fibromyalgia with continued close observation. (14) D-dimer, elevated SNOMED Code(s): 625023598 Code(s): R79.89 - OTHER SPECIFIED ABNORMAL FINDINGS OF BLOOD CHEMISTRY Status: Acute Priority: High Current Visit: Yes Onset Date: 03/08/20 Annotation/Comment:: No direct clinical evidence of DVT or PE with negative CTA of the chest using PE protocol on 03/07/2020. Venous Doppler studies of the lower extremities connducted on 03/08/20 were negative for DVT per preliminary verbal report as above. Continue Eliquis therapy for now. (15) Hypomagnesemia SNOMED Code(s): 635692333 Code(s): E83.42 - HYPOMAGNESEMIA Status: Acute Priority: High Current Visit: Yes Onset Date: 03/08/20 Annotation/Comment:: IV magnesium sulfate supplementation given shortly after admission. Oral magnesium oxide therapy initiated on 03/08 in the p.m. secondary to his Synthroid supplementation in the a.m. Continue to observe closely during this hospitalization and by his regular providers. (16) Hypocalcemia SNOMED Code(s): 0664301 Code(s): E83.51 - HYPOCALCEMIA Status: Acute Priority: Medium Current Visit: Yes Onset Date: 03/07/20 Annotation/Comment:: Observe for now. (17) Parkinsons disease SNOMED Code(s): 99558556 Code(s): G20 - PARKINSON'S DISEASE Status: Acute Priority: Medium Current Visit: Yes Onset Date: ~03/08/20 Annotation/Comment:: Note long history of chronic essential resting tremor with some rigidity and cogwheeling by exam on 03/08/2020. Suspect Parkinson's disease. Observe for now. Further medical therapy depending on his clinical course. (18) Anemia SNOMED Code(s): 085333679 Code(s): D64.9 - ANEMIA, UNSPECIFIED Status: Acute Priority: High Current Visit: Yes Onset Date: 03/08/20 Qualifiers: Anemia type: unspecified type Qualified Code(s): D64.9 - Anemia, unspecified Annotation/Comment:: As above. Note 2 g drop of his hemoglobin on 03/08/2019. - Problem List Review Problem List Initiated/Reviewed/Updated: Yes - My Orders Last 24 Hours: My Active Orders 03/08/20 09:28 Venous Doppler Lwr Ext Bi [US] Urgent 03/08/20 10:46 Communication Order [RC] ROUTINE 03/08/20 10:47 CULTURE SPUTUM + SMEAR [RM] Routine 03/08/20 10:49 OCCULT BLOOD DIAGNOSTIC [OP] Routine 03/08/20 11:00 Acetaminophen [TylenoL] 650 mg PO Q4H PRN 03/08/20 12:00 Famotidine [Pepcid] 20 mg IVPUSH Q24H methylPREDNISolone Sod Succ [Solu-MEDROL] 125 mg IVPUSH ONETIME ONE 03/08/20 18:00 amLODIPine [Norvasc] 2.5 mg PO QPM 03/08/20 20:00 Pantoprazole [ProTONIX IV] 40 mg IV Q12H Remove Patch 1 ea TRDERM BEDTIME 03/09/20 05:11 EKG Documentation Completion [RC] ASDIRECTED Chest 2V [CR] Routine CBC WITH AUTO DIFF [HEME] Routine CK W CKMB [CHEM] Routine COMPREHENSIVE METABOLIC PN,CMP [CHEM] Routine MAGNESIUM [CHEM] Routine PRO B-TYPE NATRIUR PEPT,BNPPRO [CHEM] Routine TROPONIN I [CHEM] Routine EKG 12 Lead [EK] Routine 03/09/20 08:00 Remove Patch 1 symone ONOFRE DAILY - Assessment Assessment:: As above - Plan Plan:: As above. Extensive precautions were given to the patient, who is in agreement with the treatment plan. The patient will require about 2-3 days of inpatient/acute care secondary to multiple health problems as above. Fatuma lindsay physician assumes care in the a.m. Note that the [facility] in [place] was contacted once again today with a bed still not available in their facility.
[2020-03-08] MEDS ORDERED: methylPREDNISolone Sodium Succinate 125 MG/2 ML SDV IVPUSH ONE (12:00)
[2020-03-08] MEDS: Magnesium Oxide 400 MG Tab PO SCH (17:43)
[2020-03-08] MEDS: amLODIPine 5 MG Tab PO SCH (17:43)
[2020-03-08] MEDS: Simvastatin 20 MG Tab PO SCH (19:37)
[2020-03-08] MEDS: Clopidogrel 75 MG Tab PO SCH (19:37)
[2020-03-08] MEDS: traZODone 50 MG Tab PO SCH (19:37)
[2020-03-08] MEDS: REMOVE SALONPAS TRDERM SCH (19:38)
[2020-03-08] MEDS ORDERED: 50% Dextrose in Water 50 ML Syringe IV PRN (20:51)
[2020-03-08] MEDS ORDERED: Glucagon,Human Recombinant 1 MG Vial IM PRN (20:51)
[2020-03-08] MEDS: cefTRIAXone 1 GM in Sodium Chloride 0.9% 100 ML IV SCH (21:07)
[2020-03-09] MEDS: Sodium Chloride 0.9% 10 ML Syringe FLUSH PRN ×3 (07:50→20:48)
[2020-03-09] MEDS: Pantoprazole 40 MG Vial IV SCH ×2 (07:50→19:34)
[2020-03-09] MEDS: Acetaminophen 650 MG Tab.ER PO SCH ×3 (07:54→19:30)
[2020-03-09] MEDS: Gabapentin 400 MG Cap PO SCH ×4 (07:54→19:30)
[2020-03-09] MEDS: Levothyroxine 25 MCG Tab PO SCH (07:54)
[2020-03-09] MEDS: Lisinopril 10 MG Tab PO SCH (07:55)
[2020-03-09] MEDS: Metoprolol Tartrate 25 MG Tab PO SCH ×2 (07:55→19:31)
[2020-03-09] MEDS: predniSONE 5 MG Tab PO SCH (07:56)
[2020-03-09] MEDS: Finasteride 5 MG Tab PO SCH (07:56)
[2020-03-09] MEDS: [UNRECOGNIZED DRUG - OTHER] TOP SCH ×2 (07:57→19:35)
[2020-03-09] MEDS: Levothyroxine 100 MCG Tab PO SCH (07:57)
[2020-03-09] MEDS: Polyvinyl Alcohol 1.4% Ophth Soln 15 ML Bottle EYEBOTH SCH ×2 (07:57→19:34)
[2020-03-09] MEDS: Albuterol 6.7 GM Inhaler INH SCH ×4 (07:57→19:35)
[2020-03-09] MEDS: Apixaban 5 MG Tab PO SCH ×2 (07:58→19:34)
[2020-03-09] MEDS: BUPROPION 100 MG PO SCH ×2 (07:58→19:29)
[2020-03-09] MEDS: Furosemide 40 MG/4 ML VIAL IVPUSH SCH ×2 (07:59→17:17)
[2020-03-09] MEDS: Insulin Lispro 100 Units/ML 3 ML Vial SUBCUT SCH ×4 (08:00→21:20)
[2020-03-09] MEDS: REMOVE SALONPAS TRDERM SCH ×2 (08:06→19:36)
[2020-03-09] MEDS: cefTRIAXone 1 GM in Sodium Chloride 0.9% 100 ML IV SCH ×2 (08:07→20:48)
[2020-03-09 08:08] LABS: CHLORIDE,CL 101 mmol/L (98-107); SODIUM,NA 142 mmol/L (136-145)
--- NOTE | 2020-03-09 09:47 | PCM.PN ---
- General Info Date of Service: 03/09/20 Admission Dx/Problem (Free Text): Pt admitted with pneumonia Positive blood cultures On IV antibiotics - Review of Systems General: Reports: Fever, Weakness Pulmonary: Reports: Shortness of Breath, Cough Gastrointestinal: Reports: No Symptoms - Patient Data Vitals - Most Recent: Last Vital Signs Temp 97.3 F 03/09/20 08:00 Pulse 62 03/09/20 08:00 Resp 18 03/09/20 08:00 BP 178/84 H 03/09/20 08:00 Pulse Ox 97 03/09/20 08:00 Weight - Most Recent: 205 lb 8 oz I&O - Last 24 Hours: Intake & Output 03/08/20 03/09/20 03/09/20 18:59 02:59 10:59 Intake Total 95 150 Output Total 700 600 750 Balance -605 -600 -600 Lab Results Last 24 Hours: Laboratory Results - last 24 hr 03/08/20 03/08/20 03/08/20 Range/Units 07:35 11:16 16:40 WBC (4.0-10.2) K/uL RBC (4.33-5.41) M/uL Hgb (13.1-16.8) g/dL Hct (39.0-49.0) % MCV (84.0-98.0) fL MCH (28.2-33.3) pg MCHC (31.7-36.0) g/dL RDW (11.2-14.1) % Plt Count (150-350) K/uL Neut % (Auto) (45.0-80.0) % Lymph % (Auto) (10.0-50.0) % Mckinley % (Auto) (2.0-14.0) % Eos % (Auto) (0.0-5.0) % Baso % (Auto) (0.0-2.0) % Neut # (Auto) (1.40-7.00) K/uL Lymph # (Auto) (0.50-3.50) K/uL Mckinley # (Auto) (0.00-1.00) K/uL Eos # (Auto) (0.00-0.50) K/uL Baso # (Auto) (0.00-0.20) K/uL Sodium (136-145) mmol/L Potassium (3.5-5.1) mmol/L Chloride (98-107) mmol/L Carbon Dioxide (21.0-32.0) mmol/L BUN (7-18) mg/dL Creatinine (0.51-1.17) mg/dL Est Cr Clr Drug Dosing mL/min Estimated GFR (MDRD) mL/min Glucose (74-106) mg/dL POC Glucose 179 H 291 H* (65-110) mg/dl Lactic Acid 1.4 (0.4-2.0) mmol/L Calcium (8.5-10.1) mg/dL Magnesium (1.8-2.4) mg/dL Total Bilirubin (0.2-1.0) mg/dL AST (15-37) U/L ALT (12-78) U/L Alkaline Phosphatase (46-116) IU/L Creatine Kinase (26-308) U/L Creatine Kinase Index (0.0-2.5) % CK-MB (CK-2) (0.00-3.60) ng/mL Troponin I (0.000-0.056) ng/mL NT-Pro-B Natriuret Pep (0-125) pg/mL Total Protein (6.4-8.2) g/dL Albumin (3.4-5.0) g/dL TSH, Ultra Sensitive (0.358-3.740) mIU/mL 03/08/20 03/09/20 03/09/20 Range/Units 20:35 07:29 07:30 WBC 7.6 (4.0-10.2) K/uL RBC 3.92 L (4.33-5.41) M/uL Hgb 11.1 L (13.1-16.8) g/dL Hct 36.1 L (39.0-49.0) % MCV 92.1 D (84.0-98.0) fL MCH 28.3 (28.2-33.3) pg MCHC 30.7 L (31.7-36.0) g/dL RDW 15.1 H (11.2-14.1) % Plt Count 203 (150-350) K/uL Neut % (Auto) 88.9 H (45.0-80.0) % Lymph % (Auto) 4.5 L (10.0-50.0) % Mckinley % (Auto) 6.2 (2.0-14.0) % Eos % (Auto) 0.0 (0.0-5.0) % Baso % (Auto) 0.4 (0.0-2.0) % Neut # (Auto) 6.75 (1.40-7.00) K/uL Lymph # (Auto) 0.34 L (0.50-3.50) K/uL Mckinley # (Auto) 0.47 (0.00-1.00) K/uL Eos # (Auto) 0.00 (0.00-0.50) K/uL Baso # (Auto) 0.03 (0.00-0.20) K/uL Sodium (136-145) mmol/L Potassium (3.5-5.1) mmol/L Chloride (98-107) mmol/L Carbon Dioxide (21.0-32.0) mmol/L BUN (7-18) mg/dL Creatinine (0.51-1.17) mg/dL Est Cr Clr Drug Dosing mL/min Estimated GFR (MDRD) mL/min Glucose (74-106) mg/dL POC Glucose 355 H* 224 H (65-110) mg/dl Lactic Acid (0.4-2.0) mmol/L Calcium (8.5-10.1) mg/dL Magnesium (1.8-2.4) mg/dL Total Bilirubin (0.2-1.0) mg/dL AST (15-37) U/L ALT (12-78) U/L Alkaline Phosphatase (46-116) IU/L Creatine Kinase (26-308) U/L Creatine Kinase Index (0.0-2.5) % CK-MB (CK-2) (0.00-3.60) ng/mL Troponin I (0.000-0.056) ng/mL NT-Pro-B Natriuret Pep (0-125) pg/mL Total Protein (6.4-8.2) g/dL Albumin (3.4-5.0) g/dL TSH, Ultra Sensitive (0.358-3.740) mIU/mL 03/09/20 03/09/20 Range/Units 07:30 07:30 WBC (4.0-10.2) K/uL RBC (4.33-5.41) M/uL Hgb (13.1-16.8) g/dL Hct (39.0-49.0) % MCV (84.0-98.0) fL MCH (28.2-33.3) pg MCHC (31.7-36.0) g/dL RDW (11.2-14.1) % Plt Count (150-350) K/uL Neut % (Auto) (45.0-80.0) % Lymph % (Auto) (10.0-50.0) % Mckinley % (Auto) (2.0-14.0) % Eos % (Auto) (0.0-5.0) % Baso % (Auto) (0.0-2.0) % Neut # (Auto) (1.40-7.00) K/uL Lymph # (Auto) (0.50-3.50) K/uL Mckinley # (Auto) (0.00-1.00) K/uL Eos # (Auto) (0.00-0.50) K/uL Baso # (Auto) (0.00-0.20) K/uL Sodium 142 (136-145) mmol/L Potassium 3.9 (3.5-5.1) mmol/L Chloride 101 (98-107) mmol/L Carbon Dioxide 33.1 H (21.0-32.0) mmol/L BUN 18 (7-18) mg/dL Creatinine 0.98 (0.51-1.17) mg/dL Est Cr Clr Drug Dosing 68.13 mL/min Estimated GFR (MDRD) > 60 mL/min Glucose 224 H (74-106) mg/dL POC Glucose (65-110) mg/dl Lactic Acid 1.2 (0.4-2.0) mmol/L Calcium 9.0 (8.5-10.1) mg/dL Magnesium 1.8 (1.8-2.4) mg/dL Total Bilirubin 0.2 (0.2-1.0) mg/dL AST 13 L (15-37) U/L ALT 18 (12-78) U/L Alkaline Phosphatase 52 (46-116) IU/L Creatine Kinase 49 (26-308) U/L Creatine Kinase Index 2.4 (0.0-2.5) % CK-MB (CK-2) 1.20 (0.00-3.60) ng/mL Troponin I 0.000 (0.000-0.056) ng/mL NT-Pro-B Natriuret Pep 925 H (0-125) pg/mL Total Protein 6.5 (6.4-8.2) g/dL Albumin 2.7 L (3.4-5.0) g/dL TSH, Ultra Sensitive 0.036 L (0.358-3.740) mIU/mL Albin Results Last 24 Hours: Microbiology 03/08/20 10:49 Stool Occult Blood (ALBIN) - Final Stool / Feces 03/07/20 10:07 Aerobic Blood Culture - Preliminary Blood - Venous NO GROWTH AFTER 1 DAY Anaerobic Blood Culture - Preliminary Gram Positive Cocci In Clustrs 03/07/20 10:20 Aerobic Blood Culture - Preliminary Blood - Venous - Lab Draw NO GROWTH AFTER 1 DAY Anaerobic Blood Culture - Preliminary NO GROWTH AFTER 1 DAY Med Orders - Current: Current Medications Acetaminophen (Tylenol Arthritis Pain) 650 mg PO TID@0800,1399,1999 [facility] Last Admin: 03/09/20 07:54 Dose: 650 mg Documented by: Acetaminophen (Tylenol) 650 mg PO Q4H PRN PRN Reason: Pain Albuterol (Proventil Hfa) 0 gm INH QID [facility] Last Admin: 03/09/20 07:57 Dose: 2 puff Documented by: Amlodipine Besylate (Norvasc) 2.5 mg PO QPM [facility] Last Admin: 03/08/20 17:43 Dose: 2.5 mg Documented by: Apixaban (Eliquis) 5 mg PO BID@ [facility] Last Admin: 03/09/20 07:58 Dose: 5 mg Documented by: Artificial Tears (Liquitears 1.4% Ophth Soln) 0 ml EYEBOTH [facility] Last Admin: 03/09/20 07:57 Dose: 1 drop Documented by: Clopidogrel Bisulfate (Plavix) 75 mg PO BEDTIME [facility] Last Admin: 03/08/20 19:37 Dose: 75 mg Documented by: Cyclobenzaprine HCl (Flexeril) 5 mg PO Q8H PRN PRN Reason: chronic pain Dextrose/Water (Dextrose 50% In Water) 50 ml IV ASDIRECTED PRN PRN Reason: Hypoglycemia Dextrose/Water (Dextrose 50% In Water) 50 ml IV ASDIRECTED PRN PRN Reason: Hypoglycemia Famotidine (Pepcid) 20 mg IVPUSH Q24H [facility] Last Admin: 03/08/20 11:44 Dose: 20 mg Documented by: Finasteride (Proscar) 5 mg PO DAILY [facility] Last Admin: 03/09/20 07:56 Dose: 5 mg Documented by: Furosemide (Lasix) 20 mg IVPUSH BID [facility] Last Admin: 03/09/20 07:59 Dose: 20 mg Documented by: Gabapentin (Neurontin) 800 mg PO QID@08,12,17,20 [facility] Last Admin: 03/09/20 07:54 Dose: 800 mg Documented by: Glucagon (Glucagen) 1 mg IM ASDIRECTED PRN PRN Reason: Hypoglycemia Glucagon (Glucagen) 1 mg IM ASDIRECTED PRN PRN Reason: Hypoglycemia Levofloxacin/Dextrose 500 mg/ (Premix) 100 mls @ 100 mls/hr IV Q24H [facility] Last Admin: 03/08/20 11:43 Dose: 100 mls/hr Documented by: Ceftriaxone Sodium 1 gm/ (Sodium Chloride) 100 mls @ 200 mls/hr IV Q12H [facility] Last Admin: 03/09/20 08:07 Dose: 200 mls/hr Documented by: Insulin Human Lispro (Humalog) 0 unit SUBCUT QIDACANDBED [facility]; Protocol Last Admin: 03/09/20 08:00 Dose: 4 units Documented by: Ketoconazole (Nizoral 2% Crm) 0 gm TOP ASDIRECTED PRN PRN Reason: suborrheic dermatitis [facility]othy[facility]ine [facility]th[facility]) [facility] Last Admin: 03/09/20 07:57 Dose: 100 mcg Documented by: Levothyroxine Sodium (Levothyroxine) 25 mcg PO [facility] Last Admin: 03/09/20 07:54 Dose: 25 mcg Documented by: Lisinopril (Prinivil) 10 mg PO QAM [facility] Last Admin: 03/09/20 07:55 Dose: 10 mg Documented by: Magnesium Oxide (Magnesium Oxide) 400 mg PO QPM [facility] Last Admin: 03/08/20 17:43 Dose: 400 mg Documented by: Metoprolol Tartrate (Lopressor) 25 mg PO 799,1999 [facility] Last Admin: 03/09/20 07:55 Dose: 25 mg Documented by: Miscellaneous Information (Remove Patch) 1 ea TRDERM BEDTIME [facility] Last Admin: 03/08/20 19:38 Dose: Not Given Documented by: Miscellaneous Information (Remove Patch) 1 ea TRDERM DAILY [facility] Last Admin: 03/09/20 08:06 Dose: 1 ea Documented by: Bupropion [ Wellbutrin Sr] 100 Mg Tablets 100 mg PO Q12HR [facility] Last Admin: 03/09/20 07:58 Dose: 100 mg Documented by: Methyl Salicylate/Menth/Camph [ Salonpas 3.1%-6.0%- 10.0%] 1 each TOP BEDTIME [facility] Last Admin: 03/08/20 19:37 Dose: Not Given Documented by: Methyl Salicylate/Menth/Camph [ Salonpas 3.1%-6.0%- 10.0%] 1 patch TOP DAILY [facility] Last Admin: 03/09/20 07:57 Dose: 1 patch Documented by: Ondansetron HCl (Zofran) 4 mg IVPUSH Q6H PRN PRN Reason: Nausea/Vomiting Pantoprazole Sodium (Protonix Iv) 40 mg IV Q12H [facility] Last Admin: 03/09/20 07:50 Dose: 40 mg Documented by: Prednisone (Prednisone) 2.5 mg PO DAILY [facility] Last Admin: 03/09/20 07:56 Dose: 2.5 mg Documented by: Senna/Docusate Sodium (Senna Plus) 2 tab PO BID PRN PRN Reason: Constipation Simvastatin (Zocor) 20 mg PO BEDTIME [facility] Last Admin: 03/08/20 19:37 Dose: 20 mg Documented by: Sodium Chloride (Saline Flush) 10 ml FLUSH ASDIRECTED PRN PRN Reason: Keep Vein Open Last Admin: 03/09/20 07:50 Dose: 10 ml Documented by: Trazodone HCl (Trazodone) 150 mg PO BEDTIME [facility] Last Admin: 03/08/20 19:37 Dose: 150 mg Documented by: Discontinued Medications Acetaminophen (Tylenol) 650 mg PO Q6H PRN PRN Reason: Pain Last Admin: 03/08/20 04:54 Dose: 650 mg Documented by: Amlodipine Besylate (Norvasc) 2.5 mg PO DAILY [facility] Last Admin: 03/08/20 12:20 Dose: Not Given Documented by: Artificial Tears (Liquitears 1.4% Ophth Soln) 0 ml EYEBOTH Q12H [facility] Last Admin: 03/07/20 16:00 Dose: 1 drop Documented by: Ceftriaxone Sodium 1 gm/ (Sodium Chloride) 100 mls @ 200 mls/hr IV ONETIME ONE Stop: 03/07/20 11:23 Last Admin: 03/07/20 11:28 Dose: 200 mls/hr Documented by: Sodium Chloride (Normal Saline) 1,000 mls @ 999 mls/hr IV .BOLUS ONE Stop: 03/07/20 12:11 Last Admin: 03/07/20 11:28 Dose: 999 mls/hr Documented by: Levofloxacin/Dextrose 500 mg/ (Premix) 100 mls @ 100 mls/hr IV ONETIME ONE Stop: 03/07/20 12:26 Last Admin: 03/07/20 11:55 Dose: 100 mls/hr Documented by: Sodium Chloride (Normal Saline) 1,000 mls @ 50 mls/hr IV ASDIRECTED [facility] Stop: 03/11/20 12:54 Ceftriaxone Sodium 1 gm/ (Sodium Chloride) 100 mls @ 200 mls/hr IV Q24H [facility] Last Admin: 03/08/20 08:35 Dose: 200 mls/hr Documented by: Sodium Chloride (Sodium Chloride 0.45%) 1,000 mls @ 50 mls/hr IV ONETIME ONE Stop: 03/08/20 10:35 Last Admin: 03/07/20 17:28 Dose: 50 mls/hr Documented by: Magnesium Sulfate/Dextrose 1 (gm/ Premix) 100 mls @ 100 mls/hr IV ONETIME ONE Stop: 03/07/20 15:57 Last Admin: 03/07/20 16:00 Dose: 100 mls/hr Documented by: Insulin Human Lispro (Humalog) 0 unit SUBCUT BIDAC [facility]; Protocol Last Admin: 03/08/20 17:41 Dose: 9 units Documented by: Iopamidol (Isovue-370 (76%)) 100 ml IVPUSH ONETIME ONE Stop: 03/07/20 13:01 Last Admin: 03/07/20 10:33 Dose: 100 ml Documented by: Iopamidol (Isovue-370 (76%)) Confirm Administered Dose 100 ml .ROUTE .STK-MED ONE Stop: 03/07/20 11:04 Methylprednisolone Sodium Succinate (Solu-Medrol) 125 mg IVPUSH ONETIME ONE Stop: 03/08/20 12:01 Last Admin: 03/08/20 11:44 Dose: 125 mg Documented by: Metoprolol Tartrate (Lopressor) 25 mg PO Q12H [facility] Last Admin: 03/07/20 17:28 Dose: Not Given Documented by: Pantoprazole Sodium (Protonix Iv) 40 mg IV DAILY [facility] Last Admin: 03/08/20 08:36 Dose: 40 mg Documented by: - Exam Quality Assessment: Supplemental Oxygen General: Alert Neck: Supple Lungs: Decreased Breath Sounds Cardiovascular: Regular Rate GI/Abdominal Exam: Non-Tender Sepsis Event Note - Evaluation Sepsis Screening Result: No Definite Risk - Focused Exam Vital Signs: Vital Signs Temp Pulse Pulse Resp BP BP Pulse Ox 03/09/20 08:00 97.3 F 62 18 178/84 H 97 03/09/20 07:55 62 178/84 H 03/09/20 05:54 97.4 F 62 14 144/92 H 98 03/08/20 23:54 98.0 F 60 109/94 H 95 - Problem List Review Problem List Initiated/Reviewed/Updated: Yes - Assessment Assessment:: As above - Plan Plan:: As above. Extensive precautions were given to the patient, who is in agreement with the treatment plan. The patient will require about 2-3 days of inpatient/acute care secondary to multiple health problems as above. Fatuma lindsay physician assumes care in the a.m. Note that the [facility] in [place] was contacted once again today with a bed still not available in their facility. Plan: Continue IV antibiotics
[2020-03-09] MEDS: Levofloxacin/Dextrose 5%-Water 500 MG in Premix Bag 1 BAG IV SCH (11:54)
[2020-03-09] MEDS: Famotidine 20 MG/2 ML SDV IVPUSH SCH (12:00)
[2020-03-09] MEDS: Magnesium Oxide 400 MG Tab PO SCH (17:17)
[2020-03-09] MEDS: amLODIPine 5 MG Tab PO SCH (17:18)
[2020-03-09] MEDS: traZODone 50 MG Tab PO SCH (19:30)
[2020-03-09] MEDS: Clopidogrel 75 MG Tab PO SCH (19:31)
[2020-03-09] MEDS: Simvastatin 20 MG Tab PO SCH (19:31)
[2020-03-10] MEDS: Gabapentin 400 MG Cap PO SCH ×4 (08:03→20:47)
[2020-03-10] MEDS: Acetaminophen 650 MG Tab.ER PO SCH ×3 (08:03→20:47)
[2020-03-10] MEDS: Lisinopril 10 MG Tab PO SCH (08:04)
[2020-03-10] MEDS: Finasteride 5 MG Tab PO SCH (08:04)
[2020-03-10] MEDS: predniSONE 5 MG Tab PO SCH (08:04)
[2020-03-10] MEDS: Levothyroxine 25 MCG Tab PO SCH (08:05)
[2020-03-10] MEDS: Pantoprazole 40 MG Vial IV SCH ×2 (08:06→20:36)
[2020-03-10] MEDS: Metoprolol Tartrate 25 MG Tab PO SCH ×2 (08:06→20:46)
[2020-03-10] MEDS: Apixaban 5 MG Tab PO SCH ×2 (08:06→20:47)
[2020-03-10] MEDS: BUPROPION 100 MG PO SCH ×2 (08:07→20:54)
[2020-03-10] MEDS: Polyvinyl Alcohol 1.4% Ophth Soln 15 ML Bottle EYEBOTH SCH ×2 (08:07→20:49)
[2020-03-10] MEDS: [UNRECOGNIZED DRUG - OTHER] TOP SCH ×2 (08:08→20:49)
[2020-03-10] MEDS: Insulin Lispro 100 Units/ML 3 ML Vial SUBCUT SCH ×4 (08:08→21:00)
[2020-03-10] MEDS: REMOVE SALONPAS TRDERM SCH ×2 (08:09→20:49)
[2020-03-10] MEDS: Albuterol 6.7 GM Inhaler INH SCH ×4 (08:10→20:48)
[2020-03-10] MEDS: Levothyroxine 100 MCG Tab PO SCH (08:11)
[2020-03-10] MEDS: cefTRIAXone 1 GM in Sodium Chloride 0.9% 100 ML IV SCH ×2 (08:21→20:32)
--- NOTE | 2020-03-10 10:03 | PCM.PN ---
- General Info Date of Service: 03/10/20 Admission Dx/Problem (Free Text): Feeling better Less SOB Increased activity level - Review of Systems Pulmonary: Reports: Shortness of Breath, Cough Cardiovascular: Reports: No Symptoms - Patient Data Vitals - Most Recent: Last Vital Signs Temp 96.6 F L 03/10/20 08:00 Pulse 70 03/10/20 08:06 Resp 20 03/10/20 08:00 BP 156/68 H 03/10/20 08:06 Pulse Ox 95 03/10/20 08:00 Weight - Most Recent: 206 lb 8 oz I&O - Last 24 Hours: Intake & Output 03/09/20 03/10/20 03/10/20 18:59 02:59 10:59 Intake Total 520 300 Output Total 700 500 Balance -180 -200 Lab Results Last 24 Hours: Laboratory Results - last 24 hr 03/09/20 03/09/20 03/09/20 Range/Units 11:26 16:31 20:45 POC Glucose 234 H 191 H 174 H (65-110) mg/dl 03/10/20 Range/Units 07:24 POC Glucose 156 H (65-110) mg/dl Albin Results Last 24 Hours: Microbiology 03/08/20 22:32 Gram Stain - Final Sputum - Expectorated Sputum Culture - Final Normal Oral Pharyngeal Vianca Yeast 03/07/20 10:07 Aerobic Blood Culture - Preliminary Blood - Venous NO GROWTH AFTER 2 DAYS Anaerobic Blood Culture - Final Staphylococcus Coagulase Neg 03/07/20 10:20 Aerobic Blood Culture - Preliminary Blood - Venous - Lab Draw NO GROWTH AFTER 2 DAYS Anaerobic Blood Culture - Preliminary NO GROWTH AFTER 2 DAYS 03/08/20 10:49 Stool Occult Blood (ALBIN) - Final Stool / Feces Med Orders - Current: Current Medications Acetaminophen (Tylenol Arthritis Pain) 650 mg PO TID@0800,1400,2000 [facility] Last Admin: 03/10/20 08:03 Dose: 650 mg Documented by: Acetaminophen (Tylenol) 650 mg PO Q4H PRN PRN Reason: Pain Albuterol (Proventil Hfa) 0 gm INH QID [facility] Last Admin: 03/10/20 08:10 Dose: 2 puff Documented by: Amlodipine Besylate (Norvasc) 2.5 mg PO QPM [facility] Last Admin: 03/09/20 17:18 Dose: 2.5 mg Documented by: Apixaban (Eliquis) 5 mg PO BID@ [facility] Last Admin: 03/10/20 08:06 Dose: 5 mg Documented by: Artificial Tears (Liquitears 1.4% Ophth Soln) 0 ml EYEBOTH [facility] Last Admin: 03/10/20 08:07 Dose: 1 drop Documented by: Clopidogrel Bisulfate (Plavix) 75 mg PO BEDTIME [facility] Last Admin: 03/09/20 19:31 Dose: 75 mg Documented by: Cyclobenzaprine HCl (Flexeril) 5 mg PO Q8H PRN PRN Reason: chronic pain Dextrose/Water (Dextrose 50% In Water) 50 ml IV ASDIRECTED PRN PRN Reason: Hypoglycemia Dextrose/Water (Dextrose 50% In Water) 50 ml IV ASDIRECTED PRN PRN Reason: Hypoglycemia Famotidine (Pepcid) 20 mg IVPUSH Q24H [facility] Last Admin: 03/09/20 12:00 Dose: 20 mg Documented by: Finasteride (Proscar) 5 mg PO DAILY [facility] Last Admin: 03/10/20 08:04 Dose: 5 mg Documented by: Gabapentin (Neurontin) 800 mg PO QID@08,12,17,20 [facility] Last Admin: 03/10/20 08:03 Dose: 800 mg Documented by: Glucagon (Glucagen) 1 mg IM ASDIRECTED PRN PRN Reason: Hypoglycemia Glucagon (Glucagen) 1 mg IM ASDIRECTED PRN PRN Reason: Hypoglycemia Levofloxacin/Dextrose 500 mg/ (Premix) 100 mls @ 100 mls/hr IV Q24H [facility] Last Admin: 03/09/20 11:54 Dose: 100 mls/hr Documented by: Ceftriaxone Sodium 1 gm/ (Sodium Chloride) 100 mls @ 200 mls/hr IV Q12H [facility] Last Admin: 03/10/20 08:21 Dose: 200 mls/hr Documented by: Insulin Human Lispro (Humalog) 0 unit SUBCUT QIDACANDBED [facility]; Protocol Last Admin: 03/10/20 08:08 Dose: 2 units Documented by: Ketoconazole (Nizoral 2% Crm) 0 gm TOP ASDIRECTED PRN PRN Reason: suborrheic dermatitis Levothyroxine Sodium (Synthroid) 100 mcg PO QAM [facility] Last Admin: 03/10/20 08:11 Dose: 100 mcg Documented by: Levothyroxine Sodium (Levothyroxine) 25 mcg PO QAM [facility] Last Admin: 03/10/20 08:05 Dose: 25 mcg Documented by: Lisinopril (Prinivil) 10 mg PO QAM [facility] Last Admin: 03/10/20 08:04 Dose: 10 mg Documented by: Magnesium Oxide (Magnesium Oxide) 400 mg PO QPM [facility] Last Admin: 03/09/20 17:17 Dose: 400 mg Documented by: Metoprolol Tartrate (Lopressor) 25 mg PO 08,1999 [facility] Last Admin: 03/10/20 08:06 Dose: 25 mg Documented by: Miscellaneous Information (Remove Patch) 1 ea TRDERM BEDTIME [facility] Last Admin: 03/09/20 19:36 Dose: 1 ea Documented by: Miscellaneous Information (Remove Patch) 1 ea TRDERM DAILY [facility] Last Admin: 03/10/20 08:09 Dose: 1 ea Documented by: Bupropion [ Wellbutrin Sr] 100 Mg Tablets 100 mg PO Q12HR [facility] Last Admin: 03/10/20 08:07 Dose: 100 mg Documented by: Methyl Salicylate/Menth/Camph [ Salonpas 3.1%-6.0%- 10.0%] 1 each TOP BEDTIME [facility] Last Admin: 03/09/20 19:35 Dose: Not Given Documented by: Methyl Salicylate/Menth/Camph [ Salonpas 3.1%-6.0%- 10.0%] 1 patch TOP DAILY [facility] Last Admin: 03/10/20 08:08 Dose: 1 patch Documented by: Nystatin (Mycostatin) 5 ml PO QID [facility] Ondansetron HCl (Zofran) 4 mg IVPUSH Q6H PRN PRN Reason: Nausea/Vomiting Pantoprazole Sodium (Protonix Iv) 40 mg IV Q12H [facility] Last Admin: 03/10/20 08:06 Dose: 40 mg Documented by: Prednisone (Prednisone) 2.5 mg PO DAILY [facility] Last Admin: 03/10/20 08:04 Dose: 2.5 mg Documented by: Senna/Docusate Sodium (Senna Plus) 2 tab PO BID PRN PRN Reason: Constipation Simvastatin (Zocor) 20 mg PO BEDTIME [facility] Last Admin: 03/09/20 19:31 Dose: 20 mg Documented by: Sodium Chloride (Saline Flush) 10 ml FLUSH ASDIRECTED PRN PRN Reason: Keep Vein Open Last Admin: 03/09/20 20:48 Dose: 10 ml Documented by: Trazodone HCl (Trazodone) 150 mg PO BEDTIME [facility] Last Admin: 03/09/20 19:30 Dose: 150 mg Documented by: Discontinued Medications Acetaminophen (Tylenol) 650 mg PO Q6H PRN PRN Reason: Pain Last Admin: 03/08/20 04:54 Dose: 650 mg Documented by: Amlodipine Besylate (Norvasc) 2.5 mg PO DAILY [facility] Last Admin: 03/08/20 12:20 Dose: Not Given Documented by: Artificial Tears (Liquitears 1.4% Ophth Soln) 0 ml EYEBOTH Q12H [facility] Last Admin: 03/07/20 16:00 Dose: 1 drop Documented by: Furosemide (Lasix) 20 mg IVPUSH BID [facility] Last Admin: 03/09/20 17:17 Dose: 20 mg Documented by: Ceftriaxone Sodium 1 gm/ (Sodium Chloride) 100 mls @ 200 mls/hr IV ONETIME ONE Stop: 03/07/20 11:23 Last Admin: 03/07/20 11:28 Dose: 200 mls/hr Documented by: Sodium Chloride (Normal Saline) 1,000 mls @ 999 mls/hr IV .BOLUS ONE Stop: 03/07/20 12:11 Last Admin: 03/07/20 11:28 Dose: 999 mls/hr Documented by: Levofloxacin/Dextrose 500 mg/ (Premix) 100 mls @ 100 mls/hr IV ONETIME ONE Stop: 03/07/20 12:26 Last Admin: 03/07/20 11:55 Dose: 100 mls/hr Documented by: Sodium Chloride (Normal Saline) 1,000 mls @ 50 mls/hr IV ASDIRECTED [facility] Stop: 03/11/20 12:54 Ceftriaxone Sodium 1 gm/ (Sodium Chloride) 100 mls @ 200 mls/hr IV Q24H [facility] Last Admin: 03/08/20 08:35 Dose: 200 mls/hr Documented by: Sodium Chloride (Sodium Chloride 0.45%) 1,000 mls @ 50 mls/hr IV ONETIME ONE Stop: 03/08/20 10:35 Last Admin: 03/07/20 17:28 Dose: 50 mls/hr Documented by: Magnesium Sulfate/Dextrose 1 (gm/ Premix) 100 mls @ 100 mls/hr IV ONETIME ONE Stop: 03/07/20 15:57 Last Admin: 03/07/20 16:00 Dose: 100 mls/hr Documented by: Insulin Human Lispro (Humalog) 0 unit SUBCUT BIDAC [facility]; Protocol Last Admin: 03/08/20 17:41 Dose: 9 units Documented by: Iopamidol (Isovue-370 (76%)) 100 ml IVPUSH ONETIME ONE Stop: 03/07/20 13:01 Last Admin: 03/07/20 10:33 Dose: 100 ml Documented by: Iopamidol (Isovue-370 (76%)) Confirm Administered Dose 100 ml .ROUTE .STK-MED ONE Stop: 03/07/20 11:04 Methylprednisolone Sodium Succinate (Solu-Medrol) 125 mg IVPUSH ONETIME ONE Stop: 03/08/20 12:01 Last Admin: 03/08/20 11:44 Dose: 125 mg Documented by: Metoprolol Tartrate (Lopressor) 25 mg PO Q12H [facility] Last Admin: 03/07/20 17:28 Dose: Not Given Documented by: Pantoprazole Sodium (Protonix Iv) 40 mg IV DAILY [facility] Last Admin: 03/08/20 08:36 Dose: 40 mg Documented by: - Exam Quality Assessment: Supplemental Oxygen General: Alert, Oriented Lungs: Decreased Breath Sounds Cardiovascular: Regular Rate Sepsis Event Note - Evaluation Sepsis Screening Result: No Definite Risk - Focused Exam Vital Signs: Vital Signs Temp Pulse Pulse Resp BP BP Pulse Ox 03/10/20 08:06 70 156/68 H 03/10/20 08:04 156/68 H 03/10/20 08:00 96.6 F L 50 L 20 156/68 H 95 03/10/20 05:34 97 - Problem List Review Problem List Initiated/Reviewed/Updated: Yes - My Orders Last 24 Hours: My Active Orders 03/10/20 12:00 Nystatin [Mycostatin] 5 ml PO QID 03/11/20 05:11 CBC WITH AUTO DIFF [HEME] Routine - Assessment Assessment:: As above - Plan Plan:: As above. Extensive precautions were given to the patient, who is in agreement with the treatment plan. The patient will require about 2-3 days of inpatient/acute care secondary to multiple health problems as above. Fatuma lindsay physician assumes care in the a.m. Note that the [facility] in [place] was contacted once again today with a bed still not available in their facility. Plan: Continue IV antibiotics Plan: Wean oxygen as tolerated Continue IV antibiotics
[2020-03-10] MEDS: Famotidine 20 MG/2 ML SDV IVPUSH SCH (11:21)
[2020-03-10] MEDS: Nystatin Susp 100,000 Unit/ML 5 ML UD Cup PO SCH ×3 (11:21→20:48)
[2020-03-10] MEDS: Sodium Chloride 0.9% 10 ML Syringe FLUSH PRN ×2 (11:23→20:33)
[2020-03-10] MEDS: Levofloxacin/Dextrose 5%-Water 500 MG in Premix Bag 1 BAG IV SCH (11:24)
[2020-03-10] MEDS: amLODIPine 5 MG Tab PO SCH (17:32)
[2020-03-10] MEDS: Magnesium Oxide 400 MG Tab PO SCH (17:32)
[2020-03-10] MEDS: Simvastatin 20 MG Tab PO SCH (20:47)
[2020-03-10] MEDS: Clopidogrel 75 MG Tab PO SCH (20:47)
[2020-03-10] MEDS: traZODone 50 MG Tab PO SCH (20:47)
[2020-03-11] MEDS: Insulin Lispro 100 Units/ML 3 ML Vial SUBCUT SCH (07:48)
[2020-03-11] MEDS: Polyvinyl Alcohol 1.4% Ophth Soln 15 ML Bottle EYEBOTH SCH (07:51)
[2020-03-11] MEDS: Albuterol 6.7 GM Inhaler INH SCH (07:51)
[2020-03-11 07:52] VITALS: PULSE 60
[2020-03-11] MEDS: Pantoprazole 40 MG Vial IV SCH (07:53)
[2020-03-11] MEDS: Sodium Chloride 0.9% 10 ML Syringe FLUSH PRN ×2 (07:54→08:19)
[2020-03-11] MEDS: BUPROPION 100 MG PO SCH (07:59)
[2020-03-11] MEDS: [UNRECOGNIZED DRUG - OTHER] TOP SCH (08:00)
[2020-03-11] MEDS: Nystatin Susp 100,000 Unit/ML 5 ML UD Cup PO SCH (08:03)
[2020-03-11] MEDS: Acetaminophen 650 MG Tab.ER PO SCH (08:04)
[2020-03-11] MEDS: Gabapentin 400 MG Cap PO SCH (08:04)
[2020-03-11] MEDS: Levothyroxine 25 MCG Tab PO SCH (08:05)
[2020-03-11] MEDS: Lisinopril 10 MG Tab PO SCH (08:05)
[2020-03-11] MEDS: predniSONE 5 MG Tab PO SCH (08:06)
[2020-03-11] MEDS: Metoprolol Tartrate 25 MG Tab PO SCH (08:06)
[2020-03-11] MEDS: Finasteride 5 MG Tab PO SCH (08:06)
[2020-03-11] MEDS: Apixaban 5 MG Tab PO SCH (08:07)
[2020-03-11] MEDS: Levothyroxine 100 MCG Tab PO SCH (08:07)
[2020-03-11 08:08] VITALS: BP 169/80
[2020-03-11] MEDS: cefTRIAXone 1 GM in Sodium Chloride 0.9% 100 ML IV SCH (08:11)
[2020-03-11] MEDS: REMOVE SALONPAS TRDERM SCH (08:18)
--- NOTE | 2020-03-11 09:28 | PCM.DCSUM1 ---
Discharge Summary - Hospital Course Free Text/Narrative:: Pt admitted with pneumonia Treated with IV Levaquin and IV Rocephin Blood cultures noted to be positive but final culture show contaminant Pt using minimal supplemental oxygen Ready for discharge to [place] - Discharge Data Discharge Date: 03/11/20 Discharge Disposition: DC/Tfer to SNF 03 Condition: Good - Referral to Home Health Primary Care Physician: TATO Mcclelland - Discharge Diagnosis/Problem(s) (1) Anemia SNOMED Code(s): 568528213 ICD Code: D64.9 - ANEMIA, UNSPECIFIED Status: Acute Priority: High Current Visit: Yes Onset Date: 03/08/20 Problem Details: As above. Note 2 g drop of his hemoglobin on 03/08/2019. Qualifiers: Anemia type: unspecified type Qualified Code(s): D64.9 - Anemia, unspecified (2) Pneumonia SNOMED Code(s): 709032598 ICD Code: J18.9 - PNEUMONIA, UNSPECIFIED ORGANISM Status: Acute Priority: High Current Visit: Yes Onset Date: 12/17/19 Problem Details: Right middle lobe and right lower lobe pneumonia by CT scan and chest x-ray on admission. IV Rocephin and IV Levaquin initiated. Normal lactic acid on admission. Minimally elevated WBC with negative blood cultures to this point. Sputum specimen to be obtained ANTON. No beds available at the [facility] at this time. Continue inhaler therapy secondary to current COVID-19 pandemic. Pt has done well Using minimal supplemental oxygen Ready for discharge to [facility] Qualifiers: Pneumonia type: due to unspecified organism Laterality: right Lung location: unspecified part of lung Qualified Code(s): J18.9 - Pneumonia, unspecified organism - Patient Summary/Data Consults: Consultations 03/08/20 08:16 OT Evaluation and Treatment [CONS] Routine PT Evaluation and Treatment [CONS] Routine - Patient Instructions Diet: Regular Diet as Tolerated Activity: As Tolerated Notify Provider of: Fever - Discharge Plan *PRESCRIPTION DRUG MONITORING PROGRAM REVIEWED*: Not Applicable *COPY OF PRESCRIPTION DRUG MONITORING REPORT IN PATIENT COLEEN: Not Applicable Prescriptions/Med Rec: levoFLOXacin [Levaquin] 250 mg PO DAILY #7 tab Home Medications: Home Meds Apixaban [Eliquis] 5 mg PO BID@08,199907/04/18 [History] Cyclobenzaprine [Flexeril] 5 mg PO Q8H PRN 07/04/18 [History] Insulin Glarg,Human.Rec.Analog [Lantus Solostar] 30 units SUBCUT QAM 07/04/18 [History] Levothyroxine Sodium [Synthroid] 125 mcg PO QAM 07/04/18 [History] Lisinopril 10 mg PO QAM 07/04/18 [History] Simvastatin 20 mg PO BEDTIME 07/04/18 [History] amLODIPine [Norvasc] 2.5 mg PO DAILY 07/04/18 [History] buPROPion [Wellbutrin SR] 100 mg PO Q12HR 07/04/18 [History] predniSONE [Prednisone] 2.5 mg PO DAILY 07/04/18 [History] Acetaminophen 650 mg PO Q6H PRN 08/01/18 [History] Clopidogrel [Plavix] 75 mg PO BEDTIME 08/01/18 [History] Acetaminophen [Tylenol Arthritis] 650 mg PO TID@0800,1400,2000 04/20/19 [History] Eyelid Cleanser Combination 5 [Ocusoft Lid Scrub] 1 each EYEBOTH Q12H 04/20/19 [History] Finasteride 5 mg PO DAILY 04/20/19 [History] Furosemide 20 mg PO DAILY 04/20/19 [History] Insulin Glargine,Hum.Rec.Anlog [Lantus Solostar] 20 unit SUBCUT BEDTIME 04/20/19 [History] Ketoconazole [Nizoral 2% Crm] 1 applic TOP ASDIRECTED PRN 04/20/19 [History] Sennosides/Docusate Sodium [Senna-S] 2 tab PO BID PRN 04/20/19 [History] metFORMIN [Glucophage] 500 mg PO BID@0800,1700 04/20/19 [History] Gabapentin [Neurontin] 800 mg PO QID@08,12,17,20 12/17/19 [History] Methyl Salicylate/Menth/Camph [Salonpas 3.1%-6.0%-10.0% Patch] 1 patch TOP DAILY 12/17/19 [History] Propylene Glycol/PEG 400/Pf [Systane 0.3-0.4% Eye Drop] 1 drop EYEBOTH Q12H 12/17/19 [History] Albuterol [Take Home: Albuterol 18 GM, 1 INH Pack] 2 puff INH QID 02/14/20 [History] Methyl Salicylate/Menth/Camph [Salonpas 3.1%-6.0%-10.0% Patch] 1 each TP DAILY 02/14/20 [History] Metoprolol Tartrate 25 mg PO Q12H 03/07/20 [History] Phenylephrine HCl [Sudogest PE] 10 mg PO Q4H PRN 03/07/20 [History] traZODone HCl [Trazodone HCl] 150 mg PO BEDTIME 03/07/20 [History] levoFLOXacin [Levaquin] 250 mg PO DAILY #7 tab 03/11/20 [Rx] Oxygen Therapy Mode: Nasal Cannula Referrals: Olive Webb PA [Primary Care Provider] - - Discharge Summary/Plan Comment DC Time >30 min.: No Discharge Summary/Plan Comment: RX Levaquin 250 mg daily for 7 days - General Info Date of Service: 03/11/20 Admission Dx/Problem (Free Text: Pt admitted with pneumonia Treated with IV Levaquin and IV Rocephin Using minimal supplemental oxygen - Review of Systems General: Reports: No Symptoms HEENT: Reports: No Symptoms Pulmonary: Reports: Shortness of Breath Cardiovascular: Reports: No Symptoms Gastrointestinal: Reports: No Symptoms - Patient Data Vitals - Most Recent: Last Vital Signs Temp 97.9 F 03/11/20 07:50 Pulse 60 03/11/20 08:06 Resp 20 03/11/20 07:50 BP 169/80 H 03/11/20 08:06 Pulse Ox 93 L 03/11/20 07:50 Weight - Most Recent: 202 lb 8 oz I&O - Last 24 hours: Intake & Output 03/10/20 03/11/20 03/11/20 18:59 02:59 10:59 Intake Total 820 100 510 Balance 820 100 510 Lab Results - Last 24 hrs: Laboratory Results - last 24 hr 03/10/20 03/10/20 03/10/20 Range/Units 11:19 16:49 20:59 WBC (4.0-10.2) K/uL RBC (4.33-5.41) M/uL Hgb (13.1-16.8) g/dL Hct (39.0-49.0) % MCV (84.0-98.0) fL MCH (28.2-33.3) pg MCHC (31.7-36.0) g/dL RDW (11.2-14.1) % Plt Count (150-350) K/uL Neut % (Auto) (45.0-80.0) % Lymph % (Auto) (10.0-50.0) % [place] % (Auto) (2.0-14.0) % Eos % (Auto) (0.0-5.0) % Baso % (Auto) (0.0-2.0) % Neut # (Auto) (1.40-7.00) K/uL Lymph # (Auto) (0.50-3.50) K/uL [place] # (Auto) (0.00-1.00) K/uL Eos # (Auto) (0.00-0.50) K/uL Baso # (Auto) (0.00-0.20) K/uL POC Glucose 257 H* 211 H 190 H (65-110) mg/dl 03/11/20 03/11/20 Range/Units 07:30 07:35 WBC 6.0 (4.0-10.2) K/uL RBC 3.95 L (4.33-5.41) M/uL Hgb 11.2 L (13.1-16.8) g/dL Hct 36.5 L (39.0-49.0) % MCV 92.4 (84.0-98.0) fL MCH 28.4 (28.2-33.3) pg MCHC 30.7 L (31.7-36.0) g/dL RDW 15.5 H (11.2-14.1) % Plt Count 162 (150-350) K/uL Neut % (Auto) 66.1 (45.0-80.0) % Lymph % (Auto) 13.1 (10.0-50.0) % [place] % (Auto) 15.0 H (2.0-14.0) % Eos % (Auto) 5.3 H (0.0-5.0) % Baso % (Auto) 0.5 (0.0-2.0) % Neut # (Auto) 3.97 (1.40-7.00) K/uL Lymph # (Auto) 0.79 (0.50-3.50) K/uL [place] # (Auto) 0.90 (0.00-1.00) K/uL Eos # (Auto) 0.32 (0.00-0.50) K/uL Baso # (Auto) 0.03 (0.00-0.20) K/uL POC Glucose 163 H (65-110) mg/dl IVY Results - Last 24 hrs: Microbiology 03/07/20 10:20 Aerobic Blood Culture - Preliminary Blood - Venous - Lab Draw NO GROWTH AFTER 3 DAYS Anaerobic Blood Culture - Preliminary NO GROWTH AFTER 3 DAYS 03/07/20 10:07 Aerobic Blood Culture - Preliminary Blood - Venous NO GROWTH AFTER 3 DAYS Anaerobic Blood Culture - Final Staphylococcus Coagulase Neg 03/08/20 22:32 Gram Stain - Final Sputum - Expectorated Sputum Culture - Final Normal Oral Pharyngeal Vianca Yeast Med Orders - Current: Current Medications Acetaminophen (Tylenol Arthritis Pain) 650 mg PO TID@0800,1399,1999 [facility] Last Admin: 03/11/20 08:04 Dose: 650 mg Documented by: Acetaminophen (Tylenol) 650 mg PO Q4H PRN PRN Reason: Pain Albuterol (Proventil Hfa) 0 gm INH QID [facility] Last Admin: 03/11/20 07:51 Dose: 2 puff Documented by: Amlodipine Besylate (Norvasc) 2.5 mg PO QPM [facility] Last Admin: 03/10/20 17:32 Dose: 2.5 mg Documented by: Apixaban (Eliquis) 5 mg PO BID@ [facility] Last Admin: 03/11/20 08:07 Dose: 5 mg Documented by: Artificial Tears (Liquitears 1.4% Ophth Soln) 0 ml EYEBOTH [facility] Last Admin: 03/11/20 07:51 Dose: 1 drop Documented by: Clopidogrel Bisulfate (Plavix) 75 mg PO BEDTIME [facility] Last Admin: 03/10/20 20:47 Dose: 75 mg Documented by: Cyclobenzaprine HCl (Flexeril) 5 mg PO Q8H PRN PRN Reason: chronic pain Dextrose/Water (Dextrose 50% In Water) 50 ml IV ASDIRECTED PRN PRN Reason: Hypoglycemia Dextrose/Water (Dextrose 50% In Water) 50 ml IV ASDIRECTED PRN PRN Reason: Hypoglycemia Famotidine (Pepcid) 20 mg IVPUSH Q24H [facility] Last Admin: 03/10/20 11:21 Dose: 20 mg Documented by: Finasteride (Proscar) 5 mg PO DAILY [facility] Last Admin: 03/11/20 08:06 Dose: 5 mg Documented by: Gabapentin (Neurontin) 800 mg PO QID@08,12,17,20 [facility] Last Admin: 03/11/20 08:04 Dose: 800 mg Documented by: Glucagon (Glucagen) 1 mg IM ASDIRECTED PRN PRN Reason: Hypoglycemia Glucagon (Glucagen) 1 mg IM ASDIRECTED PRN PRN Reason: Hypoglycemia Levofloxacin/Dextrose 500 mg/ (Premix) 100 mls @ 100 mls/hr IV Q24H [facility] Last Admin: 03/10/20 11:24 Dose: 100 mls/hr Documented by: Ceftriaxone Sodium 1 gm/ (Sodium Chloride) 100 mls @ 200 mls/hr IV Q12H [facility] Last Admin: 03/11/20 08:11 Dose: 200 mls/hr Documented by: Insulin Human Lispro (Humalog) 0 unit SUBCUT QIDACANDBED [facility]; Protocol Last Admin: 03/11/20 07:48 Dose: 2 units Documented by: Ketoconazole (Nizoral 2% Crm) 0 gm TOP ASDIRECTED PRN PRN Reason: suborrheic dermatitis Levothyroxine Sodium (Synthroid) 100 mcg PO QAM [facility] Last Admin: 03/11/20 08:07 Dose: 100 mcg Documented by: Levothyroxine Sodium (Levothyroxine) 25 mcg PO QAM [facility] Last Admin: 03/11/20 08:05 Dose: 25 mcg Documented by: Lisinopril (Prinivil) 10 mg PO QAM [facility] Last Admin: 03/11/20 08:05 Dose: 10 mg Documented by: Magnesium Oxide (Magnesium Oxide) 400 mg PO QPM [facility] Last Admin: 03/10/20 17:32 Dose: 400 mg Documented by: Metoprolol Tartrate (Lopressor) 25 mg PO 0800,2000 [facility] Last Admin: 03/11/20 08:06 Dose: 25 mg Documented by: Miscellaneous Information (Remove Patch) 1 ea TRDERM BEDTIME [facility] Last Admin: 03/10/20 20:49 Dose: 1 ea Documented by: Miscellaneous Information (Remove Patch) 1 ea TRDERM DAILY [facility] Last Admin: 03/11/20 08:18 Dose: Not Given Documented by: Bupropion [ Wellbutrin Sr] 100 Mg Tablets 100 mg PO Q12HR [facility] Last Admin: 03/11/20 07:59 Dose: 100 mg Documented by: Methyl Salicylate/Menth/Camph [ Salonpas 3.1%-6.0%- 10.0%] 1 each TOP BEDTIME [facility] Last Admin: 03/10/20 20:49 Dose: Not Given Documented by: Methyl Salicylate/Menth/Camph [ Salonpas 3.1%-6.0%- 10.0%] 1 patch TOP DAILY [facility] Last Admin: 03/11/20 08:00 Dose: 1 patch Documented by: Nystatin (Mycostatin) 5 ml PO QID [facility] Last Admin: 03/11/20 08:03 Dose: 5 ml Documented by: Ondansetron HCl (Zofran) 4 mg IVPUSH Q6H PRN PRN Reason: Nausea/Vomiting Pantoprazole Sodium (Protonix Iv) 40 mg IV Q12H [facility] Last Admin: 03/11/20 07:53 Dose: 40 mg Documented by: Prednisone (Prednisone) 2.5 mg PO DAILY [facility] Last Admin: 03/11/20 08:06 Dose: 2.5 mg Documented by: Senna/Docusate Sodium (Senna Plus) 2 tab PO BID PRN PRN Reason: Constipation Simvastatin (Zocor) 20 mg PO BEDTIME [facility] Last Admin: 03/10/20 20:47 Dose: 20 mg Documented by: Sodium Chloride (Saline Flush) 10 ml FLUSH ASDIRECTED PRN PRN Reason: Keep Vein Open Last Admin: 03/11/20 08:19 Dose: 10 ml Documented by: Trazodone HCl (Trazodone) 150 mg PO BEDTIME [facility] Last Admin: 03/10/20 20:47 Dose: 150 mg Documented by: Discontinued Medications Acetaminophen (Tylenol) 650 mg PO Q6H PRN PRN Reason: Pain Last Admin: 03/08/20 04:54 Dose: 650 mg Documented by: Amlodipine Besylate (Norvasc) 2.5 mg PO DAILY [facility] Last Admin: 03/08/20 12:20 Dose: Not Given Documented by: Artificial Tears (Liquitears 1.4% Ophth Soln) 0 ml EYEBOTH Q12H [facility] Last Admin: 03/07/20 16:00 Dose: 1 drop Documented by: Furosemide (Lasix) 20 mg IVPUSH BID [facility] Last Admin: 03/09/20 17:17 Dose: 20 mg Documented by: Ceftriaxone Sodium 1 gm/ (Sodium Chloride) 100 mls @ 200 mls/hr IV ONETIME ONE Stop: 03/07/20 11:23 Last Admin: 03/07/20 11:28 Dose: 200 mls/hr Documented by: Sodium Chloride (Normal Saline) 1,000 mls @ 999 mls/hr IV .BOLUS ONE Stop: 03/07/20 12:11 Last Admin: 03/07/20 11:28 Dose: 999 mls/hr Documented by: Levofloxacin/Dextrose 500 mg/ (Premix) 100 mls @ 100 mls/hr IV ONETIME ONE Stop: 03/07/20 12:26 Last Admin: 03/07/20 11:55 Dose: 100 mls/hr Documented by: Sodium Chloride (Normal Saline) 1,000 mls @ 50 mls/hr IV ASDIRECTED [facility] Stop: 03/11/20 12:54 Ceftriaxone Sodium 1 gm/ (Sodium Chloride) 100 mls @ 200 mls/hr IV Q24H [facility] Last Admin: 03/08/20 08:35 Dose: 200 mls/hr Documented by: Sodium Chloride (Sodium Chloride 0.45%) 1,000 mls @ 50 mls/hr IV ONETIME ONE Stop: 03/08/20 10:35 Last Admin: 03/07/20 17:28 Dose: 50 mls/hr Documented by: Magnesium Sulfate/Dextrose 1 (gm/ Premix) 100 mls @ 100 mls/hr IV ONETIME ONE Stop: 03/07/20 15:57 Last Admin: 03/07/20 16:00 Dose: 100 mls/hr Documented by: Insulin Human Lispro (Humalog) 0 unit SUBCUT BIDAC [facility]; Protocol Last Admin: 03/08/20 17:41 Dose: 9 units Documented by: Iopamidol (Isovue-370 (76%)) 100 ml IVPUSH ONETIME ONE Stop: 03/07/20 13:01 Last Admin: 03/07/20 10:33 Dose: 100 ml Documented by: Iopamidol (Isovue-370 (76%)) Confirm Administered Dose 100 ml .ROUTE .STK-MED ONE Stop: 03/07/20 11:04 Methylprednisolone Sodium Succinate (Solu-Medrol) 125 mg IVPUSH ONETIME ONE Stop: 03/08/20 12:01 Last Admin: 03/08/20 11:44 Dose: 125 mg Documented by: Metoprolol Tartrate (Lopressor) 25 mg PO Q12H [facility] Last Admin: 03/07/20 17:28 Dose: Not Given Documented by: Pantoprazole Sodium (Protonix Iv) 40 mg IV DAILY [facility] Last Admin: 03/08/20 08:36 Dose: 40 mg Documented by: - Exam Quality Assessment: Reports: Supplemental Oxygen General: Reports: Alert, Oriented Lungs: Reports: Decreased Breath Sounds Cardiovascular: Reports: Regular Rate GI/Abdominal Exam: Soft, Non-Tender
== END 2020-03-11 10:27 | DRG 194 ==
LOC: LL.ED 10:00 → LL.MS 13:51
PROVIDERS: ADMIT Emergency Medicine; ATTEND Family Medicine
DX: J18.9 Pneumonia, unspecified organism (principal); J30.9 Allergic rhinitis, unspecified; I69.354 Hemiplegia and hemiparesis following cerebral infarction affecting left non-dominant side; H54.7 Unspecified visual loss; I48.20 Chronic atrial fibrillation, unspecified; I48.91 Unspecified atrial fibrillation; Z66 Do not resuscitate; I50.9 Heart failure, unspecified; I42.9 Cardiomyopathy, unspecified; E78.00 Pure hypercholesterolemia, unspecified; E88.09 Other disorders of plasma-protein metabolism, not elsewhere classified; E83.42 Hypomagnesemia; E83.51 Hypocalcemia; G20 Parkinson's disease; I73.9 Peripheral vascular disease, unspecified; I28.1 Aneurysm of pulmonary artery; J44.0 Chronic obstructive pulmonary disease with (acute) lower respiratory infection; K21.9 Gastro-esophageal reflux disease without esophagitis; K59.09 Other constipation; R32 Unspecified urinary incontinence; E11.42 Type 2 diabetes mellitus with diabetic polyneuropathy; R13.10 Dysphagia, unspecified; I13.0 Hypertensive heart and chronic kidney disease with heart failure and stage 1 through stage 4 chronic kidney disease, or unspecified chronic kidney disease; N18.9 Chronic kidney disease, unspecified; D63.1 Anemia in chronic kidney disease; E11.22 Type 2 diabetes mellitus with diabetic chronic kidney disease; N40.1 Benign prostatic hyperplasia with lower urinary tract symptoms; N39.498 Other specified urinary incontinence; E78.5 Hyperlipidemia, unspecified; E66.01 Morbid (severe) obesity due to excess calories; R33.8 Other retention of urine; M19.90 Unspecified osteoarthritis, unspecified site; Z88.5 Allergy status to narcotic agent; Z90.49 Acquired absence of other specified parts of digestive tract; E11.21 Type 2 diabetes mellitus with diabetic nephropathy; G89.29 Other chronic pain; M54.9 Dorsalgia, unspecified; M54.2 Cervicalgia; M35.3 Polymyalgia rheumatica; Z86.73 Personal history of transient ischemic attack (TIA), and cerebral infarction without residual deficits; F51.04 Psychophysiologic insomnia; F10.21 Alcohol dependence, in remission; E11.40 Type 2 diabetes mellitus with diabetic neuropathy, unspecified; E03.9 Hypothyroidism, unspecified; D64.9 Anemia, unspecified; Z85.828 Personal history of other malignant neoplasm of skin; Z88.2 Allergy status to sulfonamides; Z88.8 Allergy status to other drugs, medicaments and biological substances; Z88.6 Allergy status to analgesic agent; Z79.01 Long term (current) use of anticoagulants; Z79.02 Long term (current) use of antithrombotics/antiplatelets; Z79.890 Hormone replacement therapy; Z79.4 Long term (current) use of insulin; Z79.52 Long term (current) use of systemic steroids; Z79.899 Other long term (current) drug therapy; Z20.822 Contact with and (suspected) exposure to COVID-19
CPT/HCPCS: 36415; 71045; 71046; 71275; 80053; 81001; 82272; 82550; 82553; 82962; 83605; 83735; 83880; 84443; 84484; 85025; 85379; 87040; 87070; 87205; 87804; 93005; 93970; 94640; 94761; 96365; 96367; 97110-GO; 97110-GP; 97162-GP; 97165-GO; 97530-GO; 97530-GP; 99285-25; A9270-GY; C9113; J0696; J1815-GY; J1940; J1956; J2930; J3475; J3490; J7030; J7512; Q9967; U0002

== ENCOUNTER 2020-08-03 12:47 | Emergency (ER) | payer MEDICARE, OTHER ==
--- NOTE | 2020-08-03 12:51 | EDM.PDOC ---
ED HPI GENERAL MEDICAL PROBLEM - General Chief Complaint: ENT Problem Stated Complaint: nose bleed Time Seen by Provider: 08/03/20 12:51 Source of Information: Reports: Patient, Long-Term Records, Old Records ([facility] EMR. No paper hospital chart available.) History Limitations: Reports: No Limitations - History of Present Illness INITIAL COMMENTS - FREE TEXT/NARRATIVE: The patient was brought to the emergency room via transport vehicle from [facility] in [place] for evaluation of severe refractory right-sided epistaxis, which started at about 8:30 AM this morning with nasal packing applied at that time with only some improvement. The patient is a somewhat poor historian, however no history of local injury, etc. The patient denies any chest pain/pressure, heart flutter, dizziness, orthostasis, orthopnea, diaphoresis, paresthesias, recent decreased exercise tolerance, or any other anginal-type symptoms. His a.m. Accu-Chek was 85 mg percent this morning with a.m. medications, including insulin, etc. given. Extremely limited history obtained from the correction prior to arrival to this facility with subsequent telephone consultation with the nurses required. No recent history of abdominal pain, heartburn, nausea, diarrhea, melena, gross hematochezia, or any food intolerance, including fatty foods, etc.. The patient also denies any recent fever, cough, wheezing, dyspnea, etc.. No history of recent headaches, visual changes, diplopia, change in mental status, or other change in neurological status. He denies any specific pain or discomfort. The patient's health has apparently been declining in recent months with some nonspecific anorexia and patient refusing his potassium chloride pills recently. Note no mention of hypertension for to transfer the patient to this facility. Onset: Today, Sudden Onset Date: 08/03/20 Onset Time: 08:30 Duration: Constant, Getting Worse Location: Reports: Other (Right-sided epistaxis as above) Quality: Reports: Same as Previous Episode Severity: Moderate Improves with: Reports: None Worsens with: Reports: None Context: Reports: Other (As above). Denies: Sick Contact, Trauma Associated Symptoms: Reports: Weakness (Stable hemiparesis). Denies: Confusion, Chest Pain, Cough, Diaphoresis, Fever/Chills, Headaches, Loss of Appetite, Malaise, Nausea/Vomiting, Rash, Seizure, Shortness of Breath, Syncope Treatments RECREATIONAL AIDE: Reports: Other (see below) (As above) - Related Data Allergies Allergy/AdvReac Type Severity Reaction Status Date / Time morphine Allergy Mild Change Verified 08/03/20 13:02 Mental Status sulfamethoxazole Allergy unknown Verified 08/03/20 13:02 [From ] trimethoprim [From ] Allergy unknown Verified 08/03/20 13:02 Home Meds: Home Meds Apixaban [Eliquis] 5 mg PO BID@0800,199907/04/18 [History] Cyclobenzaprine [Flexeril] 5 mg PO Q8H PRN 07/04/18 [History] Lisinopril 10 mg PO QAM 07/04/18 [History] Simvastatin 20 mg PO BEDTIME 07/04/18 [History] amLODIPine [Norvasc] 2.5 mg PO DAILY 07/04/18 [History] predniSONE [Prednisone] 10 mg PO DAILY 07/04/18 [History] Acetaminophen 650 mg PO Q6H PRN 08/01/18 [History] Clopidogrel [Plavix] 75 mg PO BEDTIME 08/01/18 [History] Acetaminophen [Tylenol Arthritis] 650 mg PO TID@0800,1400,199904/20/19 [History] Eyelid Cleanser Combination 5 [Ocusoft Lid Scrub] 1 each EYEBOTH Q12H 04/20/19 [History] Finasteride 5 mg PO DAILY 04/20/19 [History] Furosemide 20 mg PO DAILY 04/20/19 [History] Insulin Glargine,Hum.Rec.Anlog [Lantus Solostar] 26 unit SUBCUT DAILY 04/20/19 [History] Ketoconazole [Nizoral 2% Crm] 1 applic TOP ASDIRECTED PRN 04/20/19 [History] Sennosides/Docusate Sodium [Senna-S] 2 tab PO BID PRN 04/20/19 [History] Methyl Salicylate/Menth/Camph [Salonpas 3.1%-6.0%-10.0% Patch] 1 patch TOP BID 12/17/19 [History] Propylene Glycol/PEG 400/Pf [Systane 0.3-0.4% Eye Drop] 1 drop EYEBOTH Q12H 12/17/19 [History] Metoprolol Tartrate 25 mg PO Q12HR 03/07/20 [History] Phenylephrine HCl [Sudogest PE] 10 mg PO Q4H PRN 03/07/20 [History] traZODone HCl [Trazodone HCl] 150 mg PO BEDTIME 03/07/20 [History] Bisacodyl [Gentle Laxative] 10 mg RECTAL DAILY 08/03/20 [History] Ipratropium [Atrovent] 1 inh PO Q4HR PRN 08/03/20 [History] Levothyroxine [Synthroid] 100 mcg PO DAILY 08/03/20 [History] Loratadine [Claritin] 10 mg PO DAILY 08/03/20 [History] Megestrol [Megace 40 MG/ML Susp] 20 ml PO DAILY@0730 08/03/20 [History] Non-Formulary Medication [NF Drug] 1 applic TOP BEDTIME 08/03/20 [History] Non-Formulary Medication [NF Drug] 1 dose NASBOTH ASDIRECTED PRN 08/03/20 [History] Potassium Chloride 20 meq PO TID 08/03/20 [History] Topiramate 50 mg PO Q12H 08/03/20 [History] bisacodyL [Bisacodyl] 5 mg PO DAILY PRN 08/03/20 [History] buPROPion [Wellbutrin SR] 150 mg PO Q12HR 08/03/20 [History] Past Medical History HEENT History: Reports: Allergic Rhinitis, Impaired Vision, Other (See Below) Other HEENT History: The patient wears glasses with history of right macula puckering. Dry eye syndrome. Occasional left-sided strabismus divergence when not fixating. Cardiovascular History: Reports: Afib, Aneurysm, Arrhythmia, CAD, Cardiomyopathy, Heart Failure, Heart Murmur, High Cholesterol, Hypertension, PVD. Denies: Blood Clots/VTE/DVT, WA Other Cardiovascular History: Anterior wall cardiac ischemia by resting EKG with no known previous WA. Aneurysm of the right pulmonary artery. Peripheral vascular disease including history of bilateral occlusion and stenosis of the carotid arteries with status post left-sided carotid enterectomy. PACs, PVCs, bradycardia, and sinus arrhythmia. Repolarization changes versus borderline incomplete right bundle branch block. History of D-dimer elevation with negative work-up as below. Dyslipidemia. History of recurrent atrial fibrillation with current Plavix and Eliquis therapy. Respiratory History: Reports: Bronchitis, Recurrent, COPD, Intubation, Difficult, Pneumonia, Recurrent, Pulmonary Fibrosis, Other (See Below) Other Respiratory History: Chronic right diaphragmatic elevation. Intermittent O2 and steroid-dependent COPD. Respiratory failure requiring intubation on 07/04/2018. Recurrent pneumonia including aspiration pneumonia from dysphagia. Suspected right middle lobe and right lower lobe pulmonary collapse on 12/19/2019. Gastrointestinal History: Reports: Cholelithiasis, Chronic Constipation, Colon Polyp, GERD, Other (See Below) Other Gastrointestinal History: Dysphagia. LFTs elevation secondary to dyslipidemia and chronic CHF. Genitourinary History: Reports: BPH, Chronic Renal Insuffiency, Diabetic Nephropathy, Retention, Urinary, Urinary Incontinence Musculoskeletal History: Reports: Arthritis, Back Pain, Chronic, Fibromyalgia, Gout, Neck Pain, Chronic, Osteoarthritis, Other (See Below) Other Musculoskeletal History: Polymyalgia rheumatica. Spinal fusion as below with post laminectomy syndrome and persistent left lateral nerve compression at C4-C5. Neurological History: Reports: CVA, Headaches, Chronic, Migraines, Neuropathy, Diabetic, Neuropathy, Peripheral, Parkinson's, Other (See Below) Other Neuro History: Right frontal CVA/right middle cerebral artery distribution by CT scan with persistent mild left hemiparesis and chronic resting tremor. Right ventricular dilatation by CT scan hydrocephalus. Occasional confusion mostly with infections, including refractory pneumonia, etc. Psychiatric History: Reports: Addiction, Anxiety, Depression, PTSD, Other (See Below) Other Psychiatric History: Chronic insomnia. History of alcoholism and previous opioid dependency. Endocrine/Metabolic History: Reports: Diabetes, Type II, Hypokalemia, Hypomagnesemia, Hypothyroidism, IDDM, Obesity/BMI 30+, Vitamin D Deficiency, Other (See Below) Other Endocrine/Metabolic History: Hypocalcemia. Hypoalbuminemia. Hematologic History: Reports: Anemia, Other (See Below) Other Hematologic History: Anemia of chronic diseases, including diabetic nephropathy, etc. Oncologic (Cancer) History: Reports: Other (See Below) Other Oncologic History: Unknown type of skin cancer. Dermatologic History: Reports: Seborrheic Dermatitis, Other (See Below) Other Dermatologic History: Nuchal cavernous hemangioma. - Past Surgical History HEENT Surgical History: Reports: Oral Surgery, Radiocarotid Ectomy, Other (See Below) Other HEENT Surgeries/Procedures: Teeth extractions. Left-sided carotid endarterectomy. GI Surgical History: Reports: Cholecystectomy Male Surgical History: Reports: Circumcision Neurological Surgical History: Reports: C-Spine, Discectomy, Spinal Fusion, Other (See Below) Other Neurological Surgeries/Procedures: C3-C6 anterior spinal fusion. - Past Imaging History Past Imaging History: Reports: CAT Scan (CT of the head on 07/20/2020, 02/14/2020, and 12/17/2019. CTA chest on 03/07/2020 and 12/18/2019. CTA of the head and neck on 12/17/2019. CT of the C-spine on 01/29/2018.), Swallow Study (Positive on 03/17/2020 and 06/12/2018.), Venous Doppler (Negative in the legs bilaterally on 03/08/2020 and 12/18/2019.) Social & Family History - Family History Family Medical History: No Pertinent Family History Neurological: Reports: Other (See Below) Other Neurological Family History: Essential tremor in mother, brother, sister, and multiple family members. - Tobacco Use Tobacco Use Status *Q: Former Tobacco User Tobacco Use Within Last Twelve Months: No Years of Tobacco use: 25 Packs/Tins Daily: 1 Packs/Tins Daily Comment: Smoked between ages 27 and 52. Used Tobacco, but Quit: Yes Smoking Cessation Information Provided To Patient: No Second Hand Smoke Education Provided: No - Caffeine Use Caffeine Use: Reports: Soda, Tea - Alcohol Use Alcohol Use History: No Number of Drinks Per Day Comment: Previous history of alcohol abuse with no use since age 52. 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 ED EXAM, ENT - Physical Exam Exam: See Below Exam Limited By: No Limitations General Appearance: Alert, WD/WN, No Apparent Distress Eye Exam: Right Eye: EOMI (No glasses brought today. No vertigo or nystagmus. Stable left-sided lateral strabismus divergence when not fixating), Bilateral Eye: Normal Inspection (No vertigo or nystagmus), PERRL Ears: Normal External Exam, Normal Canal, Normal TMs, Hearing Loss (Stable mild bilateral presbycusis) Nose: Active Bleeding (Right naris). No: Foreign Body Mouth/Throat: Normal Gums, Normal Lips, Normal Oropharynx, Bleeding (In the posterior hypopharynx region secondary to right-sided epistaxis). No: Normal Teeth (Multiple missing teeth with moderate to severe periodontal ptosis with no acute caries or drainage.), Dental Abcess, Dental Pain Head: Atraumatic, Normocephalic. No: Facial Tenderness, Sinus Tenderness Neck: Supple, Non-Tender, Carotid Bruit (Mild bilateral carotid bruits versus transmitted heart sounds). No: Lymphadenopathy (L), Lymphadenopathy (R), Thyromegaly Respiratory/Chest: No Accessory Muscle Use, Chest Non-Tender, Rales (Mild bilateral basilar). No: Rhonchi, Wheezing, Pleural Rub, Retractions Cardiovascular: Normal Peripheral Pulses, Regular Rate, Rhythm, No Edema, No Gallop, No JVD, No Rub, Systolic Murmur (Stable mild 1/6 THEE of the aortic valve.), Other (Quiet heart sounds with sinus arrhythmia by school bus monitor). No: Gallop/S3, Gallop/S4, Friction Rub GI/Abdominal: Normal Bowel Sounds, Soft, Non-Tender, No Organomegaly, No Distention, No Abnormal Bruit, No Mass, Pelvis Stable, Other (Obese). No: Guarding (Male) Exam: Deferred Rectal (Males) Exam: Deferred Back: Normal Inspection, Full Range of Motion. No: CVA Tenderness (L), CVA Tenderness (R), Muscle Spasm Extremities: Normal Inspection, Non-Tender, No Pedal Edema, Normal Capillary Refill, Limited Range of Motion (Left hemiparesis as above), Other (Multiple areas of moderate ecchymosis on the dorsal hands and forearms bilaterally with skin tear and dressing noted on the left olecranon and right superior scapular region). No: Stanley's Sign Neurological: Alert, Oriented, Normal Cognition, Normal Reflexes, No Motor/Sensory Deficits, Other (Stable by history left hemiparesis. Stable moderate resting tremor with additional mild rigidity and cogwheeling.). No: Confused (None today) Psychiatric: Normal Affect, Normal Mood Skin: Ecchymosis (As above), Wound/Incision (As above), Other (3-4 cm in diameter cavernous hemangioma in the nuchal region). No: Diaphoretic Lymphatic: No Adenopathy ED ENT PROCEDURES - Epistaxis Procedure Indication: Epistaxis, Uncontrolled Recent anticoagulants/antiplatlets: Yes Uncontrolled HTN: No Recent septal/nasal surgery: No Site of bleeding: Right Nare Clearing of clots: Other (Spontaneous) Topical Meds: Other (Joel-Synephrine) Ice pack to area: No Chemical cautery: Silver Nitrate Topical (4 sticks in the lateral right anterior naris) Anterior Packing: Other (Ultrafoam on the right side with Vaseline gauze packing in the left naris) Complications: No #1 Interpretation EKG Date: 08/03/20 Time: 13:57 Rhythm: Other (Sinus bradycardia with sinus arrhythmia with returned bradycardia) Rate (Beats/Min): 57 Phillips: Normal (Neutral) P-Wave: Enlarged (Moderate diffuse biphasic) QRS: Normal (0.09 seconds with improved borderline repolarization changes versus borderline incomplete right bundle branch block) ST-T: Other (T wave inversion in leads V1V3 with somewhat increased T wave prominence in lead V3 and otherwise nonspecific ST-T changes in lead V4) QT: Normal NE/PQ Interval: 0.17 seconds Comparison: Change From Previous EKG (As above since 03/09/2020) EKG Interpretation Comments: 1. Anterior wall cardiac ischemia 2. Left atrial enlargement 3. Sinus bradycardia/sinus arrhythmia Course - Vital Signs Last Recorded V/S: Last Vital Signs Temp 36.4 C 08/03/20 15:39 Pulse 55 L 08/03/20 16:30 Resp 15 08/03/20 16:30 BP 106/76 08/03/20 16:30 Pulse Ox 98 08/03/20 16:30 Vital Signs - 24 hr 08/03/20 08/03/20 08/03/20 12:47 12:54 13:36 Temperature [ Axillary] Temperature [ 35.7 C L 36.2 C Temporal] Pulse, 61 62 57 L Peripheral [ Pulse Oximetry] Respiratory 18 18 16 Rate Blood Pressure 76/49 L 100/64 49/36 L [Right Upper Arm] O2 Sat by Pulse 99 93 L 100 Oximetry 08/03/20 08/03/20 08/03/20 13:40 13:47 14:02 Temperature [ Axillary] Temperature [ Temporal] Pulse, 60 58 L 55 L Peripheral [ Pulse Oximetry] Respiratory 16 16 16 Rate Blood Pressure 58/39 L 68/42 L 64/42 L [Right Upper Arm] O2 Sat by Pulse 100 99 100 Oximetry 08/03/20 08/03/20 08/03/20 14:07 14:21 14:31 Temperature [ Axillary] Temperature [ 36.4 C Temporal] Pulse, 59 L 58 L 55 L Peripheral [ Pulse Oximetry] Respiratory 15 15 16 Rate Blood Pressure 80/54 L 80/54 L 108/89 [Right Upper Arm] O2 Sat by Pulse 99 98 95 Oximetry 08/03/20 08/03/20 08/03/20 14:34 14:57 15:01 Temperature [ Axillary] Temperature [ Temporal] Pulse, 58 L 57 L Peripheral [ Pulse Oximetry] Respiratory 15 16 Rate Blood Pressure 102/81 [Right Upper Arm] O2 Sat by Pulse 91 L 100 Oximetry 08/03/20 08/03/20 08/03/20 15:09 15:21 15:39 Temperature [ 36.4 C Axillary] Temperature [ Temporal] Pulse, 56 L 54 L Peripheral [ Pulse Oximetry] Respiratory 14 15 Rate Blood Pressure 100/58 L 98/60 104/78 [Right Upper Arm] O2 Sat by Pulse 100 100 Oximetry 08/03/20 08/03/20 16:04 16:30 Temperature [ Axillary] Temperature [ Temporal] Pulse, 59 L 55 L Peripheral [ Pulse Oximetry] Respiratory 14 15 Rate Blood Pressure 100/78 106/76 [Right Upper Arm] O2 Sat by Pulse 94 L 98 Oximetry - Orders/Labs/Meds Orders: Active Orders 24 hr Category Date Time Status Cardiac Monitoring [RC] . DIRECTED Care 08/03/20 12:54 Active EKG Documentation Completion [RC] ASDIRECTED Care 08/03/20 13:05 Active Peripheral IV Care [RC] . DIRECTED Care 08/03/20 13:05 Active Chest 1V Frontal [CR] Stat Exams 08/03/20 13:05 Taken Lactated Ringers [Ringers, Lactated] 1,000 ml Med 08/03/20 14:45 Active IV ASDIRECTED Norepinephrine [Levophed] 4 mg Med 08/03/20 14:15 Active Dextrose 5% in Water 246 ml IV TITRATE Sodium Chloride 0.9% [Saline Flush] Med 08/03/20 13:03 Active 10 ml FLUSH ASDIRECTED PRN Obtain Past Medical Record [OM.PC] Routine Oth 08/03/20 12:51 Active Peripheral IV Insertion Adult [OM.PC] Routine Oth 08/03/20 13:03 Ordered Medication Orders Norepinephrine Bitartrate 4 mg (/ Dextrose/Water) 250 mls @ 7.5 mls/hr IV TITRATE MIKIE; Protocol Lactated Ringer's (Ringers, Lactated) 1,000 mls @ 100 mls/hr IV ASDIRECTED MIKIE Last Admin: 08/03/20 14:41 Dose: 100 mls/hr Documented by: COXTAM Sodium Chloride (Sodium Chloride 0.9% 10 Ml Syringe) 10 ml FLUSH ASDIRECTED PRN PRN Reason: Keep Vein Open Labs: Laboratory Tests 08/03/20 08/03/20 08/03/20 Range/Units 13:44 13:44 13:44 WBC 10.1 (4.0-10.2) K/uL RBC 4.64 (4.33-5.41) M/uL Hgb 13.2 (13.1-16.8) g/dL Hct 40.8 (39.0-49.0) % MCV 87.9 (84.0-98.0) fL MCH 28.4 (28.2-33.3) pg MCHC 32.4 (31.7-36.0) g/dL RDW 17.3 H (11.2-14.1) % Plt Count 193 (150-350) K/uL Neut % (Auto) 83.8 H (45.0-80.0) % Lymph % (Auto) 9.0 L (10.0-50.0) % [place] % (Auto) 6.2 (2.0-14.0) % Eos % (Auto) 0.8 (0.0-5.0) % Baso % (Auto) 0.2 (0.0-2.0) % Neut # (Auto) 8.43 H (1.40-7.00) K/uL Lymph # (Auto) 0.91 (0.50-3.50) K/uL [place] # (Auto) 0.62 (0.00-1.00) K/uL Eos # (Auto) 0.08 (0.00-0.50) K/uL Baso # (Auto) 0.02 (0.00-0.20) K/uL PT 11.9 (9.5-12.0) SEC INR 1.2 APTT 25.2 (24.5-32.8) SEC Sodium 137 (136-145) mmol/L Potassium 4.8 D (3.5-5.1) mmol/L Chloride 103 (98-107) mmol/L Carbon Dioxide 21.9 (21.0-32.0) mmol/L BUN 74 H D (7-18) mg/dL Creatinine 2.55 H (0.51-1.17) mg/dL Est Cr Clr Drug Dosing 25.80 mL/min Estimated GFR (MDRD) 25 mL/min Glucose 140 H (70-99) mg/dL Lactic Acid (0.4-2.0) mmol/L Calcium 9.2 (8.5-10.1) mg/dL Magnesium (1.8-2.4) mg/dL Total Bilirubin 0.6 (0.2-1.0) mg/dL AST 41 H (15-37) U/L ALT 48 (12-78) U/L Alkaline Phosphatase 78 (46-116) IU/L Troponin I (0.000-0.056) ng/mL NT-Pro-B Natriuret Pep (0-125) pg/mL Total Protein 6.8 (6.4-8.2) g/dL Albumin 3.2 L (3.4-5.0) g/dL SARS-CoV-2 RNA (PIETRO) (NEGATIVE) 08/03/20 08/03/20 08/03/20 Range/Units 13:44 13:48 14:12 WBC (4.0-10.2) K/uL RBC (4.33-5.41) M/uL Hgb (13.1-16.8) g/dL Hct (39.0-49.0) % MCV (84.0-98.0) fL MCH (28.2-33.3) pg MCHC (31.7-36.0) g/dL RDW (11.2-14.1) % Plt Count (150-350) K/uL Neut % (Auto) (45.0-80.0) % Lymph % (Auto) (10.0-50.0) % [place] % (Auto) (2.0-14.0) % Eos % (Auto) (0.0-5.0) % Baso % (Auto) (0.0-2.0) % Neut # (Auto) (1.40-7.00) K/uL Lymph # (Auto) (0.50-3.50) K/uL [place] # (Auto) (0.00-1.00) K/uL Eos # (Auto) (0.00-0.50) K/uL Baso # (Auto) (0.00-0.20) K/uL PT (9.5-12.0) SEC INR APTT (24.5-32.8) SEC Sodium (136-145) mmol/L Potassium (3.5-5.1) mmol/L Chloride (98-107) mmol/L Carbon Dioxide (21.0-32.0) mmol/L BUN (7-18) mg/dL Creatinine (0.51-1.17) mg/dL Est Cr Clr Drug Dosing mL/min Estimated GFR (MDRD) mL/min Glucose (70-99) mg/dL Lactic Acid 3.3 H (0.4-2.0) mmol/L Calcium (8.5-10.1) mg/dL Magnesium 2.4 (1.8-2.4) mg/dL Total Bilirubin (0.2-1.0) mg/dL AST (15-37) U/L ALT (12-78) U/L Alkaline Phosphatase (46-116) IU/L Troponin I 0.008 (0.000-0.056) ng/mL NT-Pro-B Natriuret Pep 140 H (0-125) pg/mL Total Protein (6.4-8.2) g/dL Albumin (3.4-5.0) g/dL SARS-CoV-2 RNA (PIETRO) Negative (NEGATIVE) Meds: Medications Generic Name Dose Route Start Last Admin Trade Name Freq PRN Reason Stop Dose Admin Norepinephrine Bitartrate 4 mg 250 mls @ 7.5 mls/hr 08/03/20 14:15 / Dextrose/Water IV TITRATE MIKIE Protocol 2 MCG/MIN Lactated Ringer's 1,000 mls @ 100 mls/hr 08/03/20 14:45 08/03/20 14:41 Ringers, Lactated IV 100 mls/hr ASDIRECTED MIKIE Administration Sodium Chloride 10 ml 08/03/20 13:03 Sodium Chloride 0.9% 10 Ml Syringe FLUSH ASDIRECTED PRN Keep Vein Open Discontinued Medications Generic Name Dose Route Start Last Admin Trade Name Larryq PRN Reason Stop Dose Admin Lactated Ringer's 1,000 mls @ 999 mls/hr 08/03/20 13:06 08/03/20 13:24 Ringers, Lactated IV 08/03/20 14:06 999 mls/hr .BOLUS ONE Administration Norflurane Confirm 08/03/20 13:10 08/03/20 13:18 Norflurane/Hfc 245fa Medium Stream [place] 103.5 Ml Can Administered 08/03/20 13:11 1 applic Dose Administration 103.5 ml .ROUTE .STK-MED ONE Phenylephrine HCl 1 ml 08/03/20 12:54 08/03/20 13:17 Phenylephrine 0.5% Nasal [place] 15 Ml Bot NASRT 08/03/20 12:55 1 ml ONETIME ONE Administration - Radiology Interpretation Free Text/Narrative:: school bus monitor initially showed some mild to moderate sinus arrhythmia with heart rate in the 60s and occasionally in the mid to high 50s. No ectopy or other arrhythmia. Chest x-ray, portable, shows evidence of moderate COPD and pulmonary fibrotic changes with mild to moderate cardiomegaly and moderate prominence of the proximal aortic arch. Mild aortic valve calcification with no pneumothorax, or pulmonary infiltrates. Mild pulmonary hypertension versus borderline centralized CHF. Departure - Departure Time of Disposition: 16:55 Disposition: DC/Tfer to Acute Hospital 02 Condition: Fair Clinical Impression: Epistaxis, Renal insufficiency, IDDM (insulin dependent diabetes mellitus), Hypoalbuminemia, Bradycardia, Elevated LFTs, Parkinsons disease, Hypokalemia Hypotension Qualifiers: Hypotension type: unspecified hypotension type Qualified Code(s): I95.9 - Hypotension, unspecified COPD (chronic obstructive pulmonary disease) Qualifiers: COPD type: emphysema Emphysema type: panlobular Qualified Code(s): J43.1 - Panlobular emphysema Hypertension Qualifiers: Hypertension type: essential hypertension Qualified Code(s): I10 - Essential (primary) hypertension Coronary artery disease Qualifiers: Coronary Disease-Associated Artery/Lesion type: [place] artery [place] vs. transplanted heart: galena heart Associated angina: without angina Qualified Code(s): I25.10 - Atherosclerotic heart disease of [place] coronary artery without angina pectoris - Discharge Information *PRESCRIPTION DRUG MONITORING PROGRAM REVIEWED*: Not Applicable *COPY OF PRESCRIPTION DRUG MONITORING REPORT IN PATIENT [place]: Not Applicable Referrals: Olive Webb PA [Primary Care Provider] - Forms: ED Department Discharge, Interfacility Transfer EMTALA Sepsis Event Note (ED) - Focused Exam Vital Signs: Vital Signs Temp Temp Pulse Resp BP Pulse Ox 08/03/20 16:30 55 L 15 106/76 98 08/03/20 16:04 59 L 14 100/78 94 L 08/03/20 15:39 36.4 C 54 L 15 104/78 100 08/03/20 15:21 56 L 14 98/60 100 08/03/20 15:09 100/58 L 08/03/20 15:01 57 L 16 100 08/03/20 14:57 91 L 08/03/20 14:34 58 L 15 102/81 08/03/20 14:31 55 L 16 108/89 95 08/03/20 14:21 58 L 15 80/54 L 98 08/03/20 14:07 36.4 C 59 L 15 80/54 L 99 08/03/20 14:02 55 L 16 64/42 L 100 08/03/20 13:47 58 L 16 68/42 L 99 08/03/20 13:40 60 16 58/39 L 100 08/03/20 13:36 57 L 16 49/36 L 100 08/03/20 12:54 36.2 C 62 18 100/64 93 L 08/03/20 12:47 35.7 C L 61 18 76/49 L 99 - Problem List & Annotations (1) Hypotension SNOMED Code(s): 25852532 Code(s): I95.9 - HYPOTENSION, UNSPECIFIED Status: Acute Priority: High Current Visit: No Annotation/Comment:: Initial telephone consultation with the [facility] at 2:42 PM with subsequent telephone consultation at 2:[address] Chin, hospitalist, who does not feel that this patient can be appropriately treated in their facility. Subsequent telephone consultation at 2:59 PM with [facility] with no beds available in that facility. Additional telephone consultation at 3:01 PM with Nithin Beasley MD, ER physician at [facility], who does agree to accept patient for direct admission, with no further treatment recommendations given. He does agree to notify there hospitalist concerning this patient transfer. Note initial severe hypotension at time of arrival to this facility, which was not mentioned by the transferring nurses from the correction. Initial blood pressure of 76/49 with lowest blood pressure of 49/36 during the early phases of his emergency room care. IV access was extremely difficult initially with subsequent 1 L IV bolus of lactated Ringer's immediately started in the emergency room. The patient did slowly respond to this therapy with stable vital signs and clinical exam at time of transfer. Note that norepinephrine IV infusion was initially considered and ordered, however this was subsequently held secondary to patient's good response to IV fluids as above. Ambulance transfer with automotive service technician accompaniment to the [facility]. Lactated Ringer's will be continued at 100 cc/h during transfer. No evidence of significant blood loss from his epistaxis as above/below with epistaxis under excellent control with nasal packing, silver nitrate cauterization, and Joel- Synephrine as above. Accepting providers may wish to consider repeat CBC at time of patient's arrival to their facility, however. Recommend manual blood pressures with this patient in order to obtain accurate readings with automatic manometer readings often inaccurate during his emergency room care. Qualifiers: Hypotension type: unspecified hypotension type Qualified Code(s): I95.9 - Hypotension, unspecified (2) Epistaxis SNOMED Code(s): 754547960 Code(s): R04.0 - EPISTAXIS Status: Acute Priority: Medium Current Visit: Yes Onset Date: 08/03/20 Annotation/Comment:: Moderate right-sided epistaxis this morning as above with only minimal bleeding and moderate clot formation during our initial evaluation. Excellent results with nasal packing as above. The patient apparently does have a previous history of epistaxis, however not significantly recurrent in nature by his history. ENT consultation depending on his clinical course. Care should be given when removing Ultrafoam from the right naris secondary to the fragility of this product. (3) Coronary artery disease SNOMED Code(s): 46301715 Code(s): I25.10 - ATHSCL HEART DISEASE OF [place] CORONARY ARTERY W/O ANG PCTRS Status: Chronic Priority: Medium Current Visit: No Annotation/Comment:: No history of chest pain or anginal type symptoms with chest pain protocol not initiated in the emergency room. Note stable probable anterior wall cardiac ischemia by resting EKG as above. Troponin I is still normal with only minimally elevated BNP and no evidence of significant CHF either by clinical exam or today's chest x-ray. Close follow-up by accepting providers with cardiology consultations, further work-up, etc. depending on his clinical course. Qualifiers: Coronary Disease-Associated Artery/Lesion type: [place] artery [place] vs. transplanted heart: [place] heart Associated angina: without angina Qualified Code(s): I25.10 - Atherosclerotic heart disease of [place] coronary artery without angina pectoris (4) Elevated LFTs SNOMED Code(s): 329937875 Code(s): R79.89 - OTHER SPECIFIED ABNORMAL FINDINGS OF BLOOD CHEMISTRY Status: Chronic Priority: Medium Current Visit: No Annotation/Comment:: Likely secondary to dyslipidemia and chronic CHF. No abdominal complaints. (5) Parkinsons disease SNOMED Code(s): 95018293 Code(s): G20 - PARKINSON'S DISEASE Status: Acute Priority: Medium Current Visit: No Onset Date: ~03/08/20 Annotation/Comment:: Note long history of chronic essential resting tremor with some rigidity and cogwheeling by exam on 03/08/2020 and stable today. Suspect Parkinson's disease. Observe for now. Further medical therapy depending on his clinical course. (6) COPD (chronic obstructive pulmonary disease) SNOMED Code(s): 71359108 Code(s): J44.9 - CHRONIC OBSTRUCTIVE PULMONARY DISEASE, UNSPECIFIED Status: Chronic Priority: High Current Visit: No Annotation/Comment:: Normally does use O2 at 2 L/min by nasal cannula at bedtime. Note the patient did become somewhat hypoxic while taking a nap in the emergency room with O2 given via nasal cannula however orally secondary to his nasal packing as above. No recent fever or bronchitic type symptoms. Qualifiers: COPD type: emphysema Emphysema type: panlobular Qualified Code(s): J43.1 - Panlobular emphysema (7) Congestive heart failure SNOMED Code(s): 83156083 Code(s): I50.9 - HEART FAILURE, UNSPECIFIED Status: Chronic Priority: High Current Visit: No Annotation/Comment:: As above. Qualifiers: Heart failure type: unspecified Heart failure chronicity: acute on chronic Qualified Code(s): I50.9 - Heart failure, unspecified (8) Hypertension SNOMED Code(s): 69391455 Code(s): I10 - ESSENTIAL (PRIMARY) HYPERTENSION Status: Chronic Priority: Medium Current Visit: No Annotation/Comment:: Severe hypotension at time of patient's arrival as above. Patient did get his morning medications today. Consider medication adjustment by accepting providers. Qualifiers: Hypertension type: essential hypertension Qualified Code(s): I10 - Essential (primary) hypertension (9) IDDM (insulin dependent diabetes mellitus) SNOMED Code(s): 98744333 Code(s): KWZ6529 - Status: Chronic Priority: Medium Current Visit: No Annotation/Comment:: Stable by history. (10) Renal insufficiency SNOMED Code(s): 814006031, 812166089 Code(s): N28.9 - DISORDER OF KIDNEY AND URETER, UNSPECIFIED Status: Chronic Priority: High Current Visit: No Annotation/Comment:: Some progressive renal insufficiency today possibly secondary to hypotension. IV fluids given as above. Continue to observe closely by regular providers. (11) Hypokalemia SNOMED Code(s): 58347877 Code(s): E87.6 - HYPOKALEMIA Status: Chronic Priority: Medium Current Visit: Yes Annotation/Comment:: Patient has been refusing his potassium chloride supplements recently per nurses history. Note high normal potassium level today despite this medication noncompliance? No direct evidence of hemolysis despite difficult lab draw. Continue to observe closely by accepting providers. Consider changing to a liquid preparation, if potassium chloride is resumed. - Problem List Review Problem List Initiated/Reviewed/Updated: Yes - My Orders Last 24 Hours: My Active Orders 08/03/20 12:51 Obtain Past Medical Record [OM.PC] Routine 08/03/20 12:54 Cardiac Monitoring [RC] . DIRECTED 08/03/20 13:03 Sodium Chloride 0.9% [Saline Flush] 10 ml FLUSH ASDIRECTED PRN Peripheral IV Insertion Adult [OM.PC] Routine 08/03/20 13:05 EKG Documentation Completion [RC] ASDIRECTED Peripheral IV Care [RC] . DIRECTED Chest 1V Frontal [CR] Stat 08/03/20 14:15 Norepinephrine [Levophed] 4 mg Dextrose 5% in Water 246 ml IV TITRATE 08/03/20 14:45 Lactated Ringers [Ringers, Lactated] 1,000 ml IV ASDIRECTED - Assessment/Plan Last 24 Hours: My Active Orders 08/03/20 12:51 Obtain Past Medical Record [OM.PC] Routine 08/03/20 12:54 Cardiac Monitoring [RC] . DIRECTED 08/03/20 13:03 Sodium Chloride 0.9% [Saline Flush] 10 ml FLUSH ASDIRECTED PRN Peripheral IV Insertion Adult [OM.PC] Routine 08/03/20 13:05 EKG Documentation Completion [RC] ASDIRECTED Peripheral IV Care [RC] . DIRECTED Chest 1V Frontal [CR] Stat 08/03/20 14:15 Norepinephrine [Levophed] 4 mg Dextrose 5% in Water 246 ml IV TITRATE 08/03/20 14:45 Lactated Ringers [Ringers, Lactated] 1,000 ml IV ASDIRECTED Assessment:: As above Plan: As above. Extensive precautions were given to the patient, who is in agreement with the treatment plan. Ambulance transfer to the [facility] via ambulance with automotive service technician accompaniment as above.
[2020-08-03] MEDS ORDERED: Sodium Chloride 0.9% 10 ML Syringe FLUSH PRN (13:03)
[2020-08-03] MEDS: Phenylephrine 0.5% Nasal Spray 15 ML Bot NASRT ONE (13:17)
[2020-08-03] MEDS: Norflurane/HFc 245FA Medium Stream Spray 103.5 ML Can ONE (13:18)
[2020-08-03] MEDS: Lactated Ringers 1,000 ML IV ONE (13:24)
[2020-08-03 14:01] LABS: PTT,PARTIAL THROMBOPLSTIN TIME 25.2 SEC (24.5-32.8)
[2020-08-03] MEDS ORDERED: Norepinephrine 4 MG in Dextrose 5% in Water 246 ML IV SCH ×2 (14:15)
[2020-08-03] MEDS: Lactated Ringers 1,000 ML IV SCH (14:41)
== END 2020-08-03 16:55 ==
LOC: LL.ED 12:47
DX: R04.0 Epistaxis (principal); I25.10 Atherosclerotic heart disease of native coronary artery without angina pectoris; I10 Essential (primary) hypertension; J43.1 Panlobular emphysema; I95.9 Hypotension, unspecified; N28.9 Disorder of kidney and ureter, unspecified; E88.09 Other disorders of plasma-protein metabolism, not elsewhere classified; R00.1 Bradycardia, unspecified; G20 Parkinson's disease; E87.6 Hypokalemia; R79.89 Other specified abnormal findings of blood chemistry; I48.91 Unspecified atrial fibrillation; I13.0 Hypertensive heart and chronic kidney disease with heart failure and stage 1 through stage 4 chronic kidney disease, or unspecified chronic kidney disease; I50.9 Heart failure, unspecified; J44.9 Chronic obstructive pulmonary disease, unspecified; E11.21 Type 2 diabetes mellitus with diabetic nephropathy; E11.42 Type 2 diabetes mellitus with diabetic polyneuropathy; E11.22 Type 2 diabetes mellitus with diabetic chronic kidney disease; N18.9 Chronic kidney disease, unspecified; E03.9 Hypothyroidism, unspecified; E66.9 Obesity, unspecified; Z68.25 Body mass index [BMI] 25.0-25.9, adult; Z20.822 Contact with and (suspected) exposure to COVID-19; Z88.5 Allergy status to narcotic agent; Z88.2 Allergy status to sulfonamides; Z88.1 Allergy status to other antibiotic agents; Z79.01 Long term (current) use of anticoagulants; Z79.4 Long term (current) use of insulin; Z79.02 Long term (current) use of antithrombotics/antiplatelets; Z79.899 Other long term (current) drug therapy
CPT/HCPCS: 30901; 36415; 71045; 80053; 83605; 83735; 83880; 84484; 85025; 85610; 85730; 93005; 93010; 99285; 99285-25; A9270-GY; J7120; U0002

== ENCOUNTER 2021-05-05 15:10 | Emergency (ER) | payer OTHER, MEDICARE ==
[2021-05-05] MEDS ORDERED: Aspirin 81 MG Tab.Chew PO ONE (15:32)
[2021-05-05] MEDS ORDERED: Albuterol/Ipratropium 3.0-0.5 MG/3 ML Neb Soln NEB ONE (15:41)
[2021-05-05 16:39] LABS: ANION GAP 6.6 meq/L (7-15)
[2021-05-05] MEDS ORDERED: predniSONE 5 MG Tab PO STA (16:58)
[2021-05-05] MEDS ORDERED: Azithromycin 250 MG Tab PO ONE (16:58)
[2021-05-05 16:59] LABS: CORONAVIRUS COVID-19 NAA NEGATIVE (NEGATIVE); RESPIRATORY SYNCYTIAL VIR NAA NEGATIVE (NEGATIVE)
== END 2021-05-05 17:45 | disposition home or self-care (01) ==
LOC: LL.ED 15:10
DX: J44.1 Chronic obstructive pulmonary disease with (acute) exacerbation (principal); I48.91 Unspecified atrial fibrillation; I25.10 Atherosclerotic heart disease of native coronary artery without angina pectoris; E11.21 Type 2 diabetes mellitus with diabetic nephropathy; E11.22 Type 2 diabetes mellitus with diabetic chronic kidney disease; N18.30 Chronic kidney disease, stage 3 unspecified; D63.1 Anemia in chronic kidney disease; I48.0 Paroxysmal atrial fibrillation; Z79.82 Long term (current) use of aspirin; Z79.01 Long term (current) use of anticoagulants; Z79.899 Other long term (current) drug therapy; Z88.1 Allergy status to other antibiotic agents; Z88.5 Allergy status to narcotic agent; Z20.822 Contact with and (suspected) exposure to COVID-19
CPT/HCPCS: 0241U; 36415; 71046; 80053; 83605; 83880; 84484; 85025; 86140; 93005; 93010; 94640; 99284; 99285-25; A9270-GY; J7512; J7620-GY